=== PATIENT | male | born 1945 | race Caucasian/White ===

== ENCOUNTER 2020-03-06 14:16 | Emergency (ER) | payer MEDICARE, SELFPAY ==
[2020-03-06 14:18] VITALS: BP 125/77; PULSE 54; RESP 18; TEMP 36.5; O2SAT 95; BMI 32.6
[2020-03-06 14:25] VITALS: BP 126/73; PULSE 52; RESP 16; O2SAT 96
--- NOTE | 2020-03-06 14:27 | USCV_ITS ---
Moustapha Nunes Age: 74 Gender: M : 1945 Exam Date: 03/06/2020 14:37 Ordering Phys: July Kirkland Technologist: Ave Guerra Exam Location: [facility]_ Indication: CALF PAIN HISTORY: Lower extremity swelling. Lower extremity pain. PROCEDURES: Venous duplex imaging was performed in only the left lower extremity. The following venous structures were evaluated: common femoral vein, profunda vein, proximal portion of the greater saphenous vein, superficial femoral vein, and the popliteal vein. In addition, the posterior tibial veins were evaluated. In addition, the posterior tibial and peroneal trunk were evaluated. FINDINGS: DUP SYSTEM SEEN. + DVT SEEN FROM LEFT SFV 1 PROX TO SFV 1 DIST, POPV, PTV, AND PERN V. GAVE PRELIM TO JULY AUSTIN IN ER. CONCLUSIONS DVT in the LEFT femoral vein, popliteal, posterior tibial and peroneal veins. Duplicated femoral venous system. PRELIM TO JULY AUSTIN IN ER AT TIME OF EXAM Antwan Richardson MD (Electronically Signed) Final Date: 06 March 2020 17:05 S
--- NOTE | 2020-03-06 14:28 | W.ED.EXTPRO ---
HPI - Extremity Problem General: Chief complaint: Extremity Problem,Nontraumatic Stated complaint: SENT FROM FOR SCAN FOR POSS DVT Time Seen by Provider: 03/06/20 14:21 Source: patient Mode of arrival: ambulatory Limitations: no limitations History of Present Illness: HPI Narrative: Patient is a nice 74-year-old gentleman who presents to ED today after being evaluated at urgent care and sent here for further evaluation regarding his left lower extremity redness, swelling, and pain. Patient tells me approximately 4 to 5 days ago he began noticing pain in his left calf that felt like a pulled muscle. He states since then he has noticed extremity swelling and becoming warm to the touch. Patient has no previous history of DVT. He has no recent surgery or recent travel history. He admittedly is not very active. He denies chest pain or difficulty breathing. Patient is not on anticoagulation at this time. Radiation: none Exacerbating factors: weight bearing, walking and palpation Associated symptoms: Reports no associated symptoms; Deny chest pain or fever(s) Review of Systems Const: Denies: fever(s), chills, body aches, fatigue or malaise Card: Denies: chest pain, palpitations, irregular heart rhythm, edema, lightheadedness, syncope, pre-syncope, dyspnea on exertion or orthopnea Resp: Denies: dyspnea, productive cough, hemoptysis or chest congestion Musc: Reports: extremity pain and extremity swelling Neuro: Denies: numbness in extremities, weakness in extremities, sensory changes or difficulty walking [facility] ED PFSH: Social History (Updated 03/06/20 @ 13:42 by MARY Tabares) Smoking and tobacco status: never smoked Alcohol intake: current Physical Exam Const: COMMON NORMALS: no acute distress, patient oriented x3, no limitations and alert GENERAL APPEARANCE: cooperative Resp: COMMON NORMALS: normal respiratory effort and clear to auscultation bilaterally AUSCULTATION: clear to auscultation bilaterally Cardio: COMMON NORMALS: regular rate and regular rhythm RATE: regular rate RHYTHM: regular rhythm Extremity: OTHER: pt with swelling to L LE when compared to R; leg is slightly erythematous and warm to the touch; positive Brian's Neuro: COMMON NORMALS: patient oriented x3 SENSORIUM/ORIENTATION: Yes alert Course Vital Signs: Vital signs: Vital Signs Temperature 97.7 F 03/06/20 14:18 Pulse Rate 52 L 03/06/20 14:25 Respiratory Rate 16 03/06/20 14:25 Blood Pressure 126/73 03/06/20 14:25 Pulse Oximetry 96 03/06/20 14:25 MDM - Extremity (Nontraumatic) MDM Narrative: Medical decision making narrative: Patient vital signs are stable. He does not complain of chest pain or shortness of breath at this time. Ultrasound showing extensive left lower extremity DVT. He will be placed on Eliquis. He agrees to follow-up with PCP in 2 to 3 weeks for reevaluation. He was made aware of signs/symptoms that would warrant a return to ED evaluation. Imaging Data^: US venous L LE: My impression: per US tech-DVT present from femoral vein all the way down extremity; arterial flow normal Discharge Plan Discharge Patient Disposition: Home Clinical Impression: Acute deep vein thrombosis of left lower extremity Qualifiers: Affected thrombotic vein of extremity: unspecified vein of extremity Qualified Code(s): I82.402 - Acute embolism and thrombosis of unspecified deep veins of left lower extremity Condition: Stable Prescriptions: New Eliquis DVT-PE Treat 30D Start 5 mg (74 tabs) tablets,dose pack See Rx Instructions .ROUTE .COMPLEX Qty: 74 RF: 0 No Action atorvastatin [Lipitor] 10 mg tablet 10 mg PO DAILY RF: 0 clopidogrel 75 mg tablet 75 mg PO DAILY RF: 0 metoprolol succinate 25 mg tablet extended release 24 hr 12.5 mg PO DAILY RF: 0 enalapril maleate 2.5 mg tablet 2.5 mg PO DAILY RF: 0 aspirin 81 mg tablet,delayed release (DR/EC) 81 mg PO DAILY RF: 0 Discharge Orders: Discharge ED (Routine); Ordered 03/06/20 Ordered By: July Kirkland Patient Instructions: Deep Venous Thrombosis (ED) Activity Restrictions/Additional Instructions: As discussed please fill and start your medication immediately. You need to return to the emergency department immediately for chest pain, shortness of breath, difficulty breathing, passing out episodes, coughing up blood, worsening leg pain/swelling, or any other concerns you may have. Please follow-up with primary care in 2 to 3 weeks for reevaluation and repeat ultrasound imaging. Coding Level of Care Code ED Route Sales Driver for Chg Fwd Exam Expanded Problem Focused
--- NOTE | 2020-03-06 15:03 | PC.NURSE ---
Read and agree with assessment
--- NOTE | 2020-03-07 13:34 | DCPLANNER ---
cost accounting manager had message to speak with patient about getting established with a primary care physician. cost accounting manager spoke with patient and he stated that he was going to get established with a primary care at [facility].
== END 2020-03-06 15:23 | disposition home or self-care (01) ==
PROVIDERS: Emergency Provider Physician Assistant
DX: I82.402 Acute embolism and thrombosis of unspecified deep veins of left lower extremity (principal); Z79.02 Long term (current) use of antithrombotics/antiplatelets; Z79.82 Long term (current) use of aspirin
CPT/HCPCS: 12345; 93971; 99281; 99282

== ENCOUNTER → 2020-03-16 10:54 | Outpatient (BNVA) | payer MEDICARE, SELFPAY | PROVIDERS: Visit Provider Family Medicine | DX: I10 Essential (primary) hypertension (principal); Z13.6 Encounter for screening for cardiovascular disorders; K21.9 Gastro-esophageal reflux disease without esophagitis | CPT/HCPCS: 80053 ==

== ENCOUNTER 2020-06-12 11:14 | Outpatient (CLI) | payer MEDICARE, SELFPAY ==
--- NOTE | 2020-06-12 11:30 | FL_ITS ---
WS: [id number] MODIFIED BARIUM SWALLOW TECHNIQUE: Modified barium swallow with speech therapy using multiple consistencies. FLUOROSCOPY TIME: 3.2 minutes. CLINICAL INFORMATION: Dysphagia COMPARISON: None. FINDINGS: Multiple consistencies utilized. Penetration with thin liquids. Early spillage with pooling in the va llecula. No jony aspiration. Delayed transit of the barium tablet in the upper thoracic esophagus wi th esophageal spasm or stricture. Recommend further evaluation with esophagram and/or endoscopy. FL/FL barium swallow modifd 40752 IMPRESSION: 1. Delayed transit of the barium tablet in the upper thoracic esophagus with e sophageal spasm or stricture. Recommend further evaluation with esophagram and/ or endoscopy. 2. Penetration with thin liquids. 3. No jony aspiration. 4. Early spillage with pooling in the vallecula.
== END 2020-06-12 11:15 | disposition home or self-care (01) ==
LOC: RAD 11:20
PROVIDERS: PCP Family Medicine; Visit Provider Family Medicine
DX: R13.10 Dysphagia, unspecified (principal)
CPT/HCPCS: 74230; 92611

== ENCOUNTER → 2020-06-27 09:00 | Outpatient (BNVA) | payer MEDICARE, SELFPAY | PROVIDERS: PCP Family Medicine; Visit Provider Surgery | DX: R13.10 Dysphagia, unspecified (principal); Z20.822 Contact with and (suspected) exposure to COVID-19 | CPT/HCPCS: 87635 ==

== ENCOUNTER 2020-07-02 06:48 | Day surgery (SDC) | payer MEDICARE, SELFPAY ==
[2020-06-29 15:11] VITALS: BMI 30.4
--- NOTE | 2020-07-02 06:57 | ANES.PREANE2 ---
Pre-Anesthetic Assessment Pre-Anesthetic Assessment: Height/Weight: Height 1.73 m Weight 90.718 kg Preop Diagnosis: dysphagia Proposed Procedure: Operation Date: 07/02/20 08:00 Proposed Procedures p EGD 73308 r13.10(Not Applicable) - Dat Dennison MD Familial anesthetic complications: None Was Beta Oscar taken within 24 hours: Yes Was Clonidine taken within 24 hours: N/A Last intake: thursday last time of eliquis (DVT), aspirin, and plavix ([place] in 1993) NPO > 8 hrs Social: Social History: No alcohol and No tobacco Exam: Pre-Anes Outpt Exam: alert, oriented x 3, clear to auscultation bilaterally and regular rate & rhythm Airway: Cervical ROM: WNL MP: 2 Dentition: Partials CV/HEM: CV/HEM: HTN and UT Comments: METS > 4 GI: GI: GERD Metabolic: Metabolic: Thyroid Anesthetic Plan: Anesthesia: MAC Risk of > 500 ml blood loss (7ml/kg in children): No PFSH Anesthesia PFSH: Medical History CHF (congestive heart failure) Colon cancer DVT (deep venous thrombosis) Essential hypertension Hyperlipidemia Hypothyroid Old UT (myocardial infarction) Surgical History History of appendectomy History of colon resection 2014 History of colonoscopy 2019 Hx of CABG Family History Other CAD (coronary artery disease) Social History Smoking and tobacco status: never smoked Alcohol intake: current Alcohol intake frequency: few times a week Alcohol type: beer Data Anesthesia Cardiac Studies: No Data to Display
--- NOTE | 2020-07-02 07:12 | W.PM.OPSUD ---
Surgery/Procedure H&P Update DATE OF PROCEDURE: July 02, 2020 DATE H&P PERFORMED: 06/25/20 H&P UPDATE INFORMATION: I have reviewed H&P completed within last 30 days, I have examined patient prior to procedure and No changes to prior documentation PREOP DIAGNOSIS: upper gi symptoms PLANNED PROCEDURE: Operation Date: 07/02/20 08:00 Proposed Procedures p EGD 86452 r13.10(Not Applicable) - Dat Dennison MD
[2020-07-02 07:19] VITALS: BP 117/72; PULSE 57; RESP 18; TEMP 36.5; O2SAT 95
[2020-07-02] MEDS: sodium chloride 0.9% 1,000 ML 30 ML IV (07:29)
[2020-07-02 08:20] VITALS: BP 120/80; PULSE 56; RESP 16; TEMP 36.1; O2SAT 97
[2020-07-02 08:35] VITALS: BP 109/67; PULSE 60; RESP 16; TEMP 36.5; O2SAT 98
--- NOTE | 2020-07-02 15:41 | ANE.PACU2 ---
Inpatient post-anesthesia follow up: Airway intact: Yes Vital signs: Temperature 97.7 F Pulse Rate 60 Respiratory Rate 16 Blood Pressure 109/67 Pulse Oximetry 98 Oxygen Delivery Me thod Room Air Oxygen Flow Rate 3 Fraction of Inspir ed Oxygen Hydration adequate: Yes Nausea and vomiting: No Pain level: 1 Mental status: Baseline
[2020-07-09 07:17] LABS: Miscellaneous Test See Scanned Lab Rpt
== END 2020-07-02 09:10 | disposition home or self-care (01) ==
PROVIDERS: PCP Family Medicine; Visit Provider Surgery
PROC: 0DJ08ZZ Inspection of Upper Intestinal Tract, Via Natural or Artificial Opening Endoscopic (ICD-10-PCS; CPT 43235; principal; 2020-07-02 08:00)
DX: R13.10 Dysphagia, unspecified (principal); K44.9 Diaphragmatic hernia without obstruction or gangrene; K22.2 Esophageal obstruction; K21.9 Gastro-esophageal reflux disease without esophagitis; Z79.82 Long term (current) use of aspirin; I11.0 Hypertensive heart disease with heart failure; I50.9 Heart failure, unspecified; Z86.718 Personal history of other venous thrombosis and embolism; Z85.038 Personal history of other malignant neoplasm of large intestine; E78.5 Hyperlipidemia, unspecified; E03.9 Hypothyroidism, unspecified; I25.2 Old myocardial infarction; Z90.49 Acquired absence of other specified parts of digestive tract
CPT/HCPCS: 43239; 43249; 88305; 88361; 88374; 96360; J2704; J7030

== ENCOUNTER 2020-07-24 12:57 | Outpatient (CLI) | payer MEDICARE, SELFPAY ==
--- NOTE | 2020-07-24 16:33 | ONC FU_ITS ---
Dr. Sorto follow up note Patient: Moustapha Nunes Unit #: [id number]: 1945 Dicatated By: Serafin Sorto M.D.Date of Visit:Jul 24, 2020 Onc Med Follow-up/Prog Note History of Present Illness: Mr. Moustapha Nunes, is a 72-year-old gentleman with prolonged history of esophageal reflux disease, as per patient initially [id number] medication would help then patient started taking daily omeprazole which helped him significantly, for the last few months prior to diagnosis, patient started having progressive dysphagia and he has lost about 30 pounds over 6 months partly due to change in diet as his is on long-term TPN for enterocutaneous fistula and also due to progressive dysphagia. Patient denies any hematemesis or hemoptysis, denies any jaundice, denies any chest pain, denies any nausea or vomiting, denies any fever chills, patient was referred to GI for evaluation and on July 02, 2020 he underwent EGD which confirmed, at 20 cm there was a benign appearing esophageal stricture which was dilated with a balloon, from - 6 cm, there was mucosal abnormality and there was a concern regarding esophageal mass, biopsy was obtained which confirmed moderately differentiated invasive adenocarcinoma, HER-2/cortez negative. 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 Medications: Aspirin 81 1 Tablet (of 81 mg) Tablet, enteric coated Oral daily, Atorvastatin Calcium 2 Tablet (of 40 mg) Oral daily, Cholecalciferol 1 Tablet (of 1.25 mg ) Oral daily, Clopidogrel Bisulfate 1 Tablet (of 75 mg) Oral daily, Enalapril Maleate 2 Tablet (of 5 mg) Oral daily, Isosorbide Mononitrate ER 1 Tablet (of 60 mg) Tablet SR 24 HR Oral daily, Levothyroxine Sodium 1 Tablet (of 175 mcg) Oral daily, Metoprolol Succinate ER 1 Tablet (of 50 mg) Tablet SR 24 HR Oral daily, Omeprazole 1 Capsule (of 20 mg) Capsule Delayed Release Oral daily Allergies: No Known Allergies. Review of Systems: Review of Systems is not available for this patient. Vital Signs: Performed on Jul 24, 2020 14:04 Height - 68 in Weight - 202.6 lbs (HIGH) BSA - 2.06 sq.m BMI - 30.81 (HIGH) Temperature - 97.8 F (LOW) Pulse - 54 /min (LOW) Respiration - 18 /min BP - 119/68 mm(hg) O2 Sat - 97 % Pain - 4 Fatigue - 0 Performance Status: 0 - Fully active, able to carry on all predisease activities without restrictions. (ECOG) Physical Examination: ENMT - No mouth sores no thrush, no jaundice, Respiratory - Lungs are clear to auscultation, Cardiovascular - Regular rate and rhythm of heart, Abdomen - Soft, bowel sounds present, Extremities - No visible edema. Lab/Imaging: Most recent lab results are not available for this patient. 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 Dysphagia/weight loss due to above Coronary artery disease/congestive heart failure/status post triple bypass in 1993 History of left leg DVT treated with Eliquis until recently Hypertension, Hypothyroidism History of colon cancer status post colon resection in 2014 Plan: Discussed with patient regarding his esophageal biopsy report which confirmed moderately differentiated adenocarcinoma, patient had CT scan of chest done in [place], will obtain report and review As far as treatment is concerned, it is a multi modality approach unless early stage, in that case, surgical option may be sufficient but considering his weight loss and progressive dysphagia, patient may have T2 or T3 lesion plus minus lymph node involvement, so , we will proceed with staging work-up which include endoscopic esophageal ultrasound and CT PET scan And surgical evaluation for J-tube placement. Endoscopic esophageal ultrasound services not available locally so we will refer him to [place] or [place], patient prefer to go to [place] as his go there for her enterocutaneous fistula management So we will refer him to GI surgical oncology at [facility] in [place] for surgical evaluation and for endoscopic esophageal ultrasound and J-tube placement. If patient has locally advanced disease then he may need combined chemoradiation as neoadjuvant therapy, for patient's convenience that will be done here in [place]. Patient to return to clinic 1 week after his evaluation at [place] in [place] with CBC CMP. Signed By: Serafin Sorto M.D. <<Signature on File>>
== END 2020-07-24 12:58 | disposition home or self-care (01) ==
LOC: ONCMED 12:59
PROVIDERS: PCP Family Medicine; Visit Provider Internal Medicine Hematology & Oncology
DX: C15.5 Malignant neoplasm of lower third of esophagus (principal); R13.10 Dysphagia, unspecified; R63.4 Abnormal weight loss; I25.10 Atherosclerotic heart disease of native coronary artery without angina pectoris; I50.9 Heart failure, unspecified; I10 Essential (primary) hypertension; E03.9 Hypothyroidism, unspecified; Z79.01 Long term (current) use of anticoagulants; Z79.899 Other long term (current) drug therapy; Z85.038 Personal history of other malignant neoplasm of large intestine; Z86.718 Personal history of other venous thrombosis and embolism; Z90.49 Acquired absence of other specified parts of digestive tract; Z95.1 Presence of aortocoronary bypass graft
CPT/HCPCS: 99205

== ENCOUNTER 2020-08-07 13:03 | Outpatient (CLI) | payer MEDICARE, SELFPAY ==
[2020-08-07 13:48] LABS: Basophils % 0.6 %; Eosinophils # 0.2 10^3/uL (0.0-0.8); Eosinophils % 2.3 %; Hematocrit 46.8 % (42.0-52.0); Hemoglobin 15.9 g/dL (11.7-16.6); Lymphocytes # 1.1 10^3/uL (0.8-4.8); Lymphocytes % 15.5 %; Mean Corpuscular Hemoglobin 31.5 pg (28.0-34.0); Mean Corpuscular Volume 92.9 fL (80-94); Mean Platelet Volume 10.7 fL (7.4-10.4); Monocytes # 0.5 10^3/uL (0.2-0.9); Monocytes % 6.7 %; Neutrophils # 5.21 10^3/uL (1.8-7.7); Neutrophils % 74.6 %; Nucleated Red Blood Cells % 0 %; Platelet Count 209 10^3/cmm (130-400); Red Blood Count 5.04 10^6/uL (4.1-5.3); Red Cell Distribution Width 12.3 % (12.1-15.1)
[2020-08-07 14:41] LABS: Alanine Aminotransferase 18 U/L (0-41); Albumin Level 4.5 g/dL (3.5-5.2); Alkaline Phosphatase 86 IU/L (40-130); Anion Gap 17.2 (5-19); Aspartate Amino Transferase 16 U/L (0-40); Blood Urea Nitrogen 22 mg/dL (8-23); Calcium 9.9 mg/dL (8.5-10.5); Carbon Dioxide 22 mmol/L (22-29); Chloride 100 mmol/L (98-107); Glucose 117 mg/dL (65-115); Osmolality Calculated 284 mOsm/kg (285-295); Potassium 4.2 mmol/L (3.5-5.1); Sodium 135 mmol/L (136-145); Total Bilirubin 0.5 mg/dL (0.15-1.2); Total Protein 6.5 g/dL (6.6-8.7)
== END 2020-08-07 13:04 | disposition home or self-care (01) ==
PROVIDERS: PCP Family Medicine; Visit Provider Internal Medicine Hematology & Oncology
DX: C15.5 Malignant neoplasm of lower third of esophagus (principal)
CPT/HCPCS: 80053; 85025

== ENCOUNTER 2020-08-08 06:00 | Outpatient (CLI) | payer MEDICARE, SELFPAY ==
--- NOTE | 2020-08-08 11:34 | ONC FU_ITS ---
Dr. Sorto follow up note Patient: Moustapha Nunes Unit #: [id number]: 1945 Dicatated By: Serafin Sorto M.D.Date of Visit:Aug 08, 2020 Onc Med Follow-up/Prog Note History of Present Illness: Mr. Moustapha Nunes, is a 75-year-old gentleman with prolonged history of esophageal reflux disease, as per patient initially vguq-yso-qnrkcfu medication would help then patient started taking daily omeprazole which helped him significantly, for the last few months prior to diagnosis, patient started having progressive dysphagia and he has lost about 30 pounds over 6 months partly due to change in diet as his is on long-term TPN for enterocutaneous fistula and also due to progressive dysphagia. 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 Multiple pulmonary nodules, appears stable when compared with CT scan done in March 2015, subsequently patient underwent CT PET scan on August 06, 2020 which showed hypermetabolic long segment soft tissue thickening extending from proximal to the mid thoracic esophagus with a possible proximal extra esophageal extension/suspicious for adjacent lymphadenopathy. A separate focus of FDG activity in the distal esophagus is indeterminate. FDG avid right inguinal lymph node most likely reactive. No other abnormality seen. Patient was evaluated by Dr. Blanton, EUS and J-tube was not considered as patient has mild to moderate dysphagia, as per discussion with Ms. Langford, nursing practitioner with Dr. Blanton, combined chemoradiation therapy and neoadjuvant fashion was recommended followed by evaluation with CT PET scan at [facility] and for possible esophagectomy. Patient denies any smoking or alcohol use Patient has history of DVT left lower leg for which he was treated with Eliquis which he took for couple of months and quit recently Patient has history of triple bypass, was done in 1993. Came for follow-up, denies any specific complaint except off and on dysphagia, recently had a problem with potato, which took a long time to swallow. Otherwise no hemoptysis or hematemesis, no nausea or vomiting, no diarrhea or constipation, no new bony pains, no jaundice, patient is very pleased with evaluation at [facility] and now ready to proceed with neoadjuvant therapy with combined chemoradiation, Medications: Aspirin 81 1 Tablet (of 81 mg) Tablet, enteric coated Oral daily, Atorvastatin Calcium 2 Tablet (of 40 mg) Oral daily, Cholecalciferol 1 Tablet (of 1.25 mg ) Oral daily, Clopidogrel Bisulfate 1 Tablet (of 75 mg) Oral daily, Enalapril Maleate 2 Tablet (of 5 mg) Oral daily, Isosorbide Mononitrate ER 1 Tablet (of 60 mg) Tablet SR 24 HR Oral daily, Levothyroxine Sodium 1 Tablet (of 175 mcg) Oral daily, Metoprolol Succinate ER 1 Tablet (of 50 mg) Tablet SR 24 HR Oral daily, Omeprazole 1 Capsule (of 20 mg) Capsule Delayed Release Oral daily Allergies: No Known Allergies. Review of Systems: Review of Systems is not available for this patient. Vital Signs: Performed on Aug 08, 2020 09:52 Height - 68.00 in Weight - 194.2 lbs (LOW) BSA - 2.02 sq.m BMI - 29.53 Temperature - 97.7 F (LOW) Pulse - 56 /min (LOW) Respiration - 18 /min BP - 101/63 mm(hg) O2 Sat - 97 % Pain - 4 Fatigue - 4 Performance Status: 0 - Fully active, able to carry on all predisease activities without restrictions. (ECOG) Physical Examination: ENMT - No mouth sores, no thrush, no jaundice no cervical lymphadenopathy, Respiratory - Lungs are clear to auscultation, Cardiovascular - Regular rate and rhythm of heart, Abdomen - Soft, bowel sounds present, Extremities - No visible edema. Lab/Imaging: Most recent lab results are not available for this patient. 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 CT PET scan done on August 06, 2020 at [facility] showed hypermetabolic lung segment soft tissue thickening extending from proximal to the mid thoracic esophagus with possible proximal x-ray esophageal extension/suspicious for adjacent lymphadenopathy, consistent with patient's biopsy-proven esophageal adenocarcinoma. A separate focus of FDG activity in the distal esophagus is indeterminate. FDG avid right inguinal lymph nodes, probably reactive no FDG PET evidence of distant mets Dysphagia/weight loss due to above Coronary artery disease/congestive heart failure/status post triple bypass in 1993 History of left leg DVT treated with Eliquis until recently Hypertension, Hypothyroidism History of colon cancer status post colon resection in 2014 Plan: Discussed with patient regarding his labs white blood count 7 hemoglobin 15.9 hematocrit 46.8 platelets 209,000 CMP within normal limits Clinically, patient is doing reasonably well with mild to moderate dysphagia due to recently diagnosed adenocarcinoma of esophagus, CT PET scan showed no evidence of distant mets, patient was evaluated at [facility], EUS and J-tube was considered but as per cardiothoracic evaluation and patient's preference, EUS and J-tube was not considered as patient is tolerating orally reasonably well. At this point, neoadjuvant therapy with combined chemoradiation with weekly carboplatin/Taxol well recommended followed by CT PET scan and evaluation at [facility] for possible esophagectomy. All the side effect possible benefits associated with weekly carboplatin/Taxol including but not limited to, nausea vomiting, hair loss, peripheral numbness/neuropathy, allergic reaction especially with Taxol,, bone marrow suppression was discussed, further teaching will be done by chemotherapy nurse in the meantime we will obtain Port-A-Cath placement request Dr. Dennison and refer him to radiation oncology. Patient return to clinic 1 week after chemoradiation initiated with CBC CMP Signed By: Serafin Sorto M.D. <<Signature on File>>
== END 2020-08-08 06:01 | disposition home or self-care (01) ==
LOC: ONCMED 06:02
PROVIDERS: PCP Family Medicine; Visit Provider Internal Medicine Hematology & Oncology
DX: C15.5 Malignant neoplasm of lower third of esophagus (principal); C77.8 Secondary and unspecified malignant neoplasm of lymph nodes of multiple regions; R13.10 Dysphagia, unspecified; R63.4 Abnormal weight loss; I25.10 Atherosclerotic heart disease of native coronary artery without angina pectoris; I50.9 Heart failure, unspecified; I10 Essential (primary) hypertension; E03.9 Hypothyroidism, unspecified; Z79.01 Long term (current) use of anticoagulants; Z79.899 Other long term (current) drug therapy; Z85.038 Personal history of other malignant neoplasm of large intestine; Z86.718 Personal history of other venous thrombosis and embolism; Z92.21 Personal history of antineoplastic chemotherapy; Z95.5 Presence of coronary angioplasty implant and graft
CPT/HCPCS: 99214

== ENCOUNTER → 2020-08-10 13:41 | Outpatient (BNVA) | payer MEDICARE, SELFPAY | PROVIDERS: PCP Family Medicine; Visit Provider Surgery | DX: Z01.812 Encounter for preprocedural laboratory examination (principal); Z20.822 Contact with and (suspected) exposure to COVID-19 | CPT/HCPCS: 87635 ==

== ENCOUNTER 2020-08-15 05:43 | Day surgery (SDC) | payer MEDICARE, SELFPAY ==
[2020-08-14 15:52] VITALS: BMI 29.0
[2020-08-15] VITALS (8 sets, daily range): BP systolic 91–122; BP diastolic 59–73; PULSE 42–56; RESP 16–18; TEMP 36.1–36.6; O2SAT 92–96
--- NOTE | 2020-08-15 | SCC_ITS ---
Procedure Done: Placement of PowerPort in the right internal jugular vein Fluoroscopic guidance and interpretation for placement of catheter Ultrasound guidance to access the right internal jugular vein 50.0 seconds of fluoroscopic guidance, for a cumulative dose of 6.61 mGy, was provided to Dr. Dennison by the radiology department. C-arm images of the chest were saved for the patient's permanent record. [facility]
[2020-08-15] MEDS: sodium chloride 0.9% 1,000 ML 30 ML IV (06:30)
--- NOTE | 2020-08-15 06:31 | ANES.PREANE2 ---
Pre-Anesthetic Assessment Pre-Anesthetic Assessment: Height/Weight: Height 1.73 m Weight 86.636 kg Temp Pulse Resp BP Pulse Ox 97.1 F L 56 L 18 122/73 96 08/15/20 06:07 08/15/20 06:07 08/15/20 06:07 08/15/20 06:07 08/15/20 06:07 Preop Diagnosis: Esophageal cancer Proposed Procedure: Operation Date: 08/15/20 07:00 Proposed Procedures p Portacath Placement 26214 c15.9(Not Applicable) - Dat Dennison MD Familial anesthetic complications: none Was Beta Oscar taken within 24 hours: Yes Was Clonidine taken within 24 hours: N/A Last intake: Intake Last Liquid Date 08/14/20 Last Liquid Time 17:00 Last Solid Date 08/14/20 Last Solid Time 17:00 Social: Social History: No alcohol and No tobacco Exam: Pre-Anes Outpt Exam: alert, oriented x 3, clear to auscultation bilaterally and regular rate & rhythm Airway: Cervical ROM: WNL MP: 2 Dentition: False CV/HEM: CV/HEM: HTN and [place] (1993) Comments: able to achieve > 4 METS GI: GI: GERD Comments: esophageal cancer Metabolic: Metabolic: Thyroid Anesthetic Plan: ASA status: 4 Anesthesia: MAC Risk of > 500 ml blood loss (7ml/kg in children): No PFSH Anesthesia PFSH: Medical History CHF (congestive heart failure) Colon cancer DVT (deep venous thrombosis) Esophageal adenocarcinoma Essential hypertension Hyperlipidemia Hypothyroid Old AL (myocardial infarction) Surgical History H/O esophagogastroduodenoscopy (07/02/20) With dilation History of appendectomy History of colon resection 2014 History of colonoscopy 2019 Hx of CABG Family History Other CAD (coronary artery disease) Social History Smoking and tobacco status: never smoked Alcohol intake: current Alcohol intake frequency: few times a week Alcohol type: beer Data Anesthesia Cardiac Studies: No Data to Display
--- NOTE | 2020-08-15 06:50 | W.PM.OPSUD ---
Surgery/Procedure H&P Update DATE OF PROCEDURE: August 15, 2020 DATE H&P PERFORMED: 08/14/20 H&P UPDATE INFORMATION: I have reviewed H&P completed within last 30 days, I have examined patient prior to procedure and No changes to prior documentation PREOP DIAGNOSIS: Esophageal cancer PLANNED PROCEDURE: Operation Date: 08/15/20 07:00 Proposed Procedures p Portacath Placement 37800 c15.9(Not Applicable) - Dat Dennison MD
--- NOTE | 2020-08-15 07:04 | SC_ITS ---
WS: [id number] Right port insertion, C-arm fluoroscopy, 08/15/2020 Clinical Data: port Comparison: None. Findings: The right-sided port has been inserted into the superior vena cava via the right internal jugular jennifer boone. SC/C-arm FL for CVA 59011 Impression: Right port insertion.
[2020-08-15] MEDS: lidocaine 1% INJ 20 mL INJECTION (07:18)
[2020-08-15] MEDS: heparin, porcine 1,000 unit/mL INJ 10 mL 6000 UNIT INJECTION (07:18)
--- NOTE | 2020-08-15 07:43 | XR_ITS ---
WS: [id number] Portable AP upright chest, 08/15/2020 Clinical Data: post port placement Comparison: C-arm fluoroscopy, port placement, 08/15/2020 Findings: The right port enters the right internal jugular vein and ends in the superior vena cava. N o pneumothorax seen. XR/XR chest 1V portable [id number] Impression: Satisfactory placement of a right port.
--- NOTE | 2020-08-15 07:44 | SUR.PHASEI ---
PT AWAKE ALERT SITTING UPRIGHT , TALKATIVE XRAY HERE, VSS.
--- NOTE | 2020-08-15 15:46 | ANE.PACU2 ---
Inpatient post-anesthesia follow up: Airway intact: Yes Vital signs: Temperature 97 F Pulse Rate 47 Respiratory Rate 18 Blood Pressure 93/59 Pulse Oximetry 94 Oxygen Delivery Me thod Room Air Oxygen Flow Rate Fraction of Inspir ed Oxygen Hydration adequate: Yes Nausea and vomiting: No Pain level: 2 Mental status: Baseline
--- NOTE | 2020-08-15 16:30 | PM.OP ---
Operative Report Date of procedure: August 15, 2020 Pre-op Diagnosis: Esophageal cancer requiring central venous access for chemotherapy Post-op Diagnosis: 3 unsuccessful attempts at accessing the left subclavian vein Procedure Done: Placement of PowerPort in the right internal jugular vein Fluoroscopic guidance and interpretation for placement of catheter Ultrasound guidance to access the right internal jugular vein Pathology: none sent Surgeon: Dat Dennison Anesthesia: MAC Condition: stable Disposition: PACU Procedure: The patient was taken to the Operating Room and the chest and neck bilaterally were prepped and draped in a sterile manner after the antibiotic had been administered and shoulder rolls had been placed. 3 attempts were made to to access the left subclavian vein which were unsuccessful. A total of 10 mL of 1% lidocaine with 0.5% Marcaine was infiltrated at the side at the site of the planned entry into the right internal jugular vein. An ultrasound of the right internal jugular vein revealed patent flow, no thrombus. An introducer needle was then used to access the internal jugular vein under the clavicle and after withdrawing blood syringe was removed and a guidewire passed under fluoroscopy into the superior vena cava. The site of the planned port was then marked on the chest and a 15 blade was used to make a 3 cm skin incision this was extended into the subcutaneous tissue using electrocautery and a subcutaneous pocket over the pectoralis fascia was created 2-0 Vicryl suture was used to suture the port to the pectoral fascia in the pocket on 3 sides. The catheter, after having been flushed with hep saline, was attached to the tunneler and a tunnel created between the port site and the internal jugular vein entry site. Under fluoroscopy the dilator sheath was passed over the guidewire into the proximal superior vena cava. The inner dilator was removed and the sheath left behind and the catheter was introduced through the peel-away sheath with the tip in the superior vena cava. The peel-away sheath was removed. The proximal end of the catheter was cut to the right size and was attached to the port. Using a Merritt needle the port was accessed, it withdrew blood easily and flushed easily. A final 5cc of heparin was used to flush the PowerPort. The subcutaneous tissue was approximated using interrupted 3-0 Vicryl sutures and the skin at the introducer site and the port site was closed using subcuticular running 4-0 Monocryl sutures. Surgical glue was applied and the patient was stable throughout the procedure. Fluoroscopic guidance and interpretation was performed for introduction of the guidewire in the right internal jugular vein, passage of dilator and placement of catheter tip in the distal superior vena cava.
== END 2020-08-15 08:43 | disposition home or self-care (01) ==
PROVIDERS: PCP Family Medicine; Visit Provider Surgery
PROC: (CPT 36561; principal; 2020-08-15 07:00)
DX: C15.9 Malignant neoplasm of esophagus, unspecified (principal); I10 Essential (primary) hypertension; I25.2 Old myocardial infarction; K21.9 Gastro-esophageal reflux disease without esophagitis; I11.0 Hypertensive heart disease with heart failure; I50.9 Heart failure, unspecified; Z85.038 Personal history of other malignant neoplasm of large intestine; Z86.718 Personal history of other venous thrombosis and embolism; E78.5 Hyperlipidemia, unspecified; E03.9 Hypothyroidism, unspecified; Z79.82 Long term (current) use of aspirin; Z95.1 Presence of aortocoronary bypass graft
CPT/HCPCS: 36561; 71045; 76000; 77001; 96365; C1788; J0690; J1644; J2250; J2704; J3010; J3490; J7030

== ENCOUNTER 2020-08-16 07:29 | Outpatient (CLI) | payer MEDICARE, SELFPAY ==
--- NOTE | 2020-08-16 13:35 | N.ONRAD NP_ITS ---
Radiation Oncology Consultation Patient Name: Moustapha Nunes Date of : 1945 Date of Service: 08/16/2020 Attending Physician: Diaz Vegas M.D. Moustapha Nunes was seen in consultation this afternoon at the request of Ester Sorto M.D. for consideration of esophageal radiotherapy for the management of a recently diagnosed esophageal carcinoma. He initially presented for medical care to his primary care physician in June on account of progressive dysphagia to solid food. An upper endoscopy completed by Dat Dennison M.D. on July 02, 2020 revealed an esophageal stricture at 20 cm from the central incisors which was serially dilated. The mucosa appeared abnormal between 25 cm to 35 cm and biopsies were obtained. Pathology diagnosed a moderately differentiated invasive adenocarcinoma without HER???[address] of the chest ordered on July 10, 2020 identified a 2.9 cm esophageal mass with a hiatal hernia and adjacent mediastinal adenopathy. He was referred to [facility] cardiothoracic surgery in [place], [place]. A PET CT performed on August 06, 2020 confirmed hypermetabolic activity extending from the proximal thoracic esophagus to the mid esophagus measuring 11 cm with a maximum SUV of 14.2. Periesophageal extension was noted with only hypermetabolic adjacent lymph adenopathy. Within the distal esophagus, was a small focus of FDG avidity. An endoscopic ultrasonography for tumor staging was not recommended. The patient was evaluated concerning neoadjuvant radiotherapy. I discussed the patient's AJCC clinical stage III (T2N1 versus T3N1) esophageal cancer and the National Comprehensive Cancer Network Guidelines endorsing preoperative chemoradiation. Recommendations are based upon the CROSS study which compared surgery alone to preoperative chemoradiotherapy significantly improved overall survival (5-year 47% versus 34%) and disease-free survival compared to surgery alone in patients with resectable esophageal or esophago-gastric junction cancers. Long-term results of this trial confirmed significant improvement in median overall survival (43 months versus 27 months for patients with adenocarcinoma). I would recommend a 5-week course of radiotherapy. Prior to beginning treatment, a planning CT scan with contrast will be acquired and co-registered to the patient's staging PET CT scan to delineate the gross tumor volumes. Potential toxicities of radiation treatment have been reviewed. The patient has verbalized understanding would like to proceed as recommended. The patient's medical treatment was discussed with Ester Sorto M.D. Signed by: Dr. Diaz Vegas 08/16/2020 1:33:48 PM
== END 2020-08-16 07:30 | disposition home or self-care (01) ==
LOC: ONCMED 07:31
PROVIDERS: PCP Family Medicine; Visit Provider Radiology Radiation Oncology
DX: C15.5 Malignant neoplasm of lower third of esophagus (principal); R13.10 Dysphagia, unspecified; K44.9 Diaphragmatic hernia without obstruction or gangrene; Z79.899 Other long term (current) drug therapy
CPT/HCPCS: 99205

== ENCOUNTER 2020-08-21 06:49 | Outpatient (RCR) | payer MEDICARE, SELFPAY ==
--- NOTE | 2020-08-21 | CT_ITS ---
Radiation Therapy Planning CT images; total exam DLP: 1243.03 mGy-cm MTDD
[2020-08-21] MEDS: iodixanol 320 mg/mL 100mL Btl (RAD THERAPY ONLY) IV (08:34)
== END 2020-08-22 23:59 | disposition home or self-care (01) ==
LOC: ONCMED 06:49
PROVIDERS: PCP Family Medicine; Visit Provider Radiology Radiation Oncology
DX: Z51.0 Encounter for antineoplastic radiation therapy (principal); C15.5 Malignant neoplasm of lower third of esophagus; R13.10 Dysphagia, unspecified; Z79.899 Other long term (current) drug therapy
CPT/HCPCS: 77334; 77470; Q9967

== ENCOUNTER 2020-09-01 10:47 | Day surgery (SDC) | payer MEDICARE, SELFPAY ==
[2020-09-01 10:56] VITALS: BP 124/69; PULSE 51; RESP 18; TEMP 36.8; O2SAT 94; BMI 29.2
[2020-09-01 11:01] VITALS: BP 141/87; PULSE 69; RESP 15; O2SAT 97
--- NOTE | 2020-09-01 11:13 | W.ED.GENADLT ---
HPI - General Adult General: Chief complaint: Airway/Esophagus Foreign Body Stated complaint: FB IN THROAT Time Seen by Provider: 09/01/20 10:48 History of Present Illness: HPI narrative: 85-year-old male comes in complaining of left esophageal food bolus. Patient has esophageal stricture related to cancer that was recently diagnosed he is not yet started on chemo or radiation he is scheduled to coming week. He has been able to swallow any fluids or drink anything. Onset (ago): hour(s) Severity: moderate Quality: aching Pain Consistency: constant Relieving factors: none Exacerbating factors: eating Associated symptoms: Deny chest pain, confusion, cough, diaphoresis, decreased appetite, dyspnea, fevers/chills, headache(s), malaise, rash, palpitations, seizures, short of breath, syncope, vomiting or weakness Treatments prior to arrival: none Review of Systems Const: Denies: malaise or diaphoresis ENMT: Denies: throat pain, ear or mastoid pain, nasal discharge or nasal congestion Card: Denies: chest pain, palpitations or syncope Resp: Denies: dyspnea GI: Denies: vomiting : Denies: flank pain, dysuria, urinary frequency or urinary urgency Skin/Breast: Denies: rash Neuro: Denies: headache(s) or confusion PFSH ED PFSH: Medical History CHF (congestive heart failure) Colon cancer DVT (deep venous thrombosis) Esophageal adenocarcinoma Essential hypertension Hyperlipidemia Hypothyroid [place] (myocardial infarction) Surgical History H/O esophagogastroduodenoscopy (07/02/20) With dilation History of appendectomy History of colon resection 2014 History of colonoscopy 2019 Hx of CABG Port-A-Cath in place (08/15/20) Family History Other CAD (coronary artery disease) Social History Smoking and tobacco status: never smoked Alcohol intake: current Alcohol intake frequency: few times a week Alcohol type: beer Physical Exam Const: COMMON NORMALS: no acute distress GENERAL APPEARANCE: cooperative and comfortable ORIENTATION/CONSCIOUSNESS: Yes awake, Yes oriented to person, Yes oriented to place and Yes oriented to time HENMT: COMMON NORMALS: normocephalic, atraumatic, hearing grossly normal bilaterally and external ears normal HEAD & SCALP: normocephalic and atraumatic EXTERNAL EAR: Yes external ears normal Neck/C-Spine: COMMON NORMALS: no JVD Resp: COMMON NORMALS: normal respiratory effort, No retractions, No use of accessory muscles and clear to auscultation bilaterally AUSCULTATION: clear to auscultation bilaterally Cardio: COMMON NORMALS: no JVD, regular rate, regular rhythm and No murmurs present (Cardio) RATE: regular rate RHYTHM: regular rhythm GI: COMMON NORMALS: Soft to palpation and No hepatosplenomegaly present AUSCULTATION: Yes normoactive bowel sounds PALPATION: Yes Soft to palpation, No Tenderness to palpation present (GI), No Guarding due to palpation present (GI) and Yes No hepatosplenomegaly present Extremity: COMMON NORMALS: normal to inspection, capillary refill normal, no clubbing, cyanosis or edema, no calf tenderness and no pedal edema Neuro: SENSORIUM/ORIENTATION: Yes oriented to person, Yes oriented to place and Yes oriented to time Skin: COMMON NORMALS: no rashes or lesions noted GENERAL SKIN EXAM: no rashes or lesions noted Course Vital Signs: Vital signs: Vital Signs Temperature 98.2 F 09/01/20 10:56 Pulse Rate 69 09/01/20 11:01 Respiratory Rate 15 09/01/20 11:01 Blood Pressure 141/87 09/01/20 11:01 Pulse Oximetry 97 09/01/20 11:01 MDM - General Adult MDM Narrative: Medical decision making narrative: Esophageal foreign body with a food impaction. Discussed Dr. Dennison will take the patient to the OR to relieve. Lab Data: Labs: Lab Results 09/01/20 Range/Units 11:26 WBC 7.6 (4.0-10.0) 10^3/ uL RBC 5.44 H (4.1-5.3) 10^6/u L Hgb 17.1 H (11.7-16.6) g/dL Hct 50.9 (42.0-52.0) % MCV 93.6 (80-94) fL MCH 31.4 (28.0-34.0) pg MCHC 33.6 (30.0-36.0) g/dL RDW 12.4 (12.1-15.1) % Plt Count 191 (130-400) 10^3/c mm MPV 10.7 H (7.4-10.4) fL Neut % (Auto) 72.8 % Lymph % (Auto) 18.0 % [place] % (Auto) 6.1 % Eos % (Auto) 2.1 % Baso % (Auto) 0.7 % Neut # (Auto) 5.50 (1.8-7.7) 10^3/u L Lymph # (Auto) 1.4 (0.8-4.8) 10^3/u L [place] # (Auto) 0.5 (0.2-0.9) 10^3/u L Eos # (Auto) 0.2 (0.0-0.8) 10^3/u L Baso # (Auto) 0.1 (0.0-0.1) 10^3/u L Nucleated RBC % (a uto) 0 % Nucleated RBCs # 0.0 /100WBC Discharge Plan Discharge Patient Disposition: Admitted As Inpatient Clinical Impression: Esophageal obstruction due to food impaction, Esophageal adenocarcinoma Condition: Stable Coding Level of Care Code ED 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
--- NOTE | 2020-09-01 11:33 | PC.PHAR ---
pt states he takes care of his own medications-pt states he hasnt taken his lipitor for a month because he cant swallow it-pt states he has been off of eliquis for 3 weeks-pt states he hasnt started taking the dexamethasone, lorazepam or compazine yet states he is suppose to start on thursday- notes are made in the pharmacy comments
[2020-09-01 11:39] VITALS: BP 137/91; PULSE 47; RESP 18; TEMP 36.2; O2SAT 95
[2020-09-01] MEDS: sodium chloride 0.9% 1,000 ML 30 ML IV (11:40)
[2020-09-01 11:42] VITALS: BMI 29.2
[2020-09-01 11:53] LABS: Basophils # 0.1 10^3/uL (0.0-0.1); Basophils % 0.7 %; Eosinophils # 0.2 10^3/uL (0.0-0.8); Eosinophils % 2.1 %; Hematocrit 50.9 % (42.0-52.0); Hemoglobin 17.1 g/dL (11.7-16.6); Lymphocytes # 1.4 10^3/uL (0.8-4.8); Mean Corpuscular HGB Conc 33.6 g/dL (30.0-36.0); Mean Corpuscular Hemoglobin 31.4 pg (28.0-34.0); Mean Corpuscular Volume 93.6 fL (80-94); Mean Platelet Volume 10.7 fL (7.4-10.4); Monocytes # 0.5 10^3/uL (0.2-0.9); Monocytes % 6.1 %; Neutrophils % 72.8 %; Nucleated Red Blood Cells % 0 %; Platelet Count 191 10^3/cmm (130-400); Red Blood Count 5.44 10^6/uL (4.1-5.3); Red Cell Distribution Width 12.4 % (12.1-15.1); White Blood Count 7.6 10^3/uL (4.0-10.0)
--- NOTE | 2020-09-01 11:56 | ANES.PREANE2 ---
Pre-Anesthetic Assessment Pre-Anesthetic Assessment: Height/Weight: Height 1.7 m Weight 84.822 kg Temp Pulse Resp BP Pulse Ox 98.2 F 69 15 141/87 97 09/01/20 10:56 09/01/20 11:01 09/01/20 11:01 09/01/20 11:01 09/01/20 11:01 Preop Diagnosis: Esophageal cancer requiring central venous access for chemotherapy Proposed Procedure: Operation Date: 09/01/20 11:30 Proposed Procedures p EGD(Not Applicable) - Dat Dennison MD Familial anesthetic complications: None Was Beta Oscar taken within 24 hours: Yes Was Clonidine taken within 24 hours: N/A Last intake: Intake Last Liquid Date 08/31/20 Last Liquid Time 00:00 Last Solid Date 08/31/20 Last Solid Time 07:00 Social: Social History: No alcohol and No tobacco Exam: Pre-Anes Outpt Exam: alert, oriented x 3, clear to auscultation bilaterally and regular rate & rhythm Airway: Cervical ROM: WNL MP: 2 Dentition: Other (missing) CV/HEM: CV/HEM: CAD (cabg 1993), CHF, DVT and HTN Comments: Doing well from heart perspective per patient GI: GI: GERD Comments: esophageal cancer Metabolic: Metabolic: Hyperlipidemia Anesthetic Plan: ASA status: 3 Anesthesia: General Risk of > 500 ml blood loss (7ml/kg in children): No PFSH Anesthesia PFSH: Medical History (Updated 08/15/20 @ 07:44 by Dat Dennison MD) CHF (congestive heart failure) Colon cancer DVT (deep venous thrombosis) Esophageal adenocarcinoma Essential hypertension Hyperlipidemia Hypothyroid [place] (myocardial infarction) Surgical History (Updated 08/15/20 @ 07:44 by Dat Dennison MD) H/O esophagogastroduodenoscopy (07/02/20) With dilation History of appendectomy History of colon resection 2014 History of colonoscopy 2019 Hx of CABG Port-A-Cath in place (08/15/20) Family History Other CAD (coronary artery disease) Social History Smoking and tobacco status: never smoked Alcohol intake: current Alcohol intake frequency: few times a week Alcohol type: beer Data Anesthesia CBC & Chem 7: 09/01/20 11:26 09/01/20 11:26 Other Labs: Laboratory Results - last 48 hr 09/01/20 11:26 WBC 7.6 RBC 5.44 H Hgb 17.1 H Hct 50.9 MCV 93.6 MCH 31.4 MCHC 33.6 RDW 12.4 Plt Count 191 MPV 10.7 H Neut % (Auto) 72.8 Lymph % (Auto) 18.0 [place] % (Auto) 6.1 Eos % (Auto) 2.1 Baso % (Auto) 0.7 Neut # (Auto) 5.50 Lymph # (Auto) 1.4 [place] # (Auto) 0.5 Eos # (Auto) 0.2 Baso # (Auto) 0.1 Nucleated RBC % (auto) 0 Nucleated RBCs # 0.0 Cardiac Studies: No Data to Display
--- NOTE | 2020-09-01 12:03 | P.HP_ITS ---
Providers/Chief Complaint Primary Care Provider: Randi Buchanan DO Chief Complaint: FB IN THROAT History of Present Illness Moustapha Nunes is a 75 year old male on whom I had previously diagnosed essophageal cancer and is due to start chemoradiation in 3 days. Patient states that he ate shrimp last night and since then he has been unable to swallow salive. Denies any chest or abdominal pain Review of Systems General: Reports: 10 or more systems reviewed and unremarkable except in HPI and below Medications/Allergies Home Medications Medication Instructions Recorded Confirmed Last Taken Type aspirin 81 mg tablet,delayed 81 mg PO BEDTIME 03/06/20 09/01/20 08/30/20 History release clopidogrel 75 mg tablet 75 mg PO QAM 03/06/20 09/01/20 08/31/20 History isosorbide mononitrate 60 mg 60 mg PO QAM 03/16/20 09/01/20 08/31/20 History tablet,extended release 24 hr potassium gluconate 600 mg (99 mg) 99 mg PO DAILY 03/16/20 09/01/20 1 Day Ago Hi story tablet ~08/14/20 hydrocodone-acetaminophen 1 tab PO Q6H PRN #20 tab 08/15/20 09/01/20 Unknown Rx ondansetron HCl [Zofran] 4 mg PO Q6H PRN #20 tab 08/15/20 09/01/20 Unknown Rx Ca carb-Ca gluc-Mg ox-Mg gluco 1 tab PO DAILY 09/01/20 09/01/20 Unknown History [Calcium Magnesium] ascorbic acid (vitamin C) [Vitamin 1,000 mg PO QAM 09/01/20 09/01/20 Unknown History C] atorvastatin 80 mg PO BEDTIME 09/01/20 09/01/20 Unknown History cholecalciferol (vitamin D3) 125 mcg PO QAM 09/01/20 09/01/20 08/31/20 History [Vitamin D3] dexamethasone See Rx Instructions .ROUTE .COMPLEX 09/01/20 09/01/20 Unknown History docusate sodium [Colace] 100 mg PO BID PRN 09/01/20 09/01/20 Unknown History enalapril maleate 5 mg PO BID 09/01/20 09/01/20 08/31/20 08:00 History levothyroxine 175 mcg PO QAM 09/01/20 09/01/20 08/31/20 History lorazepam 1 mg PO TID PRN 09/01/20 09/01/20 Unknown History metoprolol succinate 50 mg PO QAM 09/01/20 09/01/20 08/31/20 History omeprazole 20 mg PO QAM 09/01/20 09/01/20 08/31/20 History prochlorperazine maleate 10 mg PO Q4H PRN 09/01/20 09/01/20 Unknown History Allergies Allergy/AdvReac Type Severity Reaction Status Date / Time No Known Allergies Allergy Verified 09/01/20 11:33 PFSH Acute PFSH: Medical History CHF (congestive heart failure) Colon cancer DVT (deep venous thrombosis) Esophageal adenocarcinoma Essential hypertension Hyperlipidemia Hypothyroid [place] (myocardial infarction) Surgical History H/O esophagogastroduodenoscopy (07/02/20) With dilation History of appendectomy History of colon resection 2014 History of colonoscopy 2019 Hx of CABG Port-A-Cath in place (08/15/20) Family History Other CAD (coronary artery disease) Social History Smoking and tobacco status: never smoked Alcohol intake: current Alcohol intake frequency: few times a week Alcohol type: beer Vitals/I&O/Wt Last Vital Signs Temp 98.2 F 09/01/20 10:56 Pulse 69 09/01/20 11:01 Resp 15 09/01/20 11:01 BP 141/87 09/01/20 11:01 Pulse Ox 97 09/01/20 11:01 Weight last 48 hrs Weight 187 lb Weight 187 lb Physical Exam Narrative: EXAM NARRATIVE: HEENT: Normocephalic Eye: Sclera /conjunctiva normal Abdomen: Soft to palpation Neurological: Oriented to place person and time Skin: Intact, no lesions appreciated on gross exam Data : 09/01/20 11:26 09/01/20 11:26 A&P Assessment and plan (1) Esophageal obstruction due to food impaction: 75 year old male with known history of esophageal ca who presents with esophageal obstruction due to food bolus Plan for EGD with disimpaction of food bolus Status: Acute Attestations Medical Necessity Statement*: esophageal obstruction Coding Level of Care Code Acute Privacy Director for Chg Fwd Diagnoses Esophageal obstruction due to food impaction K22.2; T18.128A
[2020-09-01 12:06] LABS: Anion Gap 17.1 (5-19); Blood Urea Nitrogen 16 mg/dL (8-23); Calcium 10.5 mg/dL (8.5-10.5); Carbon Dioxide 26 mmol/L (22-29); Chloride 101 mmol/L (98-107); Glucose 91 mg/dL (65-115); Osmolality Calculated 291 mOsm/kg (285-295); Potassium 4.1 mmol/L (3.5-5.1); Sodium 140 mmol/L (136-145)
[2020-09-01 13:00] VITALS: BP 171/101; PULSE 83; RESP 12; TEMP 36.3; O2SAT 97
[2020-09-01 13:10] VITALS: BP 148/89; PULSE 70; RESP 16; O2SAT 99
--- NOTE | 2020-09-01 14:00 | ANE.PACU2 ---
Inpatient post-anesthesia follow up: Airway intact: Yes Vital signs: Temperature 97.3 F Pulse Rate [Monito r] 51 Pulse Rate 70 Respiratory Rate 16 Blood Pressure [Le ft Arm] 124/69 Blood Pressure 148/89 Pulse Oximetry 99 Oxygen Delivery Me thod Nasal Cannula Oxygen Flow Rate 2 Fraction of Inspir ed Oxygen Hydration adequate: Yes Nausea and vomiting: No Pain level: 2 Mental status: Baseline
== END 2020-09-01 13:30 | disposition home or self-care (01) ==
LOC: ER 11:22 → GILAB 11:26
PROVIDERS: Emergency Provider Family Medicine; PCP Family Medicine; Visit Provider Surgery
PROC: 0DJ08ZZ Inspection of Upper Intestinal Tract, Via Natural or Artificial Opening Endoscopic (ICD-10-PCS; CPT 43235; principal; 2020-09-01 11:30)
DX: T18.128A Food in esophagus causing other injury, initial encounter (principal); Z85.01 Personal history of malignant neoplasm of esophagus; Z79.82 Long term (current) use of aspirin; I11.0 Hypertensive heart disease with heart failure; I50.9 Heart failure, unspecified; E78.5 Hyperlipidemia, unspecified; E03.9 Hypothyroidism, unspecified; I25.2 Old myocardial infarction; Z86.718 Personal history of other venous thrombosis and embolism; Z82.49 Family history of ischemic heart disease and other diseases of the circulatory system; Z95.1 Presence of aortocoronary bypass graft; I25.10 Atherosclerotic heart disease of native coronary artery without angina pectoris
CPT/HCPCS: 43247; 43249; 80048; 85025; 96360; 96361; J0330; J2704; J3010; J7030

== ENCOUNTER 2020-09-10 05:53 | Outpatient (RCR) | payer MEDICARE, SELFPAY ==
[2020-09-03] MEDS: alteplase 1 mg/mL SDV 2 mL 2 MG IV (15:25)
[2020-09-03 16:21] LABS: Basophils # 0.1 10^3/uL (0.0-0.1); Basophils % 0.7 %; Eosinophils # 0.3 10^3/uL (0.0-0.8); Eosinophils % 3.4 %; Hematocrit 43.1 % (42.0-52.0); Hemoglobin 14.4 g/dL (11.7-16.6); Lymphocytes # 1.3 10^3/uL (0.8-4.8); Lymphocytes % 17.7 %; Mean Corpuscular HGB Conc 33.4 g/dL (30.0-36.0); Mean Corpuscular Hemoglobin 31.7 pg (28.0-34.0); Mean Corpuscular Volume 94.9 fL (80-94); Mean Platelet Volume 10.4 fL (7.4-10.4); Monocytes # 0.5 10^3/uL (0.2-0.9); Monocytes % 6.6 %; Neutrophils # 5.18 10^3/uL (1.8-7.7); Neutrophils % 71.3 %; Nucleated Red Blood Cells % 0 %; Platelet Count 181 10^3/cmm (130-400); Red Blood Count 4.54 10^6/uL (4.1-5.3); Red Cell Distribution Width 12.3 % (12.1-15.1); White Blood Count 7.3 10^3/uL (4.0-10.0)
[2020-09-03 17:28] LABS: Alanine Aminotransferase 15 U/L (0-41); Albumin Level 4.2 g/dL (3.5-5.2); Alkaline Phosphatase 75 IU/L (40-130); Anion Gap 15.6 (5-19); Aspartate Amino Transferase 16 U/L (0-40); Blood Urea Nitrogen 15 mg/dL (8-23); Calcium 9.4 mg/dL (8.5-10.5); Carbon Dioxide 25 mmol/L (22-29); Chloride 100 mmol/L (98-107); Globulin 2.2 g/dL (1.3-4.6); Glucose 128 mg/dL (65-115); Osmolality Calculated 286 mOsm/kg (285-295); Potassium 3.6 mmol/L (3.5-5.1); Sodium 137 mmol/L (136-145); Total Bilirubin 0.5 mg/dL (0.15-1.2); Total Protein 6.4 g/dL (6.6-8.7)
[2020-09-04] MEDS: sodium chloride 0.9% 250 ML 75 ML IV (09:05)
[2020-09-04] MEDS: famotidine 20 mg/2 mL INJ IVP (09:05)
[2020-09-04] MEDS: palonosetron 0.25 mg/5 mL SDV IV (09:05)
[2020-09-04] MEDS: diphenhydrAMINE 50 mg/mL SDV 1mL 25 MG IV (09:08)
--- NOTE | 2020-09-04 13:21 | ONCRAD TMN_ITS ---
Radiation Oncology Treatment Management Note Patient Name: Moustapha Nunes Date of : 1945 Date of Service: 09/04/2020 Attending Physician: Diaz Vegas M.D. 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 The patient has received 2 Gy of a prescribed 50 Ramires with an intensity modulated radiotherapy plan utilizing a step and shoot treatment technique. He has been prescribed carboplatin (AUC 2) and paclitaxel (50 mg/m2) weekly during radiotherapy. Upon review of systems, he denied any complaints related to radiotherapy. On physical examination, the patient weighed 189 lbs. His temperature was 97.9 ???F with a blood pressure of 104/59 mmHg. His pulse was 73 bpm and the respiratory rate was 18. No erythema within the treatment moreno. Continue esophageal radiotherapy as prescribed. Signed by: Dr. Diaz Vegas 09/04/2020 1:19:49 PM
[2020-09-10 14:41] LABS: Basophils # 0.1 10^3/uL (0.0-0.1); Basophils % 1.3 %; Eosinophils # 0.2 10^3/uL (0.0-0.8); Eosinophils % 2.6 %; Hematocrit 46.4 % (42.0-52.0); Hemoglobin 15.5 g/dL (11.7-16.6); Lymphocytes # 0.7 10^3/uL (0.8-4.8); Mean Corpuscular HGB Conc 33.4 g/dL (30.0-36.0); Mean Corpuscular Hemoglobin 31.4 pg (28.0-34.0); Mean Corpuscular Volume 94.1 fL (80-94); Mean Platelet Volume 10.7 fL (7.4-10.4); Monocytes # 0.1 10^3/uL (0.2-0.9); Monocytes % 1.6 %; Neutrophils # 4.83 10^3/uL (1.8-7.7); Neutrophils % 79.4 %; Nucleated Red Blood Cells % 0 %; Platelet Count 155 10^3/cmm (130-400); Red Blood Count 4.93 10^6/uL (4.1-5.3); Red Cell Distribution Width 11.9 % (12.1-15.1); White Blood Count 6.1 10^3/uL (4.0-10.0)
--- NOTE | 2020-09-16 16:45 | ONC FU_ITS ---
Dr. Sorto follow up note Patient: Moustapha Nunes Unit #: [id number]: 1945 Dicatated By: Serafin Sorto M.D.Date of Visit:Sep 04, 2020 Onc Med Follow-up/Prog Note History of Present Illness: Mr. Moustapha Nunes, is a 75-year-old gentleman with prolonged history of esophageal reflux disease, as per patient initially [id number] medication would help then patient started taking daily omeprazole which helped him significantly, for the last few months prior to diagnosis, patient started having progressive dysphagia and he has lost about 30 pounds over 6 months partly due to change in diet as his is on long-term TPN for enterocutaneous fistula and also due to progressive dysphagia. 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 Multiple pulmonary nodules, appears stable when compared with CT scan done in March 2015, subsequently patient underwent CT PET scan on August 06, 2020 which showed hypermetabolic long segment soft tissue thickening extending from proximal to the mid thoracic esophagus with a possible proximal extra esophageal extension/suspicious for adjacent lymphadenopathy. A separate focus of FDG activity in the distal esophagus is indeterminate. FDG avid right inguinal lymph node most likely reactive. No other abnormality seen. Patient was evaluated by Dr. Blanton, EUS and J-tube was not considered as patient has mild to moderate dysphagia, as per discussion with Ms. Langford, nursing practitioner with Dr. Blanton, combined chemoradiation therapy and neoadjuvant fashion was recommended followed by evaluation with CT PET scan at [facility] and for possible esophagectomy. Patient denies any smoking or alcohol use Patient has history of DVT left lower leg for which he was treated with Eliquis which he took for couple of months and quit recently Patient has history of triple bypass, was done in 1993. Started on combined chemoradiation with weekly carboplatin/Taxol on September 04, 2020 Came for follow-up, denies any specific complaints except as per patient over the weekend he went to [facility] with fish stuck in his food pipe, which was taken out and esophageal dilation was done, since then feeling better. Denies any nausea or vomiting denies any diarrhea constipation denies any fever chills, denies any jaundice denies any hemoptysis or hematemesis, patient has already seen radiation oncology now combined chemoradiation with weekly carboplatin/Taxol is under consideration Medications: Aspirin 81 1 Tablet (of 81 mg) Tablet, enteric coated Oral daily, Atorvastatin Calcium 2 Tablet (of 40 mg) Oral daily, Cholecalciferol 1 Tablet (of 1.25 mg ) Oral daily, Clopidogrel Bisulfate 1 Tablet (of 75 mg) Oral daily, Enalapril Maleate 2 Tablet (of 5 mg) Oral daily, Isosorbide Mononitrate ER 1 Tablet (of 60 mg) Tablet SR 24 HR Oral daily, Levothyroxine Sodium 1 Tablet (of 175 mcg) Oral daily, Metoprolol Succinate ER 1 Tablet (of 50 mg) Tablet SR 24 HR Oral daily, Omeprazole 1 Capsule (of 20 mg) Capsule Delayed Release Oral daily Allergies: No Known Allergies. Review of Systems: Review of Systems is not available for this patient. Vital Signs: Performed on Sep 04, 2020 13:07 Height - 68.00 in Weight - 189.2 lbs Temperature - 97.9 F Pulse - 73 Respiration - 18 BP - 104/59 mm(hg) O2 Sat - 97 % Pain - 0 Performed on Sep 04, 2020 13:07 BMI - 28.768 kg/m2 (HIGH) Performed on Sep 04, 2020 08:51 Height - 68.00 in Weight - 189.2 lbs (LOW) BSA - 2.00 sq.m BMI - 28.77 Temperature - 97.9 F (LOW) Pulse - 73 /min Respiration - 18 /min BP - 104/59 mm(hg) O2 Sat - 97 % Pain - 0 Fatigue - 3 Performance Status: 0 - Fully active, able to carry on all predisease activities without restrictions. (ECOG) Physical Examination: ENMT - No mouth sores, no thrush, no jaundice, Respiratory - Lungs are clear to auscultation, Cardiovascular - Irregular rate and rhythm, Abdomen - Soft, bowel sounds present, Extremities - No visible edema. Lab/Imaging: Test performed on Sep 03, 2020 13:34 Creatinine 1.2 mg/dL Cr Clearance (Est) 69.15 mL/min Impression: Moderately differentiated invasive adenocarcinoma involving lower esophagus, per EGD done on July 02, 2020, specimen negative for HER-2 overexpression by IHC and over amplification by FISH. CT PET scan done on August 06, 2020 at [facility] showed hypermetabolic lung segment soft tissue thickening extending from proximal to the mid thoracic esophagus with possible proximal x-ray esophageal extension/suspicious for adjacent lymphadenopathy, consistent with patient's biopsy-proven esophageal adenocarcinoma. A separate focus of FDG activity in the distal esophagus is indeterminate. FDG avid right inguinal lymph nodes, probably reactive no FDG PET evidence of distant mets Dysphagia/weight loss due to above Coronary artery disease/congestive heart failure/status post triple bypass in 1993 History of left leg DVT treated with Eliquis until recently Hypertension, Hypothyroidism History of colon cancer status post colon resection in 2015 Started on combined chemoradiation with weekly carboplatin/Taxol on September 04, 2020 Plan: Discussed with patient regarding his labs from yesterday white blood count 7.3 hemoglobin 14.4 hematocrit 43.1 platelets 181,000 CMP within normal limit except creatinine 1.2 Clinically, patient doing well, now being started on combined chemoradiation with weekly carboplatin and Taxol, will proceed with first weekly dose of carboplatin/Taxol concurrent with radiation therapy today and then he will return to clinic in 1 week with CBC CMP and if reasonable for next weekly dose of carboplatin/Taxol Signed By: Serafin Sorto M.D. <<Signature on File>>
[2020-09-21 09:23] LABS: Basophils % 0.5 %; Hematocrit 43.3 % (42.0-52.0); Hemoglobin 14.6 g/dL (11.7-16.6); Lymphocytes # 0.3 10^3/uL (0.8-4.8); Lymphocytes % 7.2 %; Mean Corpuscular HGB Conc 33.7 g/dL (30.0-36.0); Mean Corpuscular Hemoglobin 32.2 pg (28.0-34.0); Mean Corpuscular Volume 95.4 fL (80-94); Mean Platelet Volume 9.9 fL (7.4-10.4); Monocytes # 0.5 10^3/uL (0.2-0.9); Monocytes % 12.2 %; Neutrophils # 3.13 10^3/uL (1.8-7.7); Neutrophils % 78.1 %; Nucleated Red Blood Cells % 0 %; Platelet Count 138 10^3/cmm (130-400); Red Blood Count 4.54 10^6/uL (4.1-5.3); Red Cell Distribution Width 12.4 % (12.1-15.1)
== END 2020-09-10 14:00 | disposition home or self-care (01) ==
LOC: ONCMED 05:53
PROVIDERS: Absent Provider Specialist; PCP Family Medicine; Visit Provider Internal Medicine Hematology & Oncology
DX: Z51.0 Encounter for antineoplastic radiation therapy (principal); Z51.11 Encounter for antineoplastic chemotherapy; C15.4 Malignant neoplasm of middle third of esophagus; R13.10 Dysphagia, unspecified; R63.4 Abnormal weight loss; I25.10 Atherosclerotic heart disease of native coronary artery without angina pectoris; I50.9 Heart failure, unspecified; I10 Essential (primary) hypertension; E03.9 Hypothyroidism, unspecified; Z86.718 Personal history of other venous thrombosis and embolism; Z79.01 Long term (current) use of anticoagulants; Z85.038 Personal history of other malignant neoplasm of large intestine; Z79.899 Other long term (current) drug therapy
CPT/HCPCS: 36591; 36593; 77300; 77301; 77338; 77386; 80053; 85025; 96367; 96374; 96375; 96413; 96417; 99215; J1100; J1200; J2469; J2997; J3490; J7030; J7040; J7050; J9045; J9267

== ENCOUNTER 2020-09-10 14:36 | Emergency (ER) | payer MEDICARE, SELFPAY ==
[2020-09-10 14:52] VITALS: BP 115/77; PULSE 53; RESP 18; TEMP 37.2; O2SAT 98; BMI 27.0
--- NOTE | 2020-09-10 15:43 | XRR_ITS ---
PROCEDURE INFORMATION: Exam: XR Soft Tissue Neck Exam date and time: 09/10/2020 3:43 PM Age: 75 years old Clinical indication: Other: Foriegn body sensation; Prior surgery; Surgery type: Port; Patient HX: PT states something stuck in throat, poss vegetable. Starting noon yesterday. Says he has a stricture from scar tissue from esophageal reflux, HX of esophagus cx TECHNIQUE: Imaging protocol: XR of the soft tissues of the neck. Total images: 2 COMPARISON: XA FL barium swallow modifd [id number] 06/12/2020 11:39 AM FINDINGS: Tubes, catheters and devices: Right Infusaport catheter. Airway: Unremarkable. No abnormal narrowing. Soft tissues: Unremarkable. No visible radiopaque foreign body. Normal epiglottis. Bones/joints: Degenerative disease and degenerative disc disease of the cervical spine most advanced C5/C6 with anterior claw syndesmophyte formation. Facet arthrosis. Other findings: Status post sternotomy chest. XR/XR soft tissue neck [id number] IMPRESSION: No radiographically visible foreign body.
--- NOTE | 2020-09-10 22:39 | CTR_ITS ---
PROCEDURE INFORMATION: Exam: CT Chest Without Contrast; Diagnostic Exam date and time: 09/10/2020 10:39 PM Age: 75 years old Clinical indication: Other: Food bolus stuck in throat; Prior surgery; Surgery type: Bypass, port; Patient HX: Esophageal cancer; Additional info: Esophageal obstruction/food bolus TECHNIQUE: Imaging protocol: Diagnostic computed tomography of the chest without contrast. Total images: 313 Radiation optimization: All CT scans at this facility use at least one of these dose optimization techniques: automated exposure control; mA and/or kV adjustment per patient size (includes targeted exams where dose is matched to clinical indication); or iterative reconstruction. COMPARISON: CT chest w con* [id number] 07/10/2020 10:37 AM RADIATION DOSE METRICS: Total DLP (mGy-cm): 878.07 FINDINGS: Tubes, catheters and devices: Right Infusaport catheter. Lungs: No visible active interstitial or alveolar airspace disease. Bilateral very small pulmonary nodules. Dominant lateral segment right middle lobe measures 4 mm (series 3, image 51). Second dominant nodule subpleural right upper lobe of semi solid/ground-glass mixed characteristics measuring 3.4 mm (series 3, image 39). Other substantially smaller nodules are marked. Pleural spaces: No pneumothorax. No pleural effusion. Heart: No cardiomegaly. No visible pericardial effusion. Advanced 3 vessel coronary artery disease. Status post sternotomy chest and CABG. Mediastinal space: There is diffuse irregular mucosal thickening of the esophagus similar in appearance to the last evaluation of 07/10/2020. Associated moderate size hiatal hernia. No definite foreign body identified. Unable to assess obstruction without oral contrast. Aorta: The thoracic aorta is nonaneurysmal. Mild arterial sclerotic disease. Lymph nodes: No visible active mediastinal or hilar lymphadenopathy. Bones/joints: No visible active or acute osseous pathology. Mild scoliotic curvature of the spine. Age-appropriate degenerative disease to include diffuse idiopathic skeletal hyperostosis. Soft tissues: Unremarkable. CT/CT chest wo con [id number] IMPRESSION: 1. There is diffuse irregular mucosal thickening of the esophagus similar in appearance to the last evaluation of 07/10/2020. Associated moderate size hiatal hernia. No definite foreign body identified. 2. Several small pulmonary nodules averaging 4 mm or smaller is detailed in text above. For patients at low risk (minimal or absent history of smoking and of other known risk factors), no routine follow-up is indicated. For patients at high risk (history of smoking or of other known risk factors), consider optional CT Chest at 12 months. (Reference: [place]). 3. Other nonurgent, nonemergent, chronic, and age related findings as detailed in text above. REFERENCES: [place] Espinosa, et al. Guidelines for Management of Incidental Pulmonary Nodules Detected on CT Images: From the Fleischner Society 2017. Radiology. 2017;284(1):228-243. Radiation Dose CTDIVOL = (mGy): DLP = 878.07 (mGy-cm)
--- NOTE | 2020-09-10 22:41 | ED_ITS ---
HPI - General Adult General: Chief complaint: Airway/Esophagus Foreign Body Stated complaint: pt states something stuck in throat,poss vegetable Time Seen by Provider: 09/10/20 22:37 History of Present Illness: HPI narrative: This patient is a 75-year-old male who presents to the emergency department with complaint of a food bolus stuck in his esophagus. Patient has had this numerous times has been diagnosed with esophageal cancer. Patient's last visit for a food bolus that was obstructing the esophagus was approximately 9 days ago. Patient had esophagus cleared and dilated by Dr. Dennison in the OR. Patient states his food bolus has been stuck since Thursday mid afternoon. Going on 2 days now. Will do medical evaluation treat as needed Onset (ago): day(s) Associated symptoms: Deny chest pain, dyspnea, headache(s), nausea, rash, palpitations or vomiting Review of Systems General: Reports: 10 or more systems reviewed and unremarkable except in HPI and below Const: Denies: fever(s), chills, body aches or fatigue Eyes: Denies: change in vision or blurry vision ENMT: Denies: throat pain, hoarseness or mouth pain Card: Denies: chest pain, palpitations, irregular heart rhythm, edema, swelling of feet/ankles or lightheadedness Resp: Denies: dyspnea, productive cough, non-productive cough, wheezing or pain on inspiration GI: Denies: abdominal pain, nausea or vomiting : Denies: flank pain, dysuria, urinary frequency, urinary urgency or urinary hesitancy Musc: Denies: neck pain, back pain, extremity pain, extremity swelling, joint pain, joint swelling, joint redness, joint warmth or limited range of motion Skin/Breast: Denies: rash, pruritus, erythema or skin tenderness Neuro: Denies: headache(s), numbness in extremities or weakness in extremities Psych: Denies: anxiety or depression PFSH ED PFSH: Medical History CHF (congestive heart failure) Colon cancer DVT (deep venous thrombosis) Esophageal adenocarcinoma Esophageal stricture Essential hypertension Hyperlipidemia Hypothyroid Old OR (myocardial infarction) Surgical History H/O esophagogastroduodenoscopy (09/01/20) With dilation 07/02/20; with dilation History of appendectomy History of colon resection 2014 History of colonoscopy 2018 Hx of CABG Port-A-Cath in place (08/15/20) Family History Other CAD (coronary artery disease) Social History Smoking and tobacco status: never smoked Alcohol intake: current Alcohol intake frequency: few times a week Alcohol type: beer Physical Exam Const: COMMON NORMALS: no acute distress, average body habitus, patient oriented x3, no limitations, healthy appearing, alert and well nourished HENMT: COMMON NORMALS: normocephalic, atraumatic, hearing grossly normal bilaterally, external ears normal, EAC's normal, TM's normal bilaterally, Normal external nose present, Normal nasal mucous membranes and turbinates present, moist oral mucous membranes, oropharynx normal, dentition normal and gingiva normal HEAD & SCALP: normocephalic and atraumatic NOSE: Normal external nose present and Normal nasal mucous membranes and turbinates present EX TERNAL EAR: Yes external ears normal EXTERNAL AUDITORY CANAL: EAC's normal TYMPANIC MEMBRANE: TM's normal bilaterally Neck/C-Spine: COMMON NORMALS: full ROM, no lymphadenopathy, supple, no meningeal signs, no JVD, Thyroid normal and No carotid bruits THYROID: Thyroid normal Chest: COMMONS NORMALS: normal inspection of the chest, normal palpation of entire chest wall, normal inspection of the breasts and normal palpation of the breasts Breast/axilla inspection: Yes normal inspection of the breasts BREAST/AXILLA PALPATION: Yes normal palpation of the breasts Resp: COMMON NORMALS: normal respiratory effort, No retractions, No use of accessory muscles, clear to auscultation bilaterally and percussion normal AUSCULTATION: clear to auscultation bilaterally PERCUSSION: percussion normal Cardio: COMMON NORMALS: no JVD, regular rate, regular rhythm, S1 normal heart sound present, S2 normal heart sound present, No gallops present (Cardio), No clicks present (Cardio), No murmurs present (Cardio), No rub (Cardio) and Peripheral pulses 2+ throughout RATE: regular rate RHYTHM: regular rhythm HEART SOUNDS: S1 normal heart sound present and S2 normal heart sound present PERIPHERAL PULSES: Peripheral pulses 2+ throughout GI: COMMON NORMALS: Normal to inspection, nondistended, normoactive bowel sounds present, Soft to palpation, non-tender, No hepatosplenomegaly present, no masses and no bruits PALPATION: Yes Soft to palpation and Yes No hepatosplenomegaly present : COMMON NORMALS: Yes no CVA tenderness BLADDER/KIDNEY EXAM: Yes no CVA tenderness Back/Pelvis: COMMON NORMALS: no CVA tenderness, thoracic and lumbar spine normal to inspection, no thoracic nor lumbar tenderness, thoraco-lumbar ROM normal and straight leg raise negative bilaterally Extremity: COMMON NORMALS: normal to inspection, full ROM, capillary refill normal, no joint enlargement, no clubbing, cyanosis or edema, no calf tenderness and no pedal edema Neuro: COMMON NORMALS: patient oriented x3 SENSORIUM/ORIENTATION: Yes alert MENINGEAL SIGNS: Yes no meningeal signs Course Reevaluation(s): Reevaluation #1: I did discuss at length with patient and family. They understand we have no coverage for esophageal evaluation and EGD. Patient is agreeable for transfer. Patient still intolerant of p.o. fluids. Consultations: Consultation #1: I did discuss at length with GI surgery at [facility]. I spoke with Dr. Baez who agrees to see the patient at their facility but request the hospitalist admit. He will do EGD on the patient in the morning. Dr. Garcia has agreed to admit in [facility] Time: 01:24 Vital Signs: Vital signs: Vital Signs Temperature 98.9 F 09/10/20 14:52 Pulse Rate 78 09/11/20 01:00 Respiratory Rate 16 09/11/20 01:00 Blood Pressure 141/78 09/11/20 01:00 Pulse Oximetry 97 09/11/20 01:00 MDM - General Adult MDM Narrative: Medical decision making narrative: I did discuss at length with patient and family. They understand we have no coverage for esophageal evaluation and EGD. Patient is agreeable for transfer. Patient still intolerant of p.o. fluids. I did discuss at length with GI surgery at [facility]. I spoke with Dr. Baez who agrees to see the patient at their facility but request the hospitalist admit. He will do EGD on the patient in the morning. Dr. Garcia has agreed to admit in [facility] Data: Labs: Lab Results 09/10/20 09/10/20 Range/Units 23:40 23:40 WBC 4.6 (4.0-10.0) 10^3/ uL RBC 5.02 (4.1-5.3) 10^6/u L Hgb 16.1 (11.7-16.6) g/dL Hct 47.0 (42.0-52.0) % MCV 93.6 (80-94) fL MCH 32.1 (28.0-34.0) pg MCHC 34.3 (30.0-36.0) g/dL RDW 11.9 L (12.1-15.1) % Plt Count 149 (130-400) 10^3/c mm MPV 10.2 (7.4-10.4) fL Neut % (Auto) 79.3 % Lymph % (Auto) 11.9 % [place] % (Auto) 1.9 % Eos % (Auto) 2.8 % Baso % (Auto) 1.1 % Neut # (Auto) 3.68 (1.8-7.7) 10^3/u L Lymph # (Auto) 0.6 L (0.8-4.8) 10^3/u L [place] # (Auto) 0.1 L (0.2-0.9) 10^3/u L Eos # (Auto) 0.1 (0.0-0.8) 10^3/u L Baso # (Auto) 0.1 (0.0-0.1) 10^3/u L Nucleated RBC % (a uto) 0 % Nucleated RBCs # 0.0 /100WBC Sodium 139 (136-145) mmol/L Potassium 4.2 (3.5-5.1) mmol/L Chloride 102 (98-107) mmol/L Carbon Dioxide 25 (22-29) mmol/L Anion Gap 16.2 (5-19) BUN 24 H (8-23) mg/dL Creatinine 0.9 (0.7-1.2) mg/dL GFR Calculation Not Reportable Glucose 93 (65-115) mg/dL Calculated Osmolal ity 292 (285-295) mOsm/k g Calcium 9.7 (8.5-10.5) mg/dL Total Bilirubin 1.0 (0.15-1.2) mg/dL AST 13 (0-40) U/L ALT 15 (0-41) U/L Alkaline Phosphata se 78 (40-130) IU/L Total Protein 7.0 (6.6-8.7) g/dL Albumin 4.4 (3.5-5.2) g/dL Globulin 2.6 (1.3-4.6) g/dL Discharge Plan Discharge Patient Disposition: Xfer Short-Term Hosp Clinical Impression: Dysphagia, Esophageal adenocarcinoma, Esophagus, foreign body Condition: Stable Referrals: Randi Buchanan DO [Primary Care Provider] - Coding Level of Care Code ED Lead Bi Developer for Chg Fwd Exam Comprehensive
--- NOTE | 2020-09-10 23:47 | PC.NURSE ---
Dr Campbell called and states that patient has his chemo treatments tomorrow and needs his Dexamethasone dose of 20mg IV tonight while in ER since he cannot take po at this time. I discussed with Dr Nick who verbally orders the medication at this time.
[2020-09-10 23:48] LABS: Basophils # 0.1 10^3/uL (0.0-0.1); Basophils % 1.1 %; Eosinophils # 0.1 10^3/uL (0.0-0.8); Eosinophils % 2.8 %; Hemoglobin 16.1 g/dL (11.7-16.6); Lymphocytes # 0.6 10^3/uL (0.8-4.8); Lymphocytes % 11.9 %; Mean Corpuscular HGB Conc 34.3 g/dL (30.0-36.0); Mean Corpuscular Hemoglobin 32.1 pg (28.0-34.0); Mean Corpuscular Volume 93.6 fL (80-94); Mean Platelet Volume 10.2 fL (7.4-10.4); Monocytes # 0.1 10^3/uL (0.2-0.9); Monocytes % 1.9 %; Neutrophils # 3.68 10^3/uL (1.8-7.7); Neutrophils % 79.3 %; Nucleated Red Blood Cells % 0 %; Platelet Count 149 10^3/cmm (130-400); Red Blood Count 5.02 10^6/uL (4.1-5.3); Red Cell Distribution Width 11.9 % (12.1-15.1); White Blood Count 4.6 10^3/uL (4.0-10.0)
[2020-09-10] MEDS: ondansetron 2 mg/ML SDV 2 mL 4 MG IVP (23:55)
[2020-09-10 23:56] VITALS: BP 134/74; PULSE 62; RESP 18; O2SAT 98
[2020-09-11] MEDS: dexamethasone 4 mg/mL INJ 20 MG IVP
[2020-09-11 00:05] LABS: Alanine Aminotransferase 15 U/L (0-41); Albumin Level 4.4 g/dL (3.5-5.2); Alkaline Phosphatase 78 IU/L (40-130); Anion Gap 16.2 (5-19); Aspartate Amino Transferase 13 U/L (0-40); Blood Urea Nitrogen 24 mg/dL (8-23); Calcium 9.7 mg/dL (8.5-10.5); Carbon Dioxide 25 mmol/L (22-29); Chloride 102 mmol/L (98-107); Globulin 2.6 g/dL (1.3-4.6); Glucose 93 mg/dL (65-115); Osmolality Calculated 292 mOsm/kg (285-295); Potassium 4.2 mmol/L (3.5-5.1); Sodium 139 mmol/L (136-145)
[2020-09-11] MEDS: sodium chloride 0.9% 500 ML IV (00:06)
[2020-09-11 01:00] VITALS: BP 141/78; PULSE 78; RESP 16; O2SAT 97
[2020-09-11 02:00] VITALS: BP 111/76; PULSE 56; RESP 15; O2SAT 97
[2020-09-11 02:05] LABS: SARS Covid-2 Antigen Negative (Negative)
[2020-09-11 03:34] VITALS: BP 111/62; PULSE 63; RESP 16; O2SAT 96
== END 2020-09-11 03:53 | disposition short-term general hospital (02) ==
PROVIDERS: Emergency Provider Emergency Medicine; PCP Family Medicine
DX: T18.128A Food in esophagus causing other injury, initial encounter (principal); R13.10 Dysphagia, unspecified; C15.9 Malignant neoplasm of esophagus, unspecified; I11.0 Hypertensive heart disease with heart failure; I50.9 Heart failure, unspecified; E78.5 Hyperlipidemia, unspecified; E03.9 Hypothyroidism, unspecified; I25.2 Old myocardial infarction; Z95.1 Presence of aortocoronary bypass graft
CPT/HCPCS: 70360; 71250; 80053; 85025; 87426; 96361; 96374; 96375; 99284; J1100; J2405; J7040

== ENCOUNTER 2020-09-21 05:47 | Outpatient (RCR) | payer MEDICARE, SELFPAY ==
--- NOTE | 2020-09-14 10:17 | ONCRAD TMN_ITS ---
Radiation Oncology Weekly Treatment Management Patient: Des Velazquez MR#: [id number] : 1945> Attending Physician: Dr. Will Wallace Date of Service: 09/14/2020 Referring Physician(s) : Serafin Sorto M.D. 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 ID: [id number], Energy: 6X, Dose/Fx (cGy): 200, #Fx: , Dose Correction (cGy): 0, Total Dose (cGy): 1,400, Start Date: 09/04/2020, End Date: 09/14/2020, Elapsed Days: 10 Reason for visit: The patient is being seen today as part of their regularly scheduled weekly on treatment visits to assess for acute toxicities from radiotherapy. Review of Systems: Mr. Mccallum developed an episode of lightheadedness after getting off the treatment table today. He has just resumed treatment after being hospitalized in [place] for esophageal obstruction requiring upper endoscopy. He states that while he was in the hospital he did not receive any of his medications and he just started them back yesterday. He is on metoprolol for both blood pressure and regulation of heart rate. He states that due to the esophageal obstruction he has been experiencing some problems with dehydration. He is able to take liquids at this time. At the time of his lightheadedness, he was noted to have an irregular pulse in the 40s. At this time he feels better and it is his opinion that he got off the treatment table too quickly. He has not had any fainting or near fainting episodes. No falls. Vital Signs: Performed on 09/14/2020 8:52 AM BMI - 28.038 kg/m2 (high), Height - 68.00 in, Weight - 184.4 lbs, Temperature - 97.1 f, Pulse - 53, Respiration - 20, O2 Sat - 98 %, Pain - 0 and BP - 146/ 84 mm(hg)(high/). Physical Exam: Alert oriented and in no distress. He got on the exam table without assistance and without difficulty. Exam reveals no carotid bruit on either side. His lungs are clear bilaterally without rales rhonchi or wheezes. Heart rhythm is regular and he has a rate of about 70. In listening for approximately 1 minute, no irregular beats were heard. He has a normal S1 and S2 without any murmur or gallop. Imaging: Radiation therapy imaging related to accurate target localization (i.e. KV, MV and CBCT) was reviewed. Appropriate changes, if any, were made to ensure treatment accuracy. Plan: I feel the patient is able to drive himself home. He lives about 10 minutes away. He agrees. 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 In the event he has further problems he will need to go to the emergency room. That was discussed. We discussed keeping his fluid intake up. I discussed how he could monitor the color of his urine and urinary frequency to determine if he is getting enough fluids. We will plan to keep on with treatment as planned. Signed by: Dr. Will Wallace 09/14/2020 10:15:50 AM
[2020-09-17 15:27] LABS: Basophils % 0.7 %; Eosinophils # 0.1 10^3/uL (0.0-0.8); Eosinophils % 3.5 %; Hematocrit 43.1 % (42.0-52.0); Hemoglobin 14.6 g/dL (11.7-16.6); Lymphocytes # 0.3 10^3/uL (0.8-4.8); Mean Corpuscular HGB Conc 33.9 g/dL (30.0-36.0); Mean Corpuscular Hemoglobin 32.2 pg (28.0-34.0); Mean Corpuscular Volume 94.9 fL (80-94); Mean Platelet Volume 9.9 fL (7.4-10.4); Monocytes # 0.4 10^3/uL (0.2-0.9); Neutrophils % 45.1 %; Nucleated Red Blood Cells % 0 %; Platelet Count 135 10^3/cmm (130-400); Red Blood Count 4.54 10^6/uL (4.1-5.3); Red Cell Distribution Width 12.3 % (12.1-15.1); White Blood Count 1.4 10^3/uL (4.0-10.0)
[2020-09-17 15:31] LABS: Neutrophils # 0.64 10^3/uL (1.8-7.7)
[2020-09-17 15:55] LABS: Alanine Aminotransferase 11 U/L (0-41); Albumin Level 4.1 g/dL (3.5-5.2); Alkaline Phosphatase 69 IU/L (40-130); Anion Gap 16.5 (5-19); Aspartate Amino Transferase 10 U/L (0-40); Blood Urea Nitrogen 16 mg/dL (8-23); Carbon Dioxide 23 mmol/L (22-29); Chloride 101 mmol/L (98-107); Glucose 111 mg/dL (65-115); Osmolality Calculated 284 mOsm/kg (285-295); Potassium 4.5 mmol/L (3.5-5.1); Sodium 136 mmol/L (136-145); Total Bilirubin 0.5 mg/dL (0.15-1.2); Total Protein 6.1 g/dL (6.6-8.7)
--- NOTE | 2020-09-17 16:36 | ONCRAD TMN_ITS ---
Radiation Oncology Weekly Treatment Management Patient: Des Velazquez MR#: [id number] : 1945> Attending Physician: Dr. 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 ID: [id number], Energy: 6X, Dose/Fx (cGy): 200, #Fx: , Dose Correction (cGy): 0, Total Dose (cGy): 1,600, Start Date: 09/04/2020, Elapsed Days: Reason for visit: The patient is being seen today as part of their regularly scheduled weekly on treatment visits to assess for acute toxicities from radiotherapy. Review of Systems: Mr. Nunes was seen Thursday after an episode of lightheadedness. He was probably dehydrated at the time. He has improved his hydration level and got back on his medications. He has had no difficulty with lightheadedness over the weekend. He is mainly taking full liquids and a few very smooth semisolid preparations because of the esophageal obstruction that he recently had. He does not have a feeding tube. He has no difficulty with taking in liquids at all. He has no pain with swallowing. He has had mild hiccups. Vital Signs: Performed on 09/17/2020 3:36 PM BMI - 27.399 kg/m2 (high), Height - 68.00 in, Weight - 180.2 lbs, Temperature - 98.2 f, Pulse - 57, Respiration - 20, O2 Sat - 97 %, Pain - 0, Fatigue - 0 and BP - 101/ 64 mm(hg)(/low). Physical Exam: Alert oriented no distress. No cervical or supraclavicular lymphadenopathy. Lungs are clear to auscultation with no rales rhonchi or wheezes. Imaging: Radiation therapy imaging related to accurate target localization (i.e. KV, MV and CBCT) was reviewed. Appropriate changes, if any, were made to ensure treatment accuracy. Plan: Continue treatment according to plan. He has no questions about the treatment process. We discussed getting adequate hydration and nutrition through a liquid and semisolid diet. He was told that he may begin to swallow better as he progresses through treatment, though that certainly cannot be guaranteed. He is aware that he will need a feeding tube if he cannot maintain his nutritional status orally. Signed by: Dr. Will Wallace 09/17/2020 4:34:36 PM
== END 2020-09-22 23:59 | disposition home or self-care (01) ==
LOC: ONCMED 05:47
PROVIDERS: Absent Provider Specialist; PCP Family Medicine; Visit Provider Internal Medicine Hematology & Oncology
DX: Z51.0 Encounter for antineoplastic radiation therapy (principal); C15.4 Malignant neoplasm of middle third of esophagus; Z79.899 Other long term (current) drug therapy
CPT/HCPCS: 36591; 77014; 77336; 77386; 77427; 80053; 85025

== ENCOUNTER 2020-10-05 05:42 | Outpatient (RCR) | payer MEDICARE, SELFPAY ==
[2020-09-24 09:48] LABS: Alanine Aminotransferase 11 U/L (0-41); Alkaline Phosphatase 80 IU/L (40-130); Aspartate Amino Transferase 12 U/L (0-40); Blood Urea Nitrogen 19 mg/dL (8-23); Calcium 9.8 mg/dL (8.5-10.5); Carbon Dioxide 24 mmol/L (22-29); Chloride 99 mmol/L (98-107); Globulin 2.4 g/dL (1.3-4.6); Glucose 195 mg/dL (65-115); Osmolality Calculated 284 mOsm/kg (285-295); Sodium 133 mmol/L (136-145); Total Bilirubin 0.5 mg/dL (0.15-1.2); Total Protein 6.4 g/dL (6.6-8.7)
[2020-09-24] MEDS: sodium chloride 0.9% 250 ML 75 ML IV (10:18)
[2020-09-24] MEDS: famotidine 20 mg/2 mL INJ IVP (10:18)
[2020-09-24] MEDS: diphenhydrAMINE 50 mg/mL SDV 1mL 25 MG IVP (10:20)
[2020-09-24] MEDS: palonosetron 0.25 mg/5 mL SDV IVP (10:24)
--- NOTE | 2020-09-25 15:56 | ONCRAD TMN_ITS ---
Radiation Oncology Treatment Management Note Patient Name: Moustapha Nunes Date of : 1945 Date of Service: 09/25/2020 Attending Physician: Diaz Vegas M.D. 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 The patient has received 26 Gy of a prescribed 50 Ramires with an intensity modulated radiotherapy plan utilizing a step and shoot treatment technique. He has been prescribed carboplatin (AUC 2) and paclitaxel (50 mg/m2) weekly during radiotherapy. Upon review of systems, he denied any complaints related to radiotherapy. His swallowing has improved. On physical examination, the patient weighed 179 lbs. His temperature was 98.2 ???F with a blood pressure of 111/67 mmHg. His pulse was 56 bpm and the respiratory rate was 18. No erythema within the treatment moreno. Continue esophageal radiotherapy as planned. Signed by: Dr. Diaz Vegas 09/25/2020 3:55:24 PM
[2020-10-01 08:50] LABS: Basophils % 0.4 %; Hematocrit 42.2 % (42.0-52.0); Hemoglobin 14.2 g/dL (11.7-16.6); Lymphocytes % 0.8 %; Mean Corpuscular HGB Conc 33.6 g/dL (30.0-36.0); Mean Platelet Volume 10.6 fL (7.4-10.4); Monocytes % 0.6 %; Neutrophils # 4.59 10^3/uL (1.8-7.7); Neutrophils % 96.7 %; Nucleated Red Blood Cells % 0 %; Platelet Count 93 10^3/cmm (130-400); Red Blood Count 4.44 10^6/uL (4.1-5.3); Red Cell Distribution Width 12.1 % (12.1-15.1); White Blood Count 4.8 10^3/uL (4.0-10.0)
[2020-10-01 09:10] LABS: Alanine Aminotransferase 13 U/L (0-41); Alkaline Phosphatase 67 IU/L (40-130); Anion Gap 15.5 (5-19); Aspartate Amino Transferase 13 U/L (0-40); Blood Urea Nitrogen 25 mg/dL (8-23); Calcium 8.8 mg/dL (8.5-10.5); Carbon Dioxide 22 mmol/L (22-29); Chloride 102 mmol/L (98-107); Globulin 1.9 g/dL (1.3-4.6); Glucose 194 mg/dL (65-115); Osmolality Calculated 290 mOsm/kg (285-295); Potassium 4.5 mmol/L (3.5-5.1); Sodium 135 mmol/L (136-145); Total Bilirubin 0.8 mg/dL (0.15-1.2); Total Protein 5.9 g/dL (6.6-8.7)
[2020-10-01] MEDS: sodium chloride 0.9% 250 ML 75 ML IV (11:00)
[2020-10-01] MEDS: palonosetron 0.25 mg/5 mL SDV IV (11:00)
[2020-10-01] MEDS: famotidine 20 mg/2 mL INJ IVP (11:01)
[2020-10-01] MEDS: diphenhydrAMINE 50 mg/mL SDV 1mL 25 MG IV (11:03)
--- NOTE | 2020-10-01 16:10 | ONC FU_ITS ---
Dr. Sorto follow up note Patient: Moustapha Nunes Unit #: [id number]: 1945 Dicatated By: Serafin Sorto M.D.Date of Visit:Oct 01, 2020 Onc Med Follow-up/Prog Note History of Present Illness: Mr. Moustapha Nunes, is a 75-year-old gentleman with prolonged history of esophageal reflux disease, as per patient initially [id number] medication would help then patient started taking daily omeprazole which helped him significantly, for the last few months prior to diagnosis, patient started having progressive dysphagia and he has lost about 30 pounds over 6 months partly due to change in diet as his is on long-term TPN for enterocutaneous fistula and also due to progressive dysphagia. 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 Multiple pulmonary nodules, appears stable when compared with CT scan done in March 2015, subsequently patient underwent CT PET scan on August 06, 2020 which showed hypermetabolic long segment soft tissue thickening extending from proximal to the mid thoracic esophagus with a possible proximal extra esophageal extension/suspicious for adjacent lymphadenopathy. A separate focus of FDG activity in the distal esophagus is indeterminate. FDG avid right inguinal lymph node most likely reactive. No other abnormality seen. Patient was evaluated by Dr. Blanton, EUS and J-tube was not considered as patient has mild to moderate dysphagia, as per discussion with Ms. Langford, nursing practitioner with Dr. Blanton, combined chemoradiation therapy and neoadjuvant fashion was recommended followed by evaluation with CT PET scan at [facility] and for possible esophagectomy. Patient denies any smoking or alcohol use Patient has history of DVT left lower leg for which he was treated with Eliquis which he took for couple of months and quit recently Patient has history of triple bypass, was done in 1993. Came for follow-up, denies any specific complaint except poor taste and early fullness occasionally made sternal discomfort/pain otherwise denies any mouth sores denies any jaundice denies any fever chills denies any nausea or vomiting, tolerating combined chemoradiation with weekly carboplatin plus Taxol well Medications: Aspirin 81 1 Tablet (of 81 mg) Tablet, enteric coated Oral daily, Atorvastatin Calcium 2 Tablet (of 40 mg) Oral daily, Cholecalciferol 1 Tablet (of 1.25 mg ) Oral daily, Clopidogrel Bisulfate 1 Tablet (of 75 mg) Oral daily, Enalapril Maleate 2 Tablet (of 5 mg) Oral daily, Isosorbide Mononitrate ER 1 Tablet (of 60 mg) Tablet SR 24 HR Oral daily, Levothyroxine Sodium 1 Tablet (of 175 mcg) Oral daily, Metoprolol Succinate ER 1 Tablet (of 50 mg) Tablet SR 24 HR Oral daily, Omeprazole 1 Capsule (of 20 mg) Capsule Delayed Release Oral daily Allergies: No Known Allergies. Review of Systems: Review of Systems is not available for this patient. Vital Signs: Performed on Oct 01, 2020 09:41 Height - 68.00 in Weight - 176.0 lbs (LOW) BSA - 1.94 sq.m BMI - 26.76 Temperature - 97.5 F (LOW) Pulse - 78 /min Respiration - 18 /min BP - 101/67 mm(hg) O2 Sat - 98 % Pain - 0 Performance Status: 0 - Fully active, able to carry on all predisease activities without restrictions. (ECOG) Physical Examination: ENMT - No mouth sores, no thrush, no jaundice, Thick coating on the tongue, Respiratory - Lungs are clear to auscultation, Cardiovascular - Regular rate and rhythm of heart, Abdomen - Soft, bowel sounds present, Extremities - No visible edema. Lab/Imaging: Test performed on Oct 01, 2020 10:30 Creatinine 0.9 mg/dL Cr Clearance (Est) 82.54 mL/min Test performed on Oct 01, 2020 08:10 Sodium 135 mmol/L Potassium 4.5 mmol/L Chloride 102 mmol/L CO2 22 mmol/L Anion Gap 15.5 BUN 25 mg/dL Glucose 194 mg/dL Osmolality - Calculated 290 mOsm/kg Calcium 8.8 mg/dL Protein, Total 5.9 g/dL Albumin 4.0 g/dL Globulin 1.9 g/dL Bilirubin, Total 0.8 mg/dL ALT (SGPT) 13 U/L AST (SGOT) 13 U/L Alkaline Phosphatase 67 IU/L WBC 4.8 10 3/uL RBC 4.44 10 6/uL HGB 14.2 g/dL HCT 42.2 % MCV 95.0 fL MCH 32.0 pg MCHC 33.6 g/dL RDW 12.1 % Platelet Count 93 10 3/cmm MPV 10.6 fL Neutrophils 4.59 10 3/uL Lymphocytes 0.0 10 3/uL Monocytes 0.0 10 3/uL Eosinophils 0.0 10 3/uL Basophils 0.0 10 3/uL Neutrophil % 96.7 % Lymphocyte % 0.8 % Monocyte % 0.6 % Eosinophil % 0.0 % Basophils % 0.4 % NRBC % 0 % Impression: Moderately differentiated invasive adenocarcinoma involving lower esophagus, per EGD done on July 02, 2020, specimen negative for HER-2 overexpression by IHC and over amplification by FISH. CT PET scan done on August 06, 2020 at [facility] showed hypermetabolic lung segment soft tissue thickening extending from proximal to the mid thoracic esophagus with possible proximal x-ray esophageal extension/suspicious for adjacent lymphadenopathy, consistent with patient's biopsy-proven esophageal adenocarcinoma. A separate focus of FDG activity in the distal esophagus is indeterminate. FDG avid right inguinal lymph nodes, probably reactive no FDG PET evidence of distant mets Dysphagia/weight loss due to above Coronary artery disease/congestive heart failure/status post triple bypass in 1993 History of left leg DVT treated with Eliquis until recently Hypertension, Hypothyroidism History of colon cancer status post colon resection in 2015 Started on combined chemoradiation with weekly carboplatin/Taxol on September 04, 2020 Plan: Discussed with patient regarding his labs white blood count 4.8 hemoglobin 14.2 hematocrit 42.2 platelets 93,000 CMP within normal limit except glucose 194 Clinically, patient doing reasonably well, tolerating combined chemoradiation with weekly carboplatin/Taxol well but with expected side effect e.g. progressive mild thrombocytopenia and will proceed with next weekly dose of carboplatin/Taxol today and then he will return to clinic in 1 week with CBC if his blood count looks reasonable then he will take his premedication on Thursday night for chemotherapy on Thursday morning along with radiation therapy. As for his poor taste is concerned, on exam patient has thick tongue coating, patient was advised to maintain good oral hygiene and keep his tongue clean for better testing and as far as midsternal discomfort is concerned probably due to chemoradiation induced esophagitis and he was advised to avoid spicy food and eats slow and discuss with radiation oncology regarding Magic mouthwash if needed. Patient will complete combined chemoradiation next week or early following week after that he will go back to [facility] to see Dr. Chadwick for evaluation regarding esophagectomy. Return to clinic in 1 week with CBC Signed By: Serafin Sorto M.D. <<Signature on File>>
--- NOTE | 2020-10-02 15:51 | ONCRAD TMN_ITS ---
Radiation Oncology Treatment Management Note Patient Name: Moustapha Nunes Date of : 1945 Date of Service: 10/02/2020 Attending Physician: Diaz Vegas M.D. 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 The patient has received 36 Gy of a prescribed 50 Ramires with an intensity modulated radiotherapy plan utilizing a step and shoot treatment technique. He has been prescribed carboplatin (AUC 2) and paclitaxel (50 mg/m2) weekly during radiotherapy. Upon review of systems, he denied any complaints related to radiotherapy. On physical examination, the patient weighed 177 lbs. His temperature was 98.6 ???F with a blood pressure of 104/59 mmHg. His pulse was 59 bpm and the respiratory rate was 18. No erythema within the treatment moreno. Continue esophageal radiotherapy as prescribed. Signed by: Dr. Diaz Vegas 10/02/2020 3:50:28 PM
== END 2020-10-06 12:30 | disposition home or self-care (01) ==
LOC: ONCMED 05:42
PROVIDERS: Internal Medicine Hematology & Oncology; Absent Provider Radiology Radiation Oncology; PCP Family Medicine; Visit Provider Radiology Radiation Oncology
DX: Z51.0 Encounter for antineoplastic radiation therapy (principal); Z51.11 Encounter for antineoplastic chemotherapy; C15.5 Malignant neoplasm of lower third of esophagus; C77.8 Secondary and unspecified malignant neoplasm of lymph nodes of multiple regions; R13.10 Dysphagia, unspecified; R63.4 Abnormal weight loss; I25.10 Atherosclerotic heart disease of native coronary artery without angina pectoris; I50.9 Heart failure, unspecified; Z95.5 Presence of coronary angioplasty implant and graft; Z86.718 Personal history of other venous thrombosis and embolism; Z79.01 Long term (current) use of anticoagulants; I10 Essential (primary) hypertension; E03.9 Hypothyroidism, unspecified; Z85.038 Personal history of other malignant neoplasm of large intestine; Z92.21 Personal history of antineoplastic chemotherapy; Z92.3 Personal history of irradiation; Z79.899 Other long term (current) drug therapy
CPT/HCPCS: 36415; 77336; 77386; 80053; 85025; 96367; 96375; 96413; 96417; 99215; J1100; J1200; J2469; J3490; J7030; J7040; J7050; J9045; J9267

== ENCOUNTER 2020-10-06 12:40 | Observation (INO) | payer MEDICARE, SELFPAY ==
[2020-10-06 12:53] VITALS: BP 124/86; PULSE 92; RESP 18; TEMP 36.8; O2SAT 97
--- NOTE | 2020-10-06 13:33 | ED_ITS ---
HPI - General Adult General: Chief complaint: General Medical Stated complaint: HAS A STRICTER NEEDS FLUIDS Time Seen by Provider: 10/06/20 13:05 Source: patient and family () Mode of arrival: ambulatory Limitations: no limitations History of Present Illness: HPI narrative: This is a 75-year-old male with esophageal cancer who receives both chemotherapy and radiation therapy. Last radiation therapy was yesterday. For the last 3 days he has had significant pain on swallowing. He does not think he has difficulty swallowing, just pain. Denies any nausea or vomiting. Denies any difficulty breathing. Denies any fever. He thinks he may be dehydrated as he is not swallowing much and would like some IV fluids. Onset (ago): day(s) (3) Associated symptoms: Deny chest pain, confusion, cough, diaphoresis, decreased appetite, dyspnea, fevers/chills, headache(s), malaise, nausea, rash, palpitations, seizures, short of breath, syncope, vomiting or weakness Treatments prior to arrival: none Review of Systems General: Reports: 10 or more systems reviewed and unremarkable except in HPI and below Const: Denies: malaise or diaphoresis Card: Denies: chest pain, palpitations or syncope Resp: Denies: dyspnea GI: Denies: nausea or vomiting Skin/Breast: Denies: rash Neuro: Denies: headache(s) or confusion PFS ED PFSH: Medical History CHF (congestive heart failure) Colon cancer DVT (deep venous thrombosis) Esophageal adenocarcinoma Esophageal stricture Essential hypertension Hyperlipidemia Hypothyroid Old IN (myocardial infarction) Surgical History H/O esophagogastroduodenoscopy (09/01/20) With dilation 07/02/20; with dilation History of appendectomy History of colon resection 2014 History of colonoscopy 2019 Hx of CABG Port-A-Cath in place (08/15/20) Family History Other CAD (coronary artery disease) Social History Smoking and tobacco status: never smoked Alcohol intake: current Alcohol intake frequency: few times a week Alcohol type: beer Physical Exam Const: COMMON NORMALS: no acute distress, average body habitus, patient oriented x3, no limitations, healthy appearing, alert and well nourished HENMT: COMMON NORMALS: normocephalic, atraumatic and moist oral mucous membranes HEAD & SCALP: normocephalic and atraumatic Neck/C-Spine: COMMON NORMALS: no meningeal signs and no JVD Resp: COMMON NORMALS: normal respiratory effort, No retractions, No use of accessory muscles, clear to auscultation bilaterally and percussion normal AUSCULTATION: clear to auscultation bilaterally PERCUSSION: percussion normal Cardio: COMMON NORMALS: no JVD, regular rate, regular rhythm, S1 normal heart sound present, S2 normal heart sound present, No gallops present (Cardio), No clicks present (Cardio), No murmurs present (Cardio), No rub (Cardio) and Peripheral pulses 2+ throughout RATE: regular rate RHYTHM: regular rhythm HEART SOUNDS: S1 normal heart sound present and S2 normal heart sound present PERIPHERAL PULSES: Peripheral pulses 2+ throughout GI: COMMON NORMALS: Normal to inspection, nondistended, normoactive bowel sounds present, Soft to palpation, non-tender, No hepatosplenomegaly present, no masses and no bruits PALPATION: Yes Soft to palpation and Yes No hepatospl enomegaly present Extremity: COMMON NORMALS: normal to inspection, full ROM, capillary refill normal, no calf tenderness and no pedal edema Neuro: COMMON NORMALS: patient oriented x3 SENSORIUM/ORIENTATION: Yes alert MENINGEAL SIGNS: Yes no meningeal signs Skin: COMMON NORMALS: no rashes or lesions noted, no wounds, turgor normal, no jaundice, no petechiae and no mottling GENERAL SKIN EXAM: no rashes or lesions noted and turgor normal Course Reevaluation(s): Reevaluation #1: Discussed lab and imaging findings with the patient and his , also discussed my conversation with Dr. Sorto. Advised that Dr. Sorto would like him to be admitted since he is high risk for infection. We will start him on broad-spectrum antibiotics which covers Pseudomonas. They voiced understanding and they are in agreement with the plan. Time: 16:50 Consultations: Consultation #1: Discussed the patient with Dr. Sorto, oncologist. He advised that we repeat the CBC and if he is truly neutropenic then he needs to be admitted, started on antibiotics and started on Neupogen. Time: 16:00 Consultation #2: Discussed the patient with Dr. Watts, hospitalist and he kindly accepted the patient to his service. Time: 16:45 Vital Signs: Vital signs: Vital Signs Temperature 100.7 F H 10/06/20 19:59 Pulse Rate 79 10/06/20 19:59 Respiratory Rate 17 10/06/20 19:59 Blood Pressure 112/71 10/06/20 19:59 Pulse Oximetry 95 10/06/20 19:59 MDM - General Adult MDM Narrative: Medical decision making narrative: Pleasant 75-year-old male with esophageal cancer who presents to the emergency department with odynophagia. In the emergency department he was noted to be severely neutropenic and is admitted to the hospital for IV antibiotics and Neupogen and monitoring. Lab Data: Labs: Lab Results 10/06/20 10/06/20 10/06/20 Range/Units 13:40 13:45 13:45 WBC 0.7 L* (4.0-10.0) 10^3/ uL RBC 4.21 (4.1-5.3) 10^6/u L Hgb 13.5 (11.7-16.6) g/dL Hct 38.7 L (42.0-52.0) % MCV 91.9 (80-94) fl MCH 32.1 (28.0-34.0) pg MCHC 34.9 (30.0-36.0) g/dL RDW 12.2 (12.1-15.1) % Plt Count 90 L (130-400) 10^3/c mm MPV 10.6 H (7.4-10.4) fL Neut % (Auto) 79.0 % Lymph % (Auto) 6.0 % [place] % (Auto) 9.0 % Eos % (Auto) 3.0 % Baso % (Auto) 1.5 % Neut # (Auto) 0.53 L* (1.8-7.7) 10^3/u L Lymph # (Auto) 0.0 L (0.8-4.8) 10^3/u L [place] # (Auto) 0.1 L (0.2-0.9) 10^3/u L Eos # (Auto) 0.0 (0.0-0.8) 10^3/u L Baso # (Auto) 0.0 (0.0-0.1) 10^3/u L Nucleated RBC % (a uto) 0 % Nucleated RBCs # 0.0 /100WBC D-Dimer 16.82 H (0-0.59) ug/mIFE U Sodium 134 L (136-145) mmol/L Potassium 4.2 (3.5-5.1) mmol/L Chloride 100 (98-107) mmol/L Carbon Dioxide 23 (22-29) mmol/L Anion Gap 15.2 (5-19) BUN 19 (8-23) mg/dL Creatinine 0.8 (0.7-1.2) mg/dL GFR Calculation Not Reportable Glucose 97 (65-115) mg/dL Calculated Osmolal ity 280 L (285-295) mOsm/k g Calcium 8.7 (8.5-10.5) mg/dL Iron (59-158) ug/dL TIBC mcg/dl % Saturation (20-50) % Unsat Iron Binding (112-347) ug/dL Total Bilirubin 0.9 (0.15-1.2) mg/dL AST 10 (0-40) U/L ALT 11 (0-41) U/L Alkaline Phosphata se 68 (40-130) IU/L C-Reactive Protein 45.3 H (0.0-4.9) mg/L Total Protein 6.0 L (6.6-8.7) g/dL Albumin 3.9 (3.5-5.2) g/dL Globulin 2.1 (1.3-4.6) g/dL Lipase 10 L (13-60) U/L Procalcitonin (0-0.5) ng/mL TSH (0.27-4.20) uIU/ mL 10/06/20 10/06/20 Range/Units 13:45 16:25 WBC 0.6 L* (4.0-10.0) 10^3/ uL RBC 3.99 L (4.1-5.3) 10^6/u L Hgb 12.7 (11.7-16.6) g/dL Hct 37.2 L (42.0-52.0) % MCV 93.2 (80-94) fl MCH 31.8 (28.0-34.0) pg MCHC 34.1 (30.0-36.0) g/dL RDW 12.2 (12.1-15.1) % Plt Count 86 L (130-400) 10^3/c mm MPV 10.2 (7.4-10.4) fL Neut % (Auto) 79.4 % Lymph % (Auto) 3.4 % Mariposa % (Auto) 8.6 % Eos % (Auto) 1.7 % Baso % (Auto) 1.7 % Neut # (Auto) 0.46 L* (1.8-7.7) 10^3/u L Lymph # (Auto) 0.0 L (0.8-4.8) 10^3/u L Mar[place]osa # (Auto) 0.1 L (0.2-0.9) 10^3/u L Eos # (Auto) 0.0 (0.0-0.8) 10^3/u L Baso # (Auto) 0.0 (0.0-0.1) 10^3/u L Nucleated RBC % (a uto) 0 % Nucleated RBCs # 0.0 /100WBC D-Dimer (0-0.59) ug/mIFE U Sodium (136-145) mmol/L Potassium (3.5-5.1) mmol/L Chloride (98-107) mmol/L Carbon Dioxide (22-29) mmol/L Anion Gap (5-19) BUN (8-23) mg/dL Creatinine (0.7-1.2) mg/dL GFR Calculation Glucose (65-115) mg/dL Calculated Osmolal ity (285-295) mOsm/k g Calcium (8.5-10.5) mg/dL Iron 37 L (59-158) ug/dL TIBC 188 mcg/dl % Saturation 19.6 L (20-50) % Unsat Iron Binding 151 (112-347) ug/dL Total Bilirubin (0.15-1.2) mg/dL AST (0-40) U/L ALT (0-41) U/L Alkaline Phosphata se (40-130) IU/L C-Reactive Protein (0.0-4.9) mg/L Total Protein (6.6-8.7) g/dL Albumin (3.5-5.2) g/dL Globulin (1.3-4.6) g/dL Lipase (13-60) U/L Procalcitonin 0.10 (0-0.5) ng/mL TSH 1.60 (0.27-4.20) uIU/ mL Imaging Data^: CXR: Attestation: I personally reviewed and interpreted this imaging study as follows: Radiologist's impression: [employer] [id number] ReportSigned Patient: Moustapha Nunes #: [id number]: [id number]#:[id number]/Sex: 75 / MADM Date: 10/06/20Loc: [facility]/Bed:Attending Dr: Ordering Provider/Ordering MD: Verna Roman MD, [facility] [place] Date of Service: 10/06/20 Procedure(s): XR chest 1V portable [id number] Accession Number(s): [id number] Report Number: [id number] PROCEDURE INFORMATION: Exam: XR Chest Exam date and time: 10/06/2020 4:08 PM Age: 75 years old Clinical indication: Dyspnea; Additional info: Neutropenia TECHNIQUE: Imaging protocol: XR of the chest. Views: 1 view. COMPARISON: CT chest [facility] [id number] 09/10/2020 10:51 PM FINDINGS: Tubes, catheters and devices: Right IJ Port-A-Cath is stable in position with the tip in the SVC. Lungs: Lungs are clear bilaterally. Pleural spaces: No pleural effusion. No pneumothorax. Heart/Mediastinum: Stable mild enlargement of the cardiac silhouette. Mediastinal contours are unremarkable. Vasculature: Stable vascular calcifications in the aorta. Bones/joints: Stable poststernotomy changes in the chest. Stable degenerative changes in the spine and shoulders. XR/XR chest 1V portable [id number] IMPRESSION: 1. No acute cardiopulmonary process. 2. Incidental/nonacute findings are listed in the report. Dictated By:Gogo Mcclain MDSigned By:Gogo Mcclain MDSigned Date/Time:10/06/20 1725DD/ 22 Discharge Plan Discharge Patient Disposition: Admitted As Inpatient Admit Provider: Daniel Watts Clinical Impression: Neutropenia, Esophageal adenocarcinoma, Thrombocytopenia Condition: Stable Coding Level of Care Code ED Ion Exchange Operator for Chg Dallin
[2020-10-06] MEDS: ondansetron 2 mg/ML SDV 2 mL 4 MG IVP (13:54)
[2020-10-06] MEDS: sodium chloride 0.9% 1,000 ML 999 ML IV (13:54)
[2020-10-06 14:27] LABS: Basophils % 1.5 %; Hematocrit 38.7 % (42.0-52.0); Hemoglobin 13.5 g/dL (11.7-16.6); Mean Corpuscular HGB Conc 34.9 g/dL (30.0-36.0); Mean Corpuscular Hemoglobin 32.1 pg (28.0-34.0); Mean Corpuscular Volume 91.9 fl (80-94); Mean Platelet Volume 10.6 fL (7.4-10.4); Monocytes # 0.1 10^3/uL (0.2-0.9); Nucleated Red Blood Cells % 0 %; Platelet Count 90 10^3/cmm (130-400); Red Blood Count 4.21 10^6/uL (4.1-5.3); Red Cell Distribution Width 12.2 % (12.1-15.1)
[2020-10-06 14:42] LABS: White Blood Count 0.7 10^3/uL (4.0-10.0)
[2020-10-06 14:43] LABS: Neutrophils # 0.53 10^3/uL (1.8-7.7)
[2020-10-06 14:54] LABS: Alanine Aminotransferase 11 U/L (0-41); Albumin Level 3.9 g/dL (3.5-5.2); Alkaline Phosphatase 68 IU/L (40-130); Anion Gap 15.2 (5-19); Aspartate Amino Transferase 10 U/L (0-40); Blood Urea Nitrogen 19 mg/dL (8-23); C Reactive Protein 45.3 mg/L (0.0-4.9); Calcium 8.7 mg/dL (8.5-10.5); Carbon Dioxide 23 mmol/L (22-29); Chloride 100 mmol/L (98-107); Globulin 2.1 g/dL (1.3-4.6); Glucose 97 mg/dL (65-115); Lipase 10 U/L (13-60); Osmolality Calculated 280 mOsm/kg (285-295); Potassium 4.2 mmol/L (3.5-5.1); Sodium 134 mmol/L (136-145); Total Bilirubin 0.9 mg/dL (0.15-1.2)
[2020-10-06 15:00] VITALS: BP 122/87; PULSE 75; RESP 18; O2SAT 97
[2020-10-06] MEDS: lidocaine 2% viscous 15 mL UDC 10 ML MUCOUS MEM (15:08)
--- NOTE | 2020-10-06 16:08 | XRR_ITS ---
PROCEDURE INFORMATION: Exam: XR Chest Exam date and time: 10/06/2020 4:08 PM Age: 75 years old Clinical indication: Dyspnea; Additional info: Neutropenia TECHNIQUE: Imaging protocol: XR of the chest. Views: 1 view. COMPARISON: CT chest con [id number] 09/10/2020 10:51 PM FINDINGS: Tubes, catheters and devices: Right IJ Port-A-Cath is stable in position with the tip in the SVC. Lungs: Lungs are clear bilaterally. Pleural spaces: No pleural effusion. No pneumothorax. Heart/Mediastinum: Stable mild enlargement of the cardiac silhouette. Mediastinal contours are unremarkable. Vasculature: Stable vascular calcifications in the aorta. Bones/joints: Stable poststernotomy changes in the chest. Stable degenerative changes in the spine and shoulders. XR/XR chest 1V portable [id number] IMPRESSION: 1. No acute cardiopulmonary process. 2. Incidental/nonacute findings are listed in the report.
[2020-10-06 16:32] LABS: Basophils % 1.7 %; Eosinophils % 1.7 %; Hematocrit 37.2 % (42.0-52.0); Hemoglobin 12.7 g/dL (11.7-16.6); Lymphocytes % 3.4 %; Mean Corpuscular HGB Conc 34.1 g/dL (30.0-36.0); Mean Corpuscular Hemoglobin 31.8 pg (28.0-34.0); Mean Corpuscular Volume 93.2 fl (80-94); Mean Platelet Volume 10.2 fL (7.4-10.4); Monocytes # 0.1 10^3/uL (0.2-0.9); Monocytes % 8.6 %; Neutrophils % 79.4 %; Nucleated Red Blood Cells % 0 %; Platelet Count 86 10^3/cmm (130-400); Red Blood Count 3.99 10^6/uL (4.1-5.3); Red Cell Distribution Width 12.2 % (12.1-15.1)
[2020-10-06 16:36] LABS: Neutrophils # 0.46 10^3/uL (1.8-7.7); White Blood Count 0.6 10^3/uL (4.0-10.0)
--- NOTE | 2020-10-06 17:09 | PM.HP ---
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 Patient's last chemotherapy was on October 01 and radiation therapy was on October 05. He presented to the ER today because of dysphagia. He states dysphagia has been ongoing for last 1 week but was not able to swallow anything for last 2 days so felt dehydrated and presented to the ER. In the ER he was found to be neutropenic. As per ER physician conversation with Dr. Sorto from oncology patient received 1 dose of Neulasta. Review of Systems General: Reports: 10 or more systems reviewed and unremarkable except in HPI and below Const: Denies: fever(s), chills, body aches, change in appetite, change in weight, malaise, night sweats, diaphoresis, change in sleep pattern, daytime sleepiness or snoring Eyes: Denies: change in vision, blurry vision, photophobia, eye discomfort or eye discharge ENMT: Denies: throat pain, enlarged tonsils, hoarseness, mouth pain, oral sores, dry mouth, tinnitus, nasal congestion or post nasal drip Card: Denies: chest pain, palpitations, irregular heart rhythm, edema, swelling of feet/ankles, lightheadedness, syncope, pre-syncope, dyspnea on exertion, orthopnea, leg pain with exertion or acrocyanosis Resp: Denies: dyspnea, productive cough, non-productive cough, wheezing, stridor, pain on inspiration, change in phlegm color, hemoptysis or chest congestion GI: Denies: abdominal pain, nausea, vomiting, hematemesis, coffee ground emesis, dysphagia, heartburn, diarrhea, constipation, bloating, GI cramping, change in bowel habits, pain on defecation, hematochezia or melena : Denies: flank pain, difficulty urinating, dysuria, urinary frequency, urinary urgency, urinary hesitancy, urinary dribbling, difficulty starting urination, change in urine stream, nocturia or hematuria Musc: Denies: neck pain, back pain, extremity pain, joint pain, joint swelling, joint redness, joint stiffness or limited range of motion Neuro: Denies: headache(s), numbness in extremities, weakness in extremities, sensory changes, lack of coordination, difficulty walking, frequent falls, dizziness, vertigo, confusion, Slurred speech present, difficulty communicating thoughts or seizure-like activity Psych: Denies: anxiety, depression, mood swings, panic attacks, hopelessness or irritability Endo: Denies: polyuria, polydipsia, tired all the time, cold intolerance, excessive sweating, flushing or heat intolerance Marcus/Lymph: Denies: easy bruising or easy bleeding All/Imm: Denies: tongue swelling, facial swelling or acute wheezing Medications/Allergies Home Medications Medication Instructions Recorded Confirmed Last Taken Type aspirin 81 mg tablet,delayed 81 mg PO BEDTIME 03/06/20 10/06/20 10/05/20 History release clopidogrel 75 mg tablet 75 mg PO QA 03/06/20 10/06/20 10/05/20 History isosorbide mononitrate 60 mg 60 mg PO QAM 03/16/20 10/06/20 10/06/20 History tablet,extended release 24 hr hydrocodone-acetaminophen 1 tab PO Q6H PRN #20 tab 08/15/20 10/06/20 Unknown Rx ondansetron HCl [Zofran] 4 mg PO Q6H PRN #20 tab 08/15/20 10/06/20 Unknown Rx cholecalciferol (vitamin D3) 125 mcg PO QAM 09/01/20 10/06/20 10/05/20 History [Vitamin D3] dexamethasone See Rx Instructions .ROUTE .COMPLEX 09/01/20 10/06/20 Unknown History docusate sodium [Colace] 100 mg PO BID PRN 09/01/20 10/06/20 Unknown History enalapril maleate 5 mg PO BID 09/01/20 10/06/20 10/05/20 History levothyroxine 175 mcg PO QAM 09/01/20 10/06/20 10/06/20 History lorazepam 1 mg PO TID PRN 09/01/20 10/06/20 Unknown History metoprolol succinate 50 mg PO QAM 09/01/20 10/06/20 10/06/20 History omeprazole 20 mg PO DAILY 09/01/20 10/06/20 10/06/20 History prochlorperazine maleate 10 mg PO Q4H PRN 09/01/20 10/06/20 Unknown History atorvastatin 80 mg PO BEDTIME 10/06/20 10/06/20 10/05/20 History Allergies Allergy/AdvReac Type Severity Reaction Status Date / Time No Known Allergies Allergy Verified 09/01/20 11:33 PFSH Acute PFSH: Medical History CHF (congestive heart failure) Colon cancer DVT (deep venous thrombosis) Esophageal adenocarcinoma Esophageal stricture Essential hypertension Hyperlipidemia Hypothyroid Old AR (myocardial infarction) Surgical History H/O esophagogastroduodenoscopy (09/01/20) With dilation 07/02/20; with dilation History of appendectomy History of colon resection 2014 History of colonoscopy 2019 Hx of CABG Port-A-Cath in place (08/15/20) Family History Other CAD (coronary artery disease) Social History Smoking and tobacco status: never smoked Alcohol intake: current Alcohol intake frequency: few times a week Alcohol type: beer Vitals/I&O/Wt Last Vital Signs Temp 98.3 F 10/06/20 12:53 Pulse 75 10/06/20 15:00 Resp 18 10/06/20 15:00 BP 122/87 10/06/20 15:00 Pulse Ox 97 10/06/20 15:00 10/06/20 10/06/20 10/06/20 06:59 14:59 22:59 Intake Total 1000 / 1000 Balance 1000 / 1000 Weight last 48 hrs Weight 77.111 kg Physical Exam Narrative: EXAM NARRATIVE: General: No acute distress, AO x3, thin, dehydrated HEENT: PERRLA, pupils bilaterally equal and reactive Chest: Normal vesicular breath sounds, no added sounds, equal good air entry bilaterally CVS: S1-S2 regular, no murmurs, no tachycardia, no gallops, no rubs Abdomen: Soft, nontender, no organomegaly, bowel sounds present Neuro: No focal deficits, no facial deformity, AO x3, power 5/5 in all limbs Data : 10/07/20 07:24 10/07/20 07:24 A&P Assessment and plan (1) Dysphagia: Status: Acute (2) Neutropenia: Status: Acute (3) Esophageal adenocarcinoma: Status: Acute (4) Thrombocytopenia: Status: Acute (5) Essential hypertension: Status: Chronic (6) GERD (gastroesophageal reflux disease): Status: Acute Additional A&P Information 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 Hold off on Magic mouthwash as per recommendations from radiation oncologist. Start patient on Protonix 40 mg IV twice daily, Carafate with each meal. GI soft diet for now. We will continue to monitor. Start on D5 NS at 50 cc/h. Zofran as needed. Neutropenia: No fevers presently. We will continue to monitor. Reverse isolation precautions. Blood culture, urinalysis, MRSA swab, urine culture. For now start patient on vancomycin and Zosyn. Thrombocytopenia: Seems to be ongoing since October 01. Most likely secondary to chemoradiation therapy. We will continue to monitor. No signs of bleeding for now. Essential hypertension: Goal of pressure less than 140/90 mmHg. For now continue with home dose of isosorbide, metoprolol. Hold off on enalapril for now. History of DVT: Not on anticoagulation at present as apparently has finished treatment. Check D-dimer. If elevated will do lower limb Dopplers. History of CABG: No chest pain. Continue with oral dose of statin, aspirin Full code. GI soft diet. Heparin 5000 every 12 hourly for DVT prophylaxis. Attestations Medical Necessity Statement*: Admission for more than 2 midnights for management of neutropenia, dysphagia in setting of esophageal cancer. Time Spent in Patient Care: Greater than 35 minutes (>than 50% of time spent in counselling and/or direct pt care on unit). 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
[2020-10-06] MEDS: vancomycin 1,000 MG in sodium chloride 0.9% 250 ML 250 MG IV (17:17)
[2020-10-06] MEDS: piperacillin-tazobactam 3.375 GM in sodium chloride 0.9% (plus) 50 ML IV ×2 (17:31→23:48)
[2020-10-06 17:49] LABS: D Dimer 16.82 ug/mIFEU (0-0.59)
[2020-10-06 18:22] LABS: Iron 37 ug/dL (59-158); Percent Saturation 19.6 % (20-50); Total Iron Binding Capacity 188 mcg/dl; Unsaturated Iron Binding 151 ug/dL (112-347)
[2020-10-06 18:23] VITALS: BP 112/70; PULSE 84; RESP 16; O2SAT 95
[2020-10-06 18:30] VITALS: BP 124/75; PULSE 83; RESP 19; TEMP 36.7; O2SAT 97
[2020-10-06 18:55] VITALS: BMI 26.1
[2020-10-06 19:59] VITALS: BP 112/71; PULSE 79; RESP 17; TEMP 38.2; O2SAT 95
[2020-10-06] MEDS: pantoprazole 40 mg SDV IVP (20:24)
[2020-10-06] MEDS: sucralfate 1 gm/10 mL Oral Liq UDC PO (20:25)
[2020-10-06] MEDS: dextrose 5%-sod chloride 0.9% 1,000 ML 50 ML IV (20:25)
[2020-10-07] VITALS (7 sets, daily range): BP systolic 105–122; BP diastolic 66–77; PULSE 67–81; RESP 16–18; TEMP 36.9–38.2; O2SAT 96–98
[2020-10-07] MEDS: isosorbide mononitrate ER 60 mg Tablet PO (05:17)
[2020-10-07] MEDS: metoprolol succinate ER (24 HR) 50 mg Tablet PO (05:17)
[2020-10-07] MEDS: levothyroxine 175 mcg Tablet PO (05:17)
[2020-10-07] MEDS: vancomycin 1,000 MG in sodium chloride 0.9% 250 ML 250 MG IV ×2 (05:17→18:06)
[2020-10-07] MEDS: clopidogrel 75 mg Tablet PO (05:17)
[2020-10-07] MEDS: sucralfate 1 gm/10 mL Oral Liq UDC PO ×2 (05:17→20:26)
[2020-10-07 07:45] LABS: Basophils % 1.8 %; Hematocrit 33.8 % (42.0-52.0); Hemoglobin 11.6 g/dL (11.7-16.6); Lymphocytes % 2.6 %; Mean Corpuscular HGB Conc 34.3 g/dL (30.0-36.0); Mean Corpuscular Hemoglobin 32.2 pg (28.0-34.0); Mean Corpuscular Volume 93.9 fl (80-94); Monocytes # 0.1 10^3/uL (0.2-0.9); Monocytes % 7.9 %; Nucleated Red Blood Cells % 0 %; Platelet Count 81 10^3/cmm (130-400); White Blood Count 1.1 10^3/uL (4.0-10.0)
[2020-10-07 08:16] LABS: Alanine Aminotransferase 8 U/L (0-41); Albumin Level 3.1 g/dL (3.5-5.2); Alkaline Phosphatase 52 IU/L (40-130); Anion Gap 10.8 (5-19); Aspartate Amino Transferase 8 U/L (0-40); Blood Urea Nitrogen 16 mg/dL (8-23); Calcium 8.4 mg/dL (8.5-10.5); Carbon Dioxide 23 mmol/L (22-29); Chloride 104 mmol/L (98-107); Glucose 106 mg/dL (65-115); Magnesium 1.7 mg/dL (1.7-2.3); Osmolality Calculated 280 mOsm/kg (285-295); Phosphorus 2.1 mg/dL (2.5-4.5); Potassium 3.8 mmol/L (3.5-5.1); Sodium 134 mmol/L (136-145); Total Bilirubin 0.8 mg/dL (0.15-1.2); Total Protein 5.1 g/dL (6.6-8.7)
[2020-10-07 08:17] LABS: Chol HDL Ratio 3.72 mg/dL (1.0-5.00); Cholesterol 108 mg/dL (0-200); HDL Cholesterol 29 mg/dL (60-100); LDL Cholesterol Calculated 63 mg/dL (50-129); Triglycerides 80 mg/dL (0-150); VLDL Cholestrol Calculation 16 mg/dL (0-30)
[2020-10-07] MEDS: pantoprazole 40 mg SDV IVP ×2 (08:44→20:26)
[2020-10-07] MEDS: piperacillin-tazobactam 3.375 GM in sodium chloride 0.9% (plus) 50 ML IV ×3 (08:44→22:38)
[2020-10-07 09:26] LABS: Slide Review Slide Review Perform
[2020-10-07 09:27] LABS: Neutrophils % 87.7 %
[2020-10-07 09:28] LABS: Neutrophils # 0.86 10^3/uL (1.8-7.7)
--- NOTE | 2020-10-07 09:50 | P.PN_ITS ---
Subjective Subjective: Interval history: No acute event overnight. Patient has remained hemodynamically stable. Did have a fever going up to 100.7 last night. Currently on room air saturating 96%. States he is feeling better when he is eating. Denies any nausea vomiting, headache. Concerned that he has radiation therapy scheduled for tomorrow and chemotherapy scheduled for Thursday. Concerned if he will be able to keep this appointment or not. Vitals/I&O/Wt Last Vital Signs Temp 98.5 F 10/07/20 07:35 Pulse 77 10/07/20 07:35 Resp 17 10/07/20 07:35 BP 105/66 10/07/20 07:35 Pulse Ox 96 10/07/20 07:35 10/06/20 10/07/20 10/07/20 22:59 06:59 14:59 Intake Total 1300 / 1300 50 / 1350 Balance 1300 / 1300 50 / 1350 Weight last 48 hrs Weight 77.882 kg Weight 77.111 kg Physical Exam Narrative: EXAM NARRATIVE: General: No acute distress, AO x3, thin, dehydrated HEENT: PERRLA, pupils bilaterally equal and reactive Chest: Normal vesicular breath sounds, no added sounds, equal good air entry bilaterally CVS: S1-S2 regular, no murmurs, no tachycardia, no gallops, no rubs Abdomen: Soft, nontender, no organomegaly, bowel sounds present Neuro: No focal deficits, no facial deformity, AO x3, power 5/5 in all limbs Data : 10/07/20 07:24 10/07/20 07:24 Micro: Microbiology 10/06/20 17:15 Blood Culture - Preliminary Blood SPECIMEN COLLECTED 10/06/20 17:00 Blood Culture - Preliminary Blood SPECIMEN COLLECTED A&P Assessment and plan (1) Dysphagia: Status: Acute (2) Neutropenia: Status: Acute Qualifiers: Neutropenia type: secondary to cancer chemotherapy Qualified Code(s): D70.1 - Agranulocytosis secondary to cancer chemotherapy; T45.1X5A - Adverse effect of antineoplastic and immunosuppressive drugs, initial encounter (3) Esophageal adenocarcinoma: Status: Acute (4) Thrombocytopenia: Status: Acute (5) Essential hypertension: Status: Chronic (6) GERD (gastroesophageal reflux disease): Status: Acute Additional A&P Information 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 Hold off on Magic mouthwash as per recommendations from radiation oncologist. Continue with Protonix 40 mg IV twice daily, Carafate with each meal. GI soft diet for now. We will continue to monitor. Start on D5 NS at 50 cc/h. Zofran as needed. Neutropenia: Leukopenia/neutropenia mildly improving. Post Neulasta yesterday. Continue with reverse isolation precautions. Blood cultures so far negative, urinalysis elevated. Will follow up with MRSA swab results. Thrombocytopenia: Stable. Seems to be ongoing since October 01. Most likely secondary to chemoradiation therapy. We will continue to monitor. No signs of bleeding for now. Essential hypertension: Goal of pressure less than 140/90 mmHg. For now continue with home dose of isosorbide, metoprolol. Hold off on enalapril for now. History of DVT: Not on anticoagulation at present as apparently has finished tr eatment. Check D-dimer. If elevated will do lower limb Dopplers. History of CABG: No chest pain. Continue with oral dose of statin, aspirin Full code. GI soft diet. Heparin 5000 every 12 hourly for DVT prophylaxis. Discharge planning: Continue to monitor for any fevers. Follow blood cultures. If blood cultures remain negative by tomorrow can discharge on oral Levaquin. Patient does have appointment with radiation oncologist tomorrow. Will confirm if patient can go to radiation therapy directly from the hospital. Attestations Medical Necessity Statement*: Requires further hospitalization for management of neutropenic fever, dysphagia in setting of esophageal cancer. Time Spent in Patient Care: Greater than 35 minutes (>than 50% of time spent in counselling and/or direct pt care on unit) . Coding Level of Care Code Acute Mapping Technician for Silvia Zamarripa Diagnoses Dysphagia R13.10 Neutropenia D70.1; T45.1X5A Neutropenia type: secondary to cancer chemotherapy Esophageal adenocarcinoma C15.9 Thrombocytopenia D69.6 Essential hypertension I10 GERD (gastroesophageal reflux disease) K21.9
[2020-10-07 10:04] LABS: Procalcitonin 0.14 ng/mL (0-0.5)
[2020-10-07] MEDS: heparin 5,000 unit/mL INJ 1 mL 5000 UNIT SUBCUT ×2 (11:07→22:38)
--- NOTE | 2020-10-07 12:48 | USR_ITS ---
PROCEDURE INFORMATION: Exam: US Duplex Lower Extremity Veins, Bilateral Exam date and time: 10/07/2020 12:48 PM Age: 75 years old Clinical indication: Abnormal findings; Abnormal lab test; Elevated d-dimer; Additional info: History of dvt, elevated d-dimer, history of esophageal canc TECHNIQUE: Imaging protocol: Real-time duplex ultrasound of the extremities with 2-D sen scale, color Doppler flow and spectral waveform analysis with image documentation. Complete exam focused on the bilateral lower extremity veins. COMPARISON: CT abdomen pelvis w con* [id number] 07/10/2020 10:37 AM FINDINGS: Right deep veins: Unremarkable. The common femoral, femoral, proximal profunda femoral, popliteal, posterior tibial and peroneal veins are patent without thrombus. Normal Doppler waveforms. Normal compressibility and/or augmentation response. Right superficial veins: Saphenofemoral junction is patent without thrombus. Left deep veins: Hypoechoic, nonocclusive thrombus in the distal femoral vein, becoming nearly occlusive to occlusive in the popliteal vein and tibioperoneal trunk. The common femoral, proximal to mid femoral, proximal profunda femoral, popliteal, posterior tibial and peroneal veins are patent without thrombus. Left superficial veins: Saphenofemoral junction is patent without thrombus. Soft tissues: Unremarkable. US/CV venous duplex [facility] [id number] IMPRESSION: Hypoechoic, nonocclusive thrombus in the distal left femoral vein, becoming nearly occlusive to occlusive in the left popliteal vein and left tibioperoneal trunk.
[2020-10-07] MEDS: dextrose 5%-sod chloride 0.9% 1,000 ML 50 ML IV (14:31)
[2020-10-07 17:24] LABS: Vancomycin Trough 9.6 ug/mL (10-15)
[2020-10-08] VITALS (8 sets, daily range): BP systolic 108–122; BP diastolic 56–75; PULSE 61–71; RESP 16–17; TEMP 36.9–37.5; O2SAT 96–97
[2020-10-08] MEDS: enoxaparin 100 mg/mL Syringe 70 MG SUBCUT ×2 (01:38→13:20)
[2020-10-08 03:25] LABS: Basophils % 1.3 %; Eosinophils % 0.6 %; Hematocrit 31.9 % (42.0-52.0); Hemoglobin 10.9 g/dL (11.7-16.6); Lymphocytes # 0.1 10^3/uL (0.8-4.8); Lymphocytes % 3.8 %; Mean Corpuscular HGB Conc 34.2 g/dL (30.0-36.0); Mean Corpuscular Hemoglobin 31.7 pg (28.0-34.0); Mean Corpuscular Volume 92.7 fl (80-94); Mean Platelet Volume 10.7 fL (7.4-10.4); Monocytes # 0.2 10^3/uL (0.2-0.9); Monocytes % 13.4 %; Neutrophils # 1.01 10^3/uL (1.8-7.7); Neutrophils % 64.3 %; Nucleated Red Blood Cells % 0 %; Platelet Count 83 10^3/cmm (130-400); Red Blood Count 3.44 10^6/uL (4.1-5.3); White Blood Count 1.6 10^3/uL (4.0-10.0)
[2020-10-08 03:51] LABS: Alanine Aminotransferase 11 U/L (0-41); Alkaline Phosphatase 53 IU/L (40-130); Anion Gap 12.4 (5-19); Aspartate Amino Transferase 11 U/L (0-40); Blood Urea Nitrogen 13 mg/dL (8-23); Calcium 8.1 mg/dL (8.5-10.5); Carbon Dioxide 22 mmol/L (22-29); Chloride 107 mmol/L (98-107); Globulin 2.1 g/dL (1.3-4.6); Glucose 113 mg/dL (65-115); Osmolality Calculated 287 mOsm/kg (285-295); Potassium 3.4 mmol/L (3.5-5.1); Sodium 138 mmol/L (136-145); Total Bilirubin 0.7 mg/dL (0.15-1.2); Total Protein 5.1 g/dL (6.6-8.7)
[2020-10-08 04:00] LABS: Slide Review Slide Review Perform
[2020-10-08] MEDS: vancomycin 1,000 MG in sodium chloride 0.9% 250 ML 250 MG IV (04:29)
[2020-10-08] MEDS: piperacillin-tazobactam 3.375 GM in sodium chloride 0.9% (plus) 50 ML IV ×3 (06:30→22:49)
[2020-10-08] MEDS: pantoprazole 40 mg SDV IVP ×2 (09:08→21:13)
[2020-10-08] MEDS: dextrose 5%-sod chloride 0.9% 1,000 ML 50 ML IV (10:42)
[2020-10-08] MEDS: sucralfate 1 gm/10 mL Oral Liq UDC PO ×3 (10:43→20:33)
--- NOTE | 2020-10-08 12:38 | P.PN_ITS ---
Subjective Subjective: Interval history: He denies any new symptoms, apart from having persistent hiccups since being in the hospital, as well as mild discomfort in the abdominal/chest wall in the right side lower chest, possibly exacerbated by the hiccups. He reports that he had a loose stool, not having persistent watery diarrhea, but will let us know if so. He is aware about having DVT, and started on blood thinners last night. He denies cough, shortness of breath. No nausea or vomiting. No dysuria. No other symptoms. Does get some discomfort with swallowing. Discussed with him regarding some white plaques on his tongue, will start nystatin swish and swallow. He would like to receive his radiation today. He is also planned for chemotherapy tomorrow. Discussed with him will discuss with Dr. Sorto with regards to plan for this given his neutropenia, although currently improving, as well as low-grade temps. Last fever 100.7 yesterday at 8 PM. Discussed with him regarding mild decrease in hemoglobin down to 10.9 with initiation of blood thinner in the setting of thrombocytopenia, platelets 83,000. He understands that he is at high risk of bleeding, but wants to cont inue to coagulation given active DVT. He is agreeable for additional monitoring in the hospital due to these developments. Vitals/I&O/Wt Last Vital Signs Temp 98.8 F 10/08/20 08:00 Pulse 61 10/08/20 08:00 Resp 17 10/08/20 08:00 BP 108/69 10/08/20 08:00 Pulse Ox 96 10/08/20 08:00 10/07/20 10/08/20 10/08/20 22:59 06:59 14:59 Intake Total 300 / 1505 300 / 1805 1050 / 1050 Output Total 200 / 200 Balance 100 / 1305 300 / 1605 1050 / 1050 Weight last 48 hrs Weight 77.882 kg Weight 77.111 kg Physical Exam Const: COMMON NORMALS: no acute distress and patient oriented x3 HENMT: COMMON NORMALS: oropharynx normal MOUTH: tongue abnormal white, coated Neck/C-Spine: COMMON NORMALS: no JVD Chest: OTHER: Unremarkable appearing port right chest. No erythema, swelling, tenderness. Resp: COMMON NORMALS: normal respiratory effort and clear to auscultation bilaterally AUSCULTATION: clear to auscultation bilaterally Cardio: COMMON NORMALS: no JVD, regular rhythm, S1 normal heart sound present, S2 normal heart sound present and No murmurs present (Cardio) RHYTHM: regular rhythm HEART SOUNDS: S1 normal heart sound present and S2 normal heart sound present GI: COMMON NORMALS: Normal to inspection, nondistended, normoactive bowel sounds present, Soft to palpation and non-tender PALPATION: Yes Soft to palpation Extremity: COMMON NORMALS: no joint enlargement and no pedal edema Neuro: COMMON NORMALS: patient oriented x3 and moves all extremities Skin: COMMON NORMALS: no rashes or lesions noted GENERAL SKIN EXAM: no rashes or lesions noted Data : 10/08/20 03:00 10/08/20 03:00 Micro: Microbiology 10/07/20 13:15 Enteric Pathogens (PCR) - Final Stool 10/06/20 17:15 Blood Culture - Preliminary Blood NEGATIVE TO DATE 10/06/20 17:00 Blood Culture - Preliminary Blood NEGATIVE TO DATE 10/06/20 Unknown MRSA Culture - Final Nose 10/06/20 21:23 Bacterial Antigens - Final Urine Kidney A&P Assessment and plan (1) Fever: Again 100.7 low-grade fever at 8 PM on 10/07. So far afebrile today. Overall is feeling better. Denies cough, shortness of breath. Chest x-ray was unremarkable. Urine sample ordered but is not collected. Stool loose. Bacterial panel unremarkable. Discussed with him in case again loose/watery, will collect for C. difficile. Does have some thrush. Started on nystatin swish and swallow. Discussed with him fever could be secondary to occult infection we are not yet catching, although blood cultures otherwise have been negative. Port appears unremarkable. Discussed with him fever could be secondary to the finding of DVT in left lower extremity. Started on anticoagulation last night. Status: Acute (2) DVT (deep venous thrombosis): Left lower extremity, partially occlusive in the femoral, appears to be occlusive in the popliteal and more distal veins. Started on therapeutic Lovenox. So far appears to be tolerating, although discussed with him hemoglobin did come down to 10.9. In the setting of thrombocytopenia: Platelets 83,000. No outward bleeding at this time. Monitor for now, reassess hemoglobin in the morning. Status: Chronic (3) Dysphagia: Discussed with him, he states he is tolerating liquid diet. Discussed that this may be the optimal route for now as long as he is able to maintain nutrition. Given neutropenia, low-grade temps, as well as active DVT, restarting anticoagulation in the setting of thrombocytopenia, risk of feeding tube at the current time would probably outweigh the benefit, although this may be revisited if necessary. He verbalized agreement. Continue p.o. liquid diet as tolerating. Protein supplements. Received IV hydration. Hold further IVF for now. Status: Acute (4) Neutropenia: Improving, ANC appears to be increasing, up to 1000 today. Status: Acute Qualifiers: Neutropenia type: secondary to cancer chemotherapy Qualified Code(s): D70.1 - Agranulocytosis secondary to cancer chemotherapy; T45.1X5A - Adverse effect of antineoplastic and immunosuppressive drugs, initial encounter (5) Esophageal adenocarcinoma: He once radiation therapy is scheduled today. He is asking regarding chemotherapy scheduled tomorrow. Reaching out to his oncologist. Status: Acute (6) Thrombocytopenia: Steadied at 80,000 for now. Status: Acute (7) Essential hypertension: On Imdur, metoprolol. Blood pressure soft. Enalapril on hold. Decrease metoprolol to 25 mg. 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 He has noted thrush on exam. Added nystatin swish and swallow. Hold off on Magic mouthwash as per recommendations from radiation oncologist. History of CABG: No chest pain. Continue with oral dose of statin, aspirin Attestations Medical Necessity Statement*: Continue admission for assessment management of fever in the setting of neutropenia, need for initiation of anticoagulation in the setting of thrombocytopenia, decrease in hemoglobin. 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
[2020-10-08] MEDS: nystatin 100,000 unit/mL UDC 5 mL 400000 UNIT PO ×3 (13:21→20:33)
--- NOTE | 2020-10-08 14:01 | P.CONIM_ITS ---
Providers/Reason For Consult Consulting Physician/Specialty*: General Surgery Dr. Dennison Reason for Consult*: Feeding tube Attending Physician: Abner Nettles Primary Care Provider: Randi Buchanan DO History of Present Illness History of Present Illness Moustapha Nunes is a 75 year old male who was recently diagnosed with esophageal cancer on 07/02/2020 and is currently undergoing chemotherapy and radiation. After his last treatment 3 days ago patient was unable to take anything by mouth and therefore had to be admitted to the hospital. He is generally on a liquid diet. He is currently neutropenic and is not on anticoagulation Review of Systems General: Reports: 10 or more systems reviewed and unremarkable except in HPI and below Meds/Allergies Home Medications and Allergies Home Medications Medication Instructions Recorded Confirmed Last Taken Type aspirin 81 mg tablet,delayed 81 mg PO BEDTIME 03/06/20 10/06/20 10/05/20 History release clopidogrel 75 mg tablet 75 mg PO QAM 03/06/20 10/06/20 10/05/20 History isosorbide mononitrate 60 mg 60 mg PO QAM 03/16/20 10/06/20 10/06/20 History tablet,extended release 24 hr hydrocodone-acetaminophen 1 tab PO Q6H PRN #20 tab 08/15/20 10/06/20 Unknown Rx ondansetron HCl [Zofran] 4 mg PO Q6H PRN #20 tab 08/15/20 10/06/20 Unknown Rx cholecalciferol (vitamin D3) 125 mcg PO QAM 09/01/20 10/06/20 10/05/20 History [Vitamin D3] dexamethasone See Rx Instructions .ROUTE .COMPLEX 09/01/20 10/06/20 Unknown History docusate sodium [Colace] 100 mg PO BID PRN 09/01/20 10/06/20 Unknown History enalapril maleate 5 mg PO BID 09/01/20 10/06/20 10/05/20 History levothyroxine 175 mcg PO QAM 09/01/20 10/06/20 10/06/20 History lorazepam 1 mg PO TID PRN 09/01/20 10/06/20 Unknown History metoprolol succinate 50 mg PO QAM 09/01/20 10/06/20 10/06/20 History omeprazole 20 mg PO DAILY 09/01/20 10/06/2021 History prochlorperazine maleate 10 mg PO Q4H PRN 09/01/20 10/06/20 Unknown History atorvastatin 80 mg PO BEDTIME 10/06/20 10/06/20 10/05/20 History Allergies Allergy/AdvReac Type Severity Reaction Status Date / Time No Known Allergies Allergy Verified 09/01/20 11:33 Current Medications Current Medications Generic Name Dose Route Start Last Admin Trade Name Freq PRN Reason Stop Dose Admin Aspirin 81 mg 10/06/20 21:00 10/07/20 21:04 Aspirin 81 Mg Ec Tablet PO Not Given BEDTIME [facility] Atorvastatin Calcium 80 mg 10/06/20 21:00 10/07/20 21:04 Atorvastatin 40 Mg Tablet PO Not Given BEDTIME [facility] Clopidogrel Bisulfate 75 mg 10/07/20 06:00 10/08/20 05:27 Clopidogrel 75 Mg Tablet PO Not Given QAM [facility] Enoxaparin Sodium 70 mg 10/08/20 01:15 10/08/20 13:20 Enoxaparin 100 Mg/Ml Syringe SUBCUT 70 mg Q12H ANDREA Administration Ferrous Gluconate 324 mg 10/07/20 18:00 10/08/20 09:02 Ferrous Gluconate 324 Mg Tablet PO Not Given BIDWM [facility] Piperacillin Sod/Tazobactam 50 mls @ 12.5 mls/hr 10/06/20 23:30 10/08/20 11:28 Sod 3.375 gm/ Sodium Chloride IV Infused Q8H [facility] Infusion Protocol As Directed Dextrose/Sodium Chloride 1,000 mls @ 50 mls/hr 10/06/20 18:51 10/08/20 10:42 Dextrose 5%-Sod Chloride 0.9% IV 50 mls/hr .Q20H ANDREA Administration Isosorbide Mononitrate 60 mg 10/07/20 06:00 10/08/20 05:27 Isosorbide Mononitrate Er 60 Mg Tablet PO Not Given QAM [facility] Levothyroxine Sodium 175 mcg 10/07/20 06:00 10/08/20 05:28 Levothyroxine 175 Mcg Tablet PO Not Given QAM [facility] Nystatin 400,000 unit 10/08/20 13:00 10/08/20 13:21 Nystatin 100,000 Unit/Ml Udc 5 Ml PO 400,000 unit QID ANDREA Administration Pantoprazole Sodium 40 mg 10/06/20 20:00 10/08/20 09:08 Pantoprazole 40 Mg Sdv IVP 40 mg Q12H ANDREA Administration Sucralfate 1 gm 10/06/20 21:00 10/08/20 10:43 Sucralfate 1 Gm/10 Ml Oral Liq Udc PO 1 gm AC&BEDTIME ANDREA Administration PFSH Acute PFSH: Medical History CHF (congestive heart failure) Colon cancer DVT (deep venous thrombosis) Esophageal adenocarcinoma Esophageal stricture Essential hypertension Hyperlipidemia Hypothyroid Old OR (myocardial infarction) Surgical History H/O esophagogastroduodenoscopy (09/01/20) With dilation 07/02/20; with dilation History of appendectomy History of colon resection 2014 History of colonoscopy 2019 Hx of CABG Port-A-Cath in place (08/15/20) Family History Other CAD (coronary artery disease) Social History Smoking and tobacco status: never smoked Alcohol intake: current Alcohol intake frequency: few times a week Alcohol type: beer Vitals/I&O/Wt Last Vital Signs Temp 98.8 F 10/08/20 08:00 Pulse 61 10/08/20 08:00 Resp 17 10/08/20 08:00 BP 108/69 10/08/20 08:00 Pulse Ox 96 10/08/20 08:00 10/07/20 10/08/20 10/08/20 22:59 06:59 14:59 Intake Total 300 / 1805 300 / 1805 1050 / 1050 Output Total 200 / 200 Balance 100 / 1605 300 / 1605 1050 / 1050 Weight last 48 hrs Weight 171 lb 11.2 oz Physical Exam Narrative: EXAM NARRATIVE: HEENT: Normocephalic Eye: Sclera /conjunctiva normal Abdomen: Soft to palpation Neurological: Oriented to place person and time Skin: Intact, no lesions appreciated on gross exam Data Micro: Micro: Microbiology 10/07/20 13:15 Enteric Pathogens (PCR) - Final Stool 10/06/20 17:15 Blood Culture - Pr eliminary Blood NEGATIVE TO CASIE E 10/06/20 17:00 Blood Culture - Pr eliminary Blood NEGATIVE TO CASIE E 10/06/20 Unknown MRSA Culture - Fin al Nose 10/06/20 21:23 Bacterial Antigens - Final Urine Kidney A&P Assessment and plan (1) Esophageal adenocarcinoma: 75-year-old male with history of chemo radiation for esophageal cancer who is a candidate for surgery after neoadjuvant therapy. Patient is currently tolerating liquid diet and protein supplements by mouth. Discussed with the patient that since he is a surgical candidate he will need laparoscopic possible open jejunostomy if he were to go down that route. Even then he would only be getting liquid supplements which he is taking by mouth anyway except for a few days when he had difficulty after getting radiation therapy last week. He is at increased risk for complications given his neutropenia which could further delay his chemotherapy etc. At this point I have therefore encouraged him to increase his oral liquid intake as much as possible including protein supplements and continue with the neoadjuvant therapy Status: Acute Consult Attestations Medical Necessity Statement: As per attending physician Coding Level of Care Code Acute Health Economist for Silvia Zamarripa Diagnoses Esophageal adenocarcinoma C15.9
[2020-10-08 18:03] LABS: SARS Covid-2 Antigen Negative (Negative)
[2020-10-08] MEDS: ondansetron 2 mg/ML SDV 2 mL 4 MG IVP (19:43)
[2020-10-09] VITALS: BP 132/69; PULSE 60; RESP 18; TEMP 36.5; O2SAT 95
[2020-10-09] MEDS: enoxaparin 100 mg/mL Syringe 70 MG SUBCUT ×2 (00:34→12:15)
[2020-10-09 03:07] LABS: Hematocrit 30.9 % (42.0-52.0); Hemoglobin 10.8 g/dL (11.7-16.6); Lymphocytes # 0.1 10^3/uL (0.8-4.8); Lymphocytes % 4.6 %; Mean Corpuscular Hemoglobin 32.2 pg (28.0-34.0); Mean Corpuscular Volume 92.2 fl (80-94); Mean Platelet Volume 10.5 fL (7.4-10.4); Monocytes # 0.4 10^3/uL (0.2-0.9); Monocytes % 18.9 %; Neutrophils % 71.4 %; Nucleated Red Blood Cells % 0 %; Platelet Count 87 10^3/cmm (130-400); Red Blood Count 3.35 10^6/uL (4.1-5.3); Red Cell Distribution Width 12.2 % (12.1-15.1)
[2020-10-09 03:25] LABS: Alanine Aminotransferase 15 U/L (0-41); Albumin Level 2.9 g/dL (3.5-5.2); Alkaline Phosphatase 57 IU/L (40-130); Anion Gap 13.1 (5-19); Aspartate Amino Transferase 15 U/L (0-40); Blood Urea Nitrogen 12 mg/dL (8-23); Calcium 8.2 mg/dL (8.5-10.5); Carbon Dioxide 22 mmol/L (22-29); Chloride 107 mmol/L (98-107); Globulin 2.2 g/dL (1.3-4.6); Glucose 97 mg/dL (65-115); Osmolality Calculated 288 mOsm/kg (285-295); Potassium 3.1 mmol/L (3.5-5.1); Sodium 139 mmol/L (136-145); Total Bilirubin 0.5 mg/dL (0.15-1.2); Total Protein 5.1 g/dL (6.6-8.7)
[2020-10-09 03:42] LABS: Slide Review Slide Review Perform
[2020-10-09 04:00] VITALS: BP 117/66; PULSE 64; RESP 18; TEMP 36.6; O2SAT 93
[2020-10-09 05:37] VITALS: PULSE 53
[2020-10-09 07:05] LABS: Add Urine Microscopic? NO; Charge for UA Resulting for Rev
[2020-10-09 07:20] VITALS: BP 124/67; PULSE 55; RESP 17; TEMP 36.7; O2SAT 96
[2020-10-09] MEDS: piperacillin-tazobactam 3.375 GM in sodium chloride 0.9% (plus) 50 ML IV (07:27)
[2020-10-09] MEDS: sucralfate 1 gm/10 mL Oral Liq UDC PO (07:27)
[2020-10-09 08:08] LABS: Bilirubin Urine Neg (Negative); Blood Urine Neg (Negative); Glucose Urine UA Norm (Normal); Ketones Urine Negative (Negative); Leukocyte Esterase Urine Negative (Negative); Nitrate Urine Negative (Negative); Protein Urine Neg (Negative); Specific Gravity, Urine 1.015 (1.005-1.030); Urine Appearance Clear (CLEAR); Urine Color Yellow (Yellow); Urobilinogen Urine Norm (Negative); pH Urine 5 (5-7)
[2020-10-09] MEDS: pantoprazole 40 mg SDV IVP (09:59)
--- NOTE | 2020-10-09 10:01 | PC.NURSE ---
patient refused iron and nystatin. Dr Nettles notified
--- NOTE | 2020-10-09 11:28 | PM.DCS ---
Discharge Providers Date of Admission: 10/06/20 16:52 Date of Discharge: October 09, 2020 Attending Provider at Admission: Daniel Watts MD Attending Provider at Discharge: Abner Nettles Primary Care Provider: Randi Buchanan DO Diagnoses at Discharge Discharge Diagnosis (1) Esophageal adenocarcinoma: Status: Acute (2) Fever: Status: Acute (3) Thrombocytopenia: Status: Acute (4) Neutropenia: Status: Acute Qualifiers: Neutropenia type: secondary to cancer chemotherapy Qualified Code(s): D70.1 - Agranulocytosis secondary to cancer chemotherapy; T45.1X5A - Adverse effect of antineoplastic and immunosuppressive drugs, initial encounter (5) Dysphagia: Status: Acute (6) Essential hypertension: Status: Chronic (7) DVT (deep venous thrombosis): Status: Chronic Reason for Visit Reason for Visit: HAS A STRICTER NEEDS FLUIDS Hospital Course Hospital Course Pleasant 75-year-old gentleman with esophageal cancer undergoing chemoradiotherapy, history of GERD, CAD, CABG, remote history of VTE, not on anticoagulation preadmission, HTN, HLD, presented for assessment to ER due to dysphagia, with noted neutropenia. Received a dose of Neulasta. While in hospital with noted low-grade fever 100.7 on 10/07 evening, subsequently again 10/08. Simvastatin remained afebrile. Was treated empirically in the hospital with Zosyn, initially vancomycin as well. MRSA PCR from negative. Blood cultures negative so far. Soft stool investigated by enteric pathogen panel was negative. Urine bacterial antigens negative. Otherwise without symptoms of pneumonia. No other gastrointestinal complaints apart from noted thrush for which was started on nystatin swish and swallow. Neutropenia gradually improved. Noted persistent thrombocytopenia with platelets leveled off around 80,000. Additionally assessed with lower extremity venous duplex ultrasound with finding of left lower extremity DVT, nonocclusive and distal left femoral vein, becoming nearly occlusive to occlusive and popliteal vein, left tibioperoneal trunk. Was started on Lovenox anticoagulation in the hospital which he tolerated well. Mild decrease in hemoglobin, but remaining steady at 10.8. Was assessed by surgery for consideration of feeding tube, however, a number of factors at this time make this a more risky rather than beneficial undertaking, including the fact that he can tolerate currently liquid oral intake. We will continue on liquid diet, with Ensure supplements. Medications as tolerating either as usual or crushed. He states at home mostly takes them with some Ensure, but other times will crush them or throw them. Due to this Imdur changed to immediate release form. As he is otherwise doing well, tolerating oral intake, without subsequent fevers, no other active complaints at this time he feels safe about cautiously returning home. As per discussion with his oncologist he is asked to return on Thursday for reevaluation with regards to delay of chemotherapy given pancytopenia. He is ANC count is up to 1400 today. As per request he is also additionally assessed by COVID-19 PCR. Rapid antigen was negative. Tick panel is sent out as well. As discussed with him the studies are pending. Physical Exam Const: COMMON NORMALS: no acute distress and patient oriented x3 HENMT: COMMON NORMALS: oropharynx normal MOUTH: tongue abnormal white, coated Neck/C-Spine: COMMON NORMALS: no JVD Chest: OTHER: Unremarkable appearing port right chest. No erythema, swelling, tenderness. Resp: COMMON NORMALS: normal respiratory effort and clear to auscultation bilaterally AUSCULTATION: clear to auscultation bilaterally Cardio: COMMON NORMALS: no JVD, regular rhythm, S1 normal heart sound present, S2 normal heart sound present and No murmurs present (Cardio) RHYTHM: regular rhythm HEART SOUNDS: S1 normal heart sound present and S2 normal heart sound present GI: COMMON NORMALS: Normal to inspection, nondistended, normoactive bowel sounds present, Soft to palpation and non-tender PALPATION: Yes Soft to palpation Extremity: COMMON NORMALS: no joint enlargement and no pedal edema Neuro: COMMON NORMALS: patient oriented x3 and moves all extremities Skin: COMMON NORMALS: no rashes or lesions noted GENERAL SKIN EXAM: no rashes or lesions noted Discharge Data Data Completed and Pending: Completed Studies During Hospitalization Category Date Time Status XR chest 1V jf ble [id number] Stat Exams 10/06/20 16:08 [place] [id number] Urgent Ultrasound 10/07/20 12:48 Completed Pending at discharge Category Date Time Status Blood Culture Sta t Lab 10/06/20 17:15 Results Complete Blood Co unt w/Auto AM LABS Lab 10/10/20 04:00 Ordered Complete Blood Co unt w/Auto AM LABS Lab 10/11/20 04:00 Ordered Comprehensive Met abolic Panel AM LA BS Lab 10/10/20 04:00 Ordered Comprehensive Met abolic Panel AM LA BS Lab 10/11/20 04:00 Ordered Coronavirus Test [facility] ne Lab 10/08/20 15:52 Received Immunochemical Fe brock OCB Routine Lab 10/09/20 06:30 Received Legionella Antige n STAT Routine Lab 10/06/20 19:08 Ordered Tick Panel Routin e Lab 10/08/20 03:00 Received Labs from last 24 hours 10/09/20 10/09/20 10/08/20 02:06 02:06 15:52 WBC 2.0 L RBC 3.35 L Hgb 10.8 L Hct 30.9 L MCV 92.2 MCH 32.2 MCHC 35.0 RDW 12.2 Plt Count 87 L MPV 10.5 H Neut % (Auto) 71.4 Lymph % (Auto) 4.6 [place] % (Auto) 18.9 Eos % (Auto) 1.0 Baso % (Auto) 1.0 Neut # (Auto) 1.40 L Lymph # (Auto) 0.1 L [place] # (Auto) 0.4 Eos # (Auto) 0.0 Baso # (Auto) 0.0 Nucleated RBC % (a uto) 0 Nucleated RBCs # 0.0 Sodium 139 Potassium 3.1 L Chloride 107 Carbon Dioxide 22 Anion Gap 13.1 BUN 12 Creatinine 1.1 GFR Calculation Not Reportable Glucose 97 Calculated Osmolal ity 288 Calcium 8.2 L Total Bilirubin 0.5 AST 15 ALT 15 Alkaline Phosphata se 57 Total Protein 5.1 L Albumin 2.9 L Globulin 2.2 Urine Color Urine Appearance Urine pH Ur Specific Gravit y Urine Protein Urine Glucose (UA) Urine Ketones Urine Blood Urine Nitrate Urine Bilirubin Urine Urobilinogen Ur Leukocyte Alejandrina ase Lyme Ab (Western B lot) Nasal/Oral COVID-1 9 PCR E. chaffeensis IgG Ab E. chaffeensis IgM Ab E. chaffeensis Int erp E. chaffeensis Com ment Rickettsia IgG Ab Rickettsia IgM Ab SARS-CoV-2 Ag (Rap id) Negative 10/08/20 10/08/20 10/06/20 15:52 03:00 06:30 WBC RBC Hgb Hct MCV MCH MCHC RDW Plt Count MPV Neut % (Auto) Lymph % (Auto) [place] % (Auto) Eos % (Auto) Baso % (Auto) Neut # (Auto) Lymph # (Auto) [place] # (Auto) Eos # (Auto) Baso # (Auto) Nucleated RBC % (a uto) Nucleated RBCs # Sodium Potassium Chloride Carbon Dioxide Anion Gap BUN Creatinine GFR Calculation Glucose Calculated Osmolal ity Calcium Total Bilirubin AST ALT Alkaline Phosphata se Total Protein Albumin Globulin Urine Color Yellow Urine Appearance Clear Urine pH 5 Ur Specific Gravit y 1.015 Urine Protein Neg Urine Glucose (UA) Norm Urine Ketones Negative Urine Blood Neg Urine Nitrate Negative Urine Bilirubin Neg Urine Urobilinogen Norm Ur Leukocyte Alejandrina ase Negative Lyme Ab (Western B lot) Pending Nasal/Oral COVID-1 9 PCR Pending E. chaffeensis IgG Ab Pending E. chaffeensis IgM Ab Pending E. chaffeensis Int erp Pending E. chaffeensis Com ment Pending Rickettsia IgG Ab Pending [place]etts[place] IgM Ab Pending SARS-CoV-2 Ag (Rap id) Vitals: Last Vital Signs Temp 98.1 F 10/09/20 07:20 Pulse 55 L 10/09/20 07:20 Resp 17 10/09/20 07:20 BP 124/67 10/09/20 07:20 Pulse Ox 96 10/09/20 07:20 Discharge Plan Discharge Patient Disposition: Home Condition: Stable Prescriptions: New isosorbide mononitrate 20 mg tablet 20 mg PO BID Qty: 180 RF: 0 levofloxacin 750 mg tablet 750 mg PO DAILY 7 Days Qty: 7 RF: 0 metoprolol succinate 25 mg capsule,sprinkle,ER 24hr 25 mg PO DAILY Qty: 30 RF: 0 nystatin 100,000 unit/mL Suspension 400,000 unit PO QID 7 Days Qty: 112 RF: 0 Eliquis DVT-PE Treat 30D Start 5 mg (74 tabs) tablets,dose pack See Rx Instructions .ROUTE .COMPLEX Qty: 74 RF: 0 Continued clopidogrel 75 mg tablet 75 mg PO QAM RF: 0 Hold Instructions: Resume on 09/06/20. aspirin 81 mg tablet,delayed release (DR/EC) 81 mg PO BEDTIME RF: 0 ondansetron HCl [Zofran] 4 mg tablet 4 mg PO Q6H PRN (Reason: nausea and vomiting) Qty: 20 RF: 0 hydrocodone-acetaminophen 5-325 mg tablet 1 tab PO Q6H PRN (Reason: pain) Qty: 20 RF: 0 prochlorperazine maleate 10 mg tablet 10 mg PO Q4H PRN (Reason: Nausea) RF: 0 omeprazole 20 mg capsule,delayed release(DR/EC) 20 mg PO DAILY RF: 0 lorazepam 1 mg tablet 1 mg PO TID PRN (Reason: Nausea) RF: 0 cholecalciferol (vitamin D3) [Vitamin D3] 125 mcg (5,000 unit) Tablet 125 mcg PO QAM RF: 0 levothyroxine 175 mcg tablet 175 mcg PO QAM RF: 0 docusate sodium [Colace] 100 mg capsule 100 mg PO BID PRN (Reason: Constipation) RF: 0 atorvastatin 40 mg tablet 80 mg PO BEDTIME RF: 0 Held enalapril maleate 5 mg tablet 5 mg PO BID RF: 0 Hold Instructions: Resume on 10/15/20. dexamethasone 4 mg tablet See Rx Instructions .ROUTE .COMPLEX RF: 0 Hold Instructions: Resume on 10/15/20. Discontinued isosorbide mononitrate 60 mg tablet extended release 24 hr 60 mg PO QAM RF: 0 metoprolol succinate 50 mg tablet extended release 24 hr 50 mg PO QAM RF: 0 Discharge Orders: Discharge Order (Routine); Ordered 10/09/20 Ordered By: Abner Nettles Referrals: Diaz Vegas MD [Physician] - 1 week Randi Buchanan DO [Primary Care Provider] - 4-7 days Serafin Sorto MD [Staff Physician] - 10/15/20 Discharge Diet: Full LIquid Discharge Activity: Increase activity as tolerated Patient Instructions: Nystatin (By mouth), Levofloxacin (By mouth), Apixaban (By mouth), Dysphagia - Oncology, Potassium Content of Foods List (GEN), Oral Candidiasis (GEN), Deep Venous Thrombosis (GEN), Neutropenia (GEN), Thrombocytopenia (GEN), Opioid Safety Activity Restrictions/Additional Instructions: Please follow-up with your primary doctor, as well as oncologist. In case of recurrence of fever, or any other concerning symptoms please seek medical attention. Please have your primary doctor and oncologist follow-up your blood counts to reassess neutrophil count, as well as low platelet level. Please discuss blood clot in your left leg with your primary doctor and oncologist. Please note with low platelet levels there is additional elevation of risk of bleeding with blood thinner medication used for treatment of the blood clot. Please avoid any injury. In case of bleeding seek medical attention. For now you are asked to continue Levaquin as per discussion with your oncologist, please discuss in office whether this treatment needs to be extended. Please discuss also regarding duration of delay of chemotherapy. For now please hold dexamethasone until instructed to take it by your oncologist. You may crush her medications to help you take them. Due to this your isosorbide formulation has been changed to immediate release. Please note at discharge there are still pending studies did will need to be followed up for final result including COVID-19 PCR test (rapid antigen test was negative) and tick panel. Until COVID-19 PCR can be confirmed negative, please maintain isolation from any persons that may be at risk of jaki COVID-19. Due to mildly low potassium level, please include foods rich in potassium. Have your primary doctor recheck your potassium level. In case of progressive symptoms of dysphagia, difficulties with even liquids, revisit consideration of feeding tube when not in episode of acute illness. Discharge Attestations Time Spent in Discharge Care*: greater than 30 min Quality Metrics Clinical Quality Measures During this hospital stay, did patient experience: None Coding Level of Care Code Acute Chg FW DC note Diagnoses Esophageal adenocarcinoma C15.9 Fever R50.9 Thrombocytopenia D69.6 Neutropenia D70.1; T45.1X5A Neutropenia type: secondary to cancer chemotherapy Dysphagia R13.10 Essential hypertension I10 DVT (deep venous thrombosis) I82.409
--- NOTE | 2020-10-09 11:32 | PC.SOCIAL ---
IM follow up discussed with since patient is on isolation and unable to reach by phone. She took down number and verbalized understanding.
[2020-10-09 12:00] VITALS: BP 114/71; PULSE 60; RESP 17; TEMP 36.9; O2SAT 98
[2020-10-09 13:08] VITALS: BP 114/71; PULSE 60; RESP 17; TEMP 36.9; O2SAT 98
--- NOTE | 2020-10-09 14:01 | PC.NURSE ---
1308 patient given discharge instructions and verbalized understanding of instructions. patient taken to private vehicle via wheelchair and assisted into private vehicle.
[2020-10-09 14:33] LABS: Lyme AB Screen <0.90 index
[2020-10-11 16:40] LABS: Coronavirus Test Green County Not Detected
[2020-10-11 21:09] LABS: E. Chaffeensis AB IGG <1:64; E. Chaffeensis AB IGM <1:20
[2020-10-12 17:33] LABS: RMSF IGG DETECTED; RMSF IGM NOT DETECTED
== END 2020-10-09 14:04 | disposition home or self-care (01) ==
LOC: ER 13:48 → MEDSURG 18:26
PROVIDERS: Admitting Provider Student in an Organized Health Care Education/Training Program; Emergency Provider Family Medicine; PCP Family Medicine; Visit Provider Internal Medicine
DX: C15.9 Malignant neoplasm of esophagus, unspecified (principal); R50.9 Fever, unspecified; D69.6 Thrombocytopenia, unspecified; D70.1 Agranulocytosis secondary to cancer chemotherapy; T45.1X5A Adverse effect of antineoplastic and immunosuppressive drugs, initial encounter; R13.10 Dysphagia, unspecified; I11.0 Hypertensive heart disease with heart failure; I50.9 Heart failure, unspecified; I82.409 Acute embolism and thrombosis of unspecified deep veins of unspecified lower extremity; I25.10 Atherosclerotic heart disease of native coronary artery without angina pectoris; K21.9 Gastro-esophageal reflux disease without esophagitis; Z95.1 Presence of aortocoronary bypass graft; Z79.82 Long term (current) use of aspirin; Z86.718 Personal history of other venous thrombosis and embolism; E03.9 Hypothyroidism, unspecified; I25.2 Old myocardial infarction; Z82.49 Family history of ischemic heart disease and other diseases of the circulatory system; Z51.0 Encounter for antineoplastic radiation therapy; Z51.11 Encounter for antineoplastic chemotherapy; C15.5 Malignant neoplasm of lower third of esophagus; C77.8 Secondary and unspecified malignant neoplasm of lymph nodes of multiple regions; R63.4 Abnormal weight loss; Z95.5 Presence of coronary angioplasty implant and graft; Z79.01 Long term (current) use of anticoagulants; I10 Essential (primary) hypertension; Z85.038 Personal history of other malignant neoplasm of large intestine; Z92.21 Personal history of antineoplastic chemotherapy; Z92.3 Personal history of irradiation; Z79.899 Other long term (current) drug therapy
CPT/HCPCS: 36415; 71045; 77336; 77386; 80053; 80061; 80202; 81003; 82274; 83540; 83550; 83690; 83735; 84100; 84145; 84443; 85025; 85378; 86140; 86403; 86618; 86666; 86757; 87040; 87426; 87449; 87506; 87635; 87641; 93970; 96365; 96367; 96372; 96375; 99285; C9113; G0378; J1442; J1644; J1650; J2405; J2543; J3370; J7030; J7050

== ENCOUNTER 2020-10-16 05:36 | Outpatient (RCR) | payer MEDICARE, SELFPAY ==
--- NOTE | 2020-10-10 15:45 | ONCRAD TMN_ITS ---
Radiation Oncology Treatment Management Note Patient Name: Moustapha Nunes Date of : 1945 Date of Service: 10/10/2020 Attending Physician: Diaz Vegas M.D. 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 The patient has received 44 Gy of a prescribed 50 Ramires with an intensity modulated radiotherapy plan utilizing a step and shoot treatment technique. He has been prescribed carboplatin (AUC 2) and paclitaxel (50 mg/m2) weekly during radiotherapy. Upon review of systems, he denied any complaints related to radiotherapy. He was admitted for neutropenia. A DVT was diagnosed in the hospital. On physical examination, the patient weighed 174 lbs. His temperature was 97.7 ???F with a blood pressure of 99/57 mmHg. His pulse was 78 bpm and the respiratory rate was 18. No erythema within the treatment moreno. Continue esophageal radiotherapy as planned. Signed by: Dr. Diaz Vegas 10/10/2020 3:43:56 PM
[2020-10-16 11:15] LABS: Basophils % 0.4 %; Eosinophils % 0.4 %; Hematocrit 31.8 % (42.0-52.0); Hemoglobin 10.8 g/dL (11.7-16.6); Lymphocytes # 0.1 10^3/uL (0.8-4.8); Lymphocytes % 2.7 %; Mean Corpuscular Hemoglobin 31.7 pg (28.0-34.0); Mean Corpuscular Volume 93.3 fl (80-94); Mean Platelet Volume 9.7 fL (7.4-10.4); Monocytes # 0.3 10^3/uL (0.2-0.9); Monocytes % 5.5 %; Neutrophils % 90.2 %; Nucleated Red Blood Cells % 0 %; Platelet Count 133 10^3/cmm (130-400); Red Blood Count 3.41 10^6/uL (4.1-5.3); Red Cell Distribution Width 13.2 % (12.1-15.1); White Blood Count 4.8 10^3/uL (4.0-10.0)
[2020-10-16 11:38] LABS: Alanine Aminotransferase 13 U/L (0-41); Albumin Level 3.1 g/dL (3.5-5.2); Alkaline Phosphatase 61 IU/L (40-130); Anion Gap 12.3 (5-19); Aspartate Amino Transferase 13 U/L (0-40); Blood Urea Nitrogen 18 mg/dL (8-23); Calcium 8.9 mg/dL (8.5-10.5); Carbon Dioxide 26 mmol/L (22-29); Chloride 102 mmol/L (98-107); Globulin 2.3 g/dL (1.3-4.6); Glucose 119 mg/dL (65-115); Osmolality Calculated 287 mOsm/kg (285-295); Potassium 3.3 mmol/L (3.5-5.1); Sodium 137 mmol/L (136-145); Total Bilirubin 0.4 mg/dL (0.15-1.2); Total Protein 5.4 g/dL (6.6-8.7)
[2020-10-16] MEDS: potassium chloride 20 MEQ in sodium chloride 0.9% 500 ML 250 MEQ IV (15:15)
--- NOTE | 2020-10-16 15:50 | ONC FU_ITS ---
Dr. Sorto follow up note Patient: Moustapha Nunes Unit #: [id number]: 1945 Dicatated By: Serafin Sorto M.D.Date of Visit:Oct 16, 2020 Onc Med Follow-up/Prog Note History of Present Illness: Mr. Moustapha Nunes, is a 75-year-old gentleman with prolonged history of esophageal reflux disease, as per patient initially [id number] medication would help then patient started taking daily omeprazole which helped him significantly, for the last few months prior to diagnosis, patient started having progressive dysphagia and he has lost about 30 pounds over 6 months partly due to change in diet as his is on long-term TPN for enterocutaneous fistula and also due to progressive dysphagia. 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 Multiple pulmonary nodules, appears stable when compared with CT scan done in March 2015, subsequently patient underwent CT PET scan on August 06, 2020 which showed hypermetabolic long segment soft tissue thickening extending from proximal to the mid thoracic esophagus with a possible proximal extra esophageal extension/suspicious for adjacent lymphadenopathy. A separate focus of FDG activity in the distal esophagus is indeterminate. FDG avid right inguinal lymph node most likely reactive. No other abnormality seen. Patient was evaluated by Dr. Blanton, EUS and J-tube was not considered as patient has mild to moderate dysphagia, as per discussion with Ms. Langford, nursing practitioner with Dr. Blanton, combined chemoradiation therapy and neoadjuvant fashion was recommended followed by evaluation with CT PET scan at [place] and for possible esophagectomy. Patient denies any smoking or alcohol use Patient has history of DVT left lower leg for which he was treated with Eliquis which he took for couple of months and quit recently Patient has history of triple bypass, was done in 1993. Came for follow-up, complaining of generalized weakness and fatigue and somewhat lightheaded, patient completed combined chemoradiation therapy yesterday on October 15, 2020, patient missed his weekly chemotherapy with carboplatin/Taxol concurrent with radiation therapy since October 01, 2020, as patient was admitted to hospital on October 06, 2020 with neutropenic fever/sepsis, was treated with broad-spectrum antibiotics and Neupogen., Denies any fever chills denies any nausea or vomiting, still with dysphagia and painful swallowing but not taking enough pain medication, may have high tolerance for pain. Not taking enough orally Medications: Aspirin 81 1 Tablet (of 81 mg) Tablet, enteric coated Oral daily, Atorvastatin Calcium 2 Tablet (of 40 mg) Oral daily, Cholecalciferol 1 Tablet (of 1.25 mg ) Oral daily, Clopidogrel Bisulfate 1 Tablet (of 75 mg) Oral daily, Eliquis 1 (5 mg) Tablet Oral b.i.d., Enalapril Maleate 2 Tablet (of 5 mg) Oral daily, Isosorbide Mononitrate ER 1 Tablet (of 60 mg) Tablet SR 24 HR Oral daily, Levothyroxine Sodium 1 Tablet (of 175 mcg) Oral daily, Metoprolol Succinate ER 1 Tablet (of 50 mg) Tablet SR 24 HR Oral daily, Omeprazole 1 Capsule (of 20 mg) Capsule Delayed Release Oral daily Allergies: No Known Allergies. Review of Systems: Review of Systems is not available for this patient. Vital Signs: Performed on Oct 16, 2020 12:52 Height - 68.00 in Weight - 171.6 lbs (LOW) BSA - 1.92 sq.m BMI - 26.09 Temperature - 97.9 F (LOW) Pulse - 80 /min Respiration - 18 /min BP - 114/73 mm(hg) O2 Sat - 97 % Pain - 0 Fatigue - 4 Performance Status: 1 - No physically strenuous activity, but ambulatory and able to carry out light or sedentary work (e.g. office work, light house work). (ECOG) Physical Examination: ENMT - Dry oral mucosa but no thrush or mouth sores, Respiratory - Lungs are clear to auscultation, Cardiovascular - Regular rate and rhythm of heart, Abdomen - Soft, bowel sounds present, Extremities - No visible edema. Lab/Imaging: Test performed on Oct 01, 2020 10:30 Creatinine 0.9 mg/dL Cr Clearance (Est) 82.54 mL/min Test performed on Oct 01, 2020 08:10 Sodium 135 mmol/L Potassium 4.5 mmol/L Chloride 102 mmol/L CO2 22 mmol/L Anion Gap 15.5 BUN 25 mg/dL Glucose 194 mg/dL Osmolality - Calculated 290 mOsm/kg Calcium 8.8 mg/dL Protein, Total 5.9 g/dL Albumin 4.0 g/dL Globulin 1.9 g/dL Bilirubin, Total 0.8 mg/dL ALT (SGPT) 13 U/L AST (SGOT) 13 U/L Alkaline Phosphatase 67 IU/L WBC 4.8 10 3/uL RBC 4.44 10 6/uL HGB 14.2 g/dL HCT 42.2 % MCV 95.0 fL MCH 32.0 pg MCHC 33.6 g/dL RDW 12.1 % Platelet Count 93 10 3/cmm MPV 10.6 fL Neutrophils 4.59 10 3/uL Lymphocytes 0.0 10 3/uL Monocytes 0.0 10 3/uL Eosinophils 0.0 10 3/uL Basophils 0.0 10 3/uL Neutrophil % 96.7 % Lymphocyte % 0.8 % Monocyte % 0.6 % Eosinophil % 0.0 % Basophils % 0.4 % NRBC % 0 % Impression: Moderately differentiated invasive adenocarcinoma involving lower esophagus, per EGD done on July 02, 2020, specimen negative for HER-2 overexpression by IHC and over amplification by FISH. CT PET scan done on August 06, 2020 at [facility] showed hypermetabolic lung segment soft tissue thickening extending from proximal to the mid thoracic esophagus with possible proximal x-ray esophageal extension/suspicious for adjacent lymphadenopathy, consistent with patient's biopsy-proven esophageal adenocarcinoma. A separate focus of FDG activity in the distal esophagus is indeterminate. FDG avid right inguinal lymph nodes, probably reactive no FDG PET evidence of distant mets Dysphagia/weight loss due to above Coronary artery disease/congestive heart failure/status post triple bypass in 1993 History of left leg DVT treated with Eliquis until recently Hypertension, Hypothyroidism History of colon cancer status post colon resection in 2015 Started on combined chemoradiation with weekly carboplatin/Taxol on September 04, 2020, Completed on October 15, 2020 Plan: . Discussed with patient regarding his labs white blood count 4.8 hemoglobin 10.8 compared to 14.2 g on October 01, 2020 hematocrit 31.8 platelets 133,000 compared to 93,000 previously CMP within normal limit except potassium 3.3 Clinically, patient doing reasonably well but and mild to moderate distress due to dehydration due to odynophagia due to combined chemoradiation with weekly carboplatin/Taxol which he completed yesterday, patient could not get his scheduled weekly carboplatin Taxol due to one or another reason, as mentioned earlier patient was admitted to hospital with severe neutropenic/pancytopenic fever and required broad-spectrum antibiotics and inpatient care due to that he could not continue with his weekly carboplatin/Taxol concurrent with radiation therapy and last dose was given on October 01, 2020 and patient completed his combined therapy on October 15, 2020. As far as anemia is concerned, most likely, multifactorial including diagnostic phlebotomy done recently while he was in the hospital or nutritional or combined chemoradiation therapy, we will check his iron studies B12 folic acid and supplement if needed At this point, will consider supportive care and hydrate him with normal saline and potassium supplement, will check his magnesium level and supplement if needed. , Will also give him oral potassium chloride 20 mEq, in liquid form, daily for 3 days then as needed basis Patient was advised to maintain hydration and nutrition and to return to clinic in 1 week with CBC CMP, will also refer him to Dr. Chadwick GI surgical oncologist at [facility] for evaluation for esophagectomy. Signed By: Serafin Sorto M.D. <<Signature on File>>
[2020-10-17 10:59] LABS: Ferritin 606 ng/mL (30-400); Iron 57 ug/dL (59-158); Magnesium 1.6 mg/dL (1.7-2.3); Percent Saturation 40.1 % (20-50); Total Iron Binding Capacity 142 mcg/dl; Unsaturated Iron Binding 85 ug/dL (112-347)
--- NOTE | 2020-10-19 07:56 | N.ONRD TS_ITS ---
Radiation OncologyTreatment Summary Patient Name: Moustapha Nunes Date of : 1945 Date of Service: 10/15/2020 Attending Physician: Diaz Vegas M.D. 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 Daily radiotherapy was administered between the dates of September 04, 2020 through October 15, 2020. A prescribed dose of 50 Gy was delivered in 25 fractions encompassing 42 elapsed days. The esophageal tumor was treated utilizing an intensity modulated radiotherapy plan with a step and shoot treatment technique. A total of eight portal moreno were designed with gantry angles of 41???. 82???, 123???, 164???, 196???, 237???, 278???, and 319???, respectively. The collimator was 0???. The maximum field size measured 14.3 cm x 23.8 cm and the minimum port size measured was 10.1 cm x 23 cm. The greatest measured SSD was 88.6 cm and the least SSD measured 80.9 cm. The ports delivered 182 MU, 166 MU, 150 MU, 146 MU, 147 MU, 120 MU, 185 MU, and 187 MU corresponding to the gantry angles described. Low energy photons were prescribed. All treatments were performed using the [employer] linear accelerator and an isocentric technique. The dose was calculated by Anisotropic Analytic Algorithm with the plan normalized to deliver 100% of the prescription dose to 95% of the planning target volume. The patient received weekly carboplatin (AUC 2) and paclitaxel (50 mg/m2) concurrent with radiotherapy under the supervision of Serafin Sorto M.D. Signed by: Dr. Diaz Vegas 10/19/2020 7:54:59 AM
== END 2020-10-23 23:59 | disposition home or self-care (01) ==
LOC: ONCMED 05:36
PROVIDERS: Absent Provider Radiology Radiation Oncology; PCP Family Medicine; Visit Provider Internal Medicine Hematology & Oncology
DX: Z51.0 Encounter for antineoplastic radiation therapy (principal); C15.4 Malignant neoplasm of middle third of esophagus; R13.10 Dysphagia, unspecified; R63.4 Abnormal weight loss; I25.10 Atherosclerotic heart disease of native coronary artery without angina pectoris; I50.9 Heart failure, unspecified; Z95.5 Presence of coronary angioplasty implant and graft; I10 Essential (primary) hypertension; E03.9 Hypothyroidism, unspecified; Z86.718 Personal history of other venous thrombosis and embolism; Z79.01 Long term (current) use of anticoagulants; Z79.899 Other long term (current) drug therapy; Z85.038 Personal history of other malignant neoplasm of large intestine
CPT/HCPCS: 77014; 77336; 77386; 80053; 82728; 83540; 83550; 83735; 85025; 96365; 96366; 99215; J3480; J7040

== ENCOUNTER 2020-11-02 05:56 | Outpatient (RCR) | payer MEDICARE, SELFPAY ==
[2020-10-25 12:15] LABS: Basophils % 0.9 %; Eosinophils % 0.6 %; Hematocrit 32.8 % (42.0-52.0); Lymphocytes # 0.2 10^3/uL (0.8-4.8); Lymphocytes % 7.3 %; Mean Corpuscular HGB Conc 33.5 g/dL (30.0-36.0); Mean Corpuscular Hemoglobin 32.2 pg (28.0-34.0); Mean Corpuscular Volume 95.9 fl (80-94); Mean Platelet Volume 9.6 fL (7.4-10.4); Monocytes # 0.5 10^3/uL (0.2-0.9); Monocytes % 15.5 %; Neutrophils # 2.38 10^3/uL (1.8-7.7); Neutrophils % 75.1 %; Nucleated Red Blood Cells % 0 %; Platelet Count 195 10^3/cmm (130-400); Red Blood Count 3.42 10^6/uL (4.1-5.3); Red Cell Distribution Width 14.6 % (12.1-15.1); White Blood Count 3.2 10^3/uL (4.0-10.0)
[2020-10-25 12:50] LABS: Alanine Aminotransferase 12 U/L (0-41); Albumin Level 3.6 g/dL (3.5-5.2); Alkaline Phosphatase 68 IU/L (40-130); Anion Gap 14.2 (5-19); Aspartate Amino Transferase 18 U/L (0-40); Blood Urea Nitrogen 17 mg/dL (8-23); Carbon Dioxide 24 mmol/L (22-29); Chloride 100 mmol/L (98-107); Globulin 2.4 g/dL (1.3-4.6); Glucose 79 mg/dL (65-115); Osmolality Calculated 278 mOsm/kg (285-295); Potassium 4.2 mmol/L (3.5-5.1); Sodium 134 mmol/L (136-145); Total Bilirubin 0.4 mg/dL (0.15-1.2)
--- NOTE | 2020-10-25 13:20 | ONC FU_ITS ---
Dr. Sorto follow up note Patient: Moustapha Nunes Unit #: [id number]: 1945 Dicatated By: Serafin Sorto M.D.Date of Visit:Oct 25, 2020 Onc Med Follow-up/Prog Note History of Present Illness: Mr. Moustapha Nunes, is a 75-year-old gentleman with prolonged history of esophageal reflux disease, as per patient initially [id number] medication would help then patient started taking daily omeprazole which helped him significantly, for the last few months prior to diagnosis, patient started having progressive dysphagia and he has lost about 30 pounds over 6 months partly due to change in diet as his is on long-term TPN for enterocutaneous fistula and also due to progressive dysphagia. 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 Multiple pulmonary nodules, appears stable when compared with CT scan done in March 2015, subsequently patient underwent CT PET scan on August 06, 2020 which showed hypermetabolic long segment soft tissue thickening extending from proximal to the mid thoracic esophagus with a possible proximal extra esophageal extension/suspicious for adjacent lymphadenopathy. A separate focus of FDG activity in the distal esophagus is indeterminate. FDG avid right inguinal lymph node most likely reactive. No other abnormality seen. Patient was evaluated by Dr. Blanton, EUS and J-tube was not considered as patient has mild to moderate dysphagia, as per discussion with Ms. Langford, nursing practitioner with Dr. Blanton, combined chemoradiation therapy and neoadjuvant fashion was recommended followed by evaluation with CT PET scan at [facility] and for possible esophagectomy. Patient denies any smoking or alcohol use Patient has history of DVT left lower leg for which he was treated with Eliquis which he took for couple of months and quit recently Patient has history of triple bypass, was done in 1993. , patient completed combined chemoradiation therapy yesterday on October 15, 2020, patient missed his weekly chemotherapy with carboplatin/Taxol concurrent with radiation therapy since October 01, 2020, as patient was admitted to hospital on October 06, 2020 with neutropenic fever/sepsis, was treated with broad-spectrum antibiotics and Neupogen., Came for follow-up, denies any specific complaints, no fever chills, no nausea or vomiting, no diarrhea constipation no mouth sores, tolerating orally well, no hematemesis, no hemoptysis, no jaundice, no new bony pains, no diarrhea or constipation, no recovering from combined chemoradiation and awaiting evaluation for possible esophagectomy at [facility] Medications: Aspirin 81 1 Tablet (of 81 mg) Tablet, enteric coated Oral daily, Atorvastatin Calcium 2 Tablet (of 40 mg) Oral daily, Cholecalciferol 1 Tablet (of 1.25 mg ) Oral daily, Clopidogrel Bisulfate 1 Tablet (of 75 mg) Oral daily, Eliquis 1 (5 mg) Tablet Oral b.i.d., Enalapril Maleate 2 Tablet (of 5 mg) Oral daily, Isosorbide Mononitrate ER 1 Tablet (of 60 mg) Tablet SR 24 HR Oral daily, Levothyroxine Sodium 1 Tablet (of 175 mcg) Oral daily, Metoprolol Succinate ER 1 Tablet (of 50 mg) Tablet SR 24 HR Oral daily, Omeprazole 1 Capsule (of 20 mg) Capsule Delayed Release Oral daily Allergies: No Known Allergies. Review of Systems: Review of Systems is not available for this patient. Vital Signs: Vitals are not available for this patient. Performance Status: 0 - Fully active, able to carry on all predisease activities without restrictions. (ECOG) Physical Examination: ENMT - No mouth sores, no thrush, no jaundice, Respiratory - Lungs are clear to auscultation, Cardiovascular - Regular rate and rhythm of heart, Abdomen - Soft, bowel sounds present, Extremities - No visible edema. Lab/Imaging: Test performed on Oct 01, 2020 10:30 Creatinine 0.9 mg/dL Cr Clearance (Est) 82.54 mL/min Test performed on Oct 01, 2020 08:10 Sodium 135 mmol/L Potassium 4.5 mmol/L Chloride 102 mmol/L CO2 22 mmol/L Anion Gap 15.5 BUN 25 mg/dL Glucose 194 mg/dL Osmolality - Calculated 290 mOsm/kg Calcium 8.8 mg/dL Protein, Total 5.9 g/dL Albumin 4.0 g/dL Globulin 1.9 g/dL Bilirubin, Total 0.8 mg/dL ALT (SGPT) 13 U/L AST (SGOT) 13 U/L Alkaline Phosphatase 67 IU/L WBC 4.8 10 3/uL RBC 4.44 10 6/uL HGB 14.2 g/dL HCT 42.2 % MCV 95.0 fL MCH 32.0 pg MCHC 33.6 g/dL RDW 12.1 % Platelet Count 93 10 3/cmm MPV 10.6 fL Neutrophils 4.59 10 3/uL Lymphocytes 0.0 10 3/uL Monocytes 0.0 10 3/uL Eosinophils 0.0 10 3/uL Basophils 0.0 10 3/uL Neutrophil % 96.7 % Lymphocyte % 0.8 % Monocyte % 0.6 % Eosinophil % 0.0 % Basophils % 0.4 % NRBC % 0 % Impression: Moderately differentiated invasive adenocarcinoma involving lower esophagus, per EGD done on July 02, 2020, specimen negative for HER-2 overexpression by IHC and over amplification by FISH. CT PET scan done on August 06, 2020 at [facility] showed hypermetabolic lung segment soft tissue thickening extending from proximal to the mid thoracic esophagus with possible proximal x-ray esophageal extension/suspicious for adjacent lymphadenopathy, consistent with patient's biopsy-proven esophageal adenocarcinoma. A separate focus of FDG activity in the distal esophagus is indeterminate. FDG avid right inguinal lymph nodes, probably reactive no FDG PET evidence of distant mets Dysphagia/weight loss due to above Coronary artery disease/congestive heart failure/status post triple bypass in 1993 History of left leg DVT treated with Eliquis until recently Hypertension, Hypothyroidism History of colon cancer status post colon resection in 2015 Started on combined chemoradiation with weekly carboplatin/Taxol on September 04, 2020, Completed on October 15, 2020 Plan: Discussed with patient regarding his labs white blood count 3.2 hemoglobin 11 hematocrit 32.8 platelets 195,000 ANC 2380 CMP within normal limits, sodium level is pending Clinically, patient is doing well with no new signs symptom suggestive of disease progression, his dysphagia has almost resolved and tolerating orally well, has completed combined chemoradiation on October 15, 2020 but patient missed few weekly carboplatin Taxol dose because of related side effect and admission to hospital with neutropenic fever and other complications , We will call GI surgical oncologist at [facility] for an appointment regarding posttreatment evaluation and possible esophagectomy Mild leukopenia with adequate neutrophils, will monitor, mild anemia, now improving Hypokalemia resolved with supplement Return to clinic in 1 month with CBC CMP and for port maintenance Signed By: Serafin Sorto M.D. <<Signature on File>>
--- NOTE | 2020-11-02 09:00 | ONCRAD EPV_ITS ---
Radiation Oncology Follow-Up Note Patient Name: Moustapha Nunes Date of : 1945 Date of Service: 11/02/2020 Attending Physician: Diaz Vegas M.D. Moustapha Nunes returned to my office this morning for a scheduled follow-up appointment. 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 Daily radiotherapy was administered between the dates of September 04, 2020 through October 15, 2020. A prescribed dose of 50 Gy was delivered in 25 fractions encompassing 42 elapsed days. ???On review of systems, he denied any residual adverse effects from treatment. On physical examination, the patient weighed 164 pounds. His temperature was 98.1 ???F with a blood pressure of 121/85 mmHg. The pulse was 75 bpm and his respiratory rate was 18 breaths per minute. There was no erythema of the skin within the treatment moreno. In summary, Mr. Nunes returned for a routine post radiotherapy follow-up. He has a surgical re-evaluation at [facility] in 2 weeks. Signed by: Dr. Diaz Vegas 11/02/2020 8:59:10 AM
== END 2020-11-22 23:59 | disposition home or self-care (01) ==
LOC: ONCMED 05:56
PROVIDERS: Internal Medicine Hematology & Oncology; PCP Family Medicine; Visit Provider Radiology Radiation Oncology
DX: C15.5 Malignant neoplasm of lower third of esophagus (principal); R13.10 Dysphagia, unspecified; R63.4 Abnormal weight loss; I25.10 Atherosclerotic heart disease of native coronary artery without angina pectoris; Z95.5 Presence of coronary angioplasty implant and graft; Z86.718 Personal history of other venous thrombosis and embolism; Z79.01 Long term (current) use of anticoagulants; I10 Essential (primary) hypertension; E03.9 Hypothyroidism, unspecified; Z85.038 Personal history of other malignant neoplasm of large intestine; Z92.21 Personal history of antineoplastic chemotherapy; Z92.3 Personal history of irradiation; Z79.899 Other long term (current) drug therapy
CPT/HCPCS: 36591; 80053; 85025; 99024; 99214

== ENCOUNTER 2020-11-29 07:44 | Outpatient (CLI) | payer MEDICARE, SELFPAY ==
--- NOTE | 2020-11-29 07:50 | NMCV_ITS ---
NM huma perf SPECT r/s* [id number] Moustapha Nunes Age: 75 Gender: M : 1945 Exam Date: 11/29/2020 08:36 Ordering Phys: Brittnee Boswell MD ([email or web address]) Technologist: ULISES Landry Exam Location: [facility] Indications: SHORTNESS OF BREATH STRESS TEST Please see separate stress test report [facility] for full findings IMAGE PROTOCOL Rest/Stress 1 Lexiscan Day Radiopharmaceutical Dose (mCi) Administration Site Administered by Rest: Tc-99m 10.9 IV ULISES Smith Sestamibi Stress:Tc-99m 33.0 IV ULISES Landry Sestamimack Rest: 29-Nov-2020 60 [facility] 630 Stress: 29-Nov-2020 30 [facility] 630 0.4mg Lexiscan. Images obtained in supine and prone position. SPECT RESULTS Technical Quality: Excellent Raw Data Analysis: Normal Image Corrections: No attenuation or motion correction applied Summed Stress Score: 0 Summed Rest Score: 16 Summed Difference Score: 0 PERFUSION FINDINGS Large area of fixed perfusion defect noted in basal to distal inferior and inferolateral wall suggestive of old myocardial infarction versus scarring. FUNCTIONAL RESULTS (calculated via Gated SPECT) Stress Image LV EF (%): 51 Stress EDV (mL):127 TID: 1.03 Stress ESV (mL):62 Rest Image LV EF (%): 51 FUNCTIONAL FINDINGS: Basal distal inferior and inferolateral wall akinesis IMPRESSIONS Large area of old myocardial infarction versus scarring noted in basal to distal inferior and basal to mid inferolateral wall without mario-infarct ischemia. EKG segment will be documented separately. Brittnee Boswell MD (Electronically Signed) Final Date: 29 November 2020 14:29 S
--- NOTE | 2020-11-29 07:50 | ECG_ITS ---
[facility] Test Date: 2020-11-29 Pat Name: Moustapha Nunes Department: Room: Gender: Male [employer]: : 1945 Requested By: Brittnee Boswell Order Number: [id number] Fina MD: Sheeba Lebron M.D. Interpretive Statements NAME OF STUDY: LEXISCAN SESTAMIBI STRESS TEST INDICATION: Chest Pain PROCEDURE: At the baseline, the blood pressure was 124/98 mmHg with a heart rate of 60 bpm. The electrocardiogram showed sinus bradycardia, normal axis. No significant ST-T wave changes. The Lexiscan was infused over a period of 20 seconds. A total of 0.4 milligrams of Lexiscan was infused. The stress phase was continued for a total of 5 minutes. Heart rate at the end of the stress phase was 82 bpm with a blood pressure 117/68 mmHg. The EKG at the peak infusion revealed no significant ST-T wave changes. The study was terminated due to protocol completion. Sestamibi was injected 20 seconds after the Lexiscan infusion. Blood pressure at the end of the recovery phase was 117/68 mmHg with a heart rate of 79 bpm per minute. CONCLUSION: 1. No significant EKG changes with the LexiScan infusion. 2. No LexiScan induced chest pain or cardiac arrhythmia. 3. Normal blood pressure and heart rate response. 4. Sestamibi/sestamibi perfusion scan pending; see separate report. Electronically Signed On 12-03-2020 12:26:01 CDT by Sheeba Lebron M.D. [id number]
[2020-11-29 07:58] VITALS: BMI 24.9
[2020-11-29] MEDS: regadenoson 0.4 Mg/5 ml Syringe IVP (09:20)
[2020-11-29 09:37] VITALS: BP 117/67; PULSE 79
== END 2020-11-29 07:45 | disposition home or self-care (01) ==
LOC: CDL 07:46
PROVIDERS: PCP Family Medicine; Visit Provider Internal Medicine Cardiovascular Disease
DX: R07.9 Chest pain, unspecified (principal); R06.02 Shortness of breath; I25.2 Old myocardial infarction
CPT/HCPCS: 78452; 93017; A9500; J2785

== ENCOUNTER → 2020-11-30 13:23 | Outpatient (BNVA) | payer MEDICARE, SELFPAY | PROVIDERS: PCP Family Medicine; Visit Provider Family Medicine | DX: Z01.812 Encounter for preprocedural laboratory examination (principal); Z20.822 Contact with and (suspected) exposure to COVID-19 | CPT/HCPCS: 87635 ==

== ENCOUNTER 2021-01-05 06:16 | Inpatient (IN) | payer MEDICARE, SELFPAY ==
[2021-01-05] VITALS (17 sets, daily range): BP systolic 108–157; BP diastolic 70–100; PULSE 70–127; RESP 11–22; TEMP 36.6–36.8; O2SAT 94–100; BMI 22.8; BMI 23.0
--- NOTE | 2021-01-05 06:24 | CTR_ITS ---
PROCEDURE INFORMATION: Exam: CTA Chest With Contrast Exam date and time: 01/05/2021 6:24 AM Age: 75 years old Clinical indication: Shortness of breath; Prior surgery; Surgery type: Heart; Additional info: Pe TECHNIQUE: Imaging protocol: Computed tomographic angiography of the chest with contrast. 3D rendering (Not supervised by radiologist): MIP and/or 3D reconstructed images were created by the technologist. Total images: 826 Radiation optimization: All CT scans at this facility use at least one of these dose optimization techniques: automated exposure control; mA and/or kV adjustment per patient size (includes targeted exams where dose is matched to clinical indication); or iterative reconstruction. Contrast material: OMNI 350; Contrast volume: 71 ml; Contrast route: INTRAVENOUS (IV); COMPARISON: CT chest wo con [id number] 09/10/2020 10:51 PM RADIATION DOSE METRICS: Total DLP (mGy-cm): 556.51 FINDINGS: Tubes, catheters and devices: A right infusion port is present. Tracheostomy tube in satisfactory location. Irregular material within the upper trachea just below tracheostomy tube felt to represent mucous. Pulmonary arteries: Pulmonary artery evaluation of good technical quality with no pulmonary artery embolism identified. Aorta: Unremarkable. No aortic aneurysm. No aortic dissection. Lungs: Compressive atelectasis of the right lung base. Right upper lobe atelectasis and or scarring. Pleural spaces: Small right pleural effusion. Heart: Prior coronary artery bypass grafting. Lymph nodes: Unremarkable. No enlarged lymph nodes. Spleen: 3 cm low-density lesion medially within the spleen with minimal adjacent fatty stranding may represent a small splenic infarct or postsurgical change. This was not present on the prior exam. Stomach and bowel: Status post gastric pull-through with suture material noted. Bones/joints: Moderate degenerative changes of the right shoulder are noted. Mild AC joint space narrowing and minimal osteophyte formation. Spinal degenerative changes are evident. Soft tissues: Unremarkable. CT/CT angio chest PE protcl [id number] IMPRESSION: 1. Tracheostomy tube in satisfactory location. Irregular material within the upper trachea just below tracheostomy tube felt to represent mucous. 2. Status post gastric pull-through with suture material noted. 3. No pulmonary artery embolism identified. 4. Small right pleural effusion with compressive atelectasis. 5. Right upper lobe atelectasis and or scarring. 6. 3 cm low-density lesion medially within the spleen with minimal adjacent fatty stranding may represent a small splenic infarct or postsurgical change. This was not present on the prior exam. Radiation Dose CTDIVOL = (mGy): DLP = 556.51 (mGy-cm)
--- NOTE | 2021-01-05 06:24 | XRR_ITS ---
PROCEDURE INFORMATION: Exam: XR Chest Exam date and time: 01/05/2021 6:24 AM Age: 75 years old Clinical indication: Shortness of breath; Prior surgery; Additional info: SOB TECHNIQUE: Imaging protocol: XR of the chest. Views: 1 view. Total images: 1 COMPARISON: CR XR chest 1V portable [id number] 10/06/2020 4:38 PM FINDINGS: Tubes, catheters and devices: A right infusion port is present. Tracheostomy tube in satisfactory location. Lungs: Nonspecific mild opacity in the right mid base, favoring atelectasis or pneumonia. Pleural spaces: There is blunting of the right costophrenic angle, likely indicating a small pleural effusion. Heart/Mediastinum: Unremarkable. No cardiomegaly. Bones/joints: Changes of sternotomy are noted. Osseous structures are unchanged from the prior exam. XR/XR chest 1V portable [id number] IMPRESSION: 1. Nonspecific mild opacity in the right mid base, favoring atelectasis or pneumonia. 2. There is blunting of the right costophrenic angle, likely indicating a small pleural effusion. Radiation Dose CTDIVOL = (mGy): DLP = (mGy-cm)
--- NOTE | 2021-01-05 06:25 | ECG_ITS ---
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 Measurements Intervals [place] Rate: 103 P: 39 NE: 145 QRS: 62 QRSD: 101 T: 20 QT: 333 QTc: 436 Interpretive Statements SINUS TACHYCARDIA ANTERIOR MYOCARDIAL INFARCTION , PROBABLY OLD [40+ ms Q WAVE AND/OR ST/T ABNORMALITY IN V3/V4] PROBABLE INFERIOR MYOCARDIAL INFARCTION , PROBABLY OLD [35 ms Q WAVE IN II/aVF] No previous ECG available for comparison Electronically Signed On 01-06-2021 13:19:46 CONTINUOUS MINER OPERATOR HELPER by Sheeba Lebron M.D. [id number] f
--- NOTE | 2021-01-05 06:25 | W.ED.SOB ---
HPI - SOB/Dyspnea General: Chief Complaint: Shortness of Breath/Dyspnea Stated Complaint: RESPIRATORY DISTRESS Time Seen by Provider: 01/05/21 06:17 History of Present Illness: HPI Narrative: 75-year-old male with complicated medical history including DVT on aspirin, CHF, recent tracheostomy placement 3 weeks ago presents due to shortness of breath and right-sided chest pain. Pain does not radiate. States it started right before arrival. Upon EMS arrival he was saturating well but appeared to be in distress and had cyanotic discoloration to his lips. He was placed on blow-by oxygen into his trach site with significant improvement. He states that he has had very minor redness around the trach site that has been overall improving since the surgery and no discharge or purulence. Denies any other focal pain. Does report shortness of breath and desire to cough. Denies any fevers or chills. Review of Systems Narrative: - CONSTITUTIONAL: Denies weight loss, fever and chills. - HEENT: Denies changes in vision and hearing. - RESPIRATORY: As above - CV: As above - GI: Denies abdominal pain, nausea, vomiting and diarrhea. - : Denies dysuria and urinary frequency. - MSK: Denies myalgia and joint pain. - SKIN: Denies rash and pruritus. - NEUROLOGICAL: Denies headache, weakness, numbness and syncope. - PSYCHIATRIC: Denies suicidal ideation PFS ED PFSH: Medical History CHF (congestive heart failure) Colon cancer DVT (deep venous thrombosis) Esophageal adenocarcinoma Esophageal stricture Essential hypertension Essential hypertension GERD (gastroesophageal reflux disease) Hyperlipidemia Hypothyroid [place] (myocardial infarction) Surgical History H/O esophagogastroduodenoscopy (09/01/20) With dilation 07/02/20; with dilation History of appendectomy History of colon resection 2014 History of colonoscopy 2019 Hx of CABG Port-A-Cath in place (08/15/20) Family History Father Aortic stenosis Other CAD (coronary artery disease) Social History Smoking and tobacco status: former smoker Alcohol intake: current Alcohol intake frequency: few times a week Alcohol type: beer Physical Exam Narrative: EXAM NARRATIVE: - GENERAL: Alert and oriented x 3. No acute distress. Well-nourished. - EYES: EOMI. Anicteric. - HENT: Atraumatic, no C-spine tenderness. Moist mucous membranes. No scleral icterus. No cervical lymphadenopathy. - LUNGS: Trach site in place. Bilateral wheezing is present. Minor erythema around trach insertion site well-healing granulation tissue. No purulent discharge. No crepitus. - CARDIOVASCULAR: Regular rate and rhythm. No murmur. No JVD. - ABDOMEN: Soft, non-tender and non-distended. Negative CVA tenderness bilaterally, no rebound or guarding, negative Arzate sign. No palpable masses. - EXTREMITIES: No edema. Non-tender. - SKIN: No rashes or lesions. Warm. - NEUROLOGIC: No meningismus or focal neurological deficits. CN II-XII grossly intact. - PSYCHIATRIC: Cooperative. Appropriate mood and affect. Course Vital Signs: Vital signs: Vital Signs Temperature 97.9 F 01/05/21 06:21 Pulse Rate 106 H 01/05/21 08:00 Respiratory Rate 11 L 01/05/21 08:00 Blood Pressure 116/73 01/05/21 08:00 Pulse Oximetry 94 01/05/21 08:00 MDM - SOB/Dyspnea MDM Narrative: Medical decision making narrative: 75-year-old male with history of previous trach placement presents with shortness of breath. Does have coughing and wheezing. Concern for bronchitis. Steroids and albuterol ordered. Covid swab is negative. Does have a lot of secretions from trach site which were suctioned. No sign of trach malpositioning and no desaturation. Otherwise BNP is mildly elevated 400s and high-sensitivity troponins initially elevated at 28. EKG does not reveal any acute ischemic change. Will trend troponins. However he denies any chest pain and states symptoms are related to secretions and cough. We will hold off on anticoagulation at this time. Trach wound site appears to be healing appropriately. CT scan negative for PE. X-ray concerning for possible pneumonia. Antibiotics started. However will hold off on aggressive fluid therapy as he has an elevated BNP. Remainder of lab work and imaging reviewed. Discussed with hospitalist and they agreed patient would benefit from admission. Patient admitted in stable condition. Further evaluation management per hospitalist team. Lab Data: Labs: Lab Results 01/05/21 01/05/21 01/05/21 06:00 06:36 06:36 WBC 7.5 10^3/uL 10^3/ uL (4.0-10.0) RBC 2.98 10^6/uL L 10 ^6/uL (4.1-5.3) Hgb 9.7 g/dL L g/dL (11.7-16.6) Hct 29.9 % L % (42.0-52.0) MCV 100.3 fl H fl (80-94) MCH 32.6 pg pg (28.0-34.0) MCHC 32.4 g/dL g/dL (30.0-36.0) RDW 15.6 % H % (12.1-15.1) Plt Count 261 10^3/cmm 10^3 /cmm (130-400) MPV 9.8 fL fL (7.4-10.4) Neut % (Auto) 81.2 % % Lymph % (Auto) 3.6 % % [place] % (Auto) 12.7 % % Eos % (Auto) 1.3 % % Baso % (Auto) 0.5 % % Neut # (Auto) 6.12 10^3/uL 10^3 /uL (1.8-7.7) Lymph # (Auto) 0.3 10^3/uL L 10^ 3/uL (0.8-4.8) [place] # (Auto) 1.0 10^3/uL H 10^ 3/uL (0.2-0.9) Eos # (Auto) 0.1 10^3/uL 10^3/ uL (0.0-0.8) Baso # (Auto) 0.0 10^3/uL 10^3/ uL (0.0-0.1) Nucleated RBC % (a uto) 0 % % Nucleated RBCs # 0.0 /100WBC /100W BC PT 13.40 SECONDS SEC ONDS (12.1-14.9) INR 0.99 (0.8-1.2) APTT 32.2 SECONDS SECO NDS (23.9-36.7) Sodium Potassium Chloride Carbon Dioxide Anion Gap BUN Creatinine GFR Calculation Glucose Calculated Osmolal ity Lactate Calcium Total Bilirubin AST ALT Alkaline Phosphata se Troponin T Baselin e NT-Pro-B Natriuret Pep Total Protein Albumin Globulin Lipase SARS-CoV-2 Ag (Rap id) Negative (Negative) 01/05/21 01/05/21 01/05/21 06:36 06:36 06:36 WBC RBC Hgb Hct MCV MCH MCHC RDW Plt Count MPV Neut % (Auto) Lymph % (Auto) [place] % (Auto) Eos % (Auto) Baso % (Auto) Neut # (Auto) Lymph # (Auto) [place] # (Auto) Eos # (Auto) Baso # (Auto) Nucleated RBC % (a uto) Nucleated RBCs # PT INR APTT Sodium 132 mmol/L L mmol /L (136-145) Potassium 4.9 mmol/L mmol/L (3.5-5.1) Chloride 93 mmol/L L mmol/ L (98-107) Carbon Dioxide 27 mmol/L mmol/L (22-29) Anion Gap 16.9 (5-19) BUN 24 mg/dL H mg/dL (8-23) Creatinine 0.5 mg/dL L mg/dL (0.7-1.2) GFR Calculation Not Reportable Glucose 104 mg/dL mg/dL (65-115) Calculated Osmolal ity 278 mOsm/kg L mOs m/kg (285-295) Lactate 1.2 mmol/L mmol/L (0.5-2.2) Calcium 8.8 mg/dL mg/dL (8.5-10.5) Total Bilirubin 0.2 mg/dL mg/dL (0.15-1.2) AST 29 U/L U/L (0-40) ALT 35 U/L U/L (0-41) Alkaline Phosphata se 143 IU/L H IU/L (40-130) Troponin T Baselin e 28 ng/L H ng/L (0-15) NT-Pro-B Natriuret Pep 420 pg/mL H pg/mL (0-125) Total Protein 6.5 g/dL L g/dL (6.6-8.7) Albumin 3.6 g/dL g/dL (3.5-5.2) Globulin 2.9 g/dL g/dL (1.3-4.6) Lipase 16 U/L U/L (13-60) SARS-CoV-2 Ag (Rap id) EKG Data^: EKG 1: Other EKG Comments: Sinus tachycardia, rate of 103, no sign of acute ischemia or other acute abnormality. Discharge Plan Discharge Prescriptions: No Action aspirin 81 mg tablet,delayed release (DR/EC) 81 mg PO BEDTIME RF: 0 ondansetron HCl [Zofran] 4 mg tablet 4 mg PO Q6H PRN (Reason: nausea and vomiting) Qty: 20 RF: 0 lorazepam 1 mg tablet 1 mg PO TID PRN (Reason: Nausea) RF: 0 cholecalciferol (vitamin D3) [Vitamin D3] 125 mcg (5,000 unit) Tablet 125 mcg PO QAM RF: 0 levothyroxine 175 mcg tablet 175 mcg PO QAM RF: 0 Coding Level of Care Code ED Sustainability Analyst for Silvia Zamarripa
[2021-01-05 06:51] LABS: Basophils % 0.5 %; Eosinophils # 0.1 10^3/uL (0.0-0.8); Eosinophils % 1.3 %; Hematocrit 29.9 % (42.0-52.0); Hemoglobin 9.7 g/dL (11.7-16.6); Lymphocytes # 0.3 10^3/uL (0.8-4.8); Lymphocytes % 3.6 %; Mean Corpuscular HGB Conc 32.4 g/dL (30.0-36.0); Mean Corpuscular Hemoglobin 32.6 pg (28.0-34.0); Mean Corpuscular Volume 100.3 fl (80-94); Mean Platelet Volume 9.8 fL (7.4-10.4); Monocytes % 12.7 %; Neutrophils # 6.12 10^3/uL (1.8-7.7); Neutrophils % 81.2 %; Nucleated Red Blood Cells % 0 %; Platelet Count 261 10^3/cmm (130-400); Red Blood Count 2.98 10^6/uL (4.1-5.3); Red Cell Distribution Width 15.6 % (12.1-15.1); White Blood Count 7.5 10^3/uL (4.0-10.0)
[2021-01-05 07:05] LABS: INR 0.99 (0.8-1.2)
[2021-01-05 07:06] LABS: Partial Thromboplastin Time 32.2 SECONDS (23.9-36.7)
[2021-01-05 07:10] LABS: Lactate (Lactic Acid level) 1.2 mmol/L (0.5-2.2)
[2021-01-05 07:11] LABS: Troponin(5th) Baseline 28 ng/L (0-15)
[2021-01-05 07:16] LABS: Alanine Aminotransferase 35 U/L (0-41); Albumin Level 3.6 g/dL (3.5-5.2); Alkaline Phosphatase 143 IU/L (40-130); Anion Gap 16.9 (5-19); Aspartate Amino Transferase 29 U/L (0-40); Blood Urea Nitrogen 24 mg/dL (8-23); Calcium 8.8 mg/dL (8.5-10.5); Carbon Dioxide 27 mmol/L (22-29); Chloride 93 mmol/L (98-107); Globulin 2.9 g/dL (1.3-4.6); Glucose 104 mg/dL (65-115); Lipase 16 U/L (13-60); NT Pro B Type Natriuretic Pept 420 pg/mL (0-125); Osmolality Calculated 278 mOsm/kg (285-295); Potassium 4.9 mmol/L (3.5-5.1); Sodium 132 mmol/L (136-145); Total Bilirubin 0.2 mg/dL (0.15-1.2); Total Protein 6.5 g/dL (6.6-8.7)
[2021-01-05 07:45] LABS: SARS Covid-2 Antigen Negative (Negative)
[2021-01-05] MEDS: iohexol 350 mg/mL 100 mL Btl IV (07:51)
[2021-01-05] MEDS: cefTRIAXone 2,000 MG in sodium chloride 0.9% (plus) 50 ML 100 MG IV (08:15)
--- NOTE | 2021-01-05 08:25 | ECG_ITS ---
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 Measurements Intervals [place] Rate: 107 P: 48 CO: 165 QRS: 66 QRSD: 97 T: 55 QT: 336 QTc: 449 Interpretive Statements SINUS TACHYCARDIA ANTERIOR MYOCARDIAL INFARCTION , PROBABLY RECENT [40+ ms Q WAVE AND/OR ST/T ABNORMALITY IN V3/V4] PROBABLE INFERIOR MYOCARDIAL INFARCTION , PROBABLY OLD [35 ms Q WAVE IN II/aVF] Compared to ECG 01/05/2021 06:24:59 No significant changes Electronically Signed On 01-08-2021 13:14:14 TRAVELING ELECTRICIAN by Sheeba Lebron M.D. [id number]
[2021-01-05] MEDS: azithromycin 500 MG in sodium chloride 0.9% 250 ML 250 MG IV (09:10)
--- NOTE | 2021-01-05 10:04 | PC.NURSE ---
Admitting provider at bedside.
--- NOTE | 2021-01-05 10:34 | P.HP_ITS ---
Providers/Chief Complaint Primary Care Provider: Randi Buchanan DO Chief Complaint: RESPIRATORY DISTRESS History of Present Illness Pleasant 75-year-old gentleman with history of esophageal adenocarcinoma, status post chemo and radiation, then esophagectomy and laryngectomy 3 weeks ago at [facility] where he follows with Dr. Blanton and Dr. Hayes, using a minified air at home, currently also on tube feeding, no crushed medications, only liquids through the feeding tube, presented to ER due to progressive dyspnea, thick difficult to clear secretions. In ER requiring initially up to 8 L of oxygen by HAG. Chest CTA with 1. Tracheostomy tube in satisfactory location. Irregular material within the upper trachea just below tracheostomy tube felt to represent mucous. 2. Status post gastric pull-through with suture material noted. 3. No pulmonary artery embolism identified. 4. Small right pleural effusion with compressive atelectasis. 5. Right upper lobe atelectasis and or scarring. 6. 3 cm low-density lesion medially within the spleen with minimal adjacent fatty stranding may represent a small splenic infarct or postsurgical change. This was not present on the prior exam. He received ceftriaxone, azithromycin, Solu-Medrol, DuoNeb. Rapid COVID-19 antigen is negative. Review of Systems Const: Denies: fever(s), chills, body aches or malaise Eyes: Denies: change in vision or eye redness ENMT: Denies: throat pain, oral sores or ear or mastoid pain Card: Denies: chest pain, edema, pre-syncope or dyspnea on exertion Resp: Denies: dyspnea, productive cough, change in phlegm color or hemoptysis GI: Reports: diarrhea (Chronic with tube feeds); Denies: abdominal pain, nausea, vomiting, constipation, hematochezia or melena : Denies: flank pain, difficulty urinating, urinary frequency or hematuria Musc: Denies: back pain, joint swelling or joint redness Skin/Breast: Denies: rash, sores or new lesions Neuro: Denies: headache(s), numbness in extremities, weakness in extremities, dizziness, confusion or seizure-like activity Endo: Denies: polyuria or polydipsia [place]/Lymph: Denies: easy bleeding or purpura All/Imm: Denies: urticaria, throat swelling or tongue swelling Medications/Allergies Home Medications Medication Instructions Recorded Confirmed Last Taken Type levothyroxine 175 mcg PO QAM 09/01/20 01/05/21 01/04/21 History acetaminophen 1,000 mg PO Q6H 01/05/21 01/05/21 01/04/21 History amoxicillin-pot clavulanate 10.9 ml PO BID 01/05/21 01/05/21 01/04/21 History enoxaparin 80 mg SUBCUT Q12H 01/05/21 01/05/21 01/04/21 History oxycodone 5 mg FEEDING TUBE Q3H PRN 01/05/21 01/05/21 Unknown History Allergies Allergy/AdvReac Type Severity Reaction Status Date / Time No Known Allergies Allergy Verified 11/30/20 12:47 PFSH Acute PFSH: Medical History CHF (congestive heart failure) Colon cancer DVT (deep venous thrombosis) Esophageal adenocarcinoma Esophageal stricture Essential hypertension Essential hypertension GERD (gastroesophageal reflux disease) Hyperlipidemia Hypothyroid [place] (myocardial infarction) Surgical History H/O esophagogastroduodenoscopy (09/01/20) With dilation 07/02/20; with dilation History of appendectomy History of colon resection 2014 History of colonoscopy 2018 Hx of CABG Port-A-Cath in place (08/15/20) Family History Father Aortic stenosis Other CAD (coronary artery disease) Social History (Updated 01/05/21 @ 11:03 by Abner Nettles MD) Smoking and tobacco status: former smoker Alcohol intake: current Alcohol intake frequency: few times a week Alcohol type: beer Substance/Drug Use: never Lives independently: No Household members: spouse and children Marital status: Vitals/I&O/Wt Last Vital Signs Temp 97.9 F 01/05/21 06:21 Pulse 93 01/05/21 10:18 Resp 18 01/05/21 10:18 BP 130/81 01/05/21 10:18 Pulse Ox 96 01/05/21 10:18 01/04/21 01/05/21 01/05/21 22:59 06:59 14:59 Intake Total 50 / 50 Balance 50 / 50 Weight last 48 hrs Weight 68.039 kg Physical Exam Narrative: EXAM NARRATIVE: Accompanied by his son Const: COMMON NORMALS: no acute distress, patient oriented x3 and alert GENERAL APPEARANCE: cooperative and frail appearing NUTRITIONAL APPEARANCE: thin ORIENTATION/CONSCIOUSNESS: Yes awake HENMT: COMMON NORMALS: oropharynx normal Neck/C-Spine: COMMON NORMALS: no JVD OTHER: trach in place, minimal surrounding erythema, no bleeding Chest: OTHER: Posterior right chest wound healing well. No surrounding erythema, no drainage. Resp: COMMON NORMALS: normal respiratory effort AUSCULTATION: rhonchi Cardio: COMMON NORMALS: no JVD, regular rhythm, S1 normal heart sound present, S2 normal heart sound present and No murmurs present (Cardio) RHYTHM: regular rhythm HEART SOUNDS: S1 normal heart sound present and S2 normal heart sound present GI: COMMON NORMALS: Normal to inspection, nondistended, normoactive bowel sounds present, Soft to palpation and non-tender PALPATION: Yes Soft to palpation OTHER: Midline abdominal incision healing well, rachel in place. Enteric tube in place. Extremity: COMMON NORMALS: no joint enlargement and no pedal edema Neuro: COMMON NORMALS: patient oriented x3 and moves all extremities Skin: COMMON NORMALS: no rashes or lesions noted GENERAL SKIN EXAM: no rashes or lesions noted Data : 01/05/21 06:36 01/05/21 06:36 Micro: Microbiology 01/05/21 08:19 Blood Culture - Preliminary Blood SPECIMEN COLLECTED 01/05/21 07:53 Blood Culture - Preliminary Blood SPECIMEN COLLECTED A&P Assessment and plan (1) Hypoxia: Presented with difficulty getting up secretions, family reports that his humidification system at home may have malfunction, and he thought maybe the secretions were drying up as he cannot bring any. Requiring up to 8 L of oxygen on presentation. Oxygen requirement appears to be decreasing in ER. Has been suctioned in ER, with noted bloody secretions being suctioned. Unclear whether family try to suction more aggressively at home preceding this. No external bleeding noted. Improving tracheostomy wound infection. He is afebrile. Question of atelectasis versus possible pneumonia right lower lobe. He is started empirically on ceftriaxone and azithromycin, will continue ceftriaxone, doxycycline. Received a dose of steroid in ER, will hold off on additional steroid for now. Monitor condition. Mucomyst. Gentle chest PT. Discussed with RT. Peter. Sputum cultures, urine bacterial antigens. MRSA PCR. Rapid COVID-19 negative, collect PCR. He is on anticoagulation, and with noted blood on suctioning, question is whether he may have some slow bleeding as well, possibly either related to in fection, or recent wound infection, or manipulation of the trach/aggressive suctioning recently. Discussed with ER physician, overall condition appears to be improving, serosanguineous secretion noted in suction cup. He is feeling better. Discussed with ENT, at this time not much can be done, unless bleeding becomes more severe, requiring local compression. Consideration given to withholding anticoagulation. I do see that he is on 80 mg Lovenox, but weighs only 68 kg. So definitely is anticoagulation will need to be adjusted. We will monitor his condition, resume lower dose appropriate per weight anticoagulation, or possibly resume with heparin drip. Consideration may again need to be given to transfer to [facility] in case of persistent ooze. Call ENT in case of profuse bleeding. Treat bronchitis/possible pneumonia as above. Status: Acute Additional A&P Information Recent tracheostomy site infection: Almost done with Augmentin. Currently on antibiotics as above. Esophagectomy, laryngectomy, tracheostomy 3 weeks ago: At [facility]. At home uses humidified air, has not required oxygen so far. Request medical records. Enteric tube in place: Is n.p.o., nothing crushed by enteric tube as well - only liquid medications. Receives tube feedings with Jevity 1.5 for 14 hours a day continuous infusion, with 125 mL water flush before and after feeding. Feedings start at night before sleep. On chronic anticoagulation due to history of DVT with Lovenox History of esophageal adenocarcinoma HTN Attestations Medical Necessity Statement*: Admission of over 2 midnights is going to be needed for assessment management of new hypoxia, bronchitis, possible pneumonia, bloody secretions suctioned from tracheostomy, and a gentleman who has been on anticoagulation due to recent DVT. Coding Level of Care Code Acute Child Psychometrist for [facility] Fwd Exam Comprehensive Diagnoses Hypoxia R09.02
--- NOTE | 2021-01-05 11:17 | PC.NURSE ---
Son stated he changes pt's packing in his throat. Requested supplies to change. Provided sterile scissors, plain packing, tape.
[2021-01-05 12:47] LABS: D Dimer 2.49 ug/mIFEU (0-0.59)
[2021-01-05] MEDS: acetaminophen 650 mg/20.3 mL UDC 1000 MG PO (13:39)
[2021-01-05] MEDS: guaiFENesin 100 mg/5 mL UDC 10 mL 600 MG PO ×3 (13:39→23:50)
[2021-01-05] MEDS: doxycycline 100 MG in sodium chloride 0.9% (plus) 100 ML IV (13:41)
[2021-01-05 15:19] LABS: Troponin 5 6HR 35.69 ng/L (0-15)
[2021-01-05 15:24] LABS: Troponin 5 6HR Delta 7.69 ng/L (0-12)
[2021-01-05] MEDS: acetylcysteine 200 mg/mL SDV 4 mL INHALATION ×3 (16:26→19:49)
[2021-01-05] MEDS: ipratropium-albuterol 3 mL Neb INHALATION ×3 (16:26→19:51)
[2021-01-05] MEDS: heparin drip 25,000 UNIT/500 ML PREMIX 20 UNIT IV (23:38)
[2021-01-05] MEDS: heparin 5,000 unit/mL INJ 1 mL IV (23:39)
[2021-01-06] VITALS (14 sets, daily range): BP systolic 104–135; BP diastolic 63–86; PULSE 61–89; RESP 16–20; TEMP 36.4–36.8; O2SAT 96–100
[2021-01-06] MEDS: doxycycline 100 MG in sodium chloride 0.9% (plus) 100 ML IV ×2 (01:59→14:39)
--- NOTE | 2021-01-06 05:18 | PC.NURSE ---
spilled some of his urinal while trying to use it
--- NOTE | 2021-01-06 06:00 | XRR_ITS ---
PROCEDURE INFORMATION: Exam: XR Chest Exam date and time: 01/06/2021 6:00 AM Age: 75 years old Clinical indication: Shortness of breath; Additional info: Hypoxia TECHNIQUE: Imaging protocol: XR of the chest. Views: 1 view. Total images: 1 COMPARISON: CR (CHEST, ) 01/05/2021 6:53 AM FINDINGS: Tubes, catheters and devices: Tubes and catheters are unchanged from the prior exam. Lungs: Trace scar noted in the left lung base. Pleural spaces: Unremarkable. No pleural effusion. No pneumothorax. Heart/Mediastinum: Prior coronary artery bypass grafting. Bones/joints: Osseous structures are unchanged from the prior exam. Soft tissues: Skin rachel are present. XR/XR chest 1V portable [id number] IMPRESSION: 1. Tubes and catheters are unchanged from the prior exam. 2. No acute cardiopulmonary process. 3. Trace scar noted in the left lung base. Radiation Dose CTDIVOL = (mGy): DLP = (mGy-cm)
[2021-01-06] MEDS: guaiFENesin 100 mg/5 mL UDC 10 mL 600 MG PO ×3 (06:12→17:36)
[2021-01-06 07:03] LABS: Basophils % 0.1 %; Hematocrit 27.1 % (42.0-52.0); Hemoglobin 8.9 g/dL (11.7-16.6); Lymphocytes # 0.2 10^3/uL (0.8-4.8); Lymphocytes % 1.4 %; Mean Corpuscular HGB Conc 32.8 g/dL (30.0-36.0); Mean Corpuscular Hemoglobin 32.6 pg (28.0-34.0); Mean Corpuscular Volume 99.3 fl (80-94); Mean Platelet Volume 10.1 fL (7.4-10.4); Monocytes # 0.9 10^3/uL (0.2-0.9); Monocytes % 6.1 %; Neutrophils # 13.82 10^3/uL (1.8-7.7); Neutrophils % 92.1 %; Nucleated Red Blood Cells % 0 %; Platelet Count 259 10^3/cmm (130-400); Red Blood Count 2.73 10^6/uL (4.1-5.3); Red Cell Distribution Width 15.3 % (12.1-15.1)
[2021-01-06 07:08] LABS: Partial Thromboplastin Time 52.7 SECONDS (23.9-36.7)
[2021-01-06 07:21] LABS: Alanine Aminotransferase 40 U/L (0-41); Albumin Level 3.3 g/dL (3.5-5.2); Alkaline Phosphatase 136 IU/L (40-130); Anion Gap 17.2 (5-19); Aspartate Amino Transferase 36 U/L (0-40); Blood Urea Nitrogen 28 mg/dL (8-23); Calcium 8.6 mg/dL (8.5-10.5); Carbon Dioxide 26 mmol/L (22-29); Chloride 95 mmol/L (98-107); Globulin 3.3 g/dL (1.3-4.6); Glucose 135 mg/dL (65-115); Osmolality Calculated 286 mOsm/kg (285-295); Potassium 4.2 mmol/L (3.5-5.1); Sodium 134 mmol/L (136-145); Total Bilirubin 0.2 mg/dL (0.15-1.2); Total Protein 6.6 g/dL (6.6-8.7)
[2021-01-06] MEDS: acetylcysteine 200 mg/mL SDV 4 mL INHALATION ×4 (07:50→23:39)
[2021-01-06] MEDS: ipratropium-albuterol 3 mL Neb INHALATION ×5 (07:50→23:40)
[2021-01-06] MEDS: heparin 5,000 unit/mL INJ 1 mL IV ×2 (07:55→20:06)
[2021-01-06] MEDS: cefTRIAXone 1,000 MG in sodium chloride 0.9% (plus) 50 ML 100 MG IV (07:55)
[2021-01-06] MEDS: piperacillin-tazobactam 3.375 GM in sodium chloride 0.9% (plus) 50 ML IV ×2 (09:46→17:36)
--- NOTE | 2021-01-06 11:21 | PC.NURSE ---
Wound care completed by this nurse and charge nurse SHIMA Campos. packed per doctors orders, tolerated well.
[2021-01-06 13:38] LABS: Partial Thromboplastin Time 56.7 SECONDS (23.9-36.7)
--- NOTE | 2021-01-06 18:05 | PC.NURSE ---
packing dressing changed per doctors orders to patients neck wound, patient requested deep suction, notified RT.
--- NOTE | 2021-01-06 18:31 | PC.NURSE ---
Started tube feeding per doctors orders at 105mL/hr. patient tolerated well.
[2021-01-06 19:28] LABS: Partial Thromboplastin Time 34.6 SECONDS (23.9-36.7)
--- NOTE | 2021-01-06 20:06 | P.PN_ITS ---
Subjective Subjective: Interval history: He is doing all right. Reports overall he is feeling better, although noted to be getting anxious. No additional blood coming from tracheostomy. Weaned off on oxygen. Vitals/I&O/Wt Last Vital Signs Temp 98.1 F 01/06/21 16:00 Pulse 73 01/06/21 16:22 Resp 18 01/06/21 16:22 BP 128/77 01/06/21 16:00 Pulse Ox 97 01/06/21 16:22 01/06/21 01/06/21 01/06/21 06:59 14:59 22:59 Intake Total 100 / 500 254.333 / 254.333 100 / 354.333 Output Total 650 / 1550 275 / 275 275 / 550 Balance -550 / -1050 -20.667 / -20.667 -175 / -195.667 Weight last 48 hrs Weight 70.125 kg Weight 68.765 kg Weight 68.039 kg Physical Exam Narrative: EXAM NARRATIVE: Accompanied by his Const: COMMON NORMALS: no acute distress, patient oriented x3 and alert GENERAL APPEARANCE: cooperative and frail appearing NUTRITIONAL APPEARANCE: thin ORIENTATION/CONSCIOUSNESS: Yes awake HENMT: COMMON NORMALS: oropharynx normal Neck/C-Spine: COMMON NORMALS: no JVD OTHER: trach in place, some surrounding erythema inferiorly, small amount of slough at wound, no bleeding Chest: OTHER: Posterior right chest wound healing well. No surrounding erythema, no drainage. Resp: COMMON NORMALS: normal respiratory effort AUSCULTATION: rhonchi Cardio: COMMON NORMALS: no JVD, regular rhythm, S1 normal heart sound present, S2 normal heart sound present and No murmurs present (Cardio) RHYTHM: regular rhythm HEART SOUNDS: S1 normal heart sound present and S2 normal heart sound present GI: COMMON NORMALS: Normal to inspection, nondistended, normoactive bowel sounds present, Soft to palpation and non-tender PALPATION: Yes Soft to palpation OTHER: Midline abdominal incision healing well, rachel in place. Enteric tube in place. Extremity: COMMON NORMALS: no joint enlargement and no pedal edema Neuro: COMMON NORMALS: patient oriented x3 and moves all extremities SENSORIUM/ORIENTATION: Yes alert Skin: COMMON NORMALS: no rashes or lesions noted GENERAL SKIN EXAM: no rashes or lesions noted Data : 01/06/21 06:44 01/06/21 06:44 Micro: Microbiology 01/06/21 08:30 Gram Stain - Final Sputum - Endotracheal Tube Aspirate 01/05/21 08:19 Blood Culture - Preliminary Blood NEGATIVE TO DATE 01/05/21 07:53 Blood Culture - Preliminary Blood NEGATIVE TO DATE 01/05/21 19:30 Bacterial Antigens - Final Urine,Clean Catch 01/05/21 19:30 Legionella Urinary Antigen - Final Urine,Clean Catch A&P Assessment and plan (1) Hypoxia: Overall he is improving. Has weaned off oxygen. Humidified air via HAG. Noted worsening leukocytosis today up to 15,000. Respiratory rate improved. Tachycardia improved. No additional bleeding noted from tracheostomy. Discussed with him we are holding for now his Lovenox (which will need to be resumed once he is ready at lower dose proportional to his weight), currently with heparin drip. Monitor for any further bleeding. Continue tracheostomy care. Continue empiric antibiotic coverage for bronchitis, possible pneumonia with Zosyn, doxycycline. Bacterial antigens negative. Sputum culture obtained, pending. Mixed organisms on Gram stain. Blood cultures so far negative. COVID-19 PCR pending. Has follow-up appointment for reassessment of tracheostomy with Dr. Hayes at [facility] on Thursday. Status: Acute Additional A&P Information Recent tracheostomy site infection: Almost done with Augmentin. Currently on antibiotics as above. Esophagectomy, laryngectomy, tracheostomy 3 weeks ago: At [facility]. At home uses humidified air, has not required oxygen so far. Request medical records. Enteric tube in place: Is n.p.o., nothing crushed by enteric tube as well - only liquid medications. Receives tube feedings with Jevity 1.5 for 14 hours a day continuous infusion, with 125 mL water flush before and after feeding. Feedings start at night before sleep. 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 Blanton and Dr. Hayes at [facility]. HTN Attestations Medical Necessity Statement*: Continue admission for assessment of management of bronchitis, possible pneumonia, possible hemorrhage into the lung from around tracheostomy site, in a gentleman status post laryngectomy, esophagectomy due to esophageal cancer. Coding Level of Care Code Acute Clothing Consultant for [facility] Fwd Diagnoses Hypoxia R09.02
[2021-01-06] MEDS: heparin drip 25,000 UNIT/500 ML PREMIX 25 UNIT IV (23:24)
[2021-01-07] VITALS (8 sets, daily range): BP systolic 119–129; BP diastolic 74–82; PULSE 64–73; RESP 16–18; TEMP 36.4–36.6; O2SAT 97–100
[2021-01-07] MEDS: guaiFENesin 100 mg/5 mL UDC 10 mL 600 MG PO ×3 (00:56→13:35)
[2021-01-07] MEDS: doxycycline 100 MG in sodium chloride 0.9% (plus) 100 ML IV ×2 (01:07→13:43)
[2021-01-07] MEDS: piperacillin-tazobactam 3.375 GM in sodium chloride 0.9% (plus) 50 ML IV ×2 (02:14→09:11)
[2021-01-07] MEDS: ipratropium-albuterol 3 mL Neb INHALATION ×3 (03:16→11:33)
[2021-01-07] MEDS: acetylcysteine 200 mg/mL SDV 4 mL INHALATION ×3 (03:21→11:33)
[2021-01-07 07:00] LABS: Basophils % 0.2 %; Eosinophils % 0.3 %; Hematocrit 30.5 % (42.0-52.0); Hemoglobin 9.9 g/dL (11.7-16.6); Lymphocytes # 0.4 10^3/uL (0.8-4.8); Lymphocytes % 3.1 %; Mean Corpuscular HGB Conc 32.5 g/dL (30.0-36.0); Mean Corpuscular Hemoglobin 32.8 pg (28.0-34.0); Monocytes # 0.7 10^3/uL (0.2-0.9); Monocytes % 6.3 %; Neutrophils % 89.4 %; Nucleated Red Blood Cells % 0 %; Platelet Count 219 10^3/cmm (130-400); Red Blood Count 3.02 10^6/uL (4.1-5.3); Red Cell Distribution Width 15.7 % (12.1-15.1); White Blood Count 11.7 10^3/uL (4.0-10.0)
[2021-01-07 07:05] LABS: Alanine Aminotransferase 58 U/L (0-41); Albumin Level 3.3 g/dL (3.5-5.2); Alkaline Phosphatase 133 IU/L (40-130); Anion Gap 17.3 (5-19); Aspartate Amino Transferase 43 U/L (0-40); Blood Urea Nitrogen 29 mg/dL (8-23); Calcium 8.7 mg/dL (8.5-10.5); Carbon Dioxide 25 mmol/L (22-29); Chloride 94 mmol/L (98-107); Globulin 3.4 g/dL (1.3-4.6); Glucose 138 mg/dL (65-115); Osmolality Calculated 282 mOsm/kg (285-295); Potassium 4.3 mmol/L (3.5-5.1); Sodium 132 mmol/L (136-145); Total Bilirubin 0.2 mg/dL (0.15-1.2); Total Protein 6.7 g/dL (6.6-8.7)
[2021-01-07 07:25] LABS: Slide Review Slide Review Perform
[2021-01-07 08:26] LABS: Quest SARS-CoV-2 RNA NOT DETECTED (NOT DETECTED)
--- NOTE | 2021-01-07 11:25 | PC.NURSE ---
Patient has 18 rachel midline abdomen. Stitches on track incision are dissolvable. Unable to count d/t scabs.
--- NOTE | 2021-01-07 13:14 | P.DS_ITS ---
Discharge Providers Date of Admission: 01/05/21 08:41 Date of Discharge: January 07, 2021 Attending Provider at Admission: Abner Nettles Attending Provider at Discharge: Daniel Watts MD Primary Care Provider: Randi Buchanan DO Diagnoses at Discharge Discharge Diagnosis (1) Hypoxia: Status: Acute Reason for Visit Reason for Visit: RESPIRATORY DISTRESS Hospital Course Hospital Course Pleasant 75-year-old gentleman with history of esophageal adenocarcinoma, status post chemo and radiation, then esophagectomy and laryngectomy 3 weeks ago at [facility] where he follows with Dr. Blanton and Dr. Hayes, using a minified air at home, currently also on tube feeding, no crushed medications, only liquids through the feeding tube, presented to ER due to progressive dyspnea, thick difficult to clear secretions. In ER requiring initially up to 8 L of oxygen by HAG. Patient was roomed to the hospital for further evaluation of dyspnea. Pulmonary embolism/pneumonia was ruled out with a negative CTA. There was a concern for possible bronchitis causing him to have the above symptoms. On further evaluation it was noted that patient's home humidifier was dysfunctional. Patient was transitioned over to humidified air and he did well and has been saturating more than 95% on humidified room air. Blood cultures, Gram stain was unremarkable. Patient has a follow-up appointment for reassessment of tracheostomy with his primary surgeon Dr. Hayes at [facility] on coming Thursday(today is Thursday). His oral medications were transitioned over to liquid. They were called into pharmacy. Patient has been complaining of recurrent hiccups since procedure done at [facility] 3 weeks ago. For now he is been started on oral Zofran liquid. Patient still has in situ rachel from his procedure 3 weeks ago. Need for rachel to be removed were discussed in detail with patient and patient's son at bedside. Patient has a follow-up appointment with his primary surgeon on Thursday and will discuss further with them regarding staple removal. He has been discharged in hemodynamically stable condition with advised to follow-up with his primary surgeon on coming appointment. Physical Exam Const: COMMON NORMALS: no acute distress, patient oriented x3 and alert GENERAL APPEARANCE: cooperative and frail appearing NUTRITIONAL APPEARANCE: thin ORIENTATION/CONSCIOUSNESS: Yes awake HENMT: COMMON NORMALS: oropharynx normal Neck/C-Spine: COMMON NORMALS: no JVD OTHER: trach in place, some surrounding erythema inferiorly, small amount of slough at wound, no bleeding Chest: OTHER: Posterior right chest wound healing well. No surrounding erythema, no drainage. Resp: COMMON NORMALS: normal respiratory effort AUSCULTATION: rhonchi Cardio: COMMON NORMALS: no JVD, regular rhythm, S1 normal heart sound present, S2 normal heart sound present and No murmurs present (Cardio) RHYTHM: regular rhythm HEART SOUNDS: S1 normal heart sound present and S2 normal heart sound present GI: COMMON NORMALS: Normal to inspection, nondistended, normoactive bowel sounds present, Soft to palpation and non-tender PALPATION: Yes Soft to palpation OTHER: Midline abdominal incision healing well, rachel in place. Enteric tube in place. Extremity: COMMON NORMALS: no joint enlargement and no pedal edema Neuro: COMMON NORMALS: patient oriented x3 and moves all extremities SENSORIUM/ORIENTATION: Yes alert Skin: COMMON NORMALS: no rashes or lesions noted GENERAL SKIN EXAM: no rashes or lesions noted Discharge Data Data Completed and Pending: Completed Studies During Hospitalization Category Date Time Status CT angio chest PE protcl [id number] Stat Cat Scan 01/05/21 06:24 Completed XR chest 1V jf ble [id number] Routine Exams 01/06/21 06:00 Completed XR chest 1V jf ble [id number] Stat Exams 01/05/21 06:24 Completed Pending at discharge Category Date Time Status Blood Culture Sta t Lab 01/05/21 08:19 Results Complete Blood Co unt w/Auto AM LABS Lab 01/08/21 04:00 Ordered Comprehensive Met abolic Panel AM LA BS Lab 01/08/21 04:00 Ordered PTT [Partial Thro mboplastin Time] R outine Lab 01/07/21 14:00 Ordered Platelet Count Q2 D Lab 01/09/21 04:00 Ordered Sputum Culture an d Gram Stain Routi ne Lab 01/05/21 12:34 Results Labs from last 24 hours 01/07/21 01/07/21 01/07/21 08:14 06:30 06:30 WBC 11.7 H RBC 3.02 L Hgb 9.9 L Hct 30.5 L MCV 101.0 H MCH 32.8 MCHC 32.5 RDW 15.7 H Plt Count 219 MPV 11.0 H Neut % (Auto) 89.4 Lymph % (Auto) 3.1 [place] % (Auto) 6.3 Eos % (Auto) 0.3 Baso % (Auto) 0.2 Neut # (Auto) 10.50 H Lymph # (Auto) 0.4 L [place] # (Auto) 0.7 Eos # (Auto) 0.0 Baso # (Auto) 0.0 Nucleated RBC % (a uto) 0 Nucleated RBCs # 0.0 APTT 64.0 H Sodium 132 L Potassium 4.3 Chloride 94 L Carbon Dioxide 25 Anion Gap 17.3 BUN 29 H Creatinine 0.8 GFR Calculation Not Reportable Glucose 138 H Calculated Osmolal ity 282 L Calcium 8.7 Total Bilirubin 0.2 AST 43 H ALT 58 H Alkaline Phosphata se 133 H Total Protein 6.7 Albumin 3.3 L Globulin 3.4 SARS-CoV-2 RNA (RT -PCR) 01/07/21 01/06/21 01/06/21 01:15 19:02 13:16 WBC RBC Hgb Hct MCV MCH MCHC RDW Plt Count MPV Neut % (Auto) Lymph % (Auto) [place] % (Auto) Eos % (Auto) Baso % (Auto) Neut # (Auto) Lymph # (Auto) [place] # (Auto) Eos # (Auto) Baso # (Auto) Nucleated RBC % (a uto) Nucleated RBCs # APTT 83.0 H D 34.6 56.7 H Sodium Potassium Chloride Carbon Dioxide Anion Gap BUN Creatinine GFR Calculation Glucose Calculated Osmolal ity Calcium Total Bilirubin AST ALT Alkaline Phosphata se Total Protein Albumin Globulin SARS-CoV-2 RNA (RT -PCR) 01/05/21 08:55 WBC RBC Hgb Hct MCV MCH MCHC RDW Plt Count MPV Neut % (Auto) Lymph % (Auto) [place] % (Auto) Eos % (Auto) Baso % (Auto) Neut # (Auto) Lymph # (Auto) [place] # (Auto) Eos # (Auto) Baso # (Auto) Nucleated RBC % (a uto) Nucleated RBCs # APTT Sodium Potassium Chloride Carbon Dioxide Anion Gap BUN Creatinine GFR Calculation Glucose Calculated Osmolal ity Calcium Total Bilirubin AST ALT Alkaline Phosphata se Total Protein Albumin Globulin SARS-CoV-2 RNA (RT -PCR) Not detected Addt'l Data from Hospital Stay: Laboratory Results WBC 11.7 10^3/uL (4.0 -10.0) H 01/07/21 06:30 RBC 3.02 10^6/uL (4.1 -5.3) L 01/07/21 06:30 Hgb 9.9 g/dL (11.7-16 .6) L 01/07/21 06:30 Hct 30.5 % (42.0-52.0 ) L 01/07/21 06:30 MCV 101.0 fl (80-94) H 01/07/21 06:30 MCH 32.8 pg (28.0-34. 0) 01/07/21 06:30 MCHC 32.5 g/dL (30.0-3 6.0) 01/07/21 06:30 RDW 15.7 % (12.1-15.1 ) H 01/07/21 06:30 Plt Count 219 10^3/cmm (130 -400) 01/07/21 06:30 MPV 11.0 fL (7.4-10.4 ) H 01/07/21 06:30 Neut % (Auto) 89.4 % 01/07/21 06:30 Lymph % (Auto) 3.1 % 01/07/21 06:30 [place] % (Auto) 6.3 % 01/07/21 06:30 Eos % (Auto) 0.3 % 01/07/21 06:30 Baso % (Auto) 0.2 % 01/07/21 06:30 Neut # (Auto) 10.50 10^3/uL (1. 8-7.7) H 01/07/21 06:30 Lymph # (Auto) 0.4 10^3/uL (0.8- 4.8) L 01/07/21 06:30 [place] # (Auto) 0.7 10^3/uL (0.2- 0.9) 01/07/21 06:30 Eos # (Auto) 0.0 10^3/uL (0.0- 0.8) 01/07/21 06:30 Baso # (Auto) 0.0 10^3/uL (0.0- 0.1) 01/07/21 06:30 Nucleated RBC % (a uto) 0 % 01/07/21 06:30 Nucleated RBCs # 0.0 /100WBC 01/07/21 06:30 PT 13.40 SECONDS (12 .1-14.9) 01/05/21 06:36 INR 0.99 (0.8-1.2) 01/05/21 06:36 APTT 64.0 SECONDS (23. 9-36.7) H 01/07/21 08:14 D-Dimer 2.49 ug/mIFEU (0- 0.59) H 01/05/21 06:36 Sodium 132 mmol/L (136-1 45) L 01/07/21 06:30 Potassium 4.3 mmol/L (3.5-5 .1) 01/07/21 06:30 Chloride 94 mmol/L (98-107 ) L 01/07/21 06:30 Carbon Dioxide 25 mmol/L (22-29) 01/07/21 06:30 Anion Gap 17.3 (5-19) 01/07/21 06:30 BUN 29 mg/dL (8-23) H 01/07/21 06:30 Creatinine 0.8 mg/dL (0.7-1. 2) 01/07/21 06:30 GFR Calculation Not Reportable 01/07/21 06:30 Glucose 138 mg/dL (65-115 ) H 01/07/21 06:30 Calculated Osmolal ity 282 mOsm/kg (285- 295) L 01/07/21 06:30 Lactate 1.2 mmol/L (0.5-2 .2) 01/05/21 06:36 Calcium 8.7 mg/dL (8.5-10 .5) 01/07/21 06:30 Total Bilirubin 0.2 mg/dL (0.15-1 .2) 01/07/21 06:30 AST 43 U/L (0-40) H 01/07/21 06:30 ALT 58 U/L (0-41) H 01/07/21 06:30 Alkaline Phosphata se 133 IU/L (40-130) H 01/07/21 06:30 Troponin T Baselin e 28 ng/L (0-15) H 01/05/21 06:36 Troponin T 120 Min [place] 34.10 ng/L (0-15) H 01/05/21 08:19 Delta Troponin T 6.10 ABS# (0-10) 01/05/21 08:19 Troponin T Hi Sens 6Hr 35.69 ng/L (0-15) H 01/05/21 14:45 Troponin T Hi Sens 6Hr Delta 7.69 ng/L (0-12) 01/05/21 14:45 NT-Pro-B Natriuret Pep 420 pg/mL (0-125) H 01/05/21 06:36 Total Protein 6.7 g/dL (6.6-8.7 ) 01/07/21 06:30 Albumin 3.3 g/dL (3.5-5.2 ) L 01/07/21 06:30 Globulin 3.4 g/dL (1.3-4.6 ) 01/07/21 06:30 Lipase 16 U/L (13-60) 01/05/21 06:36 SARS-CoV-2 RNA (RT -PCR) Not detected (NO T DETECTED) 01/05/21 08:55 SARS-CoV-2 Ag (Rap id) Negative (Negati ve) 01/05/21 06:00 Impressions Chest CTA 01/05/21 06:24 IMPRESSION: 1. Tracheostomy tube in satisfactory location. Irregular material within the upper trachea just below tracheostomy tube felt to represent mucous. 2. Status post gastric pull-through with suture material noted. 3. No pulmonary artery embolism identified. 4. Small right pleural effusion with compressive atelectasis. 5. Right upper lobe atelectasis and or scarring. 6. 3 cm low-density lesion medially within the spleen with minimal adjacent fatty stranding may represent a small splenic infarct or postsurgical change. This was not present on the prior exam. Radiation Dose CTDIVOL = (mGy): DLP = 556.51 (mGy-cm) Chest X-Ray 01/06/21 06:00 IMPRESSION: 1. Tubes and catheters are unchanged from the prior exam. 2. No acute cardiopulmonary process. 3. Trace scar noted in the left lung base. Radiation Dose CTDIVOL = (mGy): DLP = (mGy-cm) Microbiology 01/06/21 08:30 Sputum - Endotracheal Tube Aspirate Gram Stain - Final 01/05/21 08:19 Blood Blood Culture - Preliminary NEGATIVE TO DATE 01/05/21 07:53 Blood Blood Culture - Preliminary NEGATIVE TO DATE 01/05/21 19:30 Urine,Clean Catch Bacterial Antigens - Final 01/05/21 19:30 Urine,Clean Catch Legionella Urinary Antigen - Final Vitals: Last Vital Signs Temp 97.8 F 01/07/21 11:59 Pulse 68 01/07/21 11:59 Resp 17 01/07/21 11:59 BP 122/74 01/07/21 11:59 Pulse Ox 100 01/07/21 11:59 Discharge Plan Discharge Patient Disposition: Home Condition: Stable Prescriptions: New ondansetron HCl 4 mg/5 mL solution 4 mg PO Q8H PRN (Reason: nausea and vomiting) 5 Days Qty: 75 RF: 0 Child Mucus Relief Expectorant 100 mg/5 mL liquid 200 mg PO Q6H PRN (Reason: cough) Qty: 1500 RF: 0 levofloxacin 250 mg/10 mL solution 500 mg PO Q24H 3 Days Qty: 60 RF: 0 Continued oxycodone 5 mg/5 mL solution 5 mg feeding tube Q3H PRN (Reason: Pain) RF: 0 amoxicillin-pot clavulanate 400-57 mg/5 mL suspension for reconstitution 10.9 ml PO BID RF: 0 enoxaparin 80 mg/0.8 mL syringe 80 mg SUBCUT Q12H RF: 0 acetaminophen 500 mg/15 mL Liquid 1,000 mg PO Q6H RF: 0 levothyroxine 175 mcg tablet 175 mcg PO QAM RF: 0 Discharge Orders: Discharge Order (Routine); Ordered 01/07/21 Ordered By: Daniel Watts Referrals: Randi Buchanan DO [Primary Care Provider] - Discharge Diet: Cardiac and Full LIquid Discharge Activity: Resume usual activity Patient Instructions: Opioid Safety Discharge Attestations Time Spent in Discharge Care*: greater than 30 min Specific Discharge Activities: educating patient, educating and/or supporting family/caregiver, discussing with spring encaser/social workers/dc planners, documenting/other paperwork and evaluating patient/reviewing data Status at Discharge: Cognitive status at discharge: cognitively intact , Behavioral status at discharge: cooperative , Functional status at discharge: independent ambulation Overall status at discharge: patient has a new baseline Quality Metrics Clinical Quality Measures During this hospital stay, did patient experience: None Coding Level of Care Code Acute Chg FW DC note Diagnoses Hypoxia R09.02
--- NOTE | 2021-01-07 15:26 | PC.NURSE ---
Patient A&O x3, respirations non-labored on room air. IV removed from right wrist and de-accessed port. Patient tolerated well. Discharge information reviewed with patient and acknowledged understanding. Patient wheeled down with son to private vehicle.
== END 2021-01-07 15:30 | disposition home or self-care (01) | DRG 202 ==
LOC: ER 10:19 → MEDSURG 11:41
PROVIDERS: Admitting Provider Internal Medicine; Emergency Provider Emergency Medicine; PCP Family Medicine; Visit Provider Student in an Organized Health Care Education/Training Program
DX: J40 Bronchitis, not specified as acute or chronic (principal); C15.9 Malignant neoplasm of esophagus, unspecified; Z86.718 Personal history of other venous thrombosis and embolism; I11.0 Hypertensive heart disease with heart failure; I50.9 Heart failure, unspecified; Z93.0 Tracheostomy status; Z85.038 Personal history of other malignant neoplasm of large intestine; K21.9 Gastro-esophageal reflux disease without esophagitis; E78.5 Hyperlipidemia, unspecified; E03.9 Hypothyroidism, unspecified; I25.2 Old myocardial infarction; Z90.49 Acquired absence of other specified parts of digestive tract; I25.10 Atherosclerotic heart disease of native coronary artery without angina pectoris; Z95.1 Presence of aortocoronary bypass graft; Z87.891 Personal history of nicotine dependence; Z92.21 Personal history of antineoplastic chemotherapy; Z92.3 Personal history of irradiation; Z90.02 Acquired absence of larynx; Z79.891 Long term (current) use of opiate analgesic; Z93.1 Gastrostomy status
CPT/HCPCS: 36415; 71045; 71275; 80053; 83605; 83690; 83880; 84484; 85025; 85378; 85610; 85730; 86403; 87040; 87070; 87077; 87186; 87205; 87426; 87449; 87635; 93005; 94640; 94664; 94799; 96365; 96367; 96375; 99285; J0456; J0696; J1644; J2543; J2930; J3490; J7050; J7608; Q9967

== ENCOUNTER 2021-01-13 19:15 | Emergency (ER) | payer MEDICARE, SELFPAY ==
[2021-01-13 19:29] VITALS: BP 137/86; PULSE 69; RESP 30; TEMP 36.6; O2SAT 97
--- NOTE | 2021-01-13 19:32 | XRR_ITS ---
PROCEDURE INFORMATION: Exam: XR Chest Exam date and time: 01/13/2021 7:32 PM Age: 75 years old Clinical indication: Dyspnea; Prior surgery; Surgery date: 6+ months; Additional info: SOB TECHNIQUE: Imaging protocol: XR of the chest. Views: 1 view. COMPARISON: 1. CR (CHEST, ) 01/06/2021 8:[address] angio chest PE protcl [id number] 01/05/2021 7:42:19 AM FINDINGS: Tubes, catheters and devices: There is a right chest port with the line tip appropriately positioned in the lower SVC near the cavoatrial junction. Lungs: There is focal subpleural opacity in the lateral right mid lung which is stable compared to chest CT 01/05/2021. The left lung is clear. Pleural spaces: There is no pleural effusion or pneumothorax. Heart/Mediastinum: There is mild enlargement of the cardiac silhouette. Bones/joints: Sternal wires are present. There is no displacement to suggest sternal dehiscence. XR/XR chest 1V portable [id number] IMPRESSION: 1. No acute findings. 2. Persistent nonspecific focal opacity in the lateral right mid lung. Radiation Dose CTDIVOL = (mGy): DLP = (mGy-cm)
--- NOTE | 2021-01-13 19:35 | ED_ITS ---
HPI - SOB/Dyspnea General: Chief Complaint: Shortness of Breath/Dyspnea Stated Complaint: sob Time Seen by Provider: 01/13/21 19:23 Source: patient and family Mode of arrival: ambulatory Limitations: no limitations History of Present Illness: HPI Narrative: 75-year-old male history of throat cancer and recently little over a month ago had a laryngectomy and esophagectomy. He states that he is having episodes where he felt like he just could not breathe he appears very anxious here. RT is at bedside and suctioning is very little secretions at this time he said no cough or fever at home oxygen here is 100% on room air. Denies any pain. Associated symptoms: Deny abdominal pain, chest pain, fever(s), nausea or vomiting Review of Systems Const: Denies: fever(s), chills, body aches or change in appetite Eyes: Denies: blurry vision or eye discomfort ENMT: Denies: throat pain or dental pain Card: Denies: chest pain Resp: Reports: dyspnea GI: Denies: abdominal pain, nausea, vomiting or diarrhea : Denies: dysuria Musc: Denies: neck pain or back pain Skin/Breast: Denies: rash Neuro: Denies: headache(s) Psych: Denies: depression Marcus/Lymph: Denies: easy bruising All/Imm: Denies: urticaria PFSH ED PFSH: Medical History CHF (congestive heart failure) Colon cancer DVT (deep venous thrombosis) Esophageal adenocarcinoma Esophageal stricture Essential hypertension Essential hypertension GERD (gastroesophageal reflux disease) Hyperlipidemia Hypothyroid [place] (myocardial infarction) Surgical History H/O esophagogastroduodenoscopy (09/01/20) With dilation 07/02/20; with dilation History of appendectomy History of colon resection 2014 History of colonoscopy 2019 Hx of CABG Port-A-Cath in place (08/15/20) Family History Father Aortic stenosis Other CAD (coronary artery disease) Social History (Updated 01/05/21 @ 11:03 by Abner Nettles MD) Smoking and tobacco status: former smoker Alcohol intake: current Alcohol intake frequency: few times a week Alcohol type: beer Lives independently: No Household members: spouse and children Marital status: Physical Exam Const: COMMON NORMALS: no acute distress, patient oriented x3 and healthy appearing HENMT: COMMON NORMALS: normocephalic and atraumatic HEAD & SCALP: normocephalic and atraumatic Eye: COMMON NORMALS: Equal, round and reactive pupils present and EOMs intact bilaterally PUPIL: Yes Equal, round and reactive pupils present Neck/C-Spine: COMMON NORMALS: full ROM and supple Chest: COMMONS NORMALS: normal inspection of the chest and normal palpation of entire chest wall Resp: COMMON NORMALS: normal respiratory effort, No retractions, No use of accessory muscles and clear to auscultation bilaterally AUSCULTATION: clear to auscultation bilaterally Cardio: COMMON NORMALS: regular rate, regular rhythm and No murmurs present (Cardio) RATE: regular rate RHYTHM: regular rhythm GI: COMMON NORMALS: Normal to inspection, nondistended, normoactive bowel sounds present, Soft to palpation, non-tender and no masses PALPATION: Yes Soft to palpation Extremity: COMMON NORMALS: normal to inspection and full ROM Neuro: COMMON NORMALS: patient oriented x3, moves all extremities and no focal motor deficits Psych: COMMON NORMALS: mental status grossly normal, Normal thought process present and cooperative THOUGHT PROCESS: Normal thought process present Skin: COMMON NORMALS: no rashes or lesions noted and no wounds GENERAL SKIN EXAM: no rashes or lesions noted Course Vital Signs: Vital signs: Vital Signs Temperature 97.8 F 01/13/21 19:29 Pulse Rate 69 01/13/21 19:29 Respiratory Rate 30 H 01/13/21 19:29 Blood Pressure 137/86 01/13/21 19:29 Pulse Oximetry 97 01/13/21 19:29 MDM - SOB/Dyspnea MDM Narrative: Medical decision making narrative: Patient presents here with dyspnea believe a lot is due to anxiety did have some slight secretions out of his trach we suctioned here patient's been 100% on room air here the whole time x-ray shows no pneumonia blood work is normal he stable for discharge she is to follow-up with PCP and return if worsening. Lab Data: Labs: Lab Results 01/13/21 01/13/21 19:25 19:25 WBC 6.7 10^3/uL 10^3/ uL (4.0-10.0) RBC 3.11 10^6/uL L 10 ^6/uL (4.1-5.3) Hgb 10.1 g/dL L g/dL (11.7-16.6) Hct 31.1 % L % (42.0-52.0) MCV 100.0 fl H fl (80-94) MCH 32.5 pg pg (28.0-34.0) MCHC 32.5 g/dL g/dL (30.0-36.0) RDW 15.4 % H % (12.1-15.1) Plt Count 280 10^3/cmm 10^3 /cmm (130-400) MPV 10.2 fL fL (7.4-10.4) Neut % (Auto) 76.2 % % Lymph % (Auto) 7.5 % % [place] % (Auto) 11.9 % % Eos % (Auto) 1.8 % % Baso % (Auto) 0.5 % % Neut # (Auto) 5.07 10^3/uL 10^3 /uL (1.8-7.7) Lymph # (Auto) 0.5 10^3/uL L 10^ 3/uL (0.8-4.8) [place] # (Auto) 0.8 10^3/uL 10^3/ uL (0.2-0.9) Eos # (Auto) 0.1 10^3/uL 10^3/ uL (0.0-0.8) Baso # (Auto) 0.0 10^3/uL 10^3/ uL (0.0-0.1) Nucleated RBC % (a uto) 0 % % Nucleated RBCs # 0.0 /100WBC /100W BC Sodium 134 mmol/L L mmol /L (136-145) Potassium 4.5 mmol/L mmol/L (3.5-5.1) Chloride 98 mmol/L mmol/L (98-107) Carbon Dioxide 21 mmol/L L mmol/ L (22-29) Anion Gap 19.5 H (5-19) BUN 32 mg/dL H mg/dL (8-23) Creatinine 0.8 mg/dL mg/dL (0.7-1.2) GFR Calculation Not Reportable Glucose 82 mg/dL mg/dL (65-115) Calculated Osmolal ity 284 mOsm/kg L mOs m/kg (285-295) Calcium 9.6 mg/dL mg/dL (8.5-10.5) Total Bilirubin 0.2 mg/dL mg/dL (0.15-1.2) AST 19 U/L U/L (0-40) ALT 25 U/L U/L (0-41) Alkaline Phosphata se 115 IU/L IU/L (40-130) NT-Pro-B Natriuret Pep 869 pg/mL H pg/mL (0-125) Total Protein 7.2 g/dL g/dL (6.6-8.7) Albumin 3.9 g/dL g/dL (3.5-5.2) Globulin 3.3 g/dL g/dL (1.3-4.6) Imaging Data^: CXR: Attestation: I personally reviewed and interpreted this imaging study as follows: My impression: No acute abnormality Discharge Plan Discharge Patient Disposition: Home Clinical Impression: Dyspnea Qualifiers: Dyspnea type: unspecified Qualified Code(s): R06.00 - Dyspnea, unspecified Condition: Stable Prescriptions: No Action oxycodone 5 mg/5 mL solution 5 mg feeding tube Q3H PRN (Reason: Pain) RF: 0 amoxicillin-pot clavulanate 400-57 mg/5 mL suspension for reconstitution 10.9 ml PO BID RF: 0 enoxaparin 80 mg/0.8 mL syringe 80 mg SUBCUT Q12H RF: 0 acetaminophen 500 mg/15 mL Liquid 1,000 mg PO Q6H RF: 0 Child Mucus Relief Expectorant 100 mg/5 mL liquid 200 mg PO Q6H PRN (Reason: cough) Qty: 1500 RF: 0 levothyroxine 175 mcg tablet 175 mcg PO QAM RF: 0 Discharge Orders: Discharge ED (Routine); Ordered 01/13/21 Ordered By: Aaron Rosario Referrals: Randi Buchanan DO [Primary Care Provider] - 1-3 days Discharge Diet: Advance as tolerated Discharge Activity: Resume usual activity Patient Instructions: Dyspnea (ED) Coding Level of Care Code ED Carpenter Helper Maintenance for Chg Fwd Exam Comprehensive
[2021-01-13] MEDS: LORazepam 2 mg/mL INJ 1 mL 0.5 MG IVP (19:42)
[2021-01-13 20:02] LABS: Alanine Aminotransferase 25 U/L (0-41); Albumin Level 3.9 g/dL (3.5-5.2); Alkaline Phosphatase 115 IU/L (40-130); Aspartate Amino Transferase 19 U/L (0-40); Blood Urea Nitrogen 32 mg/dL (8-23); Calcium 9.6 mg/dL (8.5-10.5); Carbon Dioxide 21 mmol/L (22-29); Chloride 98 mmol/L (98-107); Globulin 3.3 g/dL (1.3-4.6); Glucose 82 mg/dL (65-115); NT Pro B Type Natriuretic Pept 869 pg/mL (0-125); Osmolality Calculated 284 mOsm/kg (285-295); Sodium 134 mmol/L (136-145); Total Bilirubin 0.2 mg/dL (0.15-1.2); Total Protein 7.2 g/dL (6.6-8.7)
[2021-01-13 20:05] LABS: Anion Gap 19.5 (5-19); Potassium 4.5 mmol/L (3.5-5.1)
[2021-01-13 20:24] VITALS: BP 123/76; RESP 21; O2SAT 100
[2021-01-13 21:00] LABS: Basophils % 0.5 %; Eosinophils # 0.1 10^3/uL (0.0-0.8); Eosinophils % 1.8 %; Hematocrit 31.1 % (42.0-52.0); Hemoglobin 10.1 g/dL (11.7-16.6); Lymphocytes # 0.5 10^3/uL (0.8-4.8); Lymphocytes % 7.5 %; Mean Corpuscular HGB Conc 32.5 g/dL (30.0-36.0); Mean Corpuscular Hemoglobin 32.5 pg (28.0-34.0); Mean Platelet Volume 10.2 fL (7.4-10.4); Monocytes # 0.8 10^3/uL (0.2-0.9); Monocytes % 11.9 %; Neutrophils # 5.07 10^3/uL (1.8-7.7); Neutrophils % 76.2 %; Nucleated Red Blood Cells % 0 %; Platelet Count 280 10^3/cmm (130-400); Red Blood Count 3.11 10^6/uL (4.1-5.3); Red Cell Distribution Width 15.4 % (12.1-15.1); White Blood Count 6.7 10^3/uL (4.0-10.0)
[2021-01-13 21:09] VITALS: PULSE 79; RESP 27; O2SAT 100
[2021-01-13 21:30] VITALS: PULSE 79; O2SAT 100
[2021-01-13 22:05] VITALS: BP 132/72; PULSE 77; RESP 21; O2SAT 100
== END 2021-01-13 22:07 | disposition home or self-care (01) ==
PROVIDERS: Emergency Provider Emergency Medicine; PCP Family Medicine
DX: R06.00 Dyspnea, unspecified (principal); I11.0 Hypertensive heart disease with heart failure; I50.9 Heart failure, unspecified; Z85.038 Personal history of other malignant neoplasm of large intestine; E78.5 Hyperlipidemia, unspecified; I25.2 Old myocardial infarction; Z95.1 Presence of aortocoronary bypass graft; Z87.891 Personal history of nicotine dependence
CPT/HCPCS: 71045; 80053; 83880; 85025; 94799; 96374; 99284; J2060

== ENCOUNTER 2021-01-15 09:31 | Emergency (ER) | payer MEDICARE, SELFPAY ==
[2021-01-15 09:42] VITALS: BP 148/97; PULSE 98; RESP 24; TEMP 37.1; O2SAT 98; BMI 22.5
--- NOTE | 2021-01-15 09:52 | CT_ITS ---
WS: [id number] CT NECK WITH CONTRAST HISTORY: recent laryngectomy - tracheostomy complication TECHNIQUE: Contiguous 5 mm axial images are performed through the neck with intravenous contrast. Sag ittal and coronal reformats are also submitted. All CT scans at [facility] use at least one o f these dose optimization techniques: automated exposure control; mA and/or kV adjustment per patient size (includes targeted exams where dose is matched to clinical indication); or iterative reconstruc tion. CONTRAST: CONTRAST: Omnipaque 300; 95 mL IV. DLP: 505.26 mGy.cm COMPARISON: No similar studies for comparison. Prior chest CT 01/05/2021. Patient is status post gastric pull-through for esophageal cancer. Also status post tracheostomy. Tra cheostomy defect is noted in the anterior upper thorax. The tracheostomy tube is not present at this time. The tracheostomy tract is patent. Mixed density material in the distal trachea. Focal 13 mm are a of increased density but there are few at additional areas of fibrin like stranding extending infer iorly. Greater than 50% obscuration of the trachea. This material was also present on the prior exami nation but becoming more solid in appearance. There is air around this focal area of debris which may be inspissated mucus. The kristopher is intact. Both proximal bronchi are normal. Again noted is extensive esophageal wall thickening with fluid in the esophagus from the recent surge ry gastric pull-through. There is a linear high density wire catheter along the RIGHT larynx and exte nding inferiorly towards the anterior esophagus. This is probably a postoperative catheter. This was also present and unchanged on 01/05/2021. No definite lymph nodes along the cervical chains. There is a right-sided Mediport entering the jugular vein. Visualized lung apices are clear. Visualized paranasal sinuses and mastoid air cells are normal. Lung apices are clear. CT/CT neck w con* [id number] IMPRESSION: 1. There is inspissated debris within the distal trachea which may be causing partial obstruction of the airway, especially when the tracheostomy tube is pre sent. Suspect this mucous is becoming more solid with concretions as its losing its fluid. There is no complete obstruction of the trachea. 2. Postsurgical changes of gastric pull-through. 3. No adenopathy.
--- NOTE | 2021-01-15 09:52 | XRR_ITS ---
PROCEDURE INFORMATION: Exam: XR Chest Exam date and time: 01/15/2021 9:52 AM Age: 75 years old Clinical indication: Cough and dyspnea; Additional info: Dyspnea/cough TECHNIQUE: Imaging protocol: XR of the chest. Views: 1 view. COMPARISON: CR (CHEST, ) 01/13/2021 7:41 PM FINDINGS: Tubes, catheters and devices: Right IJ infusion port with catheter tip near the cavoatrial junction. Airway: Gas at the thoracic inlet at midline presumably related to tracheostomy. No cannula present currently. Lungs: The lungs are symmetrically expanded. Interval improved aeration of the right lateral mid lung with minimal residual linear atelectasis/scarring. No focal consolidation. Pleural spaces: Unremarkable. No pleural effusion. No pneumothorax. Heart/Mediastinum: Unremarkable. No cardiomegaly. Bones/joints: Median sternotomy wires. XR/XR chest 1V portable [id number] IMPRESSION: No acute findings. Right lateral mid lung opacity noted previously has resolved. Radiation Dose CTDIVOL = (mGy): DLP = (mGy-cm)
--- NOTE | 2021-01-15 10:05 | ED_ITS ---
HPI - SOB/Dyspnea General: Chief Complaint: Shortness of Breath/Dyspnea Stated Complaint: AIRWAY TROUBLES Time Seen by Provider: 01/15/21 09:32 History of Present Illness: HPI Narrative: 75-year-old male with a history of esophageal cancer. On 12/12/2019 when he had a laryngectomy and esophagectomy with a gastric pull-through in the same setting. He does have a PEG tube in place now as well. He has an appliance in his tracheostomy. However when he leaves it in place he feels like it is obstructing the cannot breathe well so he is taken it out. There is a lot of crusting around there. He has not had any increased increase sputum from the tracheostomy. He denies any fever sweats or chills does not have any difficulty breathing when he removes the appliance. Procedure was done in [place] he sees oncology locally. MD elicited complaint: shortness of breath Pertinent past history: tracheostomy Onset (ago): hour(s) Timing: constant Severity: mild Exacerbating factors: exertion, coughing and other (Appliance in the tracheostomy) Relieving factors: nothing Known history of: other (Esophageal cancer with spread to the larynx status post esophagectomy laryngectomy) Associated symptoms: Deny abdominal pain, chest congestion, chest pain, cough, diaphoresis, dizziness, extremity pain, fever(s), hemoptysis, lightheadedness, myalgias, nausea, orthopnea, palpitations, paresthesias, polydipsia, polyuria, rash, sense of impending doom, syncope or vomiting Treatment prior to arrival: none Review of Systems Const: Denies: fever(s) or diaphoresis Card: Denies: chest pain, palpitations, lightheadedness, syncope or orthopnea Resp: Denies: hemoptysis or chest congestion GI: Denies: abdominal pain, nausea or vomiting : Denies: flank pain, dysuria, urinary frequency or urinary urgency Musc: Denies: extremity pain Neuro: Denies: dizziness Endo: Denies: polyuria or polydipsia PFSH ED PFSH: Medical History CHF (congestive heart failure) Chronic anticoagulation Colon cancer DVT (deep venous thrombosis) Dysphagia Esophageal adenocarcinoma Esophageal mass Esophageal stricture Essential hypertension Essential hypertension Foot drop, left GERD (gastroesophageal reflux disease) Hyperlipidemia Hypothyroid Neutropenia [place] (myocardial infarction) Preoperative clearance Thrombocytopenia Surgical History H/O esophagogastroduodenoscopy (09/01/20) With dilation 07/02/20; with dilation History of appendectomy History of colon resection 2014 History of colonoscopy 2019 Hx of CABG Port-A-Cath in place (08/15/20) Family History Father Aortic stenosis Other CAD (coronary artery disease) Social History Smoking and tobacco status: never smoked Alcohol intake: current Alcohol intake frequency: few times a week Alcohol type: beer Lives independently: No Household members: spouse and children Marital status: Physical Exam Const: COMMON NORMALS: no acute distress GENERAL APPEARANCE: cooperative and comfortable ORIENTATION/CONSCIOUSNESS: Yes awake, Yes oriented to person, Yes oriented to place and Yes oriented to time HENMT: COMMON NORMALS: normocephalic and hearing grossly normal bilaterally HEAD & SCALP: normocephalic Eye: COMMON NORMALS: Equal, round and reactive pupils present, EOMs intact bilaterally, conjunctivae normal and no scleral icterus CONJUNCTIVA: Yes conjunctivae normal PUPIL: Yes Equal, round and reactive pupils present Neck/C-Spine: COMMON NORMALS: no JVD OTHER: Tracheostomy present. Seems deviated just to the left of the midline. There is some eschar in place with a scar extending to the manubrium. There is no purulent drainage coarse breath sounds emanating from the tracheostomy he does not have the appliance in place as it seems to get the sensation of obstruction. Lymph: LYMPHATIC: no lymphadenopathy noted and no lymphedema noted Resp: COMMON NORMALS: normal respiratory effort, No retractions, No use of accessory muscles and clear to auscultation bilaterally AUSCULTATION: clear to auscultation bilaterally Cardio: COMMON NORMALS: no JVD, regular rate, regular rhythm and No murmurs present (Cardio) RATE: regular rate RHYTHM: regular rhythm GI: COMMON NORMALS: Soft to palpation and No hepatosplenomegaly present AUSCULTATION: Yes normoactive bowel sounds PALPATION: Yes Soft to palpation, No Tenderness to palpation present (GI), No Guarding due to palpation present (GI) and Yes No hepatosplenomegaly present Extremity: COMMON NORMALS: normal to inspection, capillary refill normal, no clubbing, cyanosis or edema, no calf tenderness and no pedal edema Neuro: SENSORIUM/ORIENTATION: Yes oriented to person, Yes oriented to place and Yes oriented to time Skin: COMMON NORMALS: no rashes or lesions noted GENERAL SKIN EXAM: no rashes or lesions noted Course Vital Signs: Vital signs: Vital Signs Temperature 98.7 F 01/15/21 09:42 Pulse Rate 82 01/15/21 12:18 Respiratory Rate 18 01/15/21 10:09 Blood Pressure 113/76 01/15/21 12:18 Pulse Oximetry 96 01/15/21 12:18 MDM - SOB/Dyspnea MDM Narrative: Medical decision making narrative: Discussed with Dr. Lang is on-call. We will set him up for outpatient follow-up with him. He recommends [id number] alcohol to be sprayed in the tracheostomy 2-3 times per day. He also recommends humidifying use of the tracheal cuff for using humidifier at night as well as using the inner cannula to prevent secretion buildup in the future. Return if has problems. Lab Data: Labs: Lab Results 01/15/21 01/15/21 10:07 10:07 WBC 9.4 10^3/uL 10^3/ uL (4.0-10.0) RBC 3.46 10^6/uL L 10 ^6/uL (4.1-5.3) Hgb 11.5 g/dL L g/dL (11.7-16.6) Hct 33.2 % L % (42.0-52.0) MCV 96.0 fl H fl (80-94) MCH 33.2 pg pg (28.0-34.0) MCHC 34.6 g/dL g/dL (30.0-36.0) RDW 15.1 % % (12.1-15.1) Plt Count 234 10^3/cmm 10^3 /cmm (130-400) MPV 10.6 fL H fL (7.4-10.4) Neut % (Auto) 84.2 % % Lymph % (Auto) 3.8 % % [place] % (Auto) 9.4 % % Eos % (Auto) 0.9 % % Baso % (Auto) 0.4 % % Neut # (Auto) 7.92 10^3/uL H 10 ^3/uL (1.8-7.7) Lymph # (Auto) 0.4 10^3/uL L 10^ 3/uL (0.8-4.8) [place] # (Auto) 0.9 10^3/uL 10^3/ uL (0.2-0.9) Eos # (Auto) 0.1 10^3/uL 10^3/ uL (0.0-0.8) Baso # (Auto) 0.0 10^3/uL 10^3/ uL (0.0-0.1) Nucleated RBC % (a uto) 0 % % Nucleated RBCs # 0.0 /100WBC /100W BC Sodium 135 mmol/L L mmol /L (136-145) Potassium 4.7 mmol/L mmol/L (3.5-5.1) Chloride 98 mmol/L mmol/L (98-107) Carbon Dioxide 25 mmol/L mmol/L (22-29) Anion Gap 16.7 (5-19) BUN 32 mg/dL H mg/dL (8-23) Creatinine 0.8 mg/dL mg/dL (0.7-1.2) GFR Calculation Not Reportable Glucose 101 mg/dL mg/dL (65-115) Calculated Osmolal ity 287 mOsm/kg mOsm/ kg (285-295) Calcium 8.9 mg/dL mg/dL (8.5-10.5) Discharge Plan Discharge Patient Disposition: Home Clinical Impression: Increased tracheal secretions Condition: Stable Prescriptions: New Alkalol Nasal Wash Solution 2 ml intranasal TID Qty: 473 RF: 0 No Action amoxicillin-pot clavulanate 400-57 mg/5 mL suspension for reconstitution 10 ml PO BID Qty: 100 RF: 0 lorazepam 2 mg/mL concentrate 1 mg PO BID PRN (Reason: anxiety) Qty: 15 RF: 0 oxycodone 5 mg/5 mL solution 5 mg feeding tube Q3H PRN (Reason: Pain) RF: 0 enoxaparin 80 mg/0.8 mL syringe 80 mg SUBCUT Q12H RF: 0 acetaminophen 500 mg/15 mL Liquid 1,000 mg PO Q6H RF: 0 Child Mucus Relief Expectorant 100 mg/5 mL liquid 200 mg PO Q6H PRN (Reason: cough) Qty: 1500 RF: 0 levothyroxine 175 mcg tablet 175 mcg PO QAM RF: 0 Discharge Orders: Discharge ED (Routine); Ordered 01/15/21 Ordered By: John Hernandez Referrals: Randi Buchanan DO [Primary Care Provider] - Discharge Diet: Usual diet Discharge Activity: Resume usual activity Patient Instructions: Opioid Safety Activity Restrictions/Additional Instructions: Case management will make arrangments for follow up with ENT later this week. Coding Level of Care Code ED Conductor Yard for Chg Fwd Exam Comprehensive
[2021-01-15 10:09] VITALS: BP 131/81; PULSE 78; RESP 18; O2SAT 98
[2021-01-15 10:10] LABS: Basophils % 0.4 %; Eosinophils # 0.1 10^3/uL (0.0-0.8); Eosinophils % 0.9 %; Hematocrit 33.2 % (42.0-52.0); Hemoglobin 11.5 g/dL (11.7-16.6); Lymphocytes # 0.4 10^3/uL (0.8-4.8); Lymphocytes % 3.8 %; Mean Corpuscular HGB Conc 34.6 g/dL (30.0-36.0); Mean Corpuscular Hemoglobin 33.2 pg (28.0-34.0); Mean Platelet Volume 10.6 fL (7.4-10.4); Monocytes # 0.9 10^3/uL (0.2-0.9); Monocytes % 9.4 %; Neutrophils # 7.92 10^3/uL (1.8-7.7); Neutrophils % 84.2 %; Nucleated Red Blood Cells % 0 %; Platelet Count 234 10^3/cmm (130-400); Red Blood Count 3.46 10^6/uL (4.1-5.3); Red Cell Distribution Width 15.1 % (12.1-15.1); White Blood Count 9.4 10^3/uL (4.0-10.0)
[2021-01-15] MEDS: iohexol 350 mg/mL 100 mL Btl IV (10:27)
[2021-01-15 10:39] LABS: Blood Urea Nitrogen 32 mg/dL (8-23); Calcium 8.9 mg/dL (8.5-10.5); Carbon Dioxide 25 mmol/L (22-29); Chloride 98 mmol/L (98-107); Glucose 101 mg/dL (65-115); Osmolality Calculated 287 mOsm/kg (285-295); Sodium 135 mmol/L (136-145)
[2021-01-15 10:41] LABS: Anion Gap 16.7 (5-19); Potassium 4.7 mmol/L (3.5-5.1)
[2021-01-15 12:18] VITALS: BP 113/76; PULSE 82; O2SAT 96
== END 2021-01-15 12:16 | disposition home or self-care (01) ==
PROVIDERS: Emergency Provider Family Medicine; PCP Family Medicine
DX: K11.7 Disturbances of salivary secretion (principal); I10 Essential (primary) hypertension; E78.5 Hyperlipidemia, unspecified; I25.2 Old myocardial infarction; I50.9 Heart failure, unspecified
CPT/HCPCS: 70491; 71045; 80048; 85025; 99283; Q9967

== ENCOUNTER 2021-01-15 15:46 | Emergency (ER) | payer MEDICARE, SELFPAY ==
[2021-01-15 15:54] VITALS: BP 179/111; PULSE 106; RESP 26; TEMP 36.6; O2SAT 97; BMI 22.5
--- NOTE | 2021-01-15 15:56 | ED_ITS ---
HPI - SOB/Dyspnea General: Chief Complaint: Shortness of Breath/Dyspnea Stated Complaint: SOB/HERE THIS MORNING Time Seen by Provider: 01/15/21 15:53 History of Present Illness: HPI Narrative: 75-year-old male returns emergency room he was seen earlier he had some mucus collection and what looks like concretions building up below his trip tracheostomy at the end of his appliance has not been using a cannula on it. I had called and talked to Dr. Lang see advised as to use alkalol spray [id number]. We instructed you to 3 spray sprays 3 times per day. Been trying to do it he feels like he is having more difficulty with that now. He is moving it more he is able to cough out a and get it to move some but is not able to completely expectorate it. MD elicited complaint: cough Pertinent past history: other (Tracheostomy with increased mucus production) Onset (ago): day(s) Timing: constant Severity: mild Exacerbating factors: nothing Relieving factors: nothing Associated symptoms: Deny abdominal pain, chest congestion, chest pain, cough, diaphoresis, dizziness, extremity pain, fever(s), hemoptysis, lightheadedness, myalgias, nausea, orthopnea, palpitations, paresthesias, polydipsia, polyuria, rash, sense of impending doom, syncope or vomiting Treatment prior to arrival: none Review of Systems Const: Denies: fever(s) or diaphoresis Card: Denies: chest pain, palpitations, lightheadedness, syncope or orthopnea Resp: Denies: hemoptysis or chest congestion GI: Denies: abdominal pain, nausea or vomiting Musc: Denies: extremity pain Neuro: Denies: dizziness Endo: Denies: polyuria or polydipsia [facility] ED PFSH: Medical History CHF (congestive heart failure) Chronic anticoagulation Colon cancer DVT (deep venous thrombosis) Dysphagia Esophageal adenocarcinoma Esophageal mass Esophageal stricture Essential hypertension Essential hypertension Foot drop, left GERD (gastroesophageal reflux disease) Hyperlipidemia Hypothyroid Neutropenia [place] (myocardial infarction) Preoperative clearance Thrombocytopenia Surgical History H/O esophagogastroduodenoscopy (09/01/20) With dilation 07/02/20; with dilation History of appendectomy History of colon resection 2014 History of colonoscopy 2019 Hx of CABG Port-A-Cath in place (08/15/20) Family History Father Aortic stenosis Other CAD (coronary artery disease) Social History Smoking and tobacco status: never smoked Alcohol intake: current Alcohol intake frequency: few times a week Alcohol type: beer Lives independently: No Household members: spouse and children Marital status: Physical Exam Const: COMMON NORMALS: no acute distress GENERAL APPEARANCE: cooperative and comfortable ORIENTATION/CONSCIOUSNESS: Yes awake, Yes oriented to person, Yes oriented to place and Yes oriented to time HENMT: COMMON NORMALS: normocephalic, atraumatic and hearing grossly normal bilaterally HEAD & SCALP: normocephalic and atraumatic Neck/C-Spine: COMMON NORMALS: no JVD Resp: OTHER: Coarse breath sounds with some stridor. Cardio: COMMON NORMALS: no JVD, regular rate, regular rhythm and No murmurs present (Cardio) RATE: regular rate RHYTHM: regular rhythm GI: COMMON NORMALS: Soft to palpation and No hepatosplenomegaly present AUSCULTATION: Yes normoactive bowel sounds PALPATION: Yes Soft to palpation, No Tenderness to palpation present (GI), No Guarding due to palpation present (GI) and Yes No hepatosplenomegaly present Extremity: COMMON NORMALS: normal to inspection, capillary refill normal, no clubbing, cyanosis or edema, no calf tenderness and no pedal edema Neuro: SENSORIUM/ORIENTATION: Yes oriented to person, Yes oriented to place and Yes oriented to time Skin: COMMON NORMALS: no rashes or lesions noted GENERAL SKIN EXAM: no rashes or lesions noted Course Vital Signs: Vital signs: Vital Signs Temperature 97.8 F 01/15/21 15:54 Pulse Rate 83 01/15/21 17:21 Respiratory Rate 24 H 01/15/21 17:21 Blood Pressure 118/75 01/15/21 17:21 Pulse Oximetry 96 01/15/21 17:21 MDM - SOB/Dyspnea MDM Narrative: Medical decision making narrative: Essentially alcohol had started working on loosening this up however notes become more mobile but he cannot quite get it coughed up he is having difficulty breathing but his sats are normal. He contacted Dr. Lang he came down to the emergency room and seen the patient debrided of the eschar on tracheostomy and removed the mucus secretions. Patient is feeling much better is no longer having any stridor he will follow up with Dr. Lang per Dr. Lang's orders. Discharge Plan Discharge Patient Disposition: Home Clinical Impression: Increased tracheal secretions, Dyspnea Condition: Stable Prescriptions: No Action amoxicillin-pot clavulanate 400-57 mg/5 mL suspension for reconstitution 10 ml PO BID Qty: 100 RF: 0 lorazepam 2 mg/mL concentrate 1 mg PO BID PRN (Reason: anxiety) Qty: 15 RF: 0 oxycodone 5 mg/5 mL solution 5 mg feeding tube Q3H PRN (Reason: Pain) RF: 0 enoxaparin 80 mg/0.8 mL syringe 80 mg SUBCUT Q12H RF: 0 acetaminophen 500 mg/15 mL Liquid 1,000 mg PO Q6H RF: 0 Child Mucus Relief Expectorant 100 mg/5 mL liquid 200 mg PO Q6H PRN (Reason: cough) Qty: 1500 RF: 0 levothyroxine 175 mcg tablet 175 mcg PO QAM RF: 0 Alkalol Nasal Wash Solution 2 ml intranasal TID Qty: 473 RF: 0 Discharge Orders: Discharge ED (Routine); Ordered 01/15/21 Ordered By: John Hernandez Referrals: Randi Buchanan DO [Primary Care Provider] - Patient Instructions: Opioid Safety Coding Level of Care Code ED Stock Repairer for Chg Fwd Exam Detailed
[2021-01-15 16:25] VITALS: BP 126/93; PULSE 112; RESP 23; O2SAT 96
[2021-01-15 17:21] VITALS: BP 118/75; PULSE 83; RESP 24; O2SAT 96
--- NOTE | 2021-01-16 10:24 | DCPLANNER ---
finance business manager had message to schedule a follow up appointment for patient with ENT. finance business manager emailed patients information to both Yolanda and Rosy at [facility] General Surgery / ENT clinic. Patients information will be printed and reviewed. Clinic will call patient with appointment information.
--- NOTE | 2021-01-23 07:43 | DCPLANNER ---
Patient had an appointment scheduled for 01.22.21 with ENT - patient did attend appointment.
== END 2021-01-15 17:23 | disposition home or self-care (01) ==
PROVIDERS: Emergency Provider Family Medicine; PCP Family Medicine
DX: R06.00 Dyspnea, unspecified (principal); K11.7 Disturbances of salivary secretion; I50.9 Heart failure, unspecified; I10 Essential (primary) hypertension; E78.5 Hyperlipidemia, unspecified; I25.2 Old myocardial infarction
CPT/HCPCS: 70491; 71045; 80048; 85025; 99282; 99283; Q9967

== ENCOUNTER 2021-01-24 09:07 | Outpatient (CLI) | payer MEDICARE, SELFPAY ==
[2021-01-24 10:15] LABS: Basophils % 0.2 %; Eosinophils # 0.1 10^3/uL (0.0-0.8); Eosinophils % 0.9 %; Hematocrit 31.7 % (42.0-52.0); Hemoglobin 10.3 g/dL (11.7-16.6); Lymphocytes # 0.3 10^3/uL (0.8-4.8); Lymphocytes % 3.4 %; Mean Corpuscular HGB Conc 32.5 g/dL (30.0-36.0); Mean Corpuscular Volume 98.4 fl (80-94); Mean Platelet Volume 9.6 fL (7.4-10.4); Monocytes # 0.8 10^3/uL (0.2-0.9); Monocytes % 9.6 %; Neutrophils # 6.98 10^3/uL (1.8-7.7); Neutrophils % 85.5 %; Nucleated Red Blood Cells % 0 %; Platelet Count 220 10^3/cmm (130-400); Red Blood Count 3.22 10^6/uL (4.1-5.3); Red Cell Distribution Width 14.6 % (12.1-15.1); White Blood Count 8.2 10^3/uL (4.0-10.0)
[2021-01-24 10:34] LABS: Alanine Aminotransferase 26 U/L (0-41); Albumin Level 3.7 g/dL (3.5-5.2); Alkaline Phosphatase 125 IU/L (40-130); Anion Gap 14.7 (5-19); Aspartate Amino Transferase 21 U/L (0-40); Blood Urea Nitrogen 29 mg/dL (8-23); Calcium 8.9 mg/dL (8.5-10.5); Carbon Dioxide 27 mmol/L (22-29); Chloride 98 mmol/L (98-107); Globulin 3.3 g/dL (1.3-4.6); Glucose 107 mg/dL (65-115); Osmolality Calculated 286 mOsm/kg (285-295); Potassium 4.7 mmol/L (3.5-5.1); Sodium 135 mmol/L (136-145); Total Bilirubin 0.2 mg/dL (0.15-1.2)
--- NOTE | 2021-01-24 17:57 | ONC FU_ITS ---
Dr. Sorto follow up note Patient: Moustapha Nunes Unit #: [id number]: [id number] Dicatated By: Serafin Sorto M.D.Date of Visit:Jan 24, 2021 Onc Med Follow-up/Prog Note History of Present Illness: Mr. Moustapha Nunes, is a 75-year-old gentleman with prolonged history of esophageal reflux disease, as per patient initially [id number] medication would help then patient started taking daily omeprazole which helped him significantly, for the last few months prior to diagnosis, patient started having progressive dysphagia and he has lost about 30 pounds over 6 months partly due to change in diet as his is on long-term TPN for enterocutaneous fistula and also due to progressive dysphagia. 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 Multiple pulmonary nodules, appears stable when compared with CT scan done in March 2015, subsequently patient underwent CT PET scan on August 06, 2020 which showed hypermetabolic long segment soft tissue thickening extending from proximal to the mid thoracic esophagus with a possible proximal extra esophageal extension/suspicious for adjacent lymphadenopathy. A separate focus of FDG activity in the distal esophagus is indeterminate. FDG avid right inguinal lymph node most likely reactive. No other abnormality seen. Patient was evaluated by Dr. Blanton, EUS and J-tube was not considered as patient has mild to moderate dysphagia, as per discussion with Ms. Langford, nursing practitioner with Dr. Blanton, combined chemoradiation therapy and neoadjuvant fashion was recommended followed by evaluation with CT PET scan at [facility] and for possible esophagectomy. Patient denies any smoking or alcohol use Patient has history of DVT left lower leg for which he was treated with Eliquis which he took for couple of months and quit recently Patient has history of triple bypass, was done in 1993. , patient completed combined chemoradiation therapy on October 15, 2020, patient missed his weekly chemotherapy with carboplatin/Taxol concurrent with radiation therapy since October 01, 2020, as patient was admitted to hospital on October 06, 2020 with neutropenic fever/sepsis, was treated with broad-spectrum antibiotics and Neupogen., After completion of combined chemoradiation therapy, patient was referred to GI surgical oncology at [facility] and on December 04, 2020, patient was admitted to [facility] for surgical evaluation and on December 11, 2020, patient underwent esophagectomy for long segment esophageal cancer, originating high up requiring total laryngectomy with gastric conduit reconstruction patient tolerated procedure well, final pathology report showed residual, invasive poorly differentiated adenocarcinoma in distal esophagus and invading into adventitia. Status post presurgical treatment with partial response. Negative for angiolymphatic and perineural invasion. Adenocarcinoma involving proximal esophageal margin, however status of final esophageal margin cannot be determined with certainty as several proximal esophageal specimen was submitted and they were not oriented. Adenocarcinoma involving circumferential margin. Distal gastric margin, negative for carcinoma. Metastatic adenocarcinoma involving 4 of 8 lymph nodes. Pathological stage yT3, N2, HER-2/cortez negative, MMR, equivocal expression, molecular testing for MSI is in progress. Came for follow-up, denies any specific complaints, no fever chills, no nausea or vomiting, no diarrhea constipation, now recovering from surgery which include partial pharyngectomy/total laryngectomy esophagectomy, final pathology report showed residual disease, now recovering from surgery Medications: Aspirin 81 1 Tablet (of 81 mg) Tablet, enteric coated Oral daily, Atorvastatin Calcium 2 Tablet (of 40 mg) Oral daily, Cholecalciferol 1 Tablet (of 1.25 mg ) Oral daily, Clopidogrel Bisulfate 1 Tablet (of 75 mg) Oral daily, Eliquis 1 (5 mg) Tablet Oral b.i.d., Enalapril Maleate 2 Tablet (of 5 mg) Oral daily, Isosorbide Mononitrate ER 1 Tablet (of 60 mg) Tablet SR 24 HR Oral daily, Levothyroxine Sodium 1 Tablet (of 175 mcg) Oral daily, Metoprolol Succinate ER 1 Tablet (of 50 mg) Tablet SR 24 HR Oral daily, Omeprazole 1 Capsule (of 20 mg) Capsule Delayed Release Oral daily Allergies: No Known Allergies. Review of Systems: Review of Systems is not available for this patient. Vital Signs: Performed on Jan 24, 2021 11:34 Height - 68.00 in Weight - 154.8 lbs (LOW) BSA - 1.83 sq.m BMI - 23.54 Temperature - 98.3 F (LOW) Pulse - 94 /min Respiration - 20 /min BP - 127/84 mm(hg) O2 Sat - 98 % Pain - 6 Fatigue - 4 Performance Status: 1 - No physically strenuous activity, but ambulatory and able to carry out light or sedentary work (e.g. office work, light house work). (ECOG) Physical Examination: ENMT - No mouth sores, no thrush, postsurgical changes status post total laryngectomy/partial pharyngectomy/esophagectomy, no discharge, Respiratory - Lungs are clear to auscultation, Cardiovascular - Regular rate and rhythm of heart, Abdomen - Soft, bowel sounds present, Extremities - No visible edema. Lab/Imaging: Test performed on Oct 01, 2020 10:30 Creatinine 0.9 mg/dL Cr Clearance (Est) 82.54 mL/min Test performed on Oct 01, 2020 08:10 Sodium 135 mmol/L Potassium 4.5 mmol/L Chloride 102 mmol/L CO2 22 mmol/L Anion Gap 15.5 BUN 25 mg/dL Glucose 194 mg/dL Osmolality - Calculated 290 mOsm/kg Calcium 8.8 mg/dL Protein, Total 5.9 g/dL Albumin 4.0 g/dL Globulin 1.9 g/dL Bilirubin, Total 0.8 mg/dL ALT (SGPT) 13 U/L AST (SGOT) 13 U/L Alkaline Phosphatase 67 IU/L WBC 4.8 10 3/uL RBC 4.44 10 6/uL HGB 14.2 g/dL HCT 42.2 % MCV 95.0 fL MCH 32.0 pg MCHC 33.6 g/dL RDW 12.1 % Platelet Count 93 10 3/cmm MPV 10.6 fL Neutrophils 4.59 10 3/uL Lymphocytes 0.0 10 3/uL Monocytes 0.0 10 3/uL Eosinophils 0.0 10 3/uL Basophils 0.0 10 3/uL Neutrophil % 96.7 % Lymphocyte % 0.8 % Monocyte % 0.6 % Eosinophil % 0.0 % Basophils % 0.4 % NRBC % 0 % Impression: y T3, N2 adenocarcinoma of esophagus status post pharyngolaryngectomy, esophagectomy and gastric conduit reconstruction plus modifier 22 done on December 11, 2020 at [facility]. HER-2/cortez negative, MMR equivocal expression molecular testing for MSI pending Moderately differentiated invasive adenocarcinoma involving lower esophagus, per EGD done on July 02, 2020, specimen negative for HER-2 overexpression by IHC and over amplification by FISH. CT PET scan done on August 06, 2020 at [facility] showed hypermetabolic lung segment soft tissue thickening extending from proximal to the mid thoracic esophagus with possible proximal x-ray esophageal extension/suspicious for adjacent lymphadenopathy, consistent with patient's biopsy-proven esophageal adenocarcinoma. A separate focus of FDG activity in the distal esophagus is indeterminate. FDG avid right inguinal lymph nodes, probably reactive no FDG PET evidence of distant mets Dysphagia/weight loss due to above Coronary artery disease/congestive heart failure/status post triple bypass in 1993 History of left leg DVT treated with Eliquis until recently Hypertension, Hypothyroidism History of colon cancer status post colon resection in 2015 Started on combined chemoradiation with weekly carboplatin/Taxol on September 04, 2020, Completed on October 15, 2020 Plan: Discussed with patient regarding his lab work-up white blood count 8.2 hemoglobin 10.3 hematocrit 31.7 platelets 220,000 CMP within normal limits Clinically, patient is doing reasonably well now recovering from major surgery which include partial pharyngectomy/laryngectomy/esophagectomy with gastric conduit. His final pathology report showed residual disease with a partial response to neoadjuvant chemoradiation,, based on recent clinical trial Checkmate 577 which showed with adjuvant nivolumab there is a significant improvement in disease free survival (22.4 months versus 11-month in observation group) Discussed with patient regarding immunotherapy with nivolumab which is given as 240 mg every 2 weeks for 16 weeks followed by nivolumab 480 mg every 4 weeks for total 1 year Side effect related to immunotherapy including but not limited to pneumonitis, colitis, hepatic toxicity, endocrinopathy were mentioned. Patient to think about and then he will return to clinic in 1 week for further discussion and planning.And if patient agrees, will obtain approval from his insurance prior to the treatment and also proceed with further teaching by chemotherapy nurse. Signed By: Serafin Sorto M.D. <<Signature on File>>
== END 2021-01-24 09:08 | disposition home or self-care (01) ==
LOC: ONCMED 09:12
PROVIDERS: PCP Family Medicine; Visit Provider Internal Medicine Hematology & Oncology
DX: C15.5 Malignant neoplasm of lower third of esophagus (principal); C77.8 Secondary and unspecified malignant neoplasm of lymph nodes of multiple regions; R13.10 Dysphagia, unspecified; R63.4 Abnormal weight loss; I25.10 Atherosclerotic heart disease of native coronary artery without angina pectoris; I50.9 Heart failure, unspecified; Z95.5 Presence of coronary angioplasty implant and graft; I10 Essential (primary) hypertension; E03.9 Hypothyroidism, unspecified; Z86.718 Personal history of other venous thrombosis and embolism; Z85.038 Personal history of other malignant neoplasm of large intestine; Z79.899 Other long term (current) drug therapy; Z92.21 Personal history of antineoplastic chemotherapy; Z92.3 Personal history of irradiation; Z90.02 Acquired absence of larynx; Z90.49 Acquired absence of other specified parts of digestive tract
CPT/HCPCS: 36591; 80053; 85025; 99214

== ENCOUNTER 2021-01-31 06:23 | Outpatient (CLI) | payer MEDICARE, SELFPAY ==
[2021-01-31 08:52] LABS: Ferritin 548 ng/mL (30-400); Iron 41 ug/dL (59-158); Percent Saturation 19.5 % (20-50); Total Iron Binding Capacity 210 mcg/dl; Unsaturated Iron Binding 169 ug/dL (112-347)
[2021-01-31 09:07] LABS: Vitamin B12 377 pg/mL (232-1245)
[2021-01-31 09:10] LABS: Folate Level 6.1 ng/mL (4.5-32.2)
--- NOTE | 2021-02-01 10:21 | ONC FU_ITS ---
Dr. Sorto follow up note Patient: Moustapha Nunes Unit #: [id number]: [id number] Dicatated By: Serafin Sorto M.D.Date of Visit:Jan 31, 2021 Onc Med Follow-up/Prog Note History of Present Illness: Mr. Moustapha Nunes, is a 75-year-old gentleman with prolonged history of esophageal reflux disease, as per patient initially [id number] medication would help then patient started taking daily omeprazole which helped him significantly, for the last few months prior to diagnosis, patient started having progressive dysphagia and he has lost about 30 pounds over 6 months partly due to change in diet as his is on long-term TPN for enterocutaneous fistula and also due to progressive dysphagia. 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 for surgical evaluation, patient underwent CT scan of chest on July 10, 2020 which showed 2.9 cm distal esophageal mass with a hiatal hernia with enlarging mediastinal lymphadenopathy. Multiple pulmonary nodules, appears stable when compared with CT scan done in March 2015, subsequently patient underwent CT PET scan on August 06, 2020 which showed hypermetabolic long segment soft tissue thickening extending from proximal to the mid thoracic esophagus with a possible proximal extra esophageal extension/suspicious for adjacent lymphadenopathy. A separate focus of FDG activity in the distal esophagus is indeterminate. FDG avid right inguinal lymph node most likely reactive. No other abnormality seen. Patient was evaluated by Dr. Blanton, EUS and J-tube was not considered as patient has mild to moderate dysphagia, as per discussion with Ms. Langford, nursing practitioner with Dr. Blanton, combined chemoradiation therapy and neoadjuvant fashion was recommended followed by evaluation with CT PET scan at [facility] and for possible esophagectomy. Patient denies any smoking or alcohol use Patient has history of DVT left lower leg for which he was treated with Eliquis which he took for couple of months and quit recently Patient has history of triple bypass, was done in 1993. , patient completed combined chemoradiation therapy on October 15, 2020, patient missed his weekly chemotherapy with carboplatin/Taxol concurrent with radiation therapy since October 01, 2020, as patient was admitted to hospital on October 06, 2020 with neutropenic fever/sepsis, was treated with broad-spectrum antibiotics and Neupogen., After completion of combined chemoradiation therapy, patient was referred to GI surgical oncology at [facility] and on December 04, 2020, patient was admitted to [facility] for surgical evaluation and on December 11, 2020, patient underwent esophagectomy for long segment esophageal cancer, originating high up requiring total laryngectomy with gastric conduit reconstruction patient tolerated procedure well, final pathology report showed residual, invasive poorly differentiated adenocarcinoma in distal esophagus and invading into adventitia. Status post presurgical treatment with partial response. Negative for angiolymphatic and perineural invasion. Adenocarcinoma involving proximal esophageal margin, however status of final esophageal margin cannot be determined with certainty as several proximal esophageal specimen was submitted and they were not oriented. Adenocarcinoma involving circumferential margin. Distal gastric margin, negative for carcinoma. Metastatic adenocarcinoma involving 4 of 8 lymph nodes. Pathological stage yT3, N2, HER-2/cortez negative, MMR, equivocal expression, molecular testing for MSI show intact Came for follow-up, denies any specific complaints, no fever chills, no nausea or vomiting, no diarrhea or constipation. Patient has decided to proceed with adjuvant immunotherapy with nivolumab, Medications: Aspirin 81 1 Tablet (of 81 mg) Tablet, enteric coated Oral daily, Atorvastatin Calcium 2 Tablet (of 40 mg) Oral daily, Cholecalciferol 1 Tablet (of 1.25 mg ) Oral daily, Clopidogrel Bisulfate 1 Tablet (of 75 mg) Oral daily, Eliquis 1 (5 mg) Tablet Oral b.i.d., Enalapril Maleate 2 Tablet (of 5 mg) Oral daily, Isosorbide Mononitrate ER 1 Tablet (of 60 mg) Tablet SR 24 HR Oral daily, Levothyroxine Sodium 1 Tablet (of 175 mcg) Oral daily, Metoprolol Succinate ER 1 Tablet (of 50 mg) Tablet SR 24 HR Oral daily, Omeprazole 1 Capsule (of 20 mg) Capsule Delayed Release Oral daily Allergies: No Known Allergies. Review of Systems: Review of Systems is not available for this patient. Vital Signs: Performed on Jan 31, 2021 09:32 Height - 68.00 in Weight - 158.6 lbs (HIGH) BSA - 1.85 sq.m BMI - 24.12 Temperature - 98.9 F (HIGH) Pulse - 98 /min Respiration - 18 /min BP - 123/81 mm(hg) O2 Sat - 98 % Pain - 0 Fatigue - 3 Performance Status: 0 - Fully active, able to carry on all predisease activities without restrictions. (ECOG) Physical Examination: ENMT - No mouth sores, no thrush, no jaundice, postsurgical changes in the neck, Respiratory - Lungs are clear to auscultation, Cardiovascular - Regular rate and rhythm of heart, Abdomen - Soft, bowel sounds present, Extremities - No visible edema. Lab/Imaging: Test performed on Oct 01, 2020 10:30 Creatinine 0.9 mg/dL Cr Clearance (Est) 82.54 mL/min Test performed on Oct 01, 2020 08:10 Sodium 135 mmol/L Potassium 4.5 mmol/L Chloride 102 mmol/L CO2 22 mmol/L Anion Gap 15.5 BUN 25 mg/dL Glucose 194 mg/dL Osmolality - Calculated 290 mOsm/kg Calcium 8.8 mg/dL Protein, Total 5.9 g/dL Albumin 4.0 g/dL Globulin 1.9 g/dL Bilirubin, Total 0.8 mg/dL ALT (SGPT) 13 U/L AST (SGOT) 13 U/L Alkaline Phosphatase 67 IU/L WBC 4.8 10 3/uL RBC 4.44 10 6/uL HGB 14.2 g/dL HCT 42.2 % MCV 95.0 fL MCH 32.0 pg MCHC 33.6 g/dL RDW 12.1 % Platelet Count 93 10 3/cmm MPV 10.6 fL Neutrophils 4.59 10 3/uL Lymphocytes 0.0 10 3/uL Monocytes 0.0 10 3/uL Eosinophils 0.0 10 3/uL Basophils 0.0 10 3/uL Neutrophil % 96.7 % Lymphocyte % 0.8 % Monocyte % 0.6 % Eosinophil % 0.0 % Basophils % 0.4 % NRBC % 0 % Impression: y T3, N2 adenocarcinoma of esophagus status post pharyngolaryngectomy, esophagectomy and gastric conduit reconstruction plus modifier 22 done on December 11, 2020 at [facility]. HER-2/cortez negative, MMR equivocal expression molecular testing for MSI pending Moderately differentiated invasive adenocarcinoma involving lower esophagus, per EGD done on July 02, 2020, specimen negative for HER-2 overexpression by IHC and over amplification by FISH. CT PET scan done on August 06, 2020 at [facility] showed hypermetabolic lung segment soft tissue thickening extending from proximal to the mid thoracic esophagus with possible proximal x-ray esophageal extension/suspicious for adjacent lymphadenopathy, consistent with patient's biopsy-proven esophageal adenocarcinoma. A separate focus of FDG activity in the distal esophagus is indeterminate. FDG avid right inguinal lymph nodes, probably reactive no FDG PET evidence of distant mets Dysphagia/weight loss due to above Coronary artery disease/congestive heart failure/status post triple bypass in 1993 History of left leg DVT treated with Eliquis until recently Hypertension, Hypothyroidism History of colon cancer status post colon resection in 2014 Started on combined chemoradiation with weekly carboplatin/Taxol on September 04, 2020, Completed on October 15, 2020 Plan: Discussed with patient again regarding role of adjuvant immunotherapy and esophageal cancer treated with combined chemoradiation as neoadjuvant., Patient and his has decided to proceed with treatment all the side effect possible benefits were discussed earlier and repeated again today, further teaching will be done by chemotherapy nurse in the meantime we will obtain approval from his insurance prior to the treatment and plan to give him nivolumab 240 mg every 2 weeks x 16 weeks followed by 480 mg every 4 weeks for total 1 year duration. Patient will return to clinic 1 week after immunotherapy is initiated with CBC CMP and TSH Signed By: Serafin Sorto M.D. <<Signature on File>>
== END 2021-01-31 06:24 | disposition home or self-care (01) ==
LOC: ONCMED 06:24
PROVIDERS: PCP Family Medicine; Visit Provider Internal Medicine Hematology & Oncology
DX: C15.5 Malignant neoplasm of lower third of esophagus (principal); R59.0 Localized enlarged lymph nodes; R13.10 Dysphagia, unspecified; R63.4 Abnormal weight loss; I25.10 Atherosclerotic heart disease of native coronary artery without angina pectoris; Z95.5 Presence of coronary angioplasty implant and graft; I50.9 Heart failure, unspecified; Z86.718 Personal history of other venous thrombosis and embolism; I10 Essential (primary) hypertension; E03.9 Hypothyroidism, unspecified; Z85.038 Personal history of other malignant neoplasm of large intestine; Z79.899 Other long term (current) drug therapy; Z92.21 Personal history of antineoplastic chemotherapy; Z92.3 Personal history of irradiation
CPT/HCPCS: 36591; 82607; 82728; 82746; 83540; 83550; 99214

== ENCOUNTER 2021-02-08 11:25 | Emergency (ER) | payer MEDICARE, SELFPAY ==
[2021-02-08 11:40] VITALS: BP 106/71; PULSE 93; RESP 20; TEMP 36.4; O2SAT 99
--- NOTE | 2021-02-08 13:28 | W.ED.GENADLT ---
Documented by User: GEOVANNA Ramires 02/09/21 11:35 HPI - General Adult General: Chief complaint: General Medical Stated complaint: FEEDING TUBE PROBLEMS Time Seen by Provider: 02/08/21 13:18 History of Present Illness: HPI narrative: Patient is a 75-year-old male comes to the ED with feeding tube blockage. Past medical history of esophageal cancer and he currently has a trach and G-tube that was placed approximately 2 months ago. Over the last 24 hours and has been blocked and they have not been able to give any meds food or fluids through feeding tube. Home health tried flushing out G-tube but was unsuccessful. Patient denies any other complaints. Associated symptoms: Deny chest pain, dyspnea, headache(s), nausea, rash, palpitations or vomiting Review of Systems Const: Denies: fever(s), chills or fatigue Eyes: Denies: change in vision or eye discomfort ENMT: Denies: throat pain, odynophagia, nasal discharge or nasal congestion Card: Denies: chest pain, palpitations, edema, swelling of feet/ankles, dyspnea on exertion or orthopnea Resp: Denies: dyspnea, productive cough or non-productive cough GI: Denies: abdominal pain, nausea, vomiting, diarrhea, constipation or hematochezia : Denies: flank pain, difficulty urinating, dysuria or hematuria Musc: Denies: neck pain, back pain or extremity swelling Skin/Breast: Denies: rash or new lesions Neuro: Denies: headache(s), numbness in extremities or weakness in extremities PFSH ED PFSH: Medical History CHF (congestive heart failure) Chronic anticoagulation Colon cancer DVT (deep venous thrombosis) Dysphagia Esophageal adenocarcinoma Esophageal mass Esophageal stricture Essential hypertension Foot drop, left GERD (gastroesophageal reflux disease) Hyperlipidemia Hypothyroid Neutropenia Nodule of spleen Old DC (myocardial infarction) Preoperative clearance Thrombocytopenia Weight loss, non-intentional Surgical History H/O esophagogastroduodenoscopy (09/01/20) With dilation 07/02/20; with dilation History of appendectomy History of colon resection 2014 History of colonoscopy 2018 Hx of CABG Port-A-Cath in place (08/15/20) Family History Father Aortic stenosis Other CAD (coronary artery disease) Social History Alcohol intake: current Alcohol intake frequency: few times a week Alcohol type: beer Lives independently: No Household members: spouse and children Marital status: Physical Exam Const: COMMON NORMALS: no acute distress, patient oriented x3 and alert GENERAL APPEARANCE: cooperative and comfortable HENMT: COMMON NORMALS: normocephalic HEAD & SCALP: normocephalic MOUTH: Normal oral and palatal mucosa present THROAT: posterior oropharynx normal and uvula midline OTHER: Tracheotomy present Neck/C-Spine: COMMON NORMALS: supple GENERAL: Yes normal visual inspection Resp: COMMON NORMALS: normal respiratory effort, No retractions, No use of accessory muscles and clear to auscultation bilaterally AUSCULTATION: clear to auscultation bilaterally Cardio: COMMON NORMALS: regular rate, regular rhythm, S1 normal heart sound present, S2 normal heart sound present, No gallops present (Cardio), No clicks present (Cardio), No murmurs present (Cardio) and Peripheral pulses 2+ throughout RATE: regular rate RHYTHM: regular rhythm HEART SOUNDS: S1 normal heart sound present and S2 normal heart sound present PERIPHERAL PULSES: Peripheral pulses 2+ throughout GI: COMMON NORMALS: Normal to inspection, nondistended, normoactive bowel sounds present, Soft to palpation, non-tender and no masses INSPECTION: Yes GI tube present (Weber tube in place and secured by suture. mild erythema of skin ) PALPATION: Yes Soft to palpation : COMMON NORMALS: Yes no CVA tenderness BLADDER/KIDNEY EXAM: Yes no CVA tenderness Back/Pelvis: COMMON NORMALS: no CVA tenderness Extremity: COMMON NORMALS: normal to inspection Neuro: COMMON NORMALS: patient oriented x3 SENSORIUM/ORIENTATION: Yes alert Skin: GENERAL SKIN EXAM: dry skin Course ED course: After nurse used some RSV suction tubing and feeding tube to help clear out blockage along with putting some Coca-Cola and a feeding tube as well. The feeding tube blockage resolved and nurse was able to push fluids through G-tube. Vital Signs: Vital signs: Vital Signs Temperature 97.6 F 02/08/21 11:40 Pulse Rate 93 02/08/21 11:40 Respiratory Rate 20 H 02/08/21 11:40 Blood Pressure 106/71 02/08/21 11:40 Pulse Oximetry 99 02/08/21 11:40 MDM - General Adult MDM Narrative: Medical decision making narrative: Patient is a 75-year-old male comes to the ED with feeding tube blockage. Past medical history of esophageal cancer and he currently has a trach and G-tube that was placed approximately 2 months ago. Over the last 24 hours and has been blocked and they have not been able to give any meds food or fluids through feeding tube. After nurse used some RSV suction tubing and feeding tube to help clear out blockage along with putting some Coca-Cola and a feeding tube as well. The feeding tube blockage resolved and nurse was able to push fluids through G-tube. Patient was discharged home and sent with some supplies to help keep feeding tube clear and open. They were instructed on things they can do at home to try to help such as putting a little bit of Coca-Cola and tubing to help clear out blockage. They were told to contact the surgeon from [facility] who placed the tube to set up an appointment for reevaluation of tubing and management. Patient understood and agreed with plan. Discharge Plan Discharge Patient Disposition: Home Clinical Impression: Blockage of feeding tube Condition: Stable Prescriptions: No Action lorazepam 2 mg/mL concentrate 1 mg PO BID PRN (Reason: anxiety) Qty: 15 RF: 0 oxycodone 5 mg/5 mL solution 5 mg feeding tube Q3H PRN (Reason: Pain) 7 Days Qty: 250 RF: 0 acetaminophen 160 mg/5 mL liquid See Rx Instructions PO QID Qty: 473 RF: 0 enoxaparin 80 mg/0.8 mL syringe 80 mg SUBCUT Q12H RF: 0 acetaminophen 500 mg/15 mL Liquid 1,000 mg PO Q6H RF: 0 Child Mucus Relief Expectorant 100 mg/5 mL liquid 200 mg PO Q6H PRN (Reason: cough) Qty: 1500 RF: 0 levothyroxine 175 mcg tablet 175 mcg PO QAM RF: 0 Alkalol Nasal Wash Solution 2 ml intranasal TID Qty: 473 RF: 0 Discharge Orders: Discharge ED (Routine); Ordered 02/08/21 Ordered By: Javad Rosenthal Referrals: Randi Buchanan DO [Primary Care Provider] - Discharge Diet: Regular Discharge Activity: Resume usual activity Patient Instructions: How to Use and Care for Your PEG Tube (ED), Tube Feeding (DC) Activity Restrictions/Additional Instructions: Follow-up with medical provider as directed. Contact the surgeon today to let them know about feeding tube concerns. Use the supplies the correction with you to help keep feeding tube clear. Over the next 24 hours for some Coca-Cola into tubing and let it sit in the air for about 4 hours do this multiple times to help keep tubing patent. Continue doing all your feeding, meds and fluids through feeding tube as prescribed. Return to the ER or your medical provider if condition worsens. Please read and understand discharge instructions. Thank you for choosing [facility] for your healthcare needs today. Please realize this is an emergency room and that we are providing you with a medical screening exam and this may not be complete and all inclusive of all the testing and or work up that you may need to determine your ailment or severity of your illness. It is very important that you follow up as instructed or that you return to the Emergency Department should you have concerns or if your condition changes or worsens in any way. Coding Level of Care Code ED College Associate for Chg Fwd Exam Comprehensive Documented by User: John Hernandez DO 02/11/21 06:42 HPI - General Adult General: Chief complaint: General Medical Stated complaint: FEEDING TUBE PROBLEMS Time Seen by Provider: 02/08/21 13:18 [facility] ED PFSH: Medical History CHF (congestive heart failure) Chronic anticoagulation Colon cancer DVT (deep venous thrombosis) Dysphagia Esophageal adenocarcinoma Esophageal mass Esophageal stricture Essential hypertension Foot drop, left GERD (gastroesophageal reflux disease) Hyperlipidemia Hypothyroid Neutropenia Nodule of spleen Old DC (myocardial infarction) Preoperative clearance Thrombocytopenia Weight loss, non-intentional Surgical History H/O esophagogastroduodenoscopy (09/01/20) With dilation 07/02/20; with dilation History of appendectomy History of colon resection 2014 History of colonoscopy 2019 Hx of CABG Port-A-Cath in place (08/15/20) Family History Father Aortic stenosis Other CAD (coronary artery disease) Social History Alcohol intake: current Alcohol intake frequency: few times a week Alcohol type: beer Lives independently: No Household members: spouse and children Marital status: Course Vital Signs: Vital signs: Vital Signs Temperature 97.6 F 02/08/21 11:40 Pulse Rate 93 02/08/21 11:40 Respiratory Rate 20 H 02/08/21 11:40 Blood Pressure 106/71 02/08/21 11:40 Pulse Oximetry 99 02/08/21 11:40 MDM - General Adult MDM Narrative: Medical decision making narrative: Chart reviewed and patient discussed with midlevel. Agree with assessment and plan. Discharge Plan Discharge Patient Disposition: Home Clinical Impression: Blockage of feeding tube Condition: Stable Prescriptions: No Action lorazepam 2 mg/mL concentrate 1 mg PO BID PRN (Reason: anxiety) Qty: 15 RF: 0 oxycodone 5 mg/5 mL solution 5 mg feeding tube Q3H PRN (Reason: Pain) 7 Days Qty: 250 RF: 0 acetaminophen 160 mg/5 mL liquid See Rx Instructions PO QID Qty: 473 RF: 0 enoxaparin 80 mg/0.8 mL syringe 80 mg SUBCUT Q12H RF: 0 acetaminophen 500 mg/15 mL Liquid 1,000 mg PO Q6H RF: 0 Child Mucus Relief Expectorant 100 mg/5 mL liquid 200 mg PO Q6H PRN (Reason: cough) Qty: 1500 RF: 0 levothyroxine 175 mcg tablet 175 mcg PO QAM RF: 0 Alkalol Nasal Wash Solution 2 ml intranasal TID Qty: 473 RF: 0 Discharge Orders: Discharge ED (Routine); Ordered 02/08/21 Ordered By: Javad Rosetnhal Referrals: Randi Buchanan DO [Primary Care Provider] - Discharge Diet: Regular Discharge Activity: Resume usual activity Patient Instructions: How to Use and Care for Your PEG Tube (ED), Tube Feeding (DC) Activity Restrictions/Additional Instructions: Follow-up with medical provider as directed. Contact the surgeon today to let them know about feeding tube concerns. Use the supplies the correction with you to help keep feeding tube clear. Over the next 24 hours for some Coca-Cola into tubing and let it sit in the air for about 4 hours do this multiple times to help keep tubing patent. Continue doing all your feeding, meds and fluids through feeding tube as prescribed. Return to the ER or your medical provider if condition worsens. Please read and understand discharge instructions. Thank you for choosing [facility] for your healthcare needs today. Please realize this is an emergency room and that we are providing you with a medical screening exam and this may not be complete and all inclusive of all the testing and or work up that you may need to determine your ailment or severity of your illness. It is very important that you follow up as instructed or that you return to the Emergency Department should you have concerns or if your condition changes or worsens in any way. Coding Level of Care Code ED College Associate for Silvia Zamarripa Exam Comprehensive
--- NOTE | 2021-02-08 13:44 | XR_ITS ---
WS: [id number] XR KUB portable [id number] REASON FOR EXAM: G tube check w/ gastrogafin FINDINGS: Large bore catheter overlies the left upper abdomen and then courses inferiorly parallel to the left lateral peritoneum margin with the tip overlying the iliac crest. Contrast presumably injected throug h the tube fills the tubing and there is opacified gauze. No contrast is seen within any portion of t he gastrointestinal tract or within the peritoneal cavity. It appears that there may be sideholes in this catheter that are outside the abdominal cavity and the refore the extravasation into the gauze. XR/XR KUB portable [id number] IMPRESSION: Catheter of unknown location and purpose.
--- NOTE | 2021-02-08 13:59 | PC.NURSE ---
attempted to flush g tube. unable to aspirate or flush tube
[2021-02-08] MEDS: diatrizoate meglumine 30 mL Sol PR (14:07)
--- NOTE | 2021-02-08 16:15 | PC.NURSE ---
g tube able to be flushed with coke unable to aspirate
== END 2021-02-08 16:17 | disposition home or self-care (01) ==
PROVIDERS: Emergency Provider Physician Assistant; PCP Family Medicine
DX: K94.23 Gastrostomy malfunction (principal); Z79.891 Long term (current) use of opiate analgesic; Z85.01 Personal history of malignant neoplasm of esophagus
CPT/HCPCS: 74018; 99283; Q9963

== ENCOUNTER 2021-02-21 09:31 | Outpatient (CLI) | payer MEDICARE, SELFPAY ==
[2021-02-21 10:04] LABS: Basophils % 0.4 %; Eosinophils # 0.1 10^3/uL (0.0-0.8); Eosinophils % 0.6 %; Hematocrit 30.4 % (42.0-52.0); Lymphocytes # 0.3 10^3/uL (0.8-4.8); Lymphocytes % 3.1 %; Mean Corpuscular HGB Conc 32.9 g/dL (30.0-36.0); Mean Corpuscular Hemoglobin 31.3 pg (28.0-34.0); Mean Corpuscular Volume 95.3 fl (80-94); Mean Platelet Volume 9.3 fL (7.4-10.4); Monocytes # 0.9 10^3/uL (0.2-0.9); Neutrophils # 8.64 10^3/uL (1.8-7.7); Neutrophils % 86.4 %; Nucleated Red Blood Cells % 0 %; Platelet Count 331 10^3/cmm (130-400); Red Blood Count 3.19 10^6/uL (4.1-5.3); Red Cell Distribution Width 14.5 % (12.1-15.1)
[2021-02-21 10:27] LABS: Alanine Aminotransferase 52 U/L (0-41); Albumin Level 3.5 g/dL (3.5-5.2); Alkaline Phosphatase 147 IU/L (40-130); Anion Gap 17.9 (5-19); Aspartate Amino Transferase 32 U/L (0-40); Blood Urea Nitrogen 30 mg/dL (8-23); Calcium 8.7 mg/dL (8.5-10.5); Carbon Dioxide 23 mmol/L (22-29); Chloride 97 mmol/L (98-107); Globulin 3.6 g/dL (1.3-4.6); Glucose 97 mg/dL (65-115); Osmolality Calculated 282 mOsm/kg (285-295); Potassium 4.9 mmol/L (3.5-5.1); Sodium 133 mmol/L (136-145); Total Bilirubin 0.2 mg/dL (0.15-1.2); Total Protein 7.1 g/dL (6.6-8.7)
[2021-02-21] MEDS: sodium chloride 0.9% 250 ML 75 ML IV (11:40)
== END 2021-02-21 09:32 | disposition home or self-care (01) ==
PROVIDERS: Internal Medicine Hematology & Oncology; PCP Family Medicine; Visit Provider Nurse Practitioner Family
DX: Z51.12 Encounter for antineoplastic immunotherapy (principal); C15.5 Malignant neoplasm of lower third of esophagus; R13.13 Dysphagia, pharyngeal phase; R63.4 Abnormal weight loss; I25.10 Atherosclerotic heart disease of native coronary artery without angina pectoris; I50.9 Heart failure, unspecified; Z95.5 Presence of coronary angioplasty implant and graft; I11.0 Hypertensive heart disease with heart failure; E03.9 Hypothyroidism, unspecified; Z86.718 Personal history of other venous thrombosis and embolism; Z85.038 Personal history of other malignant neoplasm of large intestine; Z92.21 Personal history of antineoplastic chemotherapy; Z92.3 Personal history of irradiation; Z79.899 Other long term (current) drug therapy
CPT/HCPCS: 80053; 85025; 96413; 99215; J7050; J9299

== ENCOUNTER 2021-03-05 08:02 | Outpatient (CLI) | payer MEDICARE, SELFPAY ==
--- NOTE | 2021-03-05 09:19 | ONC FU_ITS ---
Dr. Sorto follow up note Patient: Moustapha Nunes Unit #: [id number]: [id number] Dicatated By: Serafin Sorto M.D.Date of Visit:Mar 05, 2021 Onc Med Follow-up/Prog Note History of Present Illness: Mr. Moustapha Nunes, is a 75-year-old gentleman with prolonged history of esophageal reflux disease, as per patient initially [id number] medication would help then patient started taking daily omeprazole which helped him significantly, for the last few months prior to diagnosis, patient started having progressive dysphagia and he has lost about 30 pounds over 6 months partly due to change in diet as his is on long-term TPN for enterocutaneous fistula and also due to progressive dysphagia. 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 Multiple pulmonary nodules, appears stable when compared with CT scan done in March 2015, subsequently patient underwent CT PET scan on August 06, 2020 which showed hypermetabolic long segment soft tissue thickening extending from proximal to the mid thoracic esophagus with a possible proximal extra esophageal extension/suspicious for adjacent lymphadenopathy. A separate focus of FDG activity in the distal esophagus is indeterminate. FDG avid right inguinal lymph node most likely reactive. No other abnormality seen. Patient was evaluated by Dr. Blanton, EUS and J-tube was not considered as patient has mild to moderate dysphagia, as per discussion with Ms. Langford, nursing practitioner with Dr. Blanton, combined chemoradiation therapy and neoadjuvant fashion was recommended followed by evaluation with CT PET scan at [place] and for possible esophagectomy. Patient denies any smoking or alcohol use Patient has history of DVT left lower leg for which he was treated with Eliquis which he took for couple of months and quit recently Patient has history of triple bypass, was done in 1993. , patient completed combined chemoradiation therapy on October 15, 2020, patient missed his weekly chemotherapy with carboplatin/Taxol concurrent with radiation therapy since October 01, 2020, as patient was admitted to hospital on October 06, 2020 with neutropenic fever/sepsis, was treated with broad-spectrum antibiotics and Neupogen., After completion of combined chemoradiation therapy, patient was referred to GI surgical oncology at [facility] and on December 04, 2020, patient was admitted to [facility] for surgical evaluation and on December 11, 2020, patient underwent esophagectomy for long segment esophageal cancer, originating high up requiring total laryngectomy with gastric conduit reconstruction patient tolerated procedure well, final pathology report showed residual, invasive poorly differentiated adenocarcinoma in distal esophagus and invading into adventitia. Status post presurgical treatment with partial response. Negative for angiolymphatic and perineural invasion. Adenocarcinoma involving proximal esophageal margin, however status of final esophageal margin cannot be determined with certainty as several proximal esophageal specimen was submitted and they were not oriented. Adenocarcinoma involving circumferential margin. Distal gastric margin, negative for carcinoma. Metastatic adenocarcinoma involving 4 of 8 lymph nodes. Pathological stage yT3, N2, HER-2/cortez negative, MMR, equivocal expression, molecular testing for MSI show intact Came for follow-up, complaining of pain/fullness in the left submandibular area since last weekend, patient denies any trauma, denies any earache, denies any discharge from ear, denies any mouth sores, denies any sore throat, denies any insect bite, denies any neck pain, denies any headaches, denies any discharge from trach site. Denies any fever or chills, denies any nausea or vomiting denies any sinus problem denies any skin rash, denies any shortness of breath, denies any diarrhea or constipation Medications: Aspirin 81 1 Tablet (of 81 mg) Tablet, enteric coated Oral daily, Atorvastatin Calcium 2 Tablet (of 40 mg) Oral daily, Cholecalciferol 1 Tablet (of 1.25 mg ) Oral daily, Clopidogrel Bisulfate 1 Tablet (of 75 mg) Oral daily, Eliquis 1 (5 mg) Tablet Oral b.i.d., Enalapril Maleate 2 Tablet (of 5 mg) Oral daily, Isosorbide Mononitrate ER 1 Tablet (of 60 mg) Tablet SR 24 HR Oral daily, Levothyroxine Sodium 1 Tablet (of 175 mcg) Oral daily, Metoprolol Succinate ER 1 Tablet (of 50 mg) Tablet SR 24 HR Oral daily, Omeprazole 1 Capsule (of 20 mg) Capsule Delayed Release Oral daily Allergies: No Known Allergies. Review of Systems: Review of Systems is not available for this patient. Vital Signs: Performed on Mar 05, 2021 08:37 Height - 68.00 in Weight - 158.8 lbs (HIGH) BSA - 1.85 sq.m BMI - 24.15 Temperature - 98.3 F (LOW) Pulse - 98 /min Respiration - 18 /min BP - 117/73 mm(hg) O2 Sat - 98 % Pain - 4 Fatigue - 4 Performance Status: 0 - Fully active, able to carry on all predisease activities without restrictions. (ECOG) Physical Examination: ENMT - , There is inflammation/sloughing involving left mandible/molar area no mouth sores otherwise or thrush, left submandibular lymphadenopathy, tender, no overlying skin changes, no discharge from trach site, Respiratory - Lungs are clear to auscultation, Cardiovascular - Regular rate and rhythm of heart, Abdomen - Soft, bowel sounds present, Extremities - No visible edema. Lab/Imaging: Test performed on Feb 21, 2021 09:48 Sodium 133 mmol/L Potassium 4.9 mmol/L Chloride 97 mmol/L CO2 23 mmol/L Anion Gap 17.9 BUN 30 mg/dL Creatinine 0.7 mg/dL Cr Clearance (Est) 92.74 mL/min Glucose 97 mg/dL Osmolality - Calculated 282 mOsm/kg Calcium 8.7 mg/dL Protein, Total 7.1 g/dL Albumin 3.5 g/dL Globulin 3.6 g/dL Bilirubin, Total 0.2 mg/dL ALT (SGPT) 52 U/L AST (SGOT) 32 U/L Alkaline Phosphatase 147 IU/L WBC 10.0 10 3/uL RBC 3.19 10 6/uL HGB 10.0 g/dL HCT 30.4 % MCV 95.3 fl MCH 31.3 pg MCHC 32.9 g/dL RDW 14.5 % Platelet Count 331 10 3/cmm MPV 9.3 fL Neutrophils 8.64 10 3/uL Lymphocytes 0.3 10 3/uL Monocytes 0.9 10 3/uL Eosinophils 0.1 10 3/uL Basophils 0.0 10 3/uL Neutrophil % 86.4 % Lymphocyte % 3.1 % Monocyte % 9.0 % Eosinophil % 0.6 % Basophils % 0.4 % NRBC % 0 % Impression: y T3, N2 adenocarcinoma of esophagus status post pharyngolaryngectomy, esophagectomy and gastric conduit reconstruction plus modifier 22 done on December 11, 2020 at [place]. HER-2/cortez negative, MMR equivocal expression molecular testing for MSI pending Moderately differentiated invasive adenocarcinoma involving lower esophagus, per EGD done on July 02, 2020, specimen negative for HER-2 overexpression by IHC and over amplification by FISH. CT PET scan done on August 06, 2020 at [facility] showed hypermetabolic lung segment soft tissue thickening extending from proximal to the mid thoracic esophagus with possible proximal x-ray esophageal extension/suspicious for adjacent lymphadenopathy, consistent with patient's biopsy-proven esophageal adenocarcinoma. A separate focus of FDG activity in the distal esophagus is indeterminate. FDG avid right inguinal lymph nodes, probably reactive no FDG PET evidence of distant mets Dysphagia/weight loss due to above Coronary artery disease/congestive heart failure/status post triple bypass in 1993 History of left leg DVT treated with Eliquis until recently Hypertension, Hypothyroidism History of colon cancer status post colon resection in 2015 Started on combined chemoradiation with weekly carboplatin/Taxol on September 04, 2020, Completed on October 15, 2020 Plan: Discussed with patient regarding his new symptoms e.g. left submandibular fullness and discomfort, on exam patient has evidence of gingivitis involving left mandible, patient was advised to use Listerine mouthwash and maintain oral hygiene, will also give him prescription for oral antibiotic Augmentin for 1 week., If there is no improvement in his symptoms, we will consider CT scan of neck. Patient was advised in case there is a worsening of symptoms, he need to call us or go to hospital, Patient return to clinic in 1 week with CBC CMP and TSH, and if resolution of left lower gingivitis and left submandibular lymphadenopathy/fullness, will consider next dose of immunotherapy with nivolumab. Signed By: Serafin Sorto M.D. <<Signature on File>>
== END 2021-03-05 08:03 | disposition home or self-care (01) ==
PROVIDERS: PCP Family Medicine; Visit Provider Internal Medicine Hematology & Oncology
DX: C15.5 Malignant neoplasm of lower third of esophagus (principal); R13.10 Dysphagia, unspecified; I25.10 Atherosclerotic heart disease of native coronary artery without angina pectoris; I50.9 Heart failure, unspecified; I10 Essential (primary) hypertension; E03.9 Hypothyroidism, unspecified; K05.10 Chronic gingivitis, plaque induced; Z95.1 Presence of aortocoronary bypass graft; Z86.718 Personal history of other venous thrombosis and embolism; Z79.82 Long term (current) use of aspirin
CPT/HCPCS: 99215

== ENCOUNTER → 2021-03-08 13:29 | Outpatient (BNVA) | payer MEDICARE, SELFPAY | PROVIDERS: PCP Family Medicine; Visit Provider Thoracic Surgery (Cardiothoracic Vascular Surgery) | DX: Z20.822 Contact with and (suspected) exposure to COVID-19 (principal) | CPT/HCPCS: 87635 ==

== ENCOUNTER 2021-03-14 06:30 | Outpatient (CLI) | payer MEDICARE, SELFPAY ==
[2021-03-14 12:03] LABS: Basophils % 0.4 %; Eosinophils # 0.1 10^3/uL (0.0-0.8); Hematocrit 30.7 % (42.0-52.0); Hemoglobin 9.6 g/dL (11.7-16.6); Lymphocytes # 0.4 10^3/uL (0.8-4.8); Lymphocytes % 4.3 %; Mean Corpuscular HGB Conc 31.3 g/dL (30.0-36.0); Mean Corpuscular Hemoglobin 30.1 pg (28.0-34.0); Mean Corpuscular Volume 96.2 fl (80-94); Mean Platelet Volume 9.8 fL (7.4-10.4); Monocytes # 0.7 10^3/uL (0.2-0.9); Monocytes % 7.6 %; Neutrophils # 7.77 10^3/uL (1.8-7.7); Neutrophils % 86.3 %; Nucleated Red Blood Cells % 0 %; Platelet Count 261 10^3/cmm (130-400); Red Blood Count 3.19 10^6/uL (4.1-5.3); Red Cell Distribution Width 14.8 % (12.1-15.1)
[2021-03-14 12:58] LABS: Alanine Aminotransferase 42 U/L (0-41); Albumin Level 3.4 g/dL (3.5-5.2); Alkaline Phosphatase 127 IU/L (40-130); Anion Gap 18.6 (5-19); Aspartate Amino Transferase 28 U/L (0-40); Blood Urea Nitrogen 24 mg/dL (8-23); Calcium 8.9 mg/dL (8.5-10.5); Carbon Dioxide 24 mmol/L (22-29); Chloride 97 mmol/L (98-107); Globulin 3.4 g/dL (1.3-4.6); Glucose 88 mg/dL (65-115); Osmolality Calculated 283 mOsm/kg (285-295); Potassium 4.6 mmol/L (3.5-5.1); Sodium 135 mmol/L (136-145); Thyroid Stimulating Hormone 1.24 uIU/mL (0.27-4.20); Total Bilirubin 0.2 mg/dL (0.15-1.2); Total Protein 6.8 g/dL (6.6-8.7)
[2021-03-14] MEDS: cyanocobalamin 1,000 mcg/mL SDV 1000 MCG SUBCUT (14:21)
== END 2021-03-14 06:31 | disposition home or self-care (01) ==
LOC: ONCMED 06:30
PROVIDERS: PCP Family Medicine; Visit Provider Nurse Practitioner Family
DX: Z51.12 Encounter for antineoplastic immunotherapy (principal); C15.5 Malignant neoplasm of lower third of esophagus; I25.10 Atherosclerotic heart disease of native coronary artery without angina pectoris; I50.9 Heart failure, unspecified; Z86.718 Personal history of other venous thrombosis and embolism; Z79.899 Other long term (current) drug therapy
CPT/HCPCS: 80053; 84443; 85025; 96372; 96413; 99215; J3420; J7050; J9299

== ENCOUNTER 2021-03-25 08:26 | Outpatient (CLI) | payer MEDICARE, SELFPAY ==
[2021-03-25] MEDS: sodium chloride 0.9% 250 ML IV (09:20)
[2021-03-25] MEDS: acetaminophen 325 mg Tablet 650 MG PO (09:51)
[2021-03-25] MEDS: iron dextran 25 MG in SYRINGE 1 EACH 30 MG IVP (09:51)
[2021-03-25] MEDS: diphenhydrAMINE 50 mg/mL SDV 1mL 25 MG IVP (09:53)
[2021-03-25] MEDS: sodium chloride 0.9% 500 ML IV (11:50)
[2021-03-25] MEDS: iron dextran 1,500 MG in sodium chloride 0.9% 1,000 ML 250 MG IV (11:50)
== END 2021-03-25 08:27 | disposition home or self-care (01) ==
LOC: ONCMED 08:28
PROVIDERS: PCP Family Medicine; Visit Provider Internal Medicine Hematology & Oncology
DX: C15.5 Malignant neoplasm of lower third of esophagus (principal); D50.9 Iron deficiency anemia, unspecified; D51.9 Vitamin B12 deficiency anemia, unspecified; Z79.899 Other long term (current) drug therapy
CPT/HCPCS: 96365; 96366; 96375; J1100; J1200; J1750; J7030; J7040; J7050

== ENCOUNTER 2021-04-01 08:08 | Outpatient (CLI) | payer MEDICARE, SELFPAY ==
[2021-04-01 08:58] LABS: Basophils % 0.2 %; Eosinophils # 0.4 10^3/uL (0.0-0.8); Hematocrit 34.9 % (42.0-52.0); Hemoglobin 11.1 g/dL (11.7-16.6); Lymphocytes # 0.3 10^3/uL (0.8-4.8); Lymphocytes % 2.7 %; Mean Corpuscular HGB Conc 31.8 g/dL (30.0-36.0); Mean Corpuscular Hemoglobin 30.8 pg (28.0-34.0); Mean Corpuscular Volume 96.9 fl (80-94); Mean Platelet Volume 9.6 fL (7.4-10.4); Monocytes % 8.2 %; Neutrophils # 10.26 10^3/uL (1.8-7.7); Neutrophils % 84.9 %; Nucleated Red Blood Cells % 0 %; Platelet Count 239 10^3/cmm (130-400); Red Cell Distribution Width 15.4 % (12.1-15.1); White Blood Count 12.1 10^3/uL (4.0-10.0)
[2021-04-01 09:31] LABS: Alanine Aminotransferase 27 U/L (0-41); Alkaline Phosphatase 140 IU/L (40-130); Anion Gap 14.5 (5-19); Aspartate Amino Transferase 23 U/L (0-40); Blood Urea Nitrogen 29 mg/dL (8-23); Carbon Dioxide 27 mmol/L (22-29); Chloride 100 mmol/L (98-107); Globulin 2.7 g/dL (1.3-4.6); Glucose 103 mg/dL (65-115); Osmolality Calculated 290 mOsm/kg (285-295); Potassium 4.5 mmol/L (3.5-5.1); Sodium 137 mmol/L (136-145); Total Bilirubin 0.2 mg/dL (0.15-1.2); Total Protein 6.7 g/dL (6.6-8.7)
== END 2021-04-01 08:09 | disposition home or self-care (01) ==
LOC: ONCMED 08:10
PROVIDERS: PCP Family Medicine; Visit Provider Nurse Practitioner Family
DX: Z51.12 Encounter for antineoplastic immunotherapy (principal); C15.5 Malignant neoplasm of lower third of esophagus; R13.10 Dysphagia, unspecified; R63.4 Abnormal weight loss; I25.10 Atherosclerotic heart disease of native coronary artery without angina pectoris; Z95.5 Presence of coronary angioplasty implant and graft; I10 Essential (primary) hypertension; E03.9 Hypothyroidism, unspecified; Z86.718 Personal history of other venous thrombosis and embolism; Z85.038 Personal history of other malignant neoplasm of large intestine; Z79.899 Other long term (current) drug therapy
CPT/HCPCS: 80053; 85025; 96413; 99215; J7050; J9299

== ENCOUNTER 2021-04-16 07:59 | Outpatient (CLI) | payer MEDICARE, SELFPAY ==
[2021-04-16 08:35] LABS: Basophils % 0.2 %; Eosinophils # 0.1 10^3/uL (0.0-0.8); Eosinophils % 1.5 %; Hematocrit 33.5 % (42.0-52.0); Hemoglobin 10.8 g/dL (11.7-16.6); Lymphocytes # 0.3 10^3/uL (0.8-4.8); Lymphocytes % 4.6 %; Mean Corpuscular HGB Conc 32.2 g/dL (30.0-36.0); Mean Corpuscular Hemoglobin 30.9 pg (28.0-34.0); Mean Corpuscular Volume 95.7 fl (80-94); Mean Platelet Volume 9.6 fL (7.4-10.4); Monocytes # 0.4 10^3/uL (0.2-0.9); Neutrophils # 4.68 10^3/uL (1.8-7.7); Neutrophils % 85.3 %; Nucleated Red Blood Cells % 0 %; Platelet Count 166 10^3/cmm (130-400); Red Cell Distribution Width 14.8 % (12.1-15.1); White Blood Count 5.5 10^3/uL (4.0-10.0)
[2021-04-16 08:57] LABS: Alanine Aminotransferase 45 U/L (0-41); Albumin Level 3.8 g/dL (3.5-5.2); Alkaline Phosphatase 132 IU/L (40-130); Anion Gap 15.5 (5-19); Aspartate Amino Transferase 39 U/L (0-40); Blood Urea Nitrogen 33 mg/dL (8-23); Calcium 9.3 mg/dL (8.5-10.5); Carbon Dioxide 27 mmol/L (22-29); Chloride 95 mmol/L (98-107); Globulin 3.2 g/dL (1.3-4.6); Glucose 111 mg/dL (65-115); Iron 24 ug/dL (59-158); Osmolality Calculated 284 mOsm/kg (285-295); Potassium 4.5 mmol/L (3.5-5.1); Sodium 133 mmol/L (136-145); Total Bilirubin 0.2 mg/dL (0.15-1.2); Total Iron Binding Capacity 160 mcg/dl; Unsaturated Iron Binding 136 ug/dL (112-347)
[2021-04-16 09:08] LABS: Ferritin 2838 ng/mL (30-400)
[2021-04-16] MEDS: cyanocobalamin 1,000 mcg/mL SDV 1000 MCG SUBCUT (10:00)
--- NOTE | 2021-04-17 11:23 | ONC FU_ITS ---
Dr. Sorto follow up note Patient: Moustapha Nunes Unit #: [id number]: 1945 Dicatated By: Serafin Sorto M.D.Date of Visit:Apr 16, 2021 Onc Med Follow-up/Prog Note History of Present Illness: Mr. Moustapha Nunes, is a 75-year-old gentleman with prolonged history of esophageal reflux disease, as per patient initially [id number] medication would help then patient started taking daily omeprazole which helped him significantly, for the last few months prior to diagnosis, patient started having progressive dysphagia and he has lost about 30 pounds over 6 months partly due to change in diet as his is on long-term TPN for enterocutaneous fistula and also due to progressive dysphagia. 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 Patient was moving from [place] to [place], after EGD he went back to [place] to seed [employer] his stuff where he had his CT scan of chest done, Patient was referred to cardiothoracic surgery at [facility] for surgical evaluation, patient underwent CT scan of chest on July 10, 2020 which showed 2.9 cm distal esophageal mass with a hiatal hernia with enlarging mediastinal lymphadenopathy. Multiple pulmonary nodules, appears stable when compared with CT scan done in March 2015, subsequently patient underwent CT PET scan on August 06, 2020 which showed hypermetabolic long segment soft tissue thickening extending from proximal to the mid thoracic esophagus with a possible proximal extra esophageal extension/suspicious for adjacent lymphadenopathy. A separate focus of FDG activity in the distal esophagus is indeterminate. FDG avid right inguinal lymph node most likely reactive. No other abnormality seen. Patient was evaluated by Dr. Blanton, EUS and J-tube was not considered as patient has mild to moderate dysphagia, as per discussion with Ms. Langford, nursing practitioner with Dr. Blanton, combined chemoradiation therapy and neoadjuvant fashion was recommended followed by evaluation with CT PET scan at [facility] and for possible esophagectomy. Patient denies any smoking or alcohol use Patient has history of DVT left lower leg for which he was treated with Eliquis which he took for couple of months and quit recently Patient has history of triple bypass, was done in 1993. Patient completed combined chemoradiation therapy on October 15, 2020, patient missed his weekly chemotherapy with carboplatin/Taxol concurrent with radiation therapy since October 01, 2020, as patient was admitted to hospital on October 06, 2020 with neutropenic fever/sepsis, was treated with broad-spectrum antibiotics and Neupogen., After completion of combined chemoradiation therapy, patient was referred to GI surgical oncology at [facility] and on December 04, 2020, patient was admitted to [facility] for surgical evaluation and on December 11, 2020, patient underwent esophagectomy for long segment esophageal cancer, originating high up requiring total laryngectomy with gastric conduit reconstruction patient tolerated procedure well, final pathology report showed residual, invasive poorly differentiated adenocarcinoma in distal esophagus and invading into adventitia. Status post presurgical treatment with partial response. Negative for angiolymphatic and perineural invasion. Adenocarcinoma involving proximal esophageal margin, however status of final esophageal margin cannot be determined with certainty as several proximal esophageal specimen was submitted and they were not oriented. Adenocarcinoma involving circumferential margin. Distal gastric margin, negative for carcinoma. Metastatic adenocarcinoma involving 4 of 8 lymph nodes. Pathological stage yT3, N2, HER-2/cortez negative, MMR, equivocal expression, molecular testing for MSI show intact . Case was discussed in tumor board at [facility], adjuvant therapy with nivolumab was recommended. Patient was started on biweekly nivolumab on February 21, 2021 Came for follow-up, denies any specific complaint except skin rash involving right posterior upper back near thoracotomy scar, patient denies any pain denies any insect bite denies any bleeding or oozing fluid. Patient said he noted this rash about a week ago. Denies any fever chills denies any nausea or vomiting denies any diarrhea or constipation, denies any melena or hematochezia denies any hemoptysis or hematemesis denies any jaundice, denies any dysuria or hematuria, tolerating biweekly nivolumab well otherwise Medications: Aspirin 81 1 Tablet (of 81 mg) Tablet, enteric coated Oral daily, Atorvastatin Calcium 2 Tablet (of 40 mg) Oral daily, Cholecalciferol 1 Tablet (of 1.25 mg ) Oral daily, Clopidogrel Bisulfate 1 Tablet (of 75 mg) Oral daily, Eliquis 1 (5 mg) Tablet Oral b.i.d., Enalapril Maleate 2 Tablet (of 5 mg) Oral daily, Isosorbide Mononitrate ER 1 Tablet (of 60 mg) Tablet SR 24 HR Oral daily, Levothyroxine Sodium 1 Tablet (of 175 mcg) Oral daily, Metoprolol Succinate ER 1 Tablet (of 50 mg) Tablet SR 24 HR Oral daily, Omeprazole 1 Capsule (of 20 mg) Capsule Delayed Release Oral daily Allergies: No Known Allergies. Review of Systems: Review of Systems is not available for this patient. Vital Signs: Performed on Apr 16, 2021 11:41 Height - 68.00 in Weight - 154.6 lbs (LOW) BSA - 1.83 sq.m BMI - 23.51 Temperature - 97.5 F (LOW) Pulse - 46 /min (LOW) Respiration - 18 /min BP - 97/62 mm(hg) O2 Sat - 99 % Pain - 0 Fatigue - 4 Performance Status: 1 - No physically strenuous activity, but ambulatory and able to carry out light or sedentary work (e.g. office work, light house work). (ECOG) Physical Examination: Respiratory - Lungs are clear to auscultation, Cardiovascular - Regular rate and rhythm of heart, Abdomen - Soft, bowel sounds present, Extremities - No visible edema. Lab/Imaging: Test performed on Apr 01, 2021 08:25 Sodium 137 mmol/L Potassium 4.5 mmol/L Chloride 100 mmol/L CO2 27 mmol/L Anion Gap 14.5 BUN 29 mg/dL Creatinine 0.7 mg/dL Cr Clearance (Est) 93.4700 mL/min Glucose 103 mg/dL Osmolality - Calculated 290 mOsm/kg Calcium 9.0 mg/dL Protein, Total 6.7 g/dL Albumin 4.0 g/dL Globulin 2.7 g/dL Bilirubin, Total 0.2 mg/dL ALT (SGPT) 27 U/L AST (SGOT) 23 U/L Alkaline Phosphatase 140 IU/L WBC 12.1 10 3/uL RBC 3.60 10 6/uL HGB 11.1 g/dL HCT 34.9 % MCV 96.9 fl MCH 30.8 pg MCHC 31.8 g/dL RDW 15.4 % Platelet Count 239 10 3/cmm MPV 9.6 fL Neutrophils 10.26 10 3/uL Lymphocytes 0.3 10 3/uL Monocytes 1.0 10 3/uL Eosinophils 0.4 10 3/uL Basophils 0.0 10 3/uL Neutrophil % 84.9 % Lymphocyte % 2.7 % Monocyte % 8.2 % Eosinophil % 3.0 % Basophils % 0.2 % NRBC % 0 % Test performed on Mar 14, 2021 13:33 TSH 1.24 uIU/mL Impression: y T3, N2 adenocarcinoma of esophagus status post pharyngolaryngectomy, esophagectomy and gastric conduit reconstruction plus modifier 22 done on December 11, 2020 at [facility]. HER-2/cortez negative, MMR equivocal expression molecular testing for MSI pending Moderately differentiated invasive adenocarcinoma involving lower esophagus, per EGD done on July 02, 2020, specimen negative for HER-2 overexpression by IHC and over amplification by FISH. CT PET scan done on August 06, 2020 at [facility] showed hypermetabolic lung segment soft tissue thickening extending from proximal to the mid thoracic esophagus with possible proximal x-ray esophageal extension/suspicious for adjacent lymphadenopathy, consistent with patient's biopsy-proven esophageal adenocarcinoma. A separate focus of FDG activity in the distal esophagus is indeterminate. FDG avid right inguinal lymph nodes, probably reactive no FDG PET evidence of distant mets Dysphagia/weight loss due to above Coronary artery disease/congestive heart failure/status post triple bypass in 1993 History of left leg DVT treated with Eliquis until recently Hypertension, Hypothyroidism History of colon cancer status post colon resection in 2015 Started on combined chemoradiation with weekly carboplatin/Taxol on September 04, 2020, Completed on October 15, 2020 Plan: Discussed with patient regarding his labs white blood count 5.5 hemoglobin 10.8 hematocrit 33.5 platelets 166,000 CMP within normal limit except ALT 45 compared to 27 previously and 52 prior to that alk phos 132 Clinically, patient is doing well with no new signs symptoms history of disease progression, tolerating biweekly nivolumab well, will proceed with next dose today and then return to clinic in 2 weeks with CBC CMP and TSH As far as right posterior upper back skin rash is concerned probably due to shingles, patient has history of shingles in distant past but as per patient he has no pain or discomfort, which could be due to skin nerve damage due to thoracotomy, but now rash is improving, will continue to monitor, if patient becomes symptomatic, may consider antiviral therapy. As far as mild anemia is concerned, will continue with B12 supplements parenterally. Return to clinic in 2 weeks with CBC CMP and TSH if reasonable for next dose of nivolumab Signed By: Serafin Sorto M.D. <<Signature on File>>
== END 2021-04-16 08:00 | disposition home or self-care (01) ==
PROVIDERS: PCP Family Medicine; Visit Provider Internal Medicine Hematology & Oncology
DX: Z51.12 Encounter for antineoplastic immunotherapy (principal); C61 Malignant neoplasm of prostate; E11.9 Type 2 diabetes mellitus without complications; I10 Essential (primary) hypertension; M16.11 Unilateral primary osteoarthritis, right hip; J43.9 Emphysema, unspecified; Z79.899 Other long term (current) drug therapy
CPT/HCPCS: 80053; 82728; 83540; 83550; 85025; 96372; 96413; 99215; J3420; J7050; J9299

== ENCOUNTER 2021-04-22 10:15 | Inpatient (IN) | payer MEDICARE, SELFPAY ==
[2021-04-22] VITALS (61 sets, daily range): BP systolic 87–137; BP diastolic 57–84; PULSE 79–120; RESP 18–43; TEMP 36.7–37.1; O2SAT 71–98; BMI 23.1
--- NOTE | 2021-04-22 | USCV_ITS ---
Transthoracic Echo Limited Moustapha Nunes Age: 75 Gender: M : 1945 Exam Date: 04/22/2021 20:49 Ordering Phys: Carol Wilhelm MD Technologist: YENNI Exam Location: [facility] [place] Indication: Covid, CAD, CHF, Unknown EF, RT Pleural Effusion BP: / HR: 91 Rhythm: Sinus Technical Quality: Adequate MEASUREMENTS (Male / Female) Normal Values 2D ECHO LV Diastolic Diameter PLAX 5.2 cm 4.2 - 5.9 / 3.9 - 5.3 cm LV Systolic Diameter PLAX 3.9 cm IVS Diastolic Thickness 1.1 cm 0.6 - 1.0 / 0.6 - 0.9 cm IVS Systolic Thickness 1.5 cm LVPW Diastolic Thickness 1.1 cm 0.6 - 1.0 / 0.6 - 0.9 cm LVPW Systolic Thickness 0.9 cm LVOT Diameter 2.1 cm LV Ejection Fraction 2D Teich 47.4 % LV Ejection Fraction MOD 2C 45.1 % LV Ejection Fraction 2C AL 49.6 % LA Diameter 3.5 cm LA Width 3.8 cm LA Height 4.9 cm RA Width 4.0 cm RA Height 3.4 cm Aorta at Sinotubular Diameter 2.3 cm M-MODE Aortic Annulus Diameter 2.9 cm LA Ao Ratio MM 1.2 MV E Point Septal Separation 1.4 cm DOPPLER TR Peak Velocity 266.0 cm/s TR Peak Gradient 28.3 mmHg PV Peak Velocity 89.0 cm/s RV Acceleration Time 0.1 s RV Ejection Time 0.3 s RV AcT/ET 0.4 FINDINGS Left Ventricle Normal left ventricular cavity size. Mildly decreased left ventricular systolic function. Left ventricular ejection fraction is estimated at 45-50 %. There is septal hypokinesis. This study is inadequate for complete estimation of regional wall motion abnormality. Right Ventricle Normal right ventricular size and systolic function. Right Atrium Normal right atrial size. Right atrial pressure estimated at 3 mmHg. Left Atrium Left atrium not well visualized. Possibly normal left atrial size. Mitral Valve Mildly thickened mitral valve. Aortic Valve Aortic valve not well visualized. Tricuspid Valve Structurally normal tricuspid valve. Pulmonic Valve Pulmonic valve not well visualized. Pericardium No pericardial effusion. Aorta Normal-sized aortic root. Normal-sized inferior vena cava with normal respiratory variation. CONCLUSIONS 1. This is a technically difficult study. 2. Normal left ventricular cavity size. Mildly decreased left ventricular systolic function. Left ventricular ejection fraction is estimated at 45-50 %. There is septal hypokinesis. This study is inadequate for complete estimation of regional wall motion abnormality. 3. No prior similar studies to compare. Sheeba Lebron MD (Electronically Signed) Final Date: 23 April 2021 14:18 S
--- NOTE | 2021-04-22 11:08 | XRR_ITS ---
PROCEDURE INFORMATION: Exam: XR Chest Exam date and time: 04/22/2021 11:08 AM Age: 75 years old Clinical indication: Dyspnea; Additional info: Dypsnea/hypoxia TECHNIQUE: Imaging protocol: XR of the chest. Views: 1 view. COMPARISON: CR XR chest 1V portable [id number] 01/15/2021 10:05 AM FINDINGS: Lungs: Right lower lobe interstitial congestion.. No consolidation. Pleural spaces: Right lower lobe moderate pleural effusion pleural effusion. No pneumothorax. Heart/Mediastinum: Unremarkable. No cardiomegaly. Bones/joints: Metallic sternotomy wires are in place. A right side central line extends into the SVC. XR/XR chest 1V portable [id number] IMPRESSION: 1. Right lower lobe moderate volume pleural effusion. 2. Right lower lobe interstitial congestion. 3. Right central line in the SVC. 4. Status post sternotomy
--- NOTE | 2021-04-22 11:15 | ED_ITS ---
HPI - SOB/Dyspnea General: Chief Complaint: Shortness of Breath/Dyspnea Stated Complaint: phlegm in throat makes it diff to breath Time Seen by Provider: 04/22/21 10:54 Source: patient Mode of arrival: ambulatory Limitations: physical limitation (Difficulty communicating because of tracheostomy) History of Present Illness: HPI Narrative: 75-year-old male presents emergency room with shortness of breath and cough. According to the he has had a low-grade fever and mildly productive cough. On arrival he was satting 84% at room air. Patient has known history of esophag eal CA had an esophagectomy with a gastric pull-through there was some complications and he ended up having a laryngectomy as well and a tracheostomy placed according to the . He has been coughing up little bit of blood denies any hematochezia or melena. No dysuria urgency or frequency. He is not previously been vaccinated for COVID nor has he had COVID that he has tested positive for MD elicited complaint: shortness of breath and cough Pertinent past history: COPD Context: recent illness Severity: moderate Exacerbating factors: exertion Relieving factors: oxygen and rest Associated symptoms: Reports chest congestion, cough and fever(s); Deny abdominal pain, chest pain, diaphoresis, dizziness, extremity pain, hemoptysis, lightheadedness, myalgias, nausea, orthopnea, palpitations, pa resthesias, polydipsia, polyuria, rash, sense of impending doom, syncope or vomiting Treatment prior to arrival: oxygen Review of Systems Const: Reports: fever(s); Denies: diaphoresis ENMT: Denies: throat pain, ear or mastoid pain, nasal discharge or nasal congestion Card: Denies: chest pain, palpitations, lightheadedness, syncope or orthopnea Resp: Reports: chest congestion; Denies: hemoptysis GI: Denies: abdominal pain, nausea or vomiting : Denies: flank pain, dysuria, urinary frequency or urinary urgency Musc: Denies: extremity pain Skin/Breast: Denies: rash or pruritus Neuro: Denies: dizziness Endo: Denies: polyuria or polydipsia [facility] ED PFSH: Medical History Anxiety CAD (coronary artery disease) CHF (congestive heart failure) Chronic anticoagulation eliquis 2.5 bid for history of dvt Colon cancer DVT (deep venous thrombosis) (~02/2020) Esophageal adenocarcinoma -Follows with Dr Sorto, Dr Hayes and Dr Blanton did surgery -s/p chemoradiation with carboplatin/taxol -s/p esophagectomy, laryngectomy, trachostomy, gastric conduit reconstr uction, j tube placement in 12/13 - Adenocarcinoma involving proximal esophageal margin, however status of final esophageal margin cannot be determined with certainty as several proximal esophageal specimen was submitted and they were not oriented. Adenocarcinoma involving circumferential margin. Distal gastric margin, negative for carcinoma. Metastatic adenocarcinoma involving 4 of 8 lymph nod es. Pathological stage yT3, N2, HER-2/cortez negative, MMR, equivocal expression, molecular testing for MSI show intact. -nivolumab started at 02/21/21 Esophageal stricture Essential hypertension Foot drop, left GERD (gastroesophageal reflux disease) History of pancytopenia chemotherapy related History of stress test 11/29/20 - Large area of old myocardial infarction versus scarring noted in basal to distal inferior and basal to mid inferolateral wall without mario-infarct ischemia, no ekg changes noted Hyperlipidemia Hypothyroid Jejunostomy tube in situ Nodule of spleen Old [place] (myocardial infarction) Pulmonary nodules Tracheostomy in place Surgical History H/O esophagogastroduodenoscopy 09/01/20; with dilation 07/02/20; with dilation History of appendectomy History of colon resection 2014 History of colonoscopy 2019 History of esophagectomy (~11/2020) [facility] History of jejunostomy tube placement 1st malfunctioned, replaced Feb 12 or Mar 16 History of tracheostomy (~11/2020) [facility] Hx of CABG (~1993) Port-A-Cath in place (08/15/20) Status post laryngectomy (~11/2020) [facility] Family History Father Aortic stenosis Other CAD (coronary artery disease) Social History Smoking and tobacco status: never smoked Alcohol intake: current Alcohol intake frequency: few times a month Alcohol type: beer Substance/Drug Use: never Lives independently: No Household members: spouse and children Marital status: Additional social history: communicates by writing, mouthing words or using valve Physical Exam Const: GENERAL APPEARANCE: cooperative ORIENTATION/CONSCIOUSNESS: Yes awake, Yes oriented to person, Yes oriented to place and Yes oriented to time HENMT: COMMON NORMALS: normocephalic, atraumatic and hearing grossly normal bilaterally HEAD & SCALP: normocephalic and atraumatic Neck/C-Spine: OTHER: Tracheostomy in place oxygen mask overlying the tracheostomy Resp: AUSCULTATION: wheezes OTHER: Significantly diminished nearly absent breath sounds at the right base Cardio: COMMON NORMALS: regular rhythm RATE: tachycardic RHYTHM: regular rhythm GI: COMMON NORMALS: Soft to palpation and No hepatosplenomegaly present AUSCULTATION: Yes normoactive bowel sounds PALPATION: Yes Soft to palpation, No Tenderness to palpation present (GI), No Guarding due to palpation present (GI) and Yes No hepatosplenomegaly present OTHER: PEG tube present surrounding tissue appears normal no leakage. Extremity: COMMON NORMALS: normal to inspection, capillary refill normal, no clubbing, cyanosis or edema, no calf tenderness and no pedal edema Neuro: SENSORIUM/ORIENTATION: Yes oriented to person, Yes oriented to place and Yes oriented to time Skin: COMMON NORMALS: no rashes or lesions noted GENERAL SKIN EXAM: no rashes or lesions noted Course Vital Signs: Vital signs: Vital Signs Temperature 98.9 F 04/23/21 02:16 Pulse Rate 86 04/23/21 06:00 Respiratory Rate 20 H 04/23/21 06:00 Blood Pressure 98/70 04/23/21 06:00 Pulse Oximetry 92 04/23/21 06:00 MDM - SOB/Dyspnea Medical Decision Making Patient is actually quite complicated he did test positive for Covid. I think he also has an underlying pneumonia with a pleural effusion. Pat several possibilities for the etiology of the pleural effusion. Discussed with hospitalist. Hospitalist discovered patient is actually on a chemotherapeutic that has a side effect of pleural effusions. Another possibility would be from his primary CA. Patient will be admitted antibiotic coverage initiated. Covid did come back positive we will treat initially for Covid. Dr. Wilhelm is consulting pulmonology. No evidence of PE on CTA of the chest. Patient be admitted to the ICU due to his overall condition. Medical Records I reviewed the patient's medical records. Lab Data I reviewed the patient's lab results. : 04/23/21 03:56 04/23/21 03:56 Labs/Radiology: Radiology Impressions Chest CTA 04/22/21 11:53 IMPRESSION: 1. Proximal main pulmonary arteries are normal. No evidence of pulmonary embolus. 2. Moderate RIGHT pleural effusion progressed compared to previous with compressive atelectasis RIGHT lower lobe. Tiny LEFT pleural effusion. 3. Hazy groundglass infiltrates compatible with Covid 19 pneumonia more prominent in the LEFT upper lobe and LEFT greater than RIGHT lower lobes. Developing consolidation LEFT lower lobe posteriorly. 4. Prior esophagectomy with gastric pull-through. Chest X-Ray 04/23/21 06:00 IMPRESSION: 1. Stable right Mediport catheter. 2. Stable moderate right basilar atelectasis and/or infiltrate and/or effusion. 3. Stable mild to moderate left basilar atelectasis and/or pneumonia. Laboratory Results WBC 7.9 10^3/uL (4.0-10.0) 04/22/21 11:00 RBC 3.83 10^6/uL (4.1-5.3) L 04/22/21 11:00 Hgb 11.7 g/dL (11.7-16.6) 04/22/21 11:00 Hct 36.7 % (42.0-52.0) L 04/22/21 11:00 MCV 95.8 fl (80-94) H 04/22/21 11:00 MCH 30.5 pg (28.0-34.0) 04/22/21 11:00 MCHC 31.9 g/dL (30.0-36.0) 04/22/21 11:00 RDW 14.7 % (12.1-15.1) 04/22/21 11:00 Plt Count 222 10^3/cmm (130-400) 04/22/21 11:00 MPV 10.0 fL (7.4-10.4) 04/22/21 11:00 Neut % (Auto) 92.7 % 04/22/21 11:00 Lymph % (Auto) 2.0 % 04/22/21 11:00 [place] % (Auto) 4.7 % 04/22/21 11:00 Eos % (Auto) 0.0 % 04/22/21 11:00 Baso % (Auto) 0.1 % 04/22/21 11:00 Neut # (Auto) 7.27 10^3/uL (1.8-7.7) 04/22/21 11:00 Lymph # (Auto) 0.2 10^3/uL (0.8-4.8) L 04/22/21 11:00 [place] # (Auto) 0.4 10^3/uL (0.2-0.9) 04/22/21 11:00 Eos # (Auto) 0.0 10^3/uL (0.0-0.8) 04/22/21 11:00 Baso # (Auto) 0.0 10^3/uL (0.0-0.1) 04/22/21 11:00 Nucleated RBC % (auto) 0 % 04/22/21 11:00 Nucleated RBCs # 0.0 /100WBC 04/22/21 11:00 D-Dimer 4.06 ug/mIFEU (0-0.59) H 04/22/21 11:00 Specimen Type Arterial 04/22/21 11:35 Sample Site Radial, left 04/22/21 11:35 ABG pH 7.58 (7.35-7.45) H* 04/22/21 11:35 ABG pCO2 27.6 mmHg (35-45) L 04/22/21 11:35 ABG pO2 58.8 mmHg (80.0-100.0) L 04/22/21 11:35 ABG HCO3 25.9 mmol/L (22-26) 04/22/21 11:35 ABG Base Excess 4.4 mmol/L (-2.0-2.0) H 04/22/21 11:35 Jose Test Pos 04/22/21 11:35 Hematocrit 32.3 % (42-52) L 04/22/21 11:35 O2 Delivery Device Cag 04/22/21 11:35 FiO2 35.0 % 04/22/21 11:35 Aircraft Instrument Mechanic ID Gd 04/22/21 11:35 Sodium 133 mmol/L (136-145) L 04/22/21 11:00 Potassium 4.2 mmol/L (3.5-5.1) 04/22/21 11:00 Chloride 92 mmol/L (98-107) L 04/22/21 11:00 Carbon Dioxide 24 mmol/L (22-29) 04/22/21 11:00 Anion Gap 21.2 (5-19) H 04/22/21 11:00 BUN 35 mg/dL (8-23) H 04/22/21 11:00 Creatinine 0.8 mg/dL (0.7-1.2) 04/22/21 11:00 GFR Calculation Not Reportable 04/22/21 11:00 Glucose 112 mg/dL (65-115) 04/22/21 11:00 Calculated Osmolality 285 mOsm/kg (285-295) 04/22/21 11:00 Lactic Acid 1.8 mmol/L (0.5-2.2) 04/22/21 11:00 Calcium 9.1 mg/dL (8.5-10.5) 04/22/21 11:00 Total Bilirubin 0.4 mg/dL (0.15-1.2) 04/22/21 11:00 AST 47 U/L (0-40) H 04/22/21 11:00 ALT 46 U/L (0-41) H 04/22/21 11:00 Alkaline Phosphatase 183 IU/L (40-130) H 04/22/21 11:00 C-Reactive Protein 126.9 mg/L (0.0-4.9) H 04/22/21 11:00 NT-Pro-B Natriuret Pep 1889 pg/mL (0-125) H 04/22/21 11:00 Total Protein 7.0 g/dL (6.6-8.7) 04/22/21 11:00 Albumin 3.8 g/dL (3.5-5.2) 04/22/21 11:00 Globulin 3.2 g/dL (1.3-4.6) 04/22/21 11:00 Procalcitonin 0.13 ng/mL (0-0.5) 04/22/21 11:00 Coronavirus 229E (PCR) Not detected (NOT DETECT) 04/22/21 11:24 SARS-CoV-2 (PCR) Detected (NOT DETECT) A 04/22/21 11:24 Critical Care Time Critical Care Time: Critical Care Time: Yes Total Critical Care Time: 35 Attestation: The high probability of a clinically significant, sudden or life threatening deterioration of the patient's respiratory system(s) required my full and direct attention, intervention and personal management. The critical care time is as shown. This time is in addition to time spent performing any reported procedures but includes the following: [x] Data and vital sign review and interpretation [x] Patient assessment, examination and intervention [x] Documentation [x] Medication orders and management Discharge Plan Discharge Patient Disposition: Admitted As Inpatient Admit Provider: Carol Wilhelm Clinical Impression: COVID-19, Esophageal adenocarcinoma, Status post laryngectomy, Jejunostomy tube in situ, Tracheostomy in place, Pleural effusion, right, Pneumonia due to COVID-19 virus, Chronic anticoagulation, History of deep vein thrombosis, Acute respiratory failure with hypoxia Condition: Stable Coding Level of Care Code ED Road Oiling Truck Driver for Chg Fwd Exam Detailed
[2021-04-22] MEDS: dexamethasone 4 mg/mL INJ 6 MG IVP ×2 (11:35→16:57)
[2021-04-22 11:44] LABS: Basophils % 0.1 %; Hematocrit 36.7 % (42.0-52.0); Hemoglobin 11.7 g/dL (11.7-16.6); Lymphocytes # 0.2 10^3/uL (0.8-4.8); Mean Corpuscular HGB Conc 31.9 g/dL (30.0-36.0); Mean Corpuscular Hemoglobin 30.5 pg (28.0-34.0); Mean Corpuscular Volume 95.8 fl (80-94); Monocytes # 0.4 10^3/uL (0.2-0.9); Monocytes % 4.7 %; Neutrophils # 7.27 10^3/uL (1.8-7.7); Neutrophils % 92.7 %; Nucleated Red Blood Cells % 0 %; Platelet Count 222 10^3/cmm (130-400); Red Blood Count 3.83 10^6/uL (4.1-5.3); Red Cell Distribution Width 14.7 % (12.1-15.1); White Blood Count 7.9 10^3/uL (4.0-10.0)
[2021-04-22 11:46] LABS: Lactic Sepsis W/Reflex 1.8 mmol/L (0.5-2.2)
[2021-04-22 11:47] LABS: D Dimer 4.06 ug/mIFEU (0-0.59)
[2021-04-22 11:49] LABS: ABG PCO2 27.6 mmHg (35-45); Arterial Blood Gas Hematocrit 32.3 % (42-52); Base Excess ABG 4.4 mmol/L (-2.0-2.0); Blood Gas Allen Test Pos; Blood Gas Operator Identificat GD; Blood Gas Sample Site Radial, left; Blood Gas Sample Type Arterial; HCO3 ABG 25.9 mmol/L (22-26); Oxygen Device CAG; PO2 ABG 58.8 mmHg (80.0-100.0)
[2021-04-22 11:50] LABS: ABG PH Result 7.58 (7.35-7.45)
--- NOTE | 2021-04-22 11:53 | CT_ITS ---
WS: [id number] CTA OF THE CHEST WITH PULMONARY EMBOLISM PROTOCOL TECHNIQUE: High-resolution contrast enhanced CTA of the chest with coronal and sagittal reformatted i mages with pulmonary embolism protocol. MIP images are also reviewed. CLINICAL INFORMATION: elevated d dimer/hypoxia COMPARISON: January 05, 2021 DLP: 567.[address] scans at [facility] use at least one of these dose optimization techniques: automated e xposure control; mA and/or kV adjustment per patient size (includes targeted exams where dose is matc hed to clinical indication); or iterative reconstruction. FINDINGS: Proximal main pulmonary arteries are normal. Normal segmental pulmonary arteries where visualized. So me images degraded by motion artifact. No evidence of pulmonary embolus. Normal caliber thoracic aort a. Prior sternotomy with CABG. Prior esophagectomy with gastric pull-through. No mediastinal or hilar lymphadenopathy. No axillary lymphadenopathy. Tracheostomy. Moderate RIGHT pleural effusion progressed compared to previous. Compressive atelectasis RIGHT lower lobe. Patchy hazy groundglass infiltrates compatible with Covid 19 pneumonia in the LEFT upper lobe a nteriorly, lingula, and LEFT greater than RIGHT lower lobes. Tiny LEFT pleural effusion with small am ount of developing consolidation LEFT lower lobe. Adrenal glands are normal. Splenic artery calcification. Partially visualized RIGHT renal cyst. Hyper trophic changes thoracic spine with ankylosis. CT/CT angio chest PE protcl [id number] IMPRESSION: 1. Proximal main pulmonary arteries are normal. No evidence of pulmonary embol us. 2. Moderate RIGHT pleural effusion progressed compared to previous with compre ssive atelectasis RIGHT lower lobe. Tiny LEFT pleural effusion. 3. Hazy groundglass infiltrates compatible with Covid 19 pneumonia more promin ent in the LEFT upper lobe and LEFT greater than RIGHT lower lobes. Developing consolidation LEFT lower lobe posteriorly. 4. Prior esophagectomy with gastric pull-through.
[2021-04-22 11:56] LABS: NT Pro B Type Natriuretic Pept 1889 pg/mL (0-125); Procalcitonin 0.13 ng/mL (0-0.5)
[2021-04-22 12:07] LABS: Alanine Aminotransferase 46 U/L (0-41); Albumin Level 3.8 g/dL (3.5-5.2); Alkaline Phosphatase 183 IU/L (40-130); Anion Gap 21.2 (5-19); Aspartate Amino Transferase 47 U/L (0-40); Blood Urea Nitrogen 35 mg/dL (8-23); C Reactive Protein 126.9 mg/L (0.0-4.9); Calcium 9.1 mg/dL (8.5-10.5); Carbon Dioxide 24 mmol/L (22-29); Chloride 92 mmol/L (98-107); Globulin 3.2 g/dL (1.3-4.6); Glucose 112 mg/dL (65-115); Osmolality Calculated 285 mOsm/kg (285-295); Potassium 4.2 mmol/L (3.5-5.1); Sodium 133 mmol/L (136-145); Total Bilirubin 0.4 mg/dL (0.15-1.2)
[2021-04-22] MEDS: iohexol 350 mg/mL 100 mL Btl IV (12:33)
[2021-04-22] MEDS: piperacillin-tazobactam 3.375 GM in sodium chloride 0.9% (plus) 50 ML IV ×2 (12:36→18:11)
--- NOTE | 2021-04-22 13:49 | P.HP_ITS ---
Providers/Chief Complaint Admitting Physician: Carol Wilhelm Primary Care Provider: Primary Care Provider Randi Buchanan DO Primary Oncologist Dr Sorto Chief Complaint: phlegm in throat makes it diff to breath History of Present Illness Moustapha Nunes is a 75 year old male who presented to the emergency room with chief complaint of increasing difficulty breathing and cough. Patient has a somewhat complex history and that he has known esophageal adenocarcinoma. He had undergone chemoradiation and then in November had esophagectomy, laryngectomy and tracheostomy placement along with gastric conduit reconstruction. He has a J- tube that was replaced in February of this year. He takes small amounts by mouth and the rest via overnight feeding for 12 hours via his tube. Over the last 2 to 3 days he has been having increasing difficulty with cough and difficulty getting any sputum up. Denies any hemoptysis. Has had some low-grade fevers and general malaise. Reports some pain in his neck upper back and back of his head area. He has been more short of breath both with exertion and with rest including in the supine position. He has been having to sit up more. He has had some nausea but no vomiting. Denied any other GI symptoms. His had COVID about 3 weeks ago. He has not been vaccinated. Him and his did not think that he had COVID and thought that he just had something that was stuck as he has had in the past however oxygen saturations were in the low to mid 80s on arrival. He is not normally on any oxygen via trach collar. Laboratory studies were also highly suspicious for COVID-19 with lymphopenia noted, mild transaminase elevation, elevated D-dimer and CRP along with hypoxemia and overall clinical presentation. Rapid PCR did come back positive for COVID-19. CTA of the chest was done and did not reveal any evidence of PE. Patient does have a history of prior DVT for which she has been on chronic Eliquis therapy at 2-1/2 mg twice daily. It had been stopped recently for replacement of his J- tube but he had restarted it. He received breathing treatments and antibiotics in the emergency room. He is on chronic immunotherapy with nivolumab. He follows with Dr. Sorto locally for his cancer. In addition to radiological changes consistent with Covid, patient was found to have moderate right pleural effusion with some compressive atelectasis, most impressive on CT imaging. He had a small effusion back in December. Given his current clinical status, comorbid conditions and high potential for rapid worsening, patient is being admitted to the ICU. History is obtained from the patient assisted by him writing and gesturing with his hands or answering yes no with nods of his head along with information from his on the phone and review of [employer] records. Review of Systems Const: Reports: fever(s), chills, body aches and malaise ENMT: Reports: dry mouth (not too much worse than usual) and other (no not icable change in taste/small); Denies: throat pain Card: Reports: dyspnea on exertion and orthopnea; Denies: chest pain, edema or acrocyanosis Resp: Reports: dyspnea, productive cough, non-productive cough, wheezing, chest congestion and other (increased tacheal secretions); Denies: pain on inspiration or hemoptysis GI: Reports: nausea; Denies: abdominal pain, vomiting, hematemesis, diarrhea, constipation, hematochezia or melena : Denies: difficulty urinating Musc: Reports: neck pain and back pain (upper); Denies: extremity pain Skin/Breast: Reports: sores (back side); Denies: pruritus Neuro: Reports: headache(s) (back of head) and weakness in extremities (general rather than focal) Psych: Reports: anxiety (does not take lorazepam regularly) Marcus/Lymph: Denies: easy bruising or easy bleeding Medications/Allergies Home Medications Medication Instructions Recorded Confirmed Last Taken Type guaifenesin 100 mg/5 mL oral 200 mg (10 mL) PO Q6H PRN #1500 ml 01/07/21 04/22/21 04/21/21 Rx liquid (Child Mucus Relief Expectorant) lorazepam 2 mg/mL oral concentrate 1 mg (0.5 mL) PO BID PRN #15 ml 01/14/21 04/22/21 04/22/21 Rx oxycodone 5 mg/5 mL oral solution 5 mg (5 mL) FEEDING TUBE Q3H PRN 7 01/28/21 04/22/21 Unknown Rx Days #250 ml levothyroxine 175 mcg tablet 175 mcg PO QAM #90 tab 03/21/21 04/22/21 04/22/21 Rx omeprazole 20 mg capsule,delayed 20 mg PO DAILY #90 cap 03/21/21 04/22/21 04/22/21 Rx release acetaminophen 500 mg capsule 1,000 mg PO Q6H PRN cap 04/01/21 04/22/21 04/21/21 History nitroglycerin 0.4 mg sublingual 0.4 mg SUBLINGUAL Q5M PRN #50 tab 04/01/21 04/22/21 Unknown Rx tablet atorvastatin 20 mg tablet 20 mg PO DAILY #90 tab 04/02/21 04/22/21 04/22/21 Rx oxycodone 5 mg tablet 5 mg PO Q6H PRN 10 Days #60 tab 04/16/21 04/22/21 Unknown Rx apixaban 5 mg tablet (Eliquis) 5 mg PO .COMP 04/22/21 04/22/21 04/22/21 08:00 History nivolumab 240 mg/24 mL intravenous 240 mg IV Q14D 04/22/21 04/22/21 04/16/21 History solution (Opdivo) Allergies Allergy/AdvReac Type Severity Reaction Status Date / Time No Known Allergies Allergy Verified 04/22/21 11:19 PFSH Acute PFSH: Medical History (Updated 04/22/21 @ 16:53 by Carol Wilhelm MD) Anxiety CAD (coronary artery disease) CHF (congestive heart failure) Chronic anticoagulation eliquis 2.5 bid for history of dvt Colon cancer DVT (deep venous thrombosis) (~02/2020) Esophageal adenocarcinoma -Follows with Dr Sorto, Dr Hayes and Dr Blanton did surgery -s/p chemoradiation with carboplatin/taxol -s/p esophagectomy, laryngectomy, trachostomy, gastric conduit reconst ruction, j tube placement in 12/13 - Adenocarcinoma involving proximal esophageal margin, however status of final esophageal margin cannot be determined with certainty as several proximal esophageal specimen was submitted and they were not oriented. Adenocarcinoma involving circumferential margin. Distal gastric margin, negative for carcinoma. Metastatic adenocarcinoma involving 4 of 8 lymph no joselito. Pathological stage yT3, N2, HER-2/cortez negative, MMR, equivocal expression, molecular testing for MSI show intact. -nivolumab started at 02/21/21 Esophageal stricture Essential hypertension Foot drop, left GERD (gastroesophageal reflux disease) History of pancytopenia chemotherapy related History of stress test 11/29/20 - Large area of old myocardial infarction versus scarring noted in basal to distal inferior and basal to mid inferolateral wall without mario-infarct ischemia, no ekg changes noted Hyperlipidemia Hypothyroid Jejunostomy tube in situ Nodule of spleen Old [place] (myocardial infarction) Pulmonary nodules Tracheostomy in place Surgical History (Updated 04/22/21 @ 15:50 by Carol Wilhelm MD) H/O esophagogastroduodenoscopy 09/01/20; with dilation 07/02/20; with dilation History of appendectomy History of colon resection 2014 History of colonoscopy 2019 History of esophagectomy (~11/2020) [facility] History of jejunostomy tube placement 1st malfunctioned, replaced Feb 12 or Mar 16 History of tracheostomy (~11/2020) [facility] Hx of CABG (~1993) Port-A-Cath in place (08/15/20) Status post laryngectomy (~11/2020) [facility] Family History Father Aortic stenosis Other CAD (coronary artery disease) Social History (Updated 04/22/21 @ 15:51 by Carol Wilhelm MD) Smoking and tobacco status: never smoked Alcohol intake: current Alcohol intake frequency: few times a month Alcohol type: beer Substance/Drug Use: never Lives independently: No Household members: spouse and children Marital status: Additional social history: communicates by writing, mouthing words or using valve Vitals/I&O/Wt Last Vital Signs Temp 98.8 F 04/22/21 10:41 Pulse 113 H 04/22/21 11:04 Resp 29 H 04/22/21 11:04 BP 127/84 04/22/21 11:04 Pulse Ox 94 04/22/21 11:04 Weight last 48 hrs Weight 68.946 kg Physical Exam Narrative: Constitutional: alert, ill appearing HEENT: normocephalic, conjunctiva injected, dry membranes, fair dentition Neck: tracheostomy site intact, dry secretions, frequent cough, on humidied oyxgen 15L flow presently Respiratory: audible wheezes, course upper airway noise obscuring more distal sounds, less notable on right compared to left, tachypnea, mild intercostal and supraclavicular retractions with some abdominal breathing noted Cardiovascular: regular, tachycardic, no notable murmurs but heart sounds distant, no acrocyanosis Abdomen: soft, tender around j-tube sight, skin with 4x4 gauze and ointment around site, positive bowel sounds Extremities: no edema, no cyanosis, no calf tenderness Skin: very dry, hyperpigmentation noted to arms bilaterally, various scars from surgery healing well, skin around trach site erythematous Neuro: face symmetric, extra ocular movements intact, moves all extremities, about to write legibly in full sentences when needed Psych: cooperative, anxious Data : 04/22/21 11:00 04/22/21 11:00 Other Labs: Radiology Impressions Chest X-Ray 04/22/21 11:08 IMPRESSION: 1. Right lower lobe moderate volume pleural effusion. 2. Right lower lobe interstitial congestion. 3. Right central line in the SVC. 4. Status post sternotomy Chest CTA 04/22/21 11:53 IMPRESSION: 1. Proximal main pulmonary arteries are normal. No evidence of pulmonary embolus. 2. Moderate RIGHT pleural effusion progressed compared to previous with compressive atelectasis RIGHT lower lobe. Tiny LEFT pleural effusion. 3. Hazy groundglass infiltrates compatible with Covid 19 pneumonia more prominent in the LEFT upper lobe and LEFT greater than RIGHT lower lobes. Developing consolidation LEFT lower lobe posteriorly. 4. Prior esophagectomy with gastric pull-through. Laboratory Results WBC 7.9 10^3/uL (4.0-10.0) 04/22/21 11:00 RBC 3.83 10^6/uL (4.1-5.3) L 04/22/21 11:00 Hgb 11.7 g/dL (11.7-16.6) 04/22/21 11:00 Hct 36.7 % (42.0-52.0) L 04/22/21 11:00 MCV 95.8 fl (80-94) H 04/22/21 11:00 MCH 30.5 pg (28.0-34.0) 04/22/21 11:00 MCHC 31.9 g/dL (30.0-36.0) 04/22/21 11:00 RDW 14.7 % (12.1-15.1) 04/22/21 11:00 Plt Count 222 10^3/cmm (130-400) 04/22/21 11:00 MPV 10.0 fL (7.4-10.4) 04/22/21 11:00 Neut % (Auto) 92.7 % 04/22/21 11:00 Lymph % (Auto) 2.0 % 04/22/21 11:00 [place] % (Auto) 4.7 % 04/22/21 11:00 Eos % (Auto) 0.0 % 04/22/21 11:00 Baso % (Auto) 0.1 % 04/22/21 11:00 Neut # (Auto) 7.27 10^3/uL (1.8-7.7) 04/22/21 11:00 Lymph # (Auto) 0.2 10^3/uL (0.8-4.8) L 04/22/21 11:00 [place] # (Auto) 0.4 10^3/uL (0.2-0.9) 04/22/21 11:00 Eos # (Auto) 0.0 10^3/uL (0.0-0.8) 04/22/21 11:00 Baso # (Auto) 0.0 10^3/uL (0.0-0.1) 04/22/21 11:00 Nucleated RBC % (auto) 0 % 04/22/21 11:00 Nucleated RBCs # 0.0 /100WBC 04/22/21 11:00 D-Dimer 4.06 ug/mIFEU (0-0.59) H 04/22/21 11:00 Specimen Type Arterial 04/22/21 11:35 Sample Site Radial, left 04/22/21 11:35 ABG pH 7.58 (7.35-7.45) H* 04/22/21 11:35 ABG pCO2 27.6 mmHg (35-45) L 04/22/21 11:35 ABG pO2 58.8 mmHg (80.0-100.0) L 04/22/21 11:35 ABG HCO3 25.9 mmol/L (22-26) 04/22/21 11:35 ABG Base Excess 4.4 mmol/L (-2.0-2.0) H 04/22/21 11:35 Jose Test Pos 04/22/21 11:35 Hematocrit 32.3 % (42-52) L 04/22/21 11:35 O2 Delivery Device Cag 04/22/21 11:35 FiO2 35.0 % 04/22/21 11:35 Clinical Laboratory Medical Director ID Gd 04/22/21 11:35 Sodium 133 mmol/L (136-145) L 04/22/21 11:00 Potassium 4.2 mmol/L (3.5-5.1) 04/22/21 11:00 Chloride 92 mmol/L (98-107) L 04/22/21 11:00 Carbon Dioxide 24 mmol/L (22-29) 04/22/21 11:00 Anion Gap 21.2 (5-19) H 04/22/21 11:00 BUN 35 mg/dL (8-23) H 04/22/21 11:00 Creatinine 0.8 mg/dL (0.7-1.2) 04/22/21 11:00 GFR Calculation Not Reportable 04/22/21 11:00 Glucose 112 mg/dL (65-115) 04/22/21 11:00 Calculated Osmolality 285 mOsm/kg (285-295) 04/22/21 11:00 Lactic Acid 1.8 mmol/L (0.5-2.2) 04/22/21 11:00 Calcium 9.1 mg/dL (8.5-10.5) 04/22/21 11:00 Total Bilirubin 0.4 mg/dL (0.15-1.2) 04/22/21 11:00 AST 47 U/L (0-40) H 04/22/21 11:00 ALT 46 U/L (0-41) H 04/22/21 11:00 Alkaline Phosphatase 183 IU/L (40-130) H 04/22/21 11:00 C-Reactive Protein 126.9 mg/L (0.0-4.9) H 04/22/21 11:00 NT-Pro-B Natriuret Pep 1889 pg/mL (0-125) H 04/22/21 11:00 Total Protein 7.0 g/dL (6.6-8.7) 04/22/21 11:00 Albumin 3.8 g/dL (3.5-5.2) 04/22/21 11:00 Globulin 3.2 g/dL (1.3-4.6) 04/22/21 11:00 Procalcitonin 0.13 ng/mL (0-0.5) 04/22/21 11:00 Coronavirus 229E (PCR) Not detected (NOT DETECT) 04/22/21 11:24 SARS-CoV-2 (PCR) Detected (NOT DETECT) A 04/22/21 11:24 Micro: Microbiology 04/22/21 11:08 Blood Culture - Preliminary Blood SPECIMEN COLLECTED 04/22/21 11:00 Blood Culture - Preliminary Blood SPECIMEN COLLECTED Sputum culture has been ordered A&P Assessment and plan (1) Pneumonia due to COVID-19 virus: Symptom onset approximately 2-3 days ago, had COVID a couple of weeks ago, not vaccinated, immunocompromised due to cancer. Has lymphopenia, elevation in transaminases, thickened secretions, hypoxemia, alkalosis along with positive COVID-19 rapid PCR test Dexamethasone started 04/22/2021 Remdesivir started Oxygen therapy as needed to maintain saturations Respiratory therapy to follow Pulmonary Toilet Monitor inflammatory markers/labs Blood cultures were collected Sputum cultures ordered Pro calcitonin 0.13 CRP 126.9 D-dimer 4.0 CTA no PE Lactic acid 1.8 Baseline troponin 28 BNP at presentation 1889 CK and ferritin pending Status: Acute (2) Pleural effusion, right: Had a small right-sided effusion in December 2020, is on nivolumab since the end of January 2021. Has a history of coronary artery disease with remote bypass surgery and reported CHF, ejection fraction unknown with an elevated BNP. In addition he is known esophageal cancer with some lymphatic metastases that was identified at the time of surgery last fall. Effusion is larger than what I would expect with COVID at this point in time. I am concerned that he could have a malignant effusion or even potentially an effusion from nivolumab, seems less likely to be from CHF presently given overall dry appearance though it is also within the differential. Furosemide X1 dose IV currently, monitoring response Monitor for acute worsening that might necessitate drainage If you end up having to drain right pleural effusion during hospital stay would recommend sending for diagnostic studies including cytology in addition to usual studies; if do not have to consider drainage during the hospital stay will need eventual evaluation of fluid should it remain Status: Acute (3) Esophageal adenocarcinoma: Currently on nivolumab started in January 2021, follows with Dr. Sorto, pathological stage yT3N2, at surgery 4 of 8 lymph nodes were positive. Presently nivolumab is held as per discussion with Dr. Sorto, patient and his were updated on this plan Status: Chronic (4) Chronic anticoagulation: Chronically on Eliquis for history of DVT that was identified in either late 2019 or early 2020, involving the left distal femoral vein becoming nearly occlusive to occlusive in the left popliteal vein down to the left tibial peroneal trunk on venous ultrasound in September 2020 Continue usual Eliquis dosing per J-tube (5) Tracheostomy in place: Routine tracheostomy care Status: Chronic (6) Jejunostomy tube in situ: Jejunostomy tube care Status: Chronic (7) CAD (coronary artery disease): Denies any chest pain, had stress testing back in November 2020. Has a history of associated CHF but ejection fraction unknown. In the setting of pleural effusions, will check echocardiogram to evaluate EF at this time Status: Chronic Qualifiers: Coronary Disease-Associated Artery/Lesion type: bypass graft Ruby vs. transplanted heart: nikolski heart Associated angina: without angina Qualified Code(s): I25.810 - Atherosclerosis of coronary artery bypass graft(s) without angina pectoris (8) Hyperlipidemia: Chronically on statin therapy Continue usual statin if CK is not significantly elevated Status: Chronic (9) Hypothyroid: Chronically on levothyroxine Continue levothyroxine Status: Chronic Qualifiers: Hypothyroidism type: acquired Qualified Code(s): E03.9 - Hypothyroidis m, unspecified (10) Anxiety: Reports rare usage of as needed Ativan and pain medication only a few times a week Will continue as needed benzodiazepines and oxycodone for symptom control Status: Chronic Plan Inpatient admission Continue broad-spectrum antibiotics currently given comorbid conditions and immunocompromise When patient in a more comfortable bed and respiratory status was stabilized need to evaluate sacral area as patient does complain of sores present on admission unable to fully assess at this time Chronic Eliquis on board due to known history of DVT Protonix for GI prophylaxis Continue home medications as described Supportive care otherwise Currently anticipate discharge home, possibly with oxygen therapy, however it will ultimately depend on clinical course Findings, concerns and plans, including covid specific treatments were discussed with the patient and his given an they were given opportunity to ask questions Full code currently as per discussion with patient in the presence of his by phone. He stated that he would only want to be on ventilator if he was sedated and only short-term and that he would want chest compressions and other aggressive life-saving measures at least initially. I did review with patient and his that with known comorbid conditions at risk of progressively worsening COVID symptoms that might necessitate more aggressive care to keep Mr. Sheikh alive in the coming days. Attestations Medical Necessity Statement*: Anticipate stay greater than 2 midnights in patient with covid, requiring oxygen and other care as noted above. At high risk of rapid clinical decline given right effusion, tracheostomy, history of cancer on immunotherapy along with abnormalities noted thus far on inflammatory markers. Coding Level of Care Code Acute Title Officer for Chg Fwd Diagnoses Pneumonia due to COVID-19 virus U07.1; J12.82 Pleural effusion, right J90 Esophageal adenocarcinoma C15.9 Chronic anticoagulation Z79.01 Hyperlipidemia E78.5 Hypothyroid E03.9 Hypothyroidism type: acquired Tracheostomy in place Z93.0 Jejunostomy tube in situ Z93.4 CAD (coronary artery disease) I25.810 Coronary Disease-Associated Artery/Lesion type: bypass graft Ruby vs. transplanted heart: nikolski heart Associated angina: without angina Anxiety F41.9
[2021-04-22] MEDS: levofloxacin-dextrose 5 % 750 MG/150 ML PREMIX 100 MG IV (13:59)
[2021-04-22 14:06] LABS: Adenovirus Not Detected (NOT DETECT); Chlamydia Pneumoniae Not Detected (NOT DETECT); Coronavirus 229E,HKU1,NL63,OC4 Not Detected (NOT DETECT); Human Metapneumovirus Not Detected (NOT DETECT); Human Rhinovirus/Enterovirus Not Detected (NOT DETECT); Influenza A Not Detected (NOT DETECT); Influenza A H1 Not Detected (NOT DETECT); Influenza A H1-2009 Not Detected (NOT DETECT); Influenza A H3 Not Detected (NOT DETECT); Influenza B Not Detected (NOT DETECT); Mycoplasma Pneumoniae Not Detected (NOT DETECT); Parainfluenza Virus Type 1 Not Detected (NOT DETECT); Parainfluenza Virus Type 2 Not Detected (NOT DETECT); Parainfluenza Virus Type 3 Not Detected (NOT DETECT); Parainfluenza Virus Type 4 Not Detected (NOT DETECT); Respiratory Syncytial Virus A Not Detected (NOT DETECT); Respiratory Syncytial Virus B Not Detected (NOT DETECT); SARS-COV-2 Detected (NOT DETECT)
[2021-04-22] MEDS: FUROsemide 10 mg/mL SDV 2mL 20 MG IVP (17:01)
[2021-04-22] MEDS: remdesivir 200 MG in sodium chloride 0.9% (100 ml) 100 ML 100 MG IV (17:03)
[2021-04-22] MEDS: vancomycin 1,000 MG in sodium chloride 0.9% 250 ML 250 MG IV (18:09)
--- NOTE | 2021-04-22 19:25 | PC.NURSE ---
REceived patient form ER staff at approximately 1630. Vitals within normal limits. Breathing was initially labored while transferring beds, but quickly recovered. Receiving 35% O2 via blow by mask over trach. Started medications as ordered. Transfer to ICU was uneventful.
[2021-04-22] MEDS: atorvastatin 40 mg Tablet 20 MG PO (20:08)
[2021-04-22] MEDS: apixaban 5 mg Tablet 2.5 MG PO (20:09)
[2021-04-22] MEDS: docusate sodium 10 mg/mL (5ml) Liq 100 MG PO (20:09)
[2021-04-23] VITALS (184 sets, daily range): BP systolic 92–137; BP diastolic 59–107; PULSE 69–113; RESP 14–45; TEMP 35.8–37.2; O2SAT 65–100
[2021-04-23] MEDS: oxyCODONE 5 mg IR Tab/Cap PO ×2 (01:53→23:12)
[2021-04-23] MEDS: piperacillin-tazobactam 3.375 GM in sodium chloride 0.9% (plus) 50 ML IV ×3 (02:00→17:45)
[2021-04-23 04:40] LABS: Hematocrit 32.2 % (42.0-52.0); Hemoglobin 10.3 g/dL (11.7-16.6); Lymphocytes # 0.1 10^3/uL (0.8-4.8); Mean Corpuscular Hemoglobin 30.5 pg (28.0-34.0); Mean Corpuscular Volume 95.3 fl (80-94); Monocytes # 0.2 10^3/uL (0.2-0.9); Monocytes % 4.6 %; Neutrophils % 92.5 %; Nucleated Red Blood Cells % 0 %; Platelet Count 192 10^3/cmm (130-400); Red Blood Count 3.38 10^6/uL (4.1-5.3); Red Cell Distribution Width 14.9 % (12.1-15.1); White Blood Count 4.5 10^3/uL (4.0-10.0)
[2021-04-23 05:07] LABS: Alanine Aminotransferase 36 U/L (0-41); Albumin Level 3.1 g/dL (3.5-5.2); Alkaline Phosphatase 137 IU/L (40-130); Anion Gap 17.5 (5-19); Aspartate Amino Transferase 39 U/L (0-40); Blood Urea Nitrogen 38 mg/dL (8-23); Calcium 8.8 mg/dL (8.5-10.5); Carbon Dioxide 22 mmol/L (22-29); Chloride 100 mmol/L (98-107); Globulin 3.6 g/dL (1.3-4.6); Glucose 156 mg/dL (65-115); Magnesium 1.9 mg/dL (1.7-2.3); Osmolality Calculated 294 mOsm/kg (285-295); Potassium 3.5 mmol/L (3.5-5.1); Sodium 136 mmol/L (136-145); Total Bilirubin 0.3 mg/dL (0.15-1.2); Total Protein 6.7 g/dL (6.6-8.7)
[2021-04-23] MEDS: levothyroxine 175 mcg Tablet PO (05:43)
[2021-04-23] MEDS: vancomycin 1,000 MG in sodium chloride 0.9% 250 ML 250 MG IV ×2 (05:43→18:14)
--- NOTE | 2021-04-23 06:00 | XRR_ITS ---
PROCEDURE INFORMATION: Exam: XR Chest Exam date and time: 04/23/2021 6:00 AM Age: 75 years old Clinical indication: Condition or disease; Lung condition and disease; Pleural effusion; Other: Covid, ; additional info: Covid, right pleaural effuiosn TECHNIQUE: Imaging protocol: XR of the chest. Views: 1 view. COMPARISON: CR XR chest 1V portable [id number] 04/22/2021 11:15 AM FINDINGS: Tubes, catheters and devices: Stable right Mediport catheter. Lungs: Stable moderate right basilar atelectasis and/or infiltrate and/or effusion. Stable mild to moderate left basilar atelectasis and/or pneumonia. Pleural spaces: Unremarkable. No pleural effusion. No pneumothorax. Heart/Mediastinum: Unremarkable. No cardiomegaly. Bones/joints: Stable sternotomy. XR/XR chest 1V portable [id number] IMPRESSION: 1. Stable right Mediport catheter. 2. Stable moderate right basilar atelectasis and/or infiltrate and/or effusion. 3. Stable mild to moderate left basilar atelectasis and/or pneumonia.
--- NOTE | 2021-04-23 09:08 | PC.NUTR ---
Consult received for TF recommendations. According to gastric tube assessment Pt. is on Jevity 1.2 @ 80 mls/hr and is tolerating well. Recommend continuing with goal rate of 80 mls/hr as this is close to 100% of Pt's estimated needs as well as adding flushes of 120 mls Q4H or per MD discretion. Details in RD assessment.
[2021-04-23] MEDS: docusate sodium 10 mg/mL (5ml) Liq 100 MG PO ×2 (09:57→21:15)
[2021-04-23] MEDS: apixaban 5 mg Tablet 2.5 MG PO ×2 (09:57→21:12)
[2021-04-23] MEDS: pantoprazole DR 40 mg Tablet PO (09:57)
[2021-04-23 11:23] LABS: ABG PCO2 30.4 mmHg (35-45); ABG PH Result 7.51 (7.35-7.45); Alveolar-Arterial Oxygen Gradi 18.8 mmHg (5-10); Arterial Blood Gas Hematocrit 38.4 % (42-52); Base Excess ABG 1.6 mmol/L (-2.0-2.0); Blood Gas Allen Test Pos; Blood Gas Operator Identificat BD; Blood Gas Sample Site Brachial, left; Blood Gas Sample Type Arterial; Carboxyhemoglobin 0.8 %THgb (0.4-20.1); HGB O2 Sat 92.7 % (95-100); Ionized Calcium Level - ABG 1.2 mmol/L (1.1-1.4); Methemoglobin 0.7 % (0.4-1.5); Oxygen Device HAG; Oxygen Saturation ABG 94.1; PO2 ABG 66.7 mmHg (80.0-100.0); Potassium Level - ABG 3.8 mmol/L (3.5-5.0); Total Hemoglobin 12.5 g/dL (14-18)
--- NOTE | 2021-04-23 12:41 | PM.PN ---
Subjective Subjective: Patient was seen and examined this morning, he is on 35% oxygen, 15 L, no overnight events, he is endorsing feeling better, He is full code No leukocytosis Plan to give him 5 days of remdesivir and then reevaluate if he can be discharged home Vitals/I&O/Wt Last Vital Signs Temp 96.8 F L 04/23/21 08:35 Pulse 81 04/23/21 10:55 Resp 25 H 04/23/21 10:55 BP 118/79 04/23/21 10:55 Pulse Ox 85 L 04/23/21 10:50 04/22/21 04/23/21 04/23/21 22:59 06:59 14:59 Intake Total 680 / 680 770 / 1450 933 / 933 Output Total 1720 / 1720 480 / 2200 200 / 200 Balance -1040 / -1040 290 / -750 733 / 733 Weight last 48 hrs Weight 68.492 kg Weight 68.946 kg Physical Exam Narrative: Patient was sitting in a recliner Saturating well on 35% 50 L ABG PO2 66 J-tube in place with mild drainage around insertion site Feeds running at 80 mL/h No active focal deficit No active labored breathing Trach collar attached to the oxygen 35% 50 L Humidified, Nonfocal neuro exam Patient does communicate via writing on the board Clinically looks slightly dehydrated Data : 04/23/21 03:56 04/23/21 03:56 Micro: Microbiology 04/22/21 11:08 Blood Culture - Preliminary Blood NEGATIVE TO DATE 04/22/21 11:00 Blood Culture - Preliminary Blood NEGATIVE TO DATE A&P Assessment and plan (1) Esophageal adenocarcinoma: Status: Chronic (2) Pneumonia due to COVID-19 virus: Status: Acute (3) Pleural effusion, right: Status: Acute (4) Chronic anticoagulation: Status: Acute (5) History of deep vein thrombosis: Status: Acute (6) Acute respiratory failure with hypoxia: Status: Acute (7) Tracheostomy in place: Status: Chronic (8) Status post laryngectomy: Status: Acute (9) Jejunostomy tube in situ: Status: Chronic (10) PEG tube malfunction: Status: Acute (11) Immunotherapy: Status: Chronic Plan COVID-19 related acute hypoxia Currently on 35% of a 15 L No acute worsening I am planning to finish 5 days of remdesivir and then reevaluate if patient can be discharged home on oxygen Continue Decadron Not a candidate of Actemra or baricitinib because of immunocompromise state Patient is full code this was fully discussed when I evaluated him today as well Continue anticoagulating agent No electrolyte imbalance ABG requested this morning which showed PO2 66.7 Sats do not correlate with the ABG Continue tube feeds currently running at 80 mils per hour, needs dressing change around the J-tube Continue levothyroxine for his hypothyroidism Currently on oxycodone for pain management Planning to discontinue Zosyn in next 48 hours if he remains afebrile he is high risk for superimposed bacterial infection, plan to discontinue vancomycin after negative MRSA PCR, Previous sputum culture showed Pseudomonas from 01/06/2021 Attestations Medical Necessity Statement*: Continue hospital management Time Spent in Patient Care: 30mins Coding Level of Care Code Acute [employer] for g Fwd Diagnoses Esophageal adenocarcinoma C15.9 Pneumonia due to COVID-19 virus U07.1; J12.82 Pleural effusion, right J90 Chronic anticoagulation Z79.01 History of deep vein thrombosis Z86.718 Acute respiratory failure with hypoxia J96.[address] Z93.0 Status post laryngectomy Z90.02 Jejunostomy tube in situ Z93.4 PEG tube malfunction K94.23 Immunotherapy Z29.8
[2021-04-23] MEDS: dexamethasone 4 mg/mL INJ 6 MG IVP (15:48)
[2021-04-23] MEDS: remdesivir 100 MG in sodium chloride 0.9% (100 ml) 80 ML IV (17:45)
--- NOTE | 2021-04-23 18:11 | PC.NURSE ---
Shift summary: Uneventful shift patient was up to a chair throughout entire 12 hour shift. Oxygen saturations remained in the mid 90's on 35% fio2 via trach collar. patient had 1 bowel movement today, and 400mL of urine output. Patient transfers from bed to chair easily.
[2021-04-23] MEDS: atorvastatin 40 mg Tablet 20 MG PO (21:12)
[2021-04-24] VITALS (57 sets, daily range): BP systolic 97–130; BP diastolic 59–84; PULSE 67–95; RESP 12–33; TEMP 36.1–37.1; O2SAT 89–97
[2021-04-24] MEDS: piperacillin-tazobactam 3.375 GM in sodium chloride 0.9% (plus) 50 ML IV ×3 (01:53→18:47)
[2021-04-24] MEDS: oxyCODONE 5 mg IR Tab/Cap PO ×3 (03:18→20:25)
[2021-04-24 04:35] LABS: Hematocrit 34.9 % (42.0-52.0); Hemoglobin 11.1 g/dL (11.7-16.6); Lymphocytes # 0.2 10^3/uL (0.8-4.8); Lymphocytes % 1.3 %; Mean Corpuscular HGB Conc 31.8 g/dL (30.0-36.0); Mean Corpuscular Hemoglobin 30.1 pg (28.0-34.0); Mean Corpuscular Volume 94.6 fl (80-94); Monocytes # 0.5 10^3/uL (0.2-0.9); Monocytes % 4.2 %; Neutrophils # 11.09 10^3/uL (1.8-7.7); Nucleated Red Blood Cells % 0 %; Platelet Count 223 10^3/cmm (130-400); Red Blood Count 3.69 10^6/uL (4.1-5.3); Red Cell Distribution Width 14.6 % (12.1-15.1); White Blood Count 11.8 10^3/uL (4.0-10.0)
[2021-04-24 04:49] LABS: Alanine Aminotransferase 33 U/L (0-41); Albumin Level 3.1 g/dL (3.5-5.2); Alkaline Phosphatase 137 IU/L (40-130); Anion Gap 19.2 (5-19); Aspartate Amino Transferase 31 U/L (0-40); Blood Urea Nitrogen 39 mg/dL (8-23); Calcium 9.1 mg/dL (8.5-10.5); Carbon Dioxide 21 mmol/L (22-29); Chloride 98 mmol/L (98-107); Globulin 3.6 g/dL (1.3-4.6); Glucose 171 mg/dL (65-115); Osmolality Calculated 291 mOsm/kg (285-295); Potassium 4.2 mmol/L (3.5-5.1); Sodium 134 mmol/L (136-145); Total Bilirubin 0.2 mg/dL (0.15-1.2); Total Protein 6.7 g/dL (6.6-8.7)
[2021-04-24 04:50] LABS: Vancomycin Trough 19.6 ug/mL (10-15)
[2021-04-24] MEDS: vancomycin 1,000 MG in sodium chloride 0.9% 250 ML 250 MG IV (05:43)
[2021-04-24] MEDS: levothyroxine 175 mcg Tablet PO (05:43)
[2021-04-24] MEDS: apixaban 5 mg Tablet 2.5 MG PO ×2 (08:33→20:26)
[2021-04-24] MEDS: pantoprazole DR 40 mg Tablet PO (08:34)
[2021-04-24] MEDS: docusate sodium 10 mg/mL (5ml) Liq 100 MG PO ×2 (08:44→20:27)
--- NOTE | 2021-04-24 09:57 | P.PN_ITS ---
Subjective Subjective: No overnight events patient was in no overnight events, this morning he was asked me to drain water from theOxygen tube, I asked RT to assist me Currently on 15 L 35% No severe leukocytosis Vitals/I&O/Wt Last Vital Signs Temp 98.3 F 04/23/21 23:07 Pulse 88 04/24/21 07:44 Resp 19 H 04/24/21 08:29 BP 112/78 04/24/21 06:15 Pulse Ox 90 04/24/21 08:29 04/23/21 04/24/21 04/24/21 22:59 06:59 14:59 Intake Total 920 / 2553 830 / 3383 Output Total 500 / 700 300 / 1000 Balance 420 / 1853 530 / 2383 Weight last 48 hrs Weight 68.629 kg Weight 68.492 kg Weight 68.946 kg Physical Exam Narrative: Patient was sitting patient was sitting comfortably in his bed Nonfocal neuro exam 15 L 35% oxygen Saturating well No audible stridor, chest does sound congested No signs of edema of legs Dressing is soaked with the feeds around J-tube No active chest pain S1, S2 Data : 04/24/21 04:18 04/24/21 04:18 Micro: Microbiology 04/22/21 11:08 Blood Culture - Preliminary Blood NEGATIVE TO DATE 04/22/21 11:00 Blood Culture - Preliminary Blood NEGATIVE TO DATE A&P Assessment and plan (1) Hyperlipidemia: Status: Chronic (2) Essential hypertension: Status: Chronic (3) Esophageal adenocarcinoma: Status: Chronic (4) Hypothyroid: Status: Chronic Qualifiers: Hypothyroidism type: acquired Qualified Code(s): E03.9 - Hypothyroidism, unspecified (5) History of deep vein thrombosis: Status: Acute (6) COVID-19: Status: Acute (7) Immunotherapy: Status: Chronic (8) PEG tube malfunction: Status: Acute Plan Today I am not going to change any of his antimicrobials Continue remdesivir and steroids Continue empirical coverage of antibiotics secondary to his immunocompromise state COVID-19 related hypoxia: Currently doing well on 15 L 35% FiO2 Full code J-tube running at 80 mL/h If he stays stable in next 24 hours I might be able to transfer him out to [facility] dvT continue Eliquis Plan to de-escalate antibiotics in next 24 hours if he stays clinically stable Attestations Medical Necessity Statement*: Continue hospitalization Time Spent in Patient Care: 15mins Coding Level of Care Code Acute Senior Maintenance Technician for Chg Fwd Diagnoses Hyperlipidemia E78.5 Essential hypertension I10 Esophageal adenocarcinoma C15.9 Hypothyroid E03.9 Hypothyroidism type: acquired History of deep vein thrombosis Z86.718 COVID-19 U07.1 Immunotherapy Z29.8 PEG tube malfunction K94.23
--- NOTE | 2021-04-24 10:43 | PC.CHAP ---
Pastoral Care Encounter/Spiritual Assessment Type of Contact [] Declined security solutions architect visit [] Patient/Family/Request visit [] Outpatient visit [] Follow-up visit [] Physician referral [] Code/Alert [x] Routine visit [] Staff referral [] Actively dying [] Patient sleeping [] Family support [] [] Out of room [] Palliative care [] [] Receiving care in room [] Pre-surgical visit [] Trauma [] Long length of stay [x] ICU visit [x] Other: setting in chair... isolated Relational/Emotional Strength [] Patient feels connected with others/family/visitors/staff [] Distress [] Loneliness/isolation [] Abandonment Spirituality of Patient [] Person of Ana Luisa [] Attends Gnosticist of their Ana Luisa [] Believes in Prayer [] Reads Bible or Amish materials [] There are Spiritual issues to be addressed Car Sales Consultant Interventions [x] Prayer [] Active listening [] Non-anxious presence [] Spiritual/emotional support [] Crisis/trauma care [] Spiritual counseling [] Bereavement support [] Provided bereavement packet [] Provided Bible/devotional materials [] Provided toy/stuffed animal, coloring book to patient or family member [] Provided Communion [] Anointing/[place] [] Salvation [x] Completed spiritual assessment [] Other: Impact on Illness or Injury [] Angry [] Fearful [] Anxious [] Often cries [] Exhaustion [] Unable to work [] Unable to attend scientology [] Unable to walk/stand [] Unable to read [] Unable to drive [] Unable to eat/drink [] Unable to sleep [] Unable to be with family [] Patient intubated [] Other: Summary Time spent with patient
[2021-04-24] MEDS: dexamethasone 4 mg/mL INJ 6 MG IVP (15:20)
[2021-04-24] MEDS: remdesivir 100 MG in sodium chloride 0.9% (100 ml) 80 ML IV (17:42)
--- NOTE | 2021-04-24 18:42 | PC.NURSE ---
Shift Note:Pt out of bed to chair before 0800 and he has sat in that chair all day. He had a headache this am, received Oxy IR (see APR) and has denied needing any further pain meds today. Tube feeding stopped before 1000. Pt able to swallow very small pills. He remains on trach collar at 35%. He requested cleaning of his trach once today, it was done. He has a yankuer to suction within reach to use. He uses the urinal, 125-150ml at a time. He has adequate output see I &Os. Paper and pen at bedside so he cn communicate his needs. Frequent safety and comfort rounds continue. Orders and/or nursing care completed as indicated. Patient monitored for response to intervention and treatment(s). Education provided includes Remdesivir, Zosyn and protonix. Patient nodded his head to understadning of medications and plan of care. Will continue to monitor.
--- NOTE | 2021-04-24 19:39 | PC.NURSE ---
Pt reports that he has a pressure ulcer on his buttocks, but not observed by nursing at this time. Trach is uncuffed. No dressing in place. Small area of scabbing present at trach site.
[2021-04-24] MEDS: atorvastatin 40 mg Tablet 20 MG PO (20:26)
[2021-04-24] MEDS: vancomycin 750 MG in sodium chloride 0.9% 250 ML 250 MG IV (20:27)
--- NOTE | 2021-04-24 22:33 | PC.NURSE ---
Pt reports that he has had wounds on his buttocks for a long time. Optifoam not available. Pt wished to have something padded placed over wound. Dressing in place with paper tape.
[2021-04-25] VITALS (28 sets, daily range): BP systolic 102–149; BP diastolic 69–99; PULSE 68–108; RESP 6–35; TEMP 36.1–36.7; O2SAT 87–96
[2021-04-25] MEDS: piperacillin-tazobactam 3.375 GM in sodium chloride 0.9% (plus) 50 ML IV ×3 (02:06→18:22)
[2021-04-25] MEDS: oxyCODONE 5 mg IR Tab/Cap PO ×2 (02:14→20:34)
[2021-04-25] MEDS: levothyroxine 175 mcg Tablet PO (05:28)
[2021-04-25 05:31] LABS: Basophils % 0.1 %; Hematocrit 34.1 % (42.0-52.0); Hemoglobin 10.6 g/dL (11.7-16.6); Lymphocytes # 0.1 10^3/uL (0.8-4.8); Mean Corpuscular HGB Conc 31.1 g/dL (30.0-36.0); Mean Corpuscular Hemoglobin 29.6 pg (28.0-34.0); Mean Corpuscular Volume 95.3 fl (80-94); Mean Platelet Volume 9.8 fL (7.4-10.4); Monocytes # 0.5 10^3/uL (0.2-0.9); Monocytes % 4.1 %; Neutrophils # 10.27 10^3/uL (1.8-7.7); Neutrophils % 94.2 %; Nucleated Red Blood Cells % 0 %; Platelet Count 239 10^3/cmm (130-400); Red Blood Count 3.58 10^6/uL (4.1-5.3); Red Cell Distribution Width 14.6 % (12.1-15.1); White Blood Count 10.9 10^3/uL (4.0-10.0)
[2021-04-25 05:51] LABS: Anion Gap 17.2 (5-19); Blood Urea Nitrogen 36 mg/dL (8-23); Calcium 8.8 mg/dL (8.5-10.5); Carbon Dioxide 22 mmol/L (22-29); Chloride 97 mmol/L (98-107); Glucose 154 mg/dL (65-115); Osmolality Calculated 285 mOsm/kg (285-295); Potassium 4.2 mmol/L (3.5-5.1); Sodium 132 mmol/L (136-145)
[2021-04-25 05:55] LABS: ABG PCO2 31.5 mmHg (35-45); ABG PH Result 7.49 (7.35-7.45); Arterial Blood Gas Hematocrit 34.6 % (42-52); Base Excess ABG 1.2 mmol/L (-2.0-2.0); Blood Gas Allen Test Pos; Blood Gas Sample Site Radial, left; Blood Gas Sample Type Arterial; Oxygen Device CAG; PO2 ABG 65.1 mmHg (80.0-100.0)
[2021-04-25 08:10] LABS: Glucose Point of Care 125 mg/dL (70-110)
[2021-04-25] MEDS: apixaban 5 mg Tablet 2.5 MG PO ×2 (08:31→20:35)
[2021-04-25] MEDS: pantoprazole DR 40 mg Tablet PO (08:32)
[2021-04-25] MEDS: vancomycin 750 MG in sodium chloride 0.9% 250 ML 250 MG IV (08:35)
[2021-04-25] MEDS: docusate sodium 10 mg/mL (5ml) Liq 100 MG PO (08:36)
--- NOTE | 2021-04-25 09:30 | PC.SOCIAL ---
IMM Update pg 2 of IMM updated and reviewed w/ patient. Copy provided and copy placed in chart.
--- NOTE | 2021-04-25 16:13 | PM.PN ---
Subjective Subjective: Patient was not endorsing any events overnight He is doing well on 9 L 35% high flow trach collar cap I will discontinue Vanco and Zosyn, MRSA PCR negative, de-escalate to Levaquin. Sputum culture positive for Pseudomonas Afebrile Patient to finish 5 days of remdesivir and then plan to discharge home with oxygen updated Vitals/I&O/Wt Last Vital Signs Temp 97.0 F L 04/25/21 07:00 Pulse 84 04/25/21 14:00 Resp 35 H 04/25/21 14:00 BP 123/78 04/25/21 14:00 Pulse Ox 88 L 04/25/21 14:00 04/25/21 04/25/21 04/25/21 06:59 14:59 22:59 Intake Total 1380 / 2740 780 / 780 Output Total 320 / 1295 575 / 575 Balance 1060 / 1445 205 / 205 Weight last 48 hrs Weight 68.629 kg Physical Exam Narrative: Patient was sitting comfortably in his bed Saturating well on 9 L 35% oxygen Abdomen soft J-tube in place dressing has been changed None tender abdomen Bilateral breath sounds with rhonchi Nonfocal neuro exam Trach collar with high flow No signs of edema of legs Looks euvolemic Appropriate mood and affect Data : 04/25/21 04:05 04/25/21 04:05 Micro: Microbiology 04/23/21 16:00 MRSA Culture - Final Nose A&P Assessment and plan (1) CHF (congestive heart failure): Status: Chronic Qualifiers: Heart failure type: unspecified Heart failure chronicity: chronic Qualified Code(s): I50.9 - Heart failure, unspecified (2) Essential hypertension: Status: Chronic (3) Hypothyroid: Status: Chronic Qualifiers: Hypothyroidism type: acquired Qualified Code(s): E03.9 - Hypothyroidism, unspecified (4) GERD (gastroesophageal reflux disease): Status: Chronic (5) Esophageal adenocarcinoma: Status: Chronic (6) Pleural effusion, right: Status: Acute (7) Pneumonia due to COVID-19 virus: Status: Acute (8) Immunotherapy: Status: Chronic (9) COVID-19: Status: Acute (10) Chronic anticoagulation: Status: Acute (11) History of deep vein thrombosis: Status: Acute (12) Acute respiratory failure with hypoxia: Status: Acute (13) Jejunostomy tube in situ: Status: Chronic (14) Status post laryngectomy: Status: Acute (15) Tracheostomy in place: Status: Chronic Plan Hypoxia related to COVID-19 FiO2 weaned down to 9 L, 35% Afebrile To finish 5 days of remdesivir and then plan disposition home after home O2 eval Finished 10 days of Decadron Concern for superimposed bacterial infection, MRSA PCR negative, discontinue vancomycin Previous history of positive Pseudomonas in sputum, de-escalate Zosyn to Levaquin No fever episodes noted History of DVT: Continue Eliquis J-tube in place Jevity feeds running at 80 mL/h Full code after home O2 eval will discharge over the weekend History of coronary disease no active chest pain Trach collar, routine trach collar care RT on board Attestations Medical Necessity Statement*: trabsfer to [facility] Time Spent in Patient Care: 20mins Coding Level of Care Code Acute Gear Hobber Set Up Operator for Chg Fwd Diagnoses CHF (congestive heart failure) I50.9 Heart failure type: unspecified Heart failure chronicity: chronic Essential hypertension I10 Hypothyroid E03.9 Hypothyroidism type: acquired GERD (gastroesophageal reflux disease) K21.9 Esophageal adenocarcinoma C15.9 Pleural effusion, right J90 Pneumonia due to COVID-19 virus U07.1; J12.82 Immunotherapy Z29.8 COVID-19 U07.1 Chronic anticoagulation Z79.01 History of deep vein thrombosis Z86.718 Acute respiratory failure with hypoxia J96.01 Jejunostomy tube in situ Z93.4 Status post laryngectomy Z90.[address] Z93.0
[2021-04-25] MEDS: dexamethasone 4 mg/mL INJ 6 MG IVP (17:00)
[2021-04-25] MEDS: remdesivir 100 MG in sodium chloride 0.9% (100 ml) 80 ML IV (17:22)
--- NOTE | 2021-04-25 17:40 | PC.NURSE ---
Report called to SHIMA Bee on [facility]. Patient to be transferred to room 106. Patient verbalized understanding.
--- NOTE | 2021-04-25 19:46 | PC.NURSE ---
Received patient from ICU via bed. Patient c/o pain to back of head and neck 10/02 requesting an oxycodone with night time medications. Informed RT patient also requesting suctioning for trach. HAG collar in place with 10L O2 presently with SpO2 85-89%. Instructed patient regarding new room. Patient expressed understanding. Patient keeps writing tablet at bedside for communication. Patient denies other needs presently. No distress observed. Will continue to monitor.
[2021-04-25] MEDS: atorvastatin 40 mg Tablet 20 MG PO (20:35)
[2021-04-25] MEDS: acetylcysteine 200 mg/mL SDV 4 mL 100 MG INHALATION ×2 (20:35→23:15)
[2021-04-26] VITALS (19 sets, daily range): BP systolic 95–136; BP diastolic 68–88; PULSE 82–115; RESP 18–39; TEMP 36.5–36.6; O2SAT 87–96
[2021-04-26] MEDS: acetylcysteine 200 mg/mL SDV 4 mL 100 MG INHALATION ×5 (03:16→20:09)
[2021-04-26] MEDS: ipratropium-albuterol 3 mL Neb INHALATION ×5 (03:16→20:10)
[2021-04-26 04:47] LABS: Basophils % 0.1 %; Hematocrit 36.7 % (42.0-52.0); Hemoglobin 11.7 g/dL (11.7-16.6); Lymphocytes # 0.1 10^3/uL (0.8-4.8); Lymphocytes % 1.2 %; Mean Corpuscular HGB Conc 31.9 g/dL (30.0-36.0); Mean Corpuscular Hemoglobin 30.3 pg (28.0-34.0); Mean Corpuscular Volume 95.1 fl (80-94); Mean Platelet Volume 9.6 fL (7.4-10.4); Monocytes # 0.3 10^3/uL (0.2-0.9); Monocytes % 3.8 %; Neutrophils # 8.33 10^3/uL (1.8-7.7); Neutrophils % 94.3 %; Nucleated Red Blood Cells % 0 %; Platelet Count 238 10^3/cmm (130-400); Red Blood Count 3.86 10^6/uL (4.1-5.3); Red Cell Distribution Width 14.6 % (12.1-15.1); White Blood Count 8.8 10^3/uL (4.0-10.0)
[2021-04-26] MEDS: levoFLOXacin 750 mg Tablet PO (05:15)
[2021-04-26] MEDS: levothyroxine 175 mcg Tablet PO (05:15)
[2021-04-26 05:20] LABS: Anion Gap 17.9 (5-19); Blood Urea Nitrogen 35 mg/dL (8-23); C Reactive Protein 69.9 mg/L (0.0-4.9); Carbon Dioxide 21 mmol/L (22-29); Chloride 100 mmol/L (98-107); Glucose 167 mg/dL (65-115); Osmolality Calculated 292 mOsm/kg (285-295); Potassium 3.9 mmol/L (3.5-5.1); Sodium 135 mmol/L (136-145)
--- NOTE | 2021-04-26 06:09 | PC.NURSE ---
Shift Note Frequent safety and comfort rounds continue. Orders and/or nursing care completed as indicated. Patient monitored for response to intervention and treatment(s). Education provided includes oxycodone and levaquin. Patient verbalized understanding. Patient denies other needs presently. No distress observed. Will continue to monitor.
[2021-04-26] MEDS: apixaban 5 mg Tablet 2.5 MG PO ×2 (07:46→20:04)
[2021-04-26] MEDS: pantoprazole DR 40 mg Tablet PO (07:47)
[2021-04-26] MEDS: zinc oxide oint 30 gm 1 APPLIC TOPICAL (10:57)
[2021-04-26] MEDS: FUROsemide 10 mg/mL SDV 4mL 40 MG IVP (10:57)
--- NOTE | 2021-04-26 12:37 | PM.PN ---
Subjective Subjective: Patient was seen this morning, trach collar on 10 L, he tells me he does not use oxygen at home, he continues to feel short of breath, normally walks and ambulates at home, he tells he did get up to the side of the bed to the commode, he felt weak Vitals/I&O/Wt Last Vital Signs Temp 97.9 F 04/26/21 08:28 Pulse 115 H 04/26/21 12:08 Resp 39 H 04/26/21 12:08 BP 117/74 04/26/21 12:08 Pulse Ox 87 L 04/26/21 12:08 04/25/21 04/26/21 04/26/21 22:59 06:59 14:59 Intake Total 271.667 / 6927.067 7772 / 2092.667 Output Total 700 / 1275 600 / 1875 Balance -428.333 / -223.333 441 / 217.667 Weight last 48 hrs Weight 68.583 kg Physical Exam Const: COMMON NORMALS: no acute distress and patient oriented x3 Resp: COMMON NORMALS: normal respiratory effort, No retractions and No use of accessory muscles AUSCULTATION: diminished lung sounds diffuse Cardio: COMMON NORMALS: regular rate, regular rhythm, S1 normal heart sound present and S2 normal heart sound present RATE: regular rate RHYTHM: regular rhythm HEART SOUNDS: S1 normal heart sound present and S2 normal heart sound present GI: COMMON NORMALS: Normal to inspection, nondistended, normoactive bowel sounds present, Soft to palpation, non-tender and No hepatosplenomegaly present PALPATION: Yes Soft to palpation and Yes No hepatosplenomegaly present Extremity: COMMON NORMALS: no pedal edema Neuro: COMMON NORMALS: patient oriented x3 Data : 04/26/21 04:36 04/26/21 04:36 A&P Assessment and plan (1) CHF (congestive heart failure): Status: Chronic Qualifiers: Heart failure type: unspecified Heart failure chronicity: chronic Qualified Code(s): I50.9 - Heart failure, unspecified (2) Essential hypertension: Status: Chronic (3) Hypothyroid: Status: Chronic Qualifiers: Hypothyroidism type: acquired Qualified Code(s): E03.9 - Hypothyroidism, unspecified (4) GERD (gastroesophageal reflux disease): Status: Chronic (5) Esophageal adenocarcinoma: Status: Chronic (6) Pleural effusion, right: Status: Acute (7) Pneumonia due to COVID-19 virus: Status: Acute (8) Immunotherapy: Status: Chronic (9) COVID-19: Status: Acute (10) Chronic anticoagulation: Status: Acute (11) History of deep vein thrombosis: Status: Acute (12) Acute respiratory failure with hypoxia: Status: Acute (13) Jejunostomy tube in situ: Status: Chronic (14) Status post laryngectomy: Status: Acute (15) Tracheostomy in place: Status: Chronic Plan Hypoxia related to COVID-19 FiO2 weaned down to 10 L, 35% FiO2 Afebrile To finish 5 days of remdesivir As he continues to feel short of breath, immunocompromise state given underlying malignancy, start baricitinib, will consider Actemra Finished 10 days of Decadron Concern for superimposed bacterial infection, MRSA PCR negative, discontinue vancomycin Previous history of positive Pseudomonas in sputum, de-escalate Zosyn to Levaquin No fever episodes noted History of DVT: Continue Eliquis J-tube in place Jevity feeds running at 80 mL/h Full code after home O2 eval will discharge over the weekend History of coronary disease no active chest pain Trach collar, routine trach collar care RT on board Attestations Medical Necessity Statement*: Patient requires hospitalization for acute respiratory failure secondary COVID-19 pneumonia Coding Level of Care Code Acute Sales Development Associate for g Fwd Diagnoses CHF (congestive heart failure) I50.9 Heart failure type: unspecified Heart failure chronicity: chronic Essential hypertension I10 Hypothyroid E03.9 Hypothyroidism type: acquired GERD (gastroesophageal reflux disease) K21.9 Esophageal adenocarcinoma C15.9 Pleural effusion, right J90 Pneumonia due to COVID-19 virus U07.1; J12.82 Immunotherapy Z29.8 COVID-19 U07.1 Chronic anticoagulation Z79.01 History of deep vein thrombosis Z86.718 Acute respiratory failure with hypoxia J96.01 Jejunostomy tube in situ Z93.4 Status post laryngectomy Z90.[address] Z93.0
[2021-04-26] MEDS: dexamethasone 4 mg/mL INJ 6 MG IVP (14:14)
[2021-04-26] MEDS: remdesivir 100 MG in sodium chloride 0.9% (100 ml) 80 ML IV (17:53)
[2021-04-26] MEDS: atorvastatin 40 mg Tablet 20 MG PO (20:05)
[2021-04-26] MEDS: oxyCODONE 5 mg IR Tab/Cap PO (22:48)
[2021-04-27] VITALS (18 sets, daily range): BP systolic 108–130; BP diastolic 72–86; PULSE 90–120; RESP 19–33; TEMP 36.4–36.6; O2SAT 91–98; BMI 23.1
[2021-04-27] MEDS: ipratropium-albuterol 3 mL Neb INHALATION ×5 (00:27→21:30)
[2021-04-27] MEDS: acetylcysteine 200 mg/mL SDV 4 mL 100 MG INHALATION ×5 (00:28→21:30)
[2021-04-27 04:17] LABS: Basophils % 0.1 %; Hematocrit 36.4 % (42.0-52.0); Hemoglobin 11.6 g/dL (11.7-16.6); Lymphocytes # 0.2 10^3/uL (0.8-4.8); Lymphocytes % 1.5 %; Mean Corpuscular HGB Conc 31.9 g/dL (30.0-36.0); Mean Corpuscular Volume 94.1 fl (80-94); Mean Platelet Volume 9.5 fL (7.4-10.4); Monocytes # 0.4 10^3/uL (0.2-0.9); Monocytes % 4.1 %; Neutrophils # 9.76 10^3/uL (1.8-7.7); Neutrophils % 93.5 %; Nucleated Red Blood Cells % 0 %; Platelet Count 201 10^3/cmm (130-400); Red Blood Count 3.87 10^6/uL (4.1-5.3); Red Cell Distribution Width 14.6 % (12.1-15.1); White Blood Count 10.4 10^3/uL (4.0-10.0)
[2021-04-27 04:50] LABS: NT Pro B Type Natriuretic Pept 2693 pg/mL (0-125); Procalcitonin 0.08 ng/mL (0-0.5)
[2021-04-27 05:02] LABS: Alanine Aminotransferase 22 U/L (0-41); Albumin Level 3.2 g/dL (3.5-5.2); Alkaline Phosphatase 121 IU/L (40-130); Aspartate Amino Transferase 18 U/L (0-40); Blood Urea Nitrogen 37 mg/dL (8-23); C Reactive Protein 93.3 mg/L (0.0-4.9); Calcium 8.1 mg/dL (8.5-10.5); Carbon Dioxide 22 mmol/L (22-29); Chloride 97 mmol/L (98-107); Globulin 3.2 g/dL (1.3-4.6); Glucose 180 mg/dL (65-115); Magnesium 2.1 mg/dL (1.7-2.3); Osmolality Calculated 289 mOsm/kg (285-295); Phosphorus 2.9 mg/dL (2.5-4.5); Sodium 133 mmol/L (136-145); Total Bilirubin 0.2 mg/dL (0.15-1.2); Total Protein 6.4 g/dL (6.6-8.7)
[2021-04-27 05:41] LABS: Anion Gap 17.9 (5-19); Potassium 3.9 mmol/L (3.5-5.1)
[2021-04-27] MEDS: oxyCODONE 5 mg IR Tab/Cap PO ×2 (06:32→21:07)
[2021-04-27] MEDS: levoFLOXacin 750 mg Tablet PO (06:32)
[2021-04-27] MEDS: levothyroxine 175 mcg Tablet PO (06:33)
[2021-04-27] MEDS: pantoprazole DR 40 mg Tablet PO (08:36)
[2021-04-27] MEDS: apixaban 5 mg Tablet 2.5 MG PO ×2 (08:36→21:08)
[2021-04-27] MEDS: FUROsemide 10 mg/mL SDV 4mL 40 MG IVP (09:59)
--- NOTE | 2021-04-27 10:40 | PC.SOCIAL ---
IMM Updated Updated pt's on IMM. No questions voiced. Provided pt a copy. Initialed, dated, & timed copy in chart.
--- NOTE | 2021-04-27 12:55 | PM.PN ---
Subjective Subjective: Patient was seen this morning, sitting up in a chair, currently on 10 L, no fevers, no chills, no nausea, no vomiting, Vitals/I&O/Wt Last Vital Signs Temp 97.9 F 04/27/21 00:38 Pulse 120 H 04/27/21 11:32 Resp 30 H 04/27/21 11:15 BP 130/85 04/27/21 08:00 Pulse Ox 93 04/27/21 11:15 04/26/21 04/27/21 04/27/21 22:59 06:59 14:59 Intake Total 100 / 220 120 / 340 120 / 120 Output Total 100 / 500 650 / 1150 100 / 100 Balance 0 / -280 -530 / -810 20 / Weight last 48 hrs Weight 68.855 kg Weight 68.583 kg Physical Exam Const: COMMON NORMALS: no acute distress and patient oriented x3 Resp: COMMON NORMALS: normal respiratory effort, No retractions and No use of accessory muscles AUSCULTATION: diminished lung sounds diffuse Cardio: COMMON NORMALS: regular rate, regular rhythm, S1 normal heart sound present and S2 normal heart sound present RATE: regular rate RHYTHM: regular rhythm HEART SOUNDS: S1 normal heart sound present and S2 normal heart sound present GI: COMMON NORMALS: Normal to inspection, nondistended, normoactive bowel sounds present, Soft to palpation, non-tender and No hepatosplenomegaly present PALPATION: Yes Soft to palpation and Yes No hepatosplenomegaly present Extremity: COMMON NORMALS: no pedal edema Neuro: COMMON NORMALS: patient oriented x3 Psych: COMMON NORMALS: mental status grossly normal Data : 04/27/21 03:35 04/27/21 03:35 Micro: Microbiology 04/22/21 11:08 Blood Culture - Final Blood NO GROWTH AFTER 5 DAYS 04/22/21 11:00 Blood Culture - Final Blood NO GROWTH AFTER 5 DAYS 04/26/21 14:00 Legionella Urinary Antigen - Final Urine,Voided A&P Assessment and plan (1) CHF (congestive heart failure): Status: Chronic Qualifiers: Heart failure type: unspecified Heart failure chronicity: chronic Qualified Code(s): I50.9 - Heart failure, unspecified (2) Essential hypertension: Status: Chronic (3) Hypothyroid: Status: Chronic Qualifiers: Hypothyroidism type: acquired Qualified Code(s): E03.9 - Hypothyroidism, unspecified (4) GERD (gastroesophageal reflux disease): Status: Chronic (5) Esophageal adenocarcinoma: Status: Chronic (6) Pleural effusion, right: Status: Acute (7) Pneumonia due to COVID-19 virus: Status: Acute (8) Immunotherapy: Status: Chronic (9) COVID-19: Status: Acute (10) Chronic anticoagulation: Status: Acute (11) History of deep vein thrombosis: Status: Acute (12) Acute respiratory failure with hypoxia: Status: Acute (13) Jejunostomy tube in situ: Status: Chronic (14) Status post laryngectomy: Status: Acute (15) Tracheostomy in place: Status: Chronic Plan Hypoxia related to COVID-19 FiO2 weaned down to 10 L, 35% FiO2 Afebrile To finish 5 days of remdesivir As he continues to feel short of breath, immunocompromise state given underlying malignancy, on baricitinib, will consider Actemra based on sputum analysis Finished 10 days of Decadron Concern for superimposed bacterial infection, Currently on Levaquin No fever episodes noted History of DVT: Continue Eliquis J-tube in place Jevity feeds running at 80 mL/h Full code after home O2 eval will discharge over the weekend History of coronary disease no active chest pain Trach collar, routine trach collar care RT on board Attestations Medical Necessity Statement*: Patient requires hospitalization for COVID-19 pneumonia Coding Level of Care Code Acute Fixing Carpenter for [facility] Fwd Diagnoses CHF (congestive heart failure) I50.9 Heart failure type: unspecified Heart failure chronicity: chronic Essential hypertension I10 Hypothyroid E03.9 Hypothyroidism type: acquired GERD (gastroesophageal reflux disease) K21.9 Esophageal adenocarcinoma C15.9 Pleural effusion, right J90 Pneumonia due to COVID-19 virus U07.1; J12.82 Immunotherapy Z29.8 COVID-19 U07.1 Chronic anticoagulation Z79.01 History of deep vein thrombosis Z86.718 Acute respiratory failure with hypoxia J96.01 Jejunostomy tube in situ Z93.4 Status post laryngectomy Z90.[address] Z93.0
[2021-04-27] MEDS: dexamethasone 4 mg/mL INJ 6 MG IVP (16:18)
--- NOTE | 2021-04-27 19:37 | PC.OT ---
OT services withheld this date per nursing request as patient is wore out and heart rate has been going up when exercising.
[2021-04-27] MEDS: atorvastatin 40 mg Tablet 20 MG PO (21:08)
[2021-04-28] VITALS (27 sets, daily range): BP systolic 101–131; BP diastolic 69–98; PULSE 85–123; RESP 16–36; TEMP 36.1–36.8; O2SAT 86–97; BMI 23.1
[2021-04-28 03:35] LABS: Basophils % 0.1 %; Hematocrit 37.4 % (42.0-52.0); Lymphocytes # 0.1 10^3/uL (0.8-4.8); Lymphocytes % 1.4 %; Mean Corpuscular HGB Conc 32.1 g/dL (30.0-36.0); Mean Corpuscular Hemoglobin 30.6 pg (28.0-34.0); Mean Corpuscular Volume 95.4 fl (80-94); Mean Platelet Volume 9.8 fL (7.4-10.4); Monocytes # 0.5 10^3/uL (0.2-0.9); Monocytes % 4.5 %; Neutrophils # 9.53 10^3/uL (1.8-7.7); Neutrophils % 92.4 %; Nucleated Red Blood Cells % 0 %; Platelet Count 189 10^3/cmm (130-400); Red Blood Count 3.92 10^6/uL (4.1-5.3); Red Cell Distribution Width 14.9 % (12.1-15.1); White Blood Count 10.3 10^3/uL (4.0-10.0)
[2021-04-28 03:56] LABS: NT Pro B Type Natriuretic Pept 2029 pg/mL (0-125); Procalcitonin 0.08 ng/mL (0-0.5)
[2021-04-28 04:07] LABS: Alanine Aminotransferase 20 U/L (0-41); Albumin Level 3.5 g/dL (3.5-5.2); Alkaline Phosphatase 125 IU/L (40-130); Anion Gap 18.2 (5-19); Aspartate Amino Transferase 15 U/L (0-40); Blood Urea Nitrogen 43 mg/dL (8-23); C Reactive Protein 56.8 mg/L (0.0-4.9); Calcium 8.4 mg/dL (8.5-10.5); Carbon Dioxide 23 mmol/L (22-29); Chloride 98 mmol/L (98-107); Globulin 3.2 g/dL (1.3-4.6); Glucose 174 mg/dL (65-115); Magnesium 2.3 mg/dL (1.7-2.3); Osmolality Calculated 295 mOsm/kg (285-295); Phosphorus 3.3 mg/dL (2.5-4.5); Potassium 4.2 mmol/L (3.5-5.1); Sodium 135 mmol/L (136-145); Total Bilirubin 0.2 mg/dL (0.15-1.2); Total Protein 6.7 g/dL (6.6-8.7)
[2021-04-28] MEDS: acetylcysteine 200 mg/mL SDV 4 mL 100 MG INHALATION ×6 (04:22→23:13)
[2021-04-28] MEDS: ipratropium-albuterol 3 mL Neb INHALATION ×6 (04:22→23:13)
[2021-04-28] MEDS: oxyCODONE 5 mg IR Tab/Cap PO (06:34)
[2021-04-28] MEDS: levothyroxine 175 mcg Tablet PO (06:34)
[2021-04-28] MEDS: levoFLOXacin 750 mg Tablet PO (06:34)
[2021-04-28] MEDS: apixaban 5 mg Tablet 2.5 MG PO ×2 (09:15→19:51)
[2021-04-28] MEDS: pantoprazole DR 40 mg Tablet PO (09:19)
[2021-04-28] MEDS: CLONazepam 0.5 mg Tablet PO ×2 (12:41→22:36)
--- NOTE | 2021-04-28 13:42 | P.PN_ITS ---
Subjective Subjective: Patient was seen this morning, sitting up in a chair, does not feel like he is ready to go home, still on 10 L 40% FiO2, still complaining of shortness of breath, Vitals/I&O/Wt Last Vital Signs Temp 97.7 F 04/28/21 11:46 Pulse 99 04/28/21 11:59 Resp 18 04/28/21 11:59 BP 131/98 04/28/21 11:46 Pulse Ox 94 04/28/21 11:59 04/27/21 04/28/21 04/28/21 22:59 06:59 14:59 Intake Total 240 / 480 90 / 570 270 / 270 Output Total 200 / 1100 350 / 1450 550 / 550 Balance 40 / -620 -260 / -880 -280 / -280 Weight last 48 hrs Weight 68.855 kg Weight 68.855 kg Physical Exam Const: COMMON NORMALS: no acute distress and patient oriented x3 Resp: COMMON NORMALS: normal respiratory effort, No retractions, No use of accessory muscles and clear to auscultation bilaterally AUSCULTATION: clear to auscultation bilaterally Cardio: COMMON NORMALS: regular rate, regular rhythm, S1 normal heart sound present and S2 normal heart sound present RATE: regular rate RHYTHM: regular rhythm HEART SOUNDS: S1 normal heart sound present and S2 normal heart sound present GI: COMMON NORMALS: Normal to inspection, nondistended, normoactive bowel sounds present, Soft to palpation, non-tender, No hepatosplenomegaly present and no masses PALPATION: Yes Soft to palpation and Yes No hepatosplenomegaly present Extremity: COMMON NORMALS: no pedal edema Neuro: COMMON NORMALS: patient oriented x3 Psych: COMMON NORMALS: mental status grossly normal Data : 04/28/21 03:00 04/28/21 03:00 Micro: Microbiology 04/27/21 11:20 Gram Stain - Final Sputum - Expectorated Sputum 04/26/21 14:00 Bacterial Antigens - Final Urine,Voided 04/22/21 11:08 Blood Culture - Final Blood NO GROWTH AFTER 5 DAYS 04/22/21 11:00 Blood Culture - Final Blood NO GROWTH AFTER 5 DAYS A&P Assessment and plan (1) CHF (congestive heart failure): Status: Chronic Qualifiers: Heart failure type: unspecified Heart failure chronicity: chronic Qualified Code(s): I50.9 - Heart failure, unspecified (2) Essential hypertension: Status: Chronic (3) Hypothyroid: Status: Chronic Qualifiers: Hypothyroidism type: acquired Qualified Code(s): E03.9 - Hypothyr oidism, unspecified (4) GERD (gastroesophageal reflux disease): Status: Chronic (5) Esophageal adenocarcinoma: Status: Chronic (6) Pleural effusion, right: Status: Acute (7) Pneumonia due to COVID-19 virus: Status: Acute (8) Immunotherapy: Status: Chronic (9) COVID-19: Status: Acute (10) Chronic anticoagulation: Status: Acute (11) History of deep vein thrombosis: Status: Acute (12) Acute respiratory failure with hypoxia: Status: Acute (13) Jejunostomy tube in situ: Status: Chronic (14) Status post laryngectomy: Status: Acute (15) Tracheostomy in place: Status: Chronic Plan Hypoxia related to COVID-19 FiO2 weaned down to 10 L, 40% FiO2 Afebrile Remdesivir day 5 of As he continues to feel short of breath, immunocompromise state given underlying malignancy, on baricitinib day 3 will consider Actemra based on sputum analysis Finished 10 days of Decadron Concern for superimposed bacterial infection, Currently on Levaquin 1 dose of Lasix today No fever episodes noted History of DVT: Continue Eliquis J-tube in place Jevity feeds running at 80 mL/h Full code after home O2 eval will discharge over the weekend History of coronary disease no active chest pain Trach collar, routine trach collar care RT on board Attestations Medical Necessity Statement*: Patient requires hospitalization for acute respiratory failure secondary COVID-19 Coding Level of Care Code Acute Ultrasound Specialist for Chg Fwd Diagnoses CHF (congestive heart failure) I50.9 Heart failure type: unspecified Heart failure chronicity: chronic Essential hypertension I10 Hypothyroid E03.9 Hypothyroidism type: acquired GERD (gastroesophageal reflux disease) K21.9 Esophageal adenocarcinoma C15.9 Pleural effusion, right J90 Pneumonia due to COVID-19 virus U07.1; J12.82 Immunotherapy Z29.8 COVID-19 U07.1 Chronic anticoagulation Z79.01 History of deep vein thrombosis Z86.718 Acute respiratory failure with hypoxia J96.01 Jejunostomy tube in situ Z93.4 Status post laryngectomy Z90.[address] Z93.0
[2021-04-28] MEDS: dexamethasone 4 mg/mL INJ 6 MG IVP (16:24)
[2021-04-28] MEDS: FUROsemide 10 mg/mL SDV 4mL 40 MG IVP (16:25)
--- NOTE | 2021-04-28 16:48 | PC.OT ---
OT services withheld this date. Nursing stated that he is tired, wants to rest and sleep. To attempt on a later date.
[2021-04-28] MEDS: atorvastatin 40 mg Tablet 20 MG PO (19:52)
[2021-04-28] MEDS: docusate sodium 10 mg/mL (5ml) Liq 100 MG PO (19:53)
[2021-04-29] VITALS (23 sets, daily range): BP systolic 106–138; BP diastolic 70–85; PULSE 69–97; RESP 18–34; TEMP 35.9–36.8; O2SAT 82–97; BMI 23.1
[2021-04-29 02:32] LABS: Hematocrit 28.7 % (42.0-52.0); Hemoglobin 8.7 g/dL (11.7-16.6); Lymphocytes # 0.1 10^3/uL (0.8-4.8); Lymphocytes % 1.4 %; Mean Corpuscular HGB Conc 30.3 g/dL (30.0-36.0); Mean Corpuscular Hemoglobin 30.1 pg (28.0-34.0); Mean Corpuscular Volume 99.3 fl (80-94); Mean Platelet Volume 9.6 fL (7.4-10.4); Monocytes # 0.3 10^3/uL (0.2-0.9); Monocytes % 4.6 %; Neutrophils # 6.64 10^3/uL (1.8-7.7); Neutrophils % 91.8 %; Nucleated Red Blood Cells % 0 %; Platelet Count 135 10^3/cmm (130-400); Red Blood Count 2.89 10^6/uL (4.1-5.3); Red Cell Distribution Width 14.9 % (12.1-15.1); White Blood Count 7.2 10^3/uL (4.0-10.0)
[2021-04-29] MEDS: ipratropium-albuterol 3 mL Neb INHALATION ×5 (03:00→20:49)
[2021-04-29 03:04] LABS: NT Pro B Type Natriuretic Pept 1085 pg/mL (0-125); Procalcitonin 0.05 ng/mL (0-0.5)
[2021-04-29 03:17] LABS: Alanine Aminotransferase 12 U/L (0-41); Albumin Level 2.1 g/dL (3.5-5.2); Alkaline Phosphatase 73 IU/L (40-130); Anion Gap 13.6 (5-19); Aspartate Amino Transferase 10 U/L (0-40); Blood Urea Nitrogen 28 mg/dL (8-23); C Reactive Protein 18.1 mg/L (0.0-4.9); Carbon Dioxide 16 mmol/L (22-29); Chloride 113 mmol/L (98-107); Globulin 1.9 g/dL (1.3-4.6); Glucose 99 mg/dL (65-115); Magnesium 1.4 mg/dL (1.7-2.3); Osmolality Calculated 296 mOsm/kg (285-295); Phosphorus 2.7 mg/dL (2.5-4.5); Sodium 140 mmol/L (136-145); Total Bilirubin 0.2 mg/dL (0.15-1.2)
[2021-04-29 03:19] LABS: Calcium 5.1 mg/dL (8.5-10.5); Potassium 2.6 mmol/L (3.5-5.1)
[2021-04-29] MEDS: lidocaine 1% 5 ML in potassium chloride premix 100 ML 50 ML IV (03:38)
[2021-04-29] MEDS: potassium chloride oral liq 20 mEq/15 mL UDC 60 MEQ PO (04:18)
[2021-04-29] MEDS: levothyroxine 175 mcg Tablet PO (05:29)
[2021-04-29] MEDS: levoFLOXacin 750 mg Tablet PO (05:29)
[2021-04-29] MEDS: acetylcysteine 200 mg/mL SDV 4 mL 100 MG INHALATION ×4 (07:35→20:49)
[2021-04-29] MEDS: calcium carbonate 500 mg Chew Tablet 2000 MG PO (08:20)
[2021-04-29] MEDS: pantoprazole DR 40 mg Tablet PO (08:20)
[2021-04-29] MEDS: apixaban 5 mg Tablet 2.5 MG PO ×2 (08:21→20:52)
[2021-04-29] MEDS: CLONazepam 0.5 mg Tablet PO ×2 (08:21→21:17)
[2021-04-29] MEDS: magnesium sulfate premix 4 GM/100 ML PREMIX IV (08:22)
[2021-04-29 08:51] LABS: Ionized Calcium 1.2 mmol/L (1.1-1.4)
[2021-04-29 09:01] LABS: Alanine Aminotransferase 19 U/L (0-41); Albumin Level 3.5 g/dL (3.5-5.2); Alkaline Phosphatase 134 IU/L (40-130); Anion Gap 18.3 (5-19); Aspartate Amino Transferase 16 U/L (0-40); Blood Urea Nitrogen 44 mg/dL (8-23); Calcium 8.5 mg/dL (8.5-10.5); Carbon Dioxide 23 mmol/L (22-29); Chloride 96 mmol/L (98-107); Globulin 3.1 g/dL (1.3-4.6); Glucose 108 mg/dL (65-115); Osmolality Calculated 286 mOsm/kg (285-295); Potassium 5.3 mmol/L (3.5-5.1); Sodium 132 mmol/L (136-145); Total Bilirubin 0.2 mg/dL (0.15-1.2); Total Protein 6.6 g/dL (6.6-8.7)
--- NOTE | 2021-04-29 09:49 | PC.SOCIAL ---
IMM update IMM updated with patient's . Verbalized an understanding. Initialled, dated, timed, and placed in chart.
--- NOTE | 2021-04-29 11:03 | PC.CHAP ---
Pastoral Care Encounter/Spiritual Assessment Type of Contact [] Declined backhaul driver visit [] Patient/Family/Request visit [] Outpatient visit [] Follow-up visit [] Physician referral [] Code/Alert [x] Routine visit [] Staff referral [] Actively dying [x] Patient sleeping [] Family support [] [] Out of room [] Palliative care [] [] Receiving care in room [] Pre-surgical visit [] Trauma [] Long length of stay [] ICU visit [x] Other: isolated Relational/Emotional Strength [] Patient feels connected with others/family/visitors/staff [] Distress [] Loneliness/isolation [] Abandonment Spirituality of Patient [] Person of Ana Luisa [] Attends Jainism of their [place]isa [] Believes in Prayer [] Reads Bible or Pentecostalism materials [] There are Spiritual issues to be addressed Wood Craftsman Interventions [x] Prayer [] Active listening [] Non-anxious presence [] Spiritual/emotional support [] Crisis/trauma care [] Spiritual counseling [] Bereavement support [] Provided bereavement packet [] Provided Bible/devotional materials [] Provided toy/stuffed animal, coloring book to patient or family member [] Provided Communion [] Anointing/[place] [] Salvation [x] Completed spiritual assessment [] Other: Impact on Illness or Injury [] Angry [] Fearful [] Anxious [] Often cries [] Exhaustion [] Unable to work [] Unable to attend adventism [] Unable to walk/stand [] Unable to read [] Unable to drive [] Unable to eat/drink [] Unable to sleep [] Unable to be with family [] Patient intubated [] Other: Summary Time spent with patient
--- NOTE | 2021-04-29 13:00 | PC.NURSE ---
Nurse changed patient bedding and helped scoot patient up in the chair. changed patient gown, repositioned, applied a skin barrier as well as cleaned up the patient.
--- NOTE | 2021-04-29 13:36 | P.PN_ITS ---
Subjective Subjective: Patient was seen this morning, he tells me that he continues to feel weak, short of breath, but it is improving, currently on 10 L, 35%, afebrile overnight Vitals/I&O/Wt Last Vital Signs Temp 96.7 F L 04/29/21 07:46 Pulse 83 04/29/21 12:11 Resp 18 04/29/21 12:11 BP 117/73 04/29/21 11:51 Pulse Ox 93 04/29/21 12:11 04/28/21 04/29/21 04/29/21 22:59 06:59 14:59 Intake Total 105 / 375 800 / 800 Output Total 1250 / 1800 550 / 2350 575 / 575 Balance -1250 / -1530 -445 / -1975 225 / 225 Weight last 48 hrs Weight 68.855 kg Weight 68.855 kg Physical Exam Const: COMMON NORMALS: no acute distress and patient oriented x3 Resp: COMMON NORMALS: normal respiratory effort, No retractions, No use of accessory muscles and clear to auscultation bilaterally AUSCULTATION: clear to auscultation bilaterally Cardio: COMMON NORMALS: regular rate, regular rhythm, S1 normal heart sound present and S2 normal heart sound present RATE: regular rate RHYTHM: regular rhythm HEART SOUNDS: S1 normal heart sound present and S2 normal heart sound present GI: COMMON NORMALS: Normal to inspection, nondistended, normoactive bowel sounds present, Soft to palpation, non-tender and No hepatosplenomegaly present PALPATION: Yes Soft to palpation and Yes No hepatosplenomegaly present Extremity: COMMON NORMALS: no pedal edema Neuro: COMMON NORMALS: patient oriented x3 Psych: COMMON NORMALS: mental status grossly normal Data : 04/29/21 02:22 04/29/21 08:08 Micro: Microbiology 04/27/21 11:20 Gram Stain - Final Sputum - Expectorated Sputum Sputum Culture - Preliminary A&P Assessment and plan (1) CHF (congestive heart failure): Status: Chronic Qualifiers: Heart failure type: unspecified Heart failure chronicity: chronic Qualified Code(s): I50.9 - Heart failure, unspecified (2) Essential hypertension: Status: Chronic (3) Hypothyroid: Status: Chronic Qualifiers: Hypothyroidism type: acquired Qualified Code(s): E03.9 - Hypothyroi dism, unspecified (4) GERD (gastroesophageal reflux disease): Status: Chronic (5) Esophageal adenocarcinoma: Status: Chronic (6) Pleural effusion, right: Status: Acute (7) Pneumonia due to COVID-19 virus: Status: Acute (8) Immunotherapy: Status: Chronic (9) COVID-19: Status: Acute (10) Chronic anticoagulation: Status: Acute (11) History of deep vein thrombosis: Status: Acute (12) Acute respiratory failure with hypoxia: Status: Acute (13) Jejunostomy tube in situ: Status: Chronic (14) Status post laryngectomy: Status: Acute (15) Tracheostomy in place: Status: Chronic Plan Hypoxia related to COVID-19 pneumonia FiO2 weaned down to 10 L, 40% FiO2 Afebrile Completed 5 days of remdesivir As he continues to feel short of breath, immunocompromise state given underlying malignancy, on baricitinib day 3 of will consider Actemra based on sputum analysis Continue Decadron Concern for superimposed bacterial infection, although cultures have been unremarkable, sputum cultures so far unremarkable Currently on Levaquin Hold off on Lasix No fever episodes noted Hypokalemia, replace Hypomagnesemia replace Hypocalcemia, likely lab error, recheck ionized calcium, serum calcium History of DVT: Continue Eliquis J-tube in place Jevity feeds running at 80 mL/h Full code after home O2 eval will discharge over the weekend History of coronary disease no active chest pain Trach collar, routine trach collar care RT on board Attestations Medical Necessity Statement*: Patient requires hospitalization for hypoxia are related to COVID-19 pneumonia Coding Level of Care Code 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
[2021-04-29] MEDS: dexamethasone 4 mg/mL INJ 6 MG IVP (17:23)
[2021-04-29] MEDS: atorvastatin 40 mg Tablet 20 MG PO (20:52)
[2021-04-29] MEDS: docusate sodium 10 mg/mL (5ml) Liq 100 MG PO (20:53)
[2021-04-30] VITALS (29 sets, daily range): BP systolic 104–132; BP diastolic 70–84; PULSE 77–112; RESP 16–34; TEMP 35.7–36.6; O2SAT 86–102
[2021-04-30] MEDS: ipratropium-albuterol 3 mL Neb INHALATION ×7 (00:16→23:33)
[2021-04-30] MEDS: acetylcysteine 200 mg/mL SDV 4 mL 100 MG INHALATION ×6 (00:16→23:33)
[2021-04-30] MEDS: oxyCODONE 5 mg IR Tab/Cap PO ×2 (01:14→21:31)
[2021-04-30 04:44] LABS: Basophils % 0.1 %; Hematocrit 39.7 % (42.0-52.0); Hemoglobin 12.7 g/dL (11.7-16.6); Lymphocytes # 0.1 10^3/uL (0.8-4.8); Lymphocytes % 0.9 %; Mean Corpuscular Hemoglobin 30.4 pg (28.0-34.0); Mean Platelet Volume 9.2 fL (7.4-10.4); Monocytes # 0.5 10^3/uL (0.2-0.9); Monocytes % 3.5 %; Neutrophils # 12.59 10^3/uL (1.8-7.7); Neutrophils % 93.1 %; Nucleated Red Blood Cells % 0 %; Platelet Count 204 10^3/cmm (130-400); Red Blood Count 4.18 10^6/uL (4.1-5.3); Red Cell Distribution Width 14.8 % (12.1-15.1); White Blood Count 13.5 10^3/uL (4.0-10.0)
[2021-04-30 05:03] LABS: Alanine Aminotransferase 21 U/L (0-41); Albumin Level 3.2 g/dL (3.5-5.2); Alkaline Phosphatase 135 IU/L (40-130); Anion Gap 17.4 (5-19); Aspartate Amino Transferase 18 U/L (0-40); Blood Urea Nitrogen 45 mg/dL (8-23); C Reactive Protein 12.9 mg/L (0.0-4.9); Calcium 9.1 mg/dL (8.5-10.5); Carbon Dioxide 20 mmol/L (22-29); Chloride 98 mmol/L (98-107); Globulin 3.5 g/dL (1.3-4.6); Glucose 225 mg/dL (65-115); Magnesium 2.6 mg/dL (1.7-2.3); Osmolality Calculated 291 mOsm/kg (285-295); Potassium 4.4 mmol/L (3.5-5.1); Sodium 131 mmol/L (136-145); Total Bilirubin 0.2 mg/dL (0.15-1.2); Total Protein 6.7 g/dL (6.6-8.7)
[2021-04-30 05:15] LABS: NT Pro B Type Natriuretic Pept 1142 pg/mL (0-125); Procalcitonin 0.05 ng/mL (0-0.5)
[2021-04-30] MEDS: levothyroxine 175 mcg Tablet PO (06:48)
[2021-04-30] MEDS: levoFLOXacin 750 mg Tablet PO (06:48)
[2021-04-30] MEDS: pantoprazole DR 40 mg Tablet PO (10:16)
[2021-04-30] MEDS: CLONazepam 0.5 mg Tablet PO ×2 (10:17→21:01)
[2021-04-30] MEDS: apixaban 5 mg Tablet 2.5 MG PO ×2 (10:17→21:02)
[2021-04-30] MEDS: docusate sodium 10 mg/mL (5ml) Liq 100 MG PO (10:17)
--- NOTE | 2021-04-30 14:31 | P.PN_ITS ---
Subjective Subjective: Patient was seen this morning, according to nursing staff he did get up with physical therapy took a few steps, but continues to have generalized weakness, continues to complain of generalized weakness, no significant output from tracheostomy, does have shortness of breath with exertion, afebrile overnight, is down to 8 L Vitals/I&O/Wt Last Vital Signs Temp 96.3 F L 04/30/21 07:59 Pulse 83 04/30/21 11:49 Resp 24 H 04/30/21 11:45 BP 114/78 04/30/21 11:45 Pulse Ox 90 04/30/21 11:45 04/29/21 04/30/21 04/30/21 22:59 06:59 14:59 Intake Total 50 / 850 340 / 340 Output Total 550 / 1125 550 / 1675 500 / 500 Balance -500 / -275 -550 / -825 -160 / -160 Weight last 48 hrs Weight 68.492 kg Weight 68.855 kg Physical Exam Const: COMMON NORMALS: no acute distress and patient oriented x3 Resp: COMMON NORMALS: normal respiratory effort, No retractions, No use of accessory muscles and clear to auscultation bilaterally AUSCULTATION: clear to auscultation bilaterally Cardio: COMMON NORMALS: regular rate, regular rhythm, S1 normal heart sound present and S2 normal heart sound present RATE: regular rate RHYTHM: regular rhythm HEART SOUNDS: S1 normal heart sound present and S2 normal heart sound present GI: COMMON NORMALS: Normal to inspection, nondistended, normoactive bowel sounds present, Soft to palpation, non-tender and No hepatosplenomegaly present PALPATION: Yes Soft to palpation and Yes No hepatosplenomegaly present Extremity: COMMON NORMALS: no pedal edema Neuro: COMMON NORMALS: patient oriented x3 Psych: COMMON NORMALS: mental status grossly normal Data : 04/30/21 04:21 04/30/21 04:21 Micro: Microbiology 04/27/21 11:20 Gram Stain - Final Sputum - Expectorated Sputum Sputum Culture - Preliminary Gram Negative Rods A&P Assessment and plan (1) CHF (congestive heart failure): Status: Chronic Qualifiers: Heart failure type: unspecified Heart failure chronicity: chronic Qualified Code(s): I50.9 - Heart failure, unspecified (2) Essential hypertension: Status: Chronic (3) Hypothyroid: Status: Chronic Qualifiers: Hypothyroidism type: acquired Qualified Code(s): E03.9 - Hypothyroidism, unspecified (4) GERD (gastroesophageal reflux disease): Status: Chronic (5) Esophageal adenocarcinoma: Status: Chronic (6) Pleural effusion, right: Status: Acute (7) Pneumonia due to COVID-19 virus: Status: Acute (8) Immunotherapy: Status: Chronic (9) COVID-19: Status: Acute (10) Chronic anticoagulation: Status: Acute (11) History of deep vein thrombosis: Status: Acute (12) Acute respiratory failure with hypoxia: Status: Acute (13) Jejunostomy tube in situ: Status: Chronic (14) Status post laryngectomy: Status: Acute (15) Tracheostomy in place: Status: Chronic Plan Hypoxia related to COVID-19 pneumonia FiO2 weaned down to 8 L, 40% FiO2 Afebrile Completed 5 days of remdesivir As he continues to feel short of breath, immunocompromise state given underlying malignancy, on baricitinib day 4 of will consider Actemra based on sputum analysis Continue Decadron Concern for superimposed bacterial infection, although cultures have been unremarkable, sputum cultures so far unremarkable Currently on Levaquin Hold off on Lasix for today No fever episodes noted Hypokalemia, replace Hypomagnesemia replace Hypocalcemia, resolved, lab error History of DVT: Continue Eliquis J-tube in place Jevity feeds running at 100 mL/h Full code after home O2 eval will discharge over the weekend History of coronary disease no active chest pain Trach collar, routine trach collar care RT on board PT OT Anticipate discharge in the next 24 hours Attestations Medical Necessity Statement*: Patient requires hospitalization for COVID-19 pneumonia Coding Level of Care Code 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 [facility] Fwd Diagnoses CHF (congestive heart failure) I50.9 Heart failure type: unspecified Heart failure chronicity: chronic Essential hypertension I10 Hypothyroid E03.9 Hypothyroidism type: acquired GERD (gastroesophageal reflux disease) K21.9 Esophageal adenocarcinoma C15.9 Pleural effusion, right J90 Pneumonia due to COVID-19 virus U07.1; J12.82 Immunotherapy Z29.8 COVID-19 U07.1 Chronic anticoagulation Z79.01 History of deep vein thrombosis Z86.718 Acute respiratory failure with hypoxia J96.01 Jejunostomy tube in situ Z93.4 Status post laryngectomy Z90.[address] Z93.0
[2021-04-30] MEDS: dexamethasone 4 mg/mL INJ 6 MG IVP (16:58)
[2021-04-30] MEDS: atorvastatin 40 mg Tablet 20 MG PO (21:02)
[2021-05-01] VITALS (21 sets, daily range): BP systolic 94–118; BP diastolic 68–84; PULSE 76–100; RESP 19–34; TEMP 36.4–36.5; O2SAT 90–97
[2021-05-01] MEDS: ipratropium-albuterol 3 mL Neb INHALATION ×5 (03:35→19:38)
[2021-05-01] MEDS: acetylcysteine 200 mg/mL SDV 4 mL 100 MG INHALATION ×5 (03:36→19:38)
[2021-05-01 04:46] LABS: Basophils % 0.1 %; Hemoglobin 12.8 g/dL (11.7-16.6); Lymphocytes # 0.1 10^3/uL (0.8-4.8); Lymphocytes % 0.6 %; Mean Corpuscular Hemoglobin 29.9 pg (28.0-34.0); Mean Corpuscular Volume 93.5 fl (80-94); Mean Platelet Volume 9.1 fL (7.4-10.4); Monocytes # 0.7 10^3/uL (0.2-0.9); Monocytes % 4.6 %; Neutrophils # 13.24 10^3/uL (1.8-7.7); Neutrophils % 92.7 %; Nucleated Red Blood Cells % 0 %; Platelet Count 207 10^3/cmm (130-400); Red Blood Count 4.28 10^6/uL (4.1-5.3); Red Cell Distribution Width 14.9 % (12.1-15.1); White Blood Count 14.3 10^3/uL (4.0-10.0)
[2021-05-01 05:14] LABS: Alanine Aminotransferase 22 U/L (0-41); Albumin Level 3.5 g/dL (3.5-5.2); Alkaline Phosphatase 134 IU/L (40-130); Aspartate Amino Transferase 21 U/L (0-40); Blood Urea Nitrogen 42 mg/dL (8-23); C Reactive Protein 44.1 mg/L (0.0-4.9); Calcium 9.2 mg/dL (8.5-10.5); Carbon Dioxide 23 mmol/L (22-29); Chloride 98 mmol/L (98-107); Globulin 3.4 g/dL (1.3-4.6); Glucose 190 mg/dL (65-115); Magnesium 2.3 mg/dL (1.7-2.3); Osmolality Calculated 292 mOsm/kg (285-295); Sodium 133 mmol/L (136-145); Total Bilirubin 0.3 mg/dL (0.15-1.2); Total Protein 6.9 g/dL (6.6-8.7)
[2021-05-01 05:22] LABS: NT Pro B Type Natriuretic Pept 1059 pg/mL (0-125); Procalcitonin 0.08 ng/mL (0-0.5)
[2021-05-01] MEDS: levoFLOXacin 750 mg Tablet PO (05:38)
[2021-05-01] MEDS: levothyroxine 175 mcg Tablet PO (05:38)
--- NOTE | 2021-05-01 08:39 | PC.NURSE ---
patient has no speech due to trach can communicate via writing and a voice box at bedside
--- NOTE | 2021-05-01 09:00 | PC.SOCIAL ---
IMM Update pg 2 of IMM updated and reviewed w/ patient. Copy provided. Copy in chart updated.
[2021-05-01] MEDS: apixaban 5 mg Tablet 2.5 MG PO (09:11)
[2021-05-01] MEDS: pantoprazole DR 40 mg Tablet PO (09:12)
--- NOTE | 2021-05-01 09:56 | XR_ITS ---
WS: [id number] PORTABLE CHEST HISTORY: sob COMPARISON: 04/23/2021 Tracheostomy remains in good position. Right-sided Mediport with tip in the expected location of the mid SVC. Lung volumes are decreased. Atelectatic changes at the lung bases. Small bilateral layering pleural e ffusions. No pneumothorax. Cardiac size: Mildly enlarged cardiac silhouette. Mediastinum/Aorta: Prior median sternotomy. Atherosclerotic changes within the aorta. Degenerative changes at the glenohumeral joints. XR/XR chest 1V portable [id number] IMPRESSION: 1. Small bilateral pleural effusions with compressive atelectasis at the lung bases. Slightly greater opacification at the RIGHT lung base. Underlying pneumo nicolasa not excluded. No improvement since the prior study. 2. Tracheostomy and RIGHT Mediport remains unchanged.
--- NOTE | 2021-05-01 10:57 | PC.NURSE ---
spoke with Dr Alvarado about possible thoracentesis discussed patient is on eliquis instructions to obtain PT inr and let radiology decide when or if there is enough
[2021-05-01] MEDS: piperacillin-tazobactam 3.375 GM in sodium chloride 0.9% (plus) 50 ML IV ×2 (11:10→17:34)
--- NOTE | 2021-05-01 11:42 | PM.PN ---
Subjective Subjective: Patient was seen this morning, continues to have generalized weakness, poor appetite, currently on 10 L, complains of shortness of breath with exertion, did get up with physical therapy, did desat in the low 80s with exertion Vitals/I&O/Wt Last Vital Signs Temp 97.5 F L 05/01/21 08:00 Pulse 85 05/01/21 11:23 Resp 33 H 05/01/21 11:23 BP 112/81 05/01/21 08:00 Pulse Ox 92 05/01/21 11:23 04/30/21 05/01/21 05/01/21 22:59 06:59 14:59 Intake Total 120 / 460 0 / 460 Output Total 350 / 850 250 / 250 Balance -230 / -390 0 / -390 -250 / -250 Weight last 48 hrs Weight 68.492 kg Physical Exam Const: COMMON NORMALS: no acute distress and patient oriented x3 Resp: COMMON NORMALS: normal respiratory effort AUSCULTATION: wheezes Cardio: COMMON NORMALS: regular rate, regular rhythm, S1 normal heart sound present and S2 normal heart sound present RATE: regular rate RHYTHM: regular rhythm HEART SOUNDS: S1 normal heart sound present and S2 normal heart sound present Neuro: COMMON NORMALS: patient oriented x3 Psych: COMMON NORMALS: mental status grossly normal Data : 05/01/21 04:35 05/01/21 04:35 Micro: Microbiology 04/27/21 11:20 Gram Stain - Final Sputum - Expectorated Sputum Sputum Culture - Preliminary Gram Negative Rods A&P Assessment and plan (1) CHF (congestive heart failure): Status: Chronic Qualifiers: Heart failure type: unspecified Heart failure chronicity: chronic Qualified Code(s): I50.9 - Heart failure, unspecified (2) Essential hypertension: Status: Chronic (3) Hypothyroid: Status: Chronic Qualifiers: Hypothyroidism type: acquired Qualified Code(s): E03.9 - Hypothyroidism, unspecified (4) GERD (gastroesophageal reflux disease): Status: Chronic (5) Esophageal adenocarcinoma: Status: Chronic (6) Pleural effusion, right: Status: Acute (7) Pneumonia due to COVID-19 virus: Status: Acute (8) Immunotherapy: Status: Chronic (9) COVID-19: Status: Acute (10) Chronic anticoagulation: Status: Acute (11) History of deep vein thrombosis: Status: Acute (12) Acute respiratory failure with hypoxia: Status: Acute (13) Jejunostomy tube in situ: Status: Chronic (14) Status post laryngectomy: Status: Acute (15) Tracheostomy in place: Status: Chronic Plan Hypoxia related to COVID-19 pneumonia FiO2 weaned down to 10 L HAG, 40% FiO2 Completed 5 days of remdesivir As he continues to feel short of breath, immunocompromise state given underlying malignancy, on baricitinib day 4 of 14 Continue Decadron Concern for superimposed bacterial infection, although cultures have been unremarkable, sputum cultures so far show gram-negative rods, history of Pseudomonas, continue Levaquin, add Zosyn Does have bilateral pleural effusions, has been diuresed -1.5 L, ultrasound for thoracocentesis Hold off on Lasix for today No fever episodes noted Hypokalemia, replace Hypomagnesemia replace Hypocalcemia, resolved, lab error History of DVT: Continue Eliquis J-tube in place Jevity feeds running at 100 mL/h Full code after home O2 eval will discharge over the weekend History of coronary disease no active chest pain Trach collar, routine trach collar care RT on board PT OT Anticipate discharge in the next 24 hours Attestations Medical Necessity Statement*: Patient requires hospitalization for COVID-19 Coding Level of Care Code Acute Bibliographic Services Specialist for g Fwd Diagnoses CHF (congestive heart failure) I50.9 Heart failure type: unspecified Heart failure chronicity: chronic Essential hypertension I10 Hypothyroid E03.9 Hypothyroidism type: acquired GERD (gastroesophageal reflux disease) K21.9 Esophageal adenocarcinoma C15.9 Pleural effusion, right J90 Pneumonia due to COVID-19 virus U07.1; J12.82 Immunotherapy Z29.8 COVID-19 U07.1 Chronic anticoagulation Z79.01 History of deep vein thrombosis Z86.718 Acute respiratory failure with hypoxia J96.01 Jejunostomy tube in situ Z93.4 Status post laryngectomy Z90.[address] Z93.0
[2021-05-01 11:47] LABS: INR 1.15 (0.8-1.2)
[2021-05-01] MEDS: oxyCODONE 5 mg IR Tab/Cap PO ×2 (12:38→20:56)
[2021-05-01] MEDS: dexamethasone 4 mg/mL INJ 6 MG IVP (14:15)
--- NOTE | 2021-05-01 17:16 | PC.NURSE ---
spoke with Dr quigley with concerns of patient being on eliquis and scheduled to have a thoracentisis 05/02/[address] eliquis order on hold
--- NOTE | 2021-05-01 18:31 | PC.NURSE ---
This nurse agrees with all documentation and medication administration by Malika salinas student nurse
[2021-05-01] MEDS: atorvastatin 40 mg Tablet 20 MG PO (20:56)
[2021-05-01] MEDS: CLONazepam 0.5 mg Tablet PO (21:01)
[2021-05-02] VITALS (21 sets, daily range): BP systolic 95–119; BP diastolic 68–86; PULSE 72–138; RESP 15–34; TEMP 36.6–37.1; O2SAT 92–98; BMI 23.0
[2021-05-02] MEDS: piperacillin-tazobactam 3.375 GM in sodium chloride 0.9% (plus) 50 ML IV ×3 (02:33→17:28)
[2021-05-02 03:33] LABS: Basophils % 0.1 %; Hematocrit 38.9 % (42.0-52.0); Hemoglobin 12.5 g/dL (11.7-16.6); Lymphocytes # 0.1 10^3/uL (0.8-4.8); Lymphocytes % 0.6 %; Mean Corpuscular HGB Conc 32.1 g/dL (30.0-36.0); Mean Corpuscular Hemoglobin 30.1 pg (28.0-34.0); Mean Corpuscular Volume 93.7 fl (80-94); Mean Platelet Volume 9.6 fL (7.4-10.4); Monocytes # 0.6 10^3/uL (0.2-0.9); Monocytes % 4.1 %; Neutrophils # 14.44 10^3/uL (1.8-7.7); Nucleated Red Blood Cells % 0 %; Platelet Count 207 10^3/cmm (130-400); Red Blood Count 4.15 10^6/uL (4.1-5.3); White Blood Count 15.5 10^3/uL (4.0-10.0)
[2021-05-02 04:12] LABS: NT Pro B Type Natriuretic Pept 810 pg/mL (0-125); Procalcitonin 0.08 ng/mL (0-0.5)
[2021-05-02 04:23] LABS: Alanine Aminotransferase 19 U/L (0-41); Albumin Level 3.3 g/dL (3.5-5.2); Alkaline Phosphatase 122 IU/L (40-130); Anion Gap 17.7 (5-19); Aspartate Amino Transferase 15 U/L (0-40); Blood Urea Nitrogen 40 mg/dL (8-23); C Reactive Protein 29.6 mg/L (0.0-4.9); Calcium 9.3 mg/dL (8.5-10.5); Carbon Dioxide 23 mmol/L (22-29); Chloride 97 mmol/L (98-107); Globulin 2.9 g/dL (1.3-4.6); Glucose 166 mg/dL (65-115); Magnesium 2.2 mg/dL (1.7-2.3); Osmolality Calculated 290 mOsm/kg (285-295); Potassium 4.7 mmol/L (3.5-5.1); Sodium 133 mmol/L (136-145); Total Bilirubin 0.3 mg/dL (0.15-1.2); Total Protein 6.2 g/dL (6.6-8.7)
[2021-05-02] MEDS: levoFLOXacin 750 mg Tablet PO (06:07)
[2021-05-02] MEDS: levothyroxine 175 mcg Tablet PO (06:07)
[2021-05-02] MEDS: oxyCODONE 5 mg IR Tab/Cap PO ×3 (06:07→21:16)
[2021-05-02] MEDS: ipratropium-albuterol 3 mL Neb INHALATION ×5 (07:40→23:36)
[2021-05-02] MEDS: acetylcysteine 200 mg/mL SDV 4 mL 100 MG INHALATION ×5 (07:40→23:36)
[2021-05-02] MEDS: pantoprazole DR 40 mg Tablet PO (09:45)
[2021-05-02] MEDS: apixaban 5 mg Tablet 2.5 MG PO ×2 (09:46→21:15)
[2021-05-02] MEDS: FUROsemide 10 mg/mL SDV 4mL 40 MG IVP (10:01)
--- NOTE | 2021-05-02 10:40 | PM.PN ---
Subjective Subjective: Patient was seen this morning, continues to have complaints of generalized weakness,, his strength is somewhat improving, he thinks that he needs to get rehab, possibly in [place] Vitals/I&O/Wt Last Vital Signs Temp 98.8 F 05/02/21 07:07 Pulse 88 05/02/21 07:49 Resp 20 H 05/02/21 07:41 BP 119/86 05/02/21 07:07 Pulse Ox 95 05/02/21 07:41 05/01/21 05/02/21 05/02/21 22:59 06:59 14:59 Intake Total 280 / 280 1360 / 1640 50 / 50 Output Total 550 / 800 675 / 1475 Balance -270 / -520 685 / 165 50 / 50 Weight last 48 hrs Weight 68.629 kg Physical Exam Const: COMMON NORMALS: no acute distress and patient oriented x3 Resp: COMMON NORMALS: normal respiratory effort, No retractions, No use of accessory muscles and clear to auscultation bilaterally AUSCULTATION: clear to auscultation bilaterally Cardio: COMMON NORMALS: regular rate, regular rhythm, S1 normal heart sound present and S2 normal heart sound present RATE: regular rate RHYTHM: regular rhythm HEART SOUNDS: S1 normal heart sound present and S2 normal heart sound present GI: COMMON NORMALS: Normal to inspection, nondistended, normoactive bowel sounds present, Soft to palpation, non-tender and No hepatosplenomegaly present PALPATION: Yes Soft to palpation and Yes No hepatosplenomegaly present Extremity: COMMON NORMALS: no pedal edema Neuro: COMMON NORMALS: patient oriented x3 Data : 05/02/21 03:10 05/02/21 03:10 Micro: Microbiology 04/27/21 11:20 Gram Stain - Final Sputum - Expectorated Sputum Sputum Culture - Final Pseudomonas aeruginosa Pseudomonas aeruginosa#2 A&P Assessment and plan (1) CHF (congestive heart failure): Status: Chronic Qualifiers: Heart failure type: unspecified Heart failure chronicity: chronic Qualified Code(s): I50.9 - Heart failure, unspecified (2) Essential hypertension: Status: Chronic (3) Hypothyroid: Status: Chronic Qualifiers: Hypothyroidism type: acquired Qualified Code(s): E03.9 - Hypothyroidism, unspecified (4) GERD (gastroesophageal reflux disease): Status: Chronic (5) Esophageal adenocarcinoma: Status: Chronic (6) Pleural effusion, right: Status: Acute (7) Pneumonia due to COVID-19 virus: Status: Acute (8) Immunotherapy: Status: Chronic (9) COVID-19: Status: Acute (10) Chronic anticoagulation: Status: Acute (11) History of deep vein thrombosis: Status: Acute (12) Acute respiratory failure with hypoxia: Status: Acute (13) Jejunostomy tube in situ: Status: Chronic (14) Status post laryngectomy: Status: Acute (15) Tracheostomy in place: Status: Chronic Plan Hypoxia related to COVID-19 pneumonia FiO2 weaned down to 10 L HAG, 40% FiO2 Completed 5 days of remdesivir As he continues to feel short of breath, immunocompromise state given underlying malignancy, on baricitinib day 5 of Continue Decadron Concern for superimposed bacterial infection, although cultures have been unremarkable, sputum cultures so far show gram-negative rods, history of Pseudomonas, continue Levaquin, continue Zosyn Does have bilateral pleural effusions, has been diuresed -1.5 L,minimal bilateral pleural effusions, continue to diurese, 1 dose Lasix today No fever episodes noted Hypokalemia, monitor Hypomagnesemia, monitor Hypocalcemia, monitor History of DVT: Continue Eliquis J-tube in place Jevity feeds running at 100 mL/h Full code after home O2 eval will discharge over the weekend History of coronary disease no active chest pain Trach collar, routine trach collar care RT on board PT OT Working on placement to long-term care facility, possible rehab Attestations Medical Necessity Statement*: Patient requires hospitalization for COVID-19 Coding Level of Care Code Acute Oracle Database Architect for g Fwd Diagnoses CHF (congestive heart failure) I50.9 Heart failure type: unspecified Heart failure chronicity: chronic Essential hypertension I10 Hypothyroid E03.9 Hypothyroidism type: acquired GERD (gastroesophageal reflux disease) K21.9 Esophageal adenocarcinoma C15.9 Pleural effusion, right J90 Pneumonia due to COVID-19 virus U07.1; J12.82 Immunotherapy Z29.8 COVID-19 U07.1 Chronic anticoagulation Z79.01 History of deep vein thrombosis Z86.718 Acute respiratory failure with hypoxia J96.01 Jejunostomy tube in situ Z93.4 Status post laryngectomy Z90.[address] Z93.0
[2021-05-02] MEDS: dexamethasone 4 mg/mL INJ 6 MG IVP (16:04)
[2021-05-02] MEDS: CLONazepam 0.5 mg Tablet PO (21:15)
[2021-05-02] MEDS: atorvastatin 40 mg Tablet 20 MG PO (21:15)
--- NOTE | 2021-05-02 23:40 | PC.NURSE ---
Jevity 1.2 started at 2200 at 100 ml/hr with 120 cc flush q4hr per order.
[2021-05-03] VITALS (24 sets, daily range): BP systolic 100–137; BP diastolic 70–104; PULSE 94–147; RESP 15–32; TEMP 35.6–36.4; O2SAT 89–100
--- NOTE | 2021-05-03 00:22 | PC.NURSE ---
After repositioning patient in bed, patient's heart rate went to 140 ST. Patient's heart rate stayed there for about 30 or 40 minutes before coming back down. Patient's heart rate is currently 107.
[2021-05-03] MEDS: piperacillin-tazobactam 3.375 GM in sodium chloride 0.9% (plus) 50 ML IV ×2 (00:25→10:14)
--- NOTE | 2021-05-03 00:48 | PC.NURSE ---
Patient currently right side laying and is refusing to be turned or repositioned at this time.
--- NOTE | 2021-05-03 01:07 | PC.NURSE ---
Patient is currently resting with eyes closed.
[2021-05-03] MEDS: ipratropium-albuterol 3 mL Neb INHALATION ×5 (03:41→23:30)
[2021-05-03] MEDS: acetylcysteine 200 mg/mL SDV 4 mL 100 MG INHALATION ×5 (03:41→23:30)
[2021-05-03] MEDS: levothyroxine 175 mcg Tablet PO (04:25)
[2021-05-03] MEDS: levoFLOXacin 750 mg Tablet PO (04:25)
[2021-05-03 05:09] LABS: Basophils % 0.2 %; Hematocrit 41.4 % (42.0-52.0); Hemoglobin 13.5 g/dL (11.7-16.6); Lymphocytes # 0.1 10^3/uL (0.8-4.8); Lymphocytes % 0.7 %; Mean Corpuscular HGB Conc 32.6 g/dL (30.0-36.0); Mean Corpuscular Hemoglobin 30.4 pg (28.0-34.0); Mean Corpuscular Volume 93.2 fl (80-94); Mean Platelet Volume 9.3 fL (7.4-10.4); Monocytes # 0.7 10^3/uL (0.2-0.9); Monocytes % 3.6 %; Neutrophils # 17.57 10^3/uL (1.8-7.7); Neutrophils % 93.8 %; Nucleated Red Blood Cells % 0 %; Platelet Count 230 10^3/cmm (130-400); Red Blood Count 4.44 10^6/uL (4.1-5.3); White Blood Count 18.7 10^3/uL (4.0-10.0)
--- NOTE | 2021-05-03 05:15 | PC.NURSE ---
Patient repositioned and lifted up in bed with 2 assist. Patient placed back as right side laying. Patient refuses left side laying and supine.
[2021-05-03 05:24] LABS: Magnesium 2.2 mg/dL (1.7-2.3)
[2021-05-03 05:30] LABS: Anion Gap 17.8 (5-19); Blood Urea Nitrogen 46 mg/dL (8-23); Calcium 9.5 mg/dL (8.5-10.5); Carbon Dioxide 24 mmol/L (22-29); Chloride 95 mmol/L (98-107); Glucose 184 mg/dL (65-115); Osmolality Calculated 293 mOsm/kg (285-295); Potassium 3.8 mmol/L (3.5-5.1); Sodium 133 mmol/L (136-145)
--- NOTE | 2021-05-03 07:37 | CT_ITS ---
WS: [id number] CT CHEST WITHOUT INTRAVENOUS CONTRAST HISTORY: Pseudomonas, RIGHT pleural effusion. TECHNIQUE: Contiguous 5 mm axial imaging performed on the thorax. Coronal and sagittal reformats are submitted. All CT scans at [facility] use at least one of these dose optimization techniques: automated exposure control; mA and/or kV adjustment per patient size (includes targeted exams where dose is matched to clinical indication); or iterative reconstruction. CONTRAST: None DLP: 728.9 mGy.cm COMPARISON: 04/22/2021 01/05/2021 Lungs and central airway: Atelectasis of portions of the RIGHT upper, middle and lower lobes due to a moderate pleural effusion. Very similar to the prior examination with significant progression. Mild haziness and groundglass attenuation in the adjacent atelectatic lung. Partial atelectasis LEFT lower lobe. Mild haziness and groundglass attenuation scattered throughout the LEFT upper lobe. Very simil ar to the prior study. The atelectatic portion in the LEFT lower lobe has increased. Pleura: Moderate layering RIGHT pleural effusion. No effusion on the LEFT. Heart and pericardium: Heart is moderately enlarged. Heavy calcifications in the coronary arteries. Tracheostomy tube remains in good position. There is a catheter running partly through the anterior e sophagus. Catheter has been present on prior studies. Atherosclerosis aorta. Prior median sternotomy. Again noted is the gastric pull-through. There is diffuse quuc-yl-tlsoohic wall thickening of the ga stric pull-through which is unremarkable. No adenopathy appreciated. No adrenal mass. Low-attenuation mass measuring 18 mm in the upper pole RIGHT kidney. CT/CT chest wo con [id number] IMPRESSION: 1. Moderate size RIGHT pleural effusion. 2. Compressive atelectasis most significant in the RIGHT lower lobe and LEFT l ower lobes. LEFT lower lobe atelectasis has progressed since the most recent ex am. Partial atelectasis RIGHT upper and RIGHT middle lobes. 3. Unchanged appearance of the gastric pull-through with wall thickening. 4. Tracheostomy.
[2021-05-03] MEDS: apixaban 5 mg Tablet 2.5 MG PO (10:14)
[2021-05-03] MEDS: CLONazepam 0.5 mg Tablet PO ×2 (10:15→23:30)
[2021-05-03] MEDS: pantoprazole DR 40 mg Tablet PO (10:15)
[2021-05-03] MEDS: oxyCODONE 5 mg IR Tab/Cap PO ×2 (10:36→15:58)
--- NOTE | 2021-05-03 10:58 | PC.SOCIAL ---
IMM Update pg 2 of IMM updated and reviewed w/ patient. Copy provided. Copy in chart updated.
--- NOTE | 2021-05-03 11:20 | ECG_ITS ---
[facility] Test Date: 2021-05-03 Pat Name: Moustapha Nunes Department: Room: 106 Gender: Male Director Center: : 1945 Requested By: Fercho Alvarado Order Number: [id number] Fina MD: Nolan Leon M.D. Measurements Intervals [place] Rate: 118 P: 45 ND: 133 QRS: 79 QRSD: 103 T: -50 QT: 317 QTc: 445 Interpretive Statements SINUS TACHYCARDIA WITH OCCASIONAL SUPRAVENTRICULAR PREMATURE COMPLEXES POSSIBLE INFERIOR MYOCARDIAL INFARCTION , OF INDETERMINATE AGE [30 ms Q WAVE IN II/aVF] Compared to ECG 01/05/2021 08:28:27 No significant changes Electronically Signed On 05-05-2021 15:56:17 CDT by Nolan Leon M.D. [id number]
[2021-05-03 12:50] LABS: INR 1.25 (0.8-1.2)
[2021-05-03] MEDS: zinc oxide oint 30 gm 1 APPLIC TOPICAL (12:57)
--- NOTE | 2021-05-03 13:21 | PM.PN ---
Subjective Subjective: Patient was seen this morning, continues to complain of fatigue, tiredness, he would like to try Ensure drinks, still complains of weakness, shortness of breath At noon, patient developed heart rates as high as 150s, EKG shows sinus tachycardia, but upon my review on telemetry monitoring, it looks like atrial fibrillation, potassium within normal limits, magnesium within normal limits, was given 150 amiodarone bolus, heart rates in the 100s thereafter, Vitals/I&O/Wt Last Vital Signs Temp 96.0 F L 05/03/21 11:56 Pulse 147 H 05/03/21 11:56 Resp 21 H 05/03/21 11:56 BP 117/94 05/03/21 11:56 Pulse Ox 92 05/03/21 11:56 05/02/21 05/03/21 05/03/21 22:59 06:59 14:59 Intake Total 160 / 260 100 / 360 233 / 233 Output Total 400 / 400 300 / 700 Balance -240 / -140 -200 / -340 233 / 233 Weight last 48 hrs Weight 64.274 kg Weight 68.629 kg Physical Exam Const: COMMON NORMALS: no acute distress and patient oriented x3 Neck/C-Spine: COMMON NORMALS: no JVD Resp: COMMON NORMALS: normal respiratory effort, No retractions and No use of accessory muscles AUSCULTATION: crackles and wheezes Cardio: COMMON NORMALS: no JVD, S1 normal heart sound present and S2 normal heart sound present RATE: tachycardic RHYTHM: abnormal rhythm irregularly irregular HEART SOUNDS: S1 normal heart sound present and S2 normal heart sound present GI: COMMON NORMALS: Normal to inspection, nondistended, normoactive bowel sounds present, Soft to palpation, non-tender and No hepatosplenomegaly present PALPATION: Yes Soft to palpation and Yes No hepatosplenomegaly present Extremity: COMMON NORMALS: no pedal edema Neuro: COMMON NORMALS: patient oriented x3 Psych: COMMON NORMALS: mental status grossly normal Data : 05/03/21 04:33 05/03/21 04:33 A&P Assessment and plan (1) CHF (congestive heart failure): Status: Chronic Qualifiers: Heart failure type: unspecified Heart failure chronicity: chronic Qualified Code(s): I50.9 - Heart failure, unspecified (2) Essential hypertension: Status: Chronic (3) Hypothyroid: Status: Chronic Qualifiers: Hypothyroidism type: acquired Qualified Code(s): E03.9 - Hypothyroidism, unspecified (4) GERD (gastroesophageal reflux disease): Status: Chronic (5) Esophageal adenocarcinoma: Status: Chronic (6) Pleural effusion, right: Status: Acute (7) Pneumonia due to COVID-19 virus: Status: Acute (8) Immunotherapy: Status: Chronic (9) COVID-19: Status: Acute (10) Chronic anticoagulation: Status: Acute (11) History of deep vein thrombosis: Status: Acute (12) Acute respiratory failure with hypoxia: Status: Acute (13) Jejunostomy tube in situ: Status: Chronic (14) Status post laryngectomy: Status: Acute (15) Tracheostomy in place: Status: Chronic (16) Protein calorie malnutrition: Status: Acute (17) Physical deconditioning: Status: Acute (18) Recurrent right pleural effusion: Status: Acute (19) Atrial fibrillation: Status: Acute Plan Hypoxia related to COVID-[address] of the chest today showed 1.? Moderate size RIGHT pleural effusion. 2.? Compressive atelectasis most significant in the RIGHT lower lobe and LEFT lower lobes. LEFT lower lobe atelectasis has progressed since the most recent exam. Partial atelectasis RIGHT upper and RIGHT middle lobes. 3.? Unchanged appearance of the gastric pull-through with wall thickening. 4.? Tracheostomy. FiO2 currently 10 L HAG, 40% FiO2 Completed 5 days of remdesivir As he continues to feel short of breath, immunocompromise state given underlying malignancy, on baricitinib day 7 of 14 Continue Decadron Sputum cultures so far showed 2 strains of Pseudomonas, secondary multidrug-resistant, sensitive to Zosyn and cefepime Stop Zosyn due to high KEMI, stop Levaquin Start cefepime 2 g every 12 hours Does have bilateral pleural effusions, has been diuresed -1.5 L, 1 dose Lasix today Does have large right pleural effusion, did receive Eliquis this morning 2.5, hold further doses, discussed with Dr. Richardson, will have a thoracocentesis diagnostic and therapeutic, concerns for possible underlying empyema No fever episodes noted Atrial fibrillation, received 150 mg amiodarone bolus, heart rates in the 100s, start amiodarone 400 twice daily p.o., maintain potassium greater than 4, magnesium greater than 2, Eliquis currently on hold for plans for thoracocentesis Hypokalemia, monitor Hypomagnesemia, monitor Hypocalcemia, monitor History of DVT: Currently on Eliquis on hold, as plans for thoracocentesis J-tube in place Jevity feeds running at 100 mL/h Discussed with speech therapy, okay with Ensure drinks twice daily Full code after home O2 eval will discharge over the weekend History of coronary disease no active chest pain Trach collar, routine trach collar care RT on board PT OT Working on placement to long-term care facility, possible rehab Attestations Medical Necessity Statement*: Patient requires hospitalization for COVID-19 pneumonia, right pleural effusion, A. fib, deconditioning Coding Level of Care Code Acute Flavoring Machine Operator for Chg Fwd Diagnoses CHF (congestive heart failure) I50.9 Heart failure type: unspecified Heart failure chronicity: chronic Essential hypertension I10 Hypothyroid E03.9 Hypothyroidism type: acquired GERD (gastroesophageal reflux disease) K21.9 Esophageal adenocarcinoma C15.9 Pleural effusion, right J90 Pneumonia due to COVID-19 virus U07.1; J12.82 Immunotherapy Z29.8 COVID-19 U07.1 Chronic anticoagulation Z79.01 History of deep vein thrombosis Z86.718 Acute respiratory failure with hypoxia J96.01 Jejunostomy tube in situ Z93.4 Status post laryngectomy Z90.[address] Z93.0 Protein calorie malnutrition E46 Physical deconditioning R53.81 Recurrent right pleural effusion J90 Atrial fibrillation I48.91
[2021-05-03] MEDS: cefepime 2,000 MG in sodium chloride 0.9% (plus) 50 ML 100 MG IV (13:30)
--- NOTE | 2021-05-03 15:00 | US_ITS ---
WS: [id number] ULTRASOUND-GUIDED THORACENTESIS CLINICAL INFORMATION: right pleural effusion COMPARISON: None. PROCEDURE: Informed consent: The risks, benefits, and alternatives of the procedure were discussed with the ceciila ent. Verbal and written consent was obtained. Timeout: A timeout was performed to confirm the correct patient, procedure, and site. Site: RIGHT Preparation: A suitable skin site was identified. The patient was prepped and draped in usual sterile fashion. Lidocaine 1% was used for local anesthesia. Catheter: 4 [place] One-Step catheter. Fluid Volume: 1000 ml Color: Clear yellow 50cc's sent for requested diagnostic tests. Complications: No immediate complications. US/ thoracentesis [id number] IMPRESSION: 1. Uncomplicated ultrasound-guided thoracentesis. 2. Portable radiograph pending.
--- NOTE | 2021-05-03 15:08 | PC.OT ---
OT tx attempted 2x today. Pts heart rate elevated (145 at rest) this a.m. and pt having thoracentesis this p.m. Tx to be attempted again tomorrow.
--- NOTE | 2021-05-03 15:12 | NUR.SHIFT ---
[facility] Right side Thoracentesis 1512-time out done w/Erick Damon; [facility] dept, this nurse SHIMA Noel. 1000 ml of pleural fluid drained out. Pt tolerated the procedure well. portable xray taken post procedure. RT notified on pt's procedure.
--- NOTE | 2021-05-03 15:40 | XR_ITS ---
WS: [id number] CHEST XRAY TECHNIQUE: Portable chest. CLINICAL INFORMATION: post thoracentesis COMPARISON: May 01, 2021 FINDINGS: RIGHT central venous catheter is unchanged. Tracheostomy. Heart: Cardiomegaly. Sternotomy. Aortic calcification. Prominent LEFT ventricle. Lungs: Improved RIGHT pleural effusion post thoracentesis. Bibasilar atelectasis. Possible tiny apica l pneumothorax or pleural reflection in the RIGHT lung apex. Recommend interval follow-up radiograph in 4 to 6 hours. Small LEFT pleural effusion with LEFT basilar atelectasis is unchanged. Bones: Osteopenia. XR/XR chest 1V portable [id number] IMPRESSION: 1. Improved RIGHT pleural effusion post thoracentesis with RIGHT basilar atele ctasis. Improved aeration RIGHT lung. 2. Possible tiny RIGHT apical pneumothorax or pleural reflection at the lung a pex. Recommend follow-up radiograph in 4 to 6 hours to assess change. 3. No other significant changes compared to previous. Notified Antwan Richardson MD at 05/03/2021 4:50 PM.
[2021-05-03 15:57] LABS: Body Fluid Polynuclear #Cells 0.027; Body Fluid WBC 82 /uL; Monocytes # Body Fluid 0.055; RBC, Body Fluid 0 10^3/uL
[2021-05-03] MEDS: FUROsemide 10 mg/mL SDV 4mL 40 MG IVP (15:57)
[2021-05-03] MEDS: dexamethasone 4 mg/mL INJ 6 MG IVP (15:57)
[2021-05-03] MEDS: amiodarone 200 mg Tablet 400 MG PO (15:58)
[2021-05-03 16:29] LABS: Apprearance, Body Fluid CLEAR; Color, Body Fluid YELLOW; PATH Referral YES
[2021-05-03 17:06] LABS: Creatinine Body Fluid 0.94 (0.7-1.2)
--- NOTE | 2021-05-03 18:20 | PC.NURSE ---
report given to ICU nurse
[2021-05-03 18:44] LABS: Albumin Body Fluid 2.6 g/dL
[2021-05-03 18:45] LABS: LDH Pleural Fluid 119 U/L; Total Protein Pleural Fluid 4.1 g/dL; Triglycerides, Pleural Fluid 11 mg/dL
--- NOTE | 2021-05-03 19:24 | PM.CONSULT ---
Providers/Reason For Consult Consulting Physician/Specialty*: Nawaf Valero MD/ Pulmonary Critical Care Reason for Consult*: Acute hypoxemic respiratory failure in patient with right pleural effusion suspected pneumonia Requesting Physician: Fercho Alvarado MD Attending Physician: Fercho Alvarado MD Primary Care Provider: Randi Buchanan DO History of Present Illness History of Present Illness Moustapha Nunes is a 75 year old male Adenocarcinoma s/p chemoradiation, on chronic immunotherapy with the nivolumab, esophagectomy, laryngectomy, tracheostomy placement along with gastric conduit reconstruction in November 2020. He has a J-tube replaced in February 2021. 2 to 3 days prior to this hospital admission on 04/22/2021 patient has increasing difficulty with cough, nonproductive, low-grade fevers and general malaise, worsening shortness of breath on exertion and breast. He had some nausea but no vomiting. Patient headquartered 3 weeks ago. Saturations were in the mid 80s on arrival, does not usually use any oxygen with activity pallor. Patient rapid PCR is positive for COVID-19. CT chest did not reveal any evidence of PE. Patient did have prior history of DVT for which she was on chronic Eliquis therapy 2.5 mg twice daily. Admission CT chest on 04/22/2019, moderate 5 pleural effusion progressed compared to previous compressive atelectasis right lower lobe with tiny left pleural effusion. There is a thrombus infiltrates compatible with COVID-19 pneumonia prominent left greater than right lower lobes. Developing consolidation left lower lobe posteriorly. Pulmonary consult requested for worsening hypoxia, leukocytosis Patient seen at bedside today, appears sick, reported feeling somewhat better since admission but still is feeling weak. Patient communicates by writing on paper. Currently requiring 10 L HAG and 40% FiO2 through trach. Intermittently tachycardic and received amiodarone bolus today morning. Patient was treated with 5-day course of remdesivir, currently on Decadron on baricitinib, broad-spectrum antibiotics with Levaquin. Previous admission sputum cultures grew Pseudomonas- Zosyn was added to Levaquin. Most recent sputum cultures today MDR Pseudomonas sensitive to Zosyn and cefepime. Other labs and imaging reviewed Review of Systems General: Reports: 10 or more systems reviewed and unremarkable except in HPI and below Medications/Allergies Home Medications Medication Instructions Recorded Confirmed Last Taken Type guaifenesin 100 mg/5 mL oral 200 mg (10 mL) PO Q6H PRN #1500 ml 01/07/21 04/22/21 04/21/21 Rx liquid (Child Mucus Relief Expectorant) lorazepam 2 mg/mL oral concentrate 1 mg (0.5 mL) PO BID PRN #15 ml 01/14/21 04/22/21 04/22/21 Rx oxycodone 5 mg/5 mL oral solution 5 mg (5 mL) FEEDING TUBE Q3H PRN 7 01/28/21 04/22/21 Unknown Rx Days #250 ml levothyroxine 175 mcg tablet 175 mcg PO QAM #90 tab 03/21/21 04/22/21 04/22/21 Rx omeprazole 20 mg capsule,delayed 20 mg PO DAILY #90 cap 03/21/21 04/22/21 04/22/21 Rx release acetaminophen 500 mg capsule 1,000 mg PO Q6H PRN cap 04/01/21 04/22/21 04/21/21 History nitroglycerin 0.4 mg sublingual 0.4 mg SUBLINGUAL Q5M PRN #50 tab 04/01/21 04/22/21 Unknown Rx tablet atorvastatin 20 mg tablet 20 mg PO DAILY #90 tab 04/02/21 04/22/21 04/22/21 Rx oxycodone 5 mg tablet 5 mg PO Q6H PRN 10 Days #60 tab 04/16/21 04/22/21 Unknown Rx apixaban 5 mg tablet (Eliquis) 2.5 mg PO BID@09,21 04/22/21 04/22/21 04/22/21 08:00 History nivolumab 240 mg/24 mL intravenous 240 mg IV Q14D 04/22/21 04/22/21 04/16/21 History solution (Opdivo) Allergies Allergy/AdvReac Type Severity Reaction Status Date / Time No Known Allergies Allergy Verified 04/22/21 11:19 Current Medications Generic Name Dose Route Start Last Admin Trade Name Freq PRN Reason Stop Dose Admin Acetylcysteine 100 mg 04/25/21 20:00 05/03/21 16:14 Acetylcysteine 200 Mg/Ml Sdv 4 Ml INHALATION 100 mg Q4H.RESPIRATORY ANDREA Administration Albuterol/Ipratropium 3 ml 04/26/21 12:00 05/03/21 16:13 Ipratropium-Albuterol 3 Ml Neb INHALATION 3 ml Q4H.RESPIRATORY ANDREA Administration Amiodarone HCl 400 mg 05/03/21 13:30 05/03/21 15:58 Amiodarone 200 Mg Tablet PO 400 mg Q12H ANDREA Administration Apixaban 2.5 mg 04/22/21 21:00 05/03/21 10:14 Apixaban 5 Mg Tablet PO 2.5 mg BID@ ANDREA Administration Atorvastatin Calcium 20 mg 04/22/21 21:00 05/02/21 21:15 Atorvastatin 40 Mg Tablet PO 20 mg BEDTIME ANDREA Administration Baricitinib 4 mg 04/26/21 12:45 05/03/21 10:37 Baricitinib 2 Mg Tablet PO 05/10/21 12:46 4 mg Q24H ANDREA Administration Clonazepam 0.5 mg 04/28/21 12:30 05/03/21 10:15 Clonazepam 0.5 Mg Tablet PO 0.5 mg BID PRN Administration ANXIETY Dexamethasone 6 mg 04/22/21 15:00 05/03/21 15:57 Dexamethasone 4 Mg/Ml Inj IVP 6 mg Q24H ANDREA Administration Docusate Sodium 100 mg 04/22/21 21:00 05/03/21 10:15 Docusate Sodium 10 Mg/Ml (5ml) Liq PO Not Given BID@0900,2100 ANDREA Cefepime HCl 2,000 mg/ Sodium 50 mls @ 100 mls/hr 05/03/21 13:15 05/03/21 14:15 Chloride IV Infused Q12H ANDREA Infusion Protocol Levothyroxine Sodium 175 mcg 04/23/21 06:00 05/03/21 04:25 Levothyroxine 175 Mcg Tablet PO 175 mcg QAM ANDREA Administration Oxycodone HCl 5 mg 04/26/21 21:43 05/03/21 15:58 Oxycodone 5 Mg Ir Tab/Cap PO 5 mg Q4H PRN Administration MODERATE PAIN Pantoprazole Sodium 40 mg 04/23/21 09:00 05/03/21 10:[address] 40 Mg Tablet PO 40 mg DAILY ANDREA Administration Zinc Oxide 1 applic 04/26/21 08:12 05/03/21 12:57 Zinc Oxide Oint 30 Gm TOPICAL 1 applic PRN PRN Administration SKIN PROTECTANT PFSH Acute PFSH: Medical History Anxiety CAD (coronary artery disease) CHF (congestive heart failure) Chronic anticoagulation eliquis 2.5 bid for history of dvt Colon cancer DVT (deep venous thrombosis) (~02/2020) Esophageal adenocarcinoma -Follows with Dr Sorto, Dr Hayes and Dr Blanton did surgery -s/p chemoradiation with carboplatin/taxol -s/p esophagectomy, laryngectomy, trachostomy, gastric conduit reconstruction, j tube placement in 12/13 - Adenocarcinoma involving proximal esophageal margin, however status of final esophageal margin cannot be determined with certainty as several proximal esophageal specimen was submitted and they were not oriented. Adenocarcinoma involving circumferential margin. Distal gastric margin, negative for carcinoma. Metastatic adenocarcinoma involving 4 of 8 lymph nodes. Pathological stage yT3, N2, HER-2/cortez negative, MMR, equivocal expression, molecular testing for MSI show intact. -nivolumab started at 02/21/21 Esophageal stricture Essential hypertension Foot drop, left GERD (gastroesophageal reflux disease) History of pancytopenia chemotherapy related History of stress test 11/29/20 - Large area of old myocardial infarction versus scarring noted in basal to distal inferior and basal to mid inferolateral wall without mario-infarct ischemia, no ekg changes noted Hyperlipidemia Hypothyroid Jejunostomy tube in situ Nodule of spleen Old [place] (myocardial infarction) Pulmonary nodules Tracheostomy in place Surgical History H/O esophagogastroduodenoscopy 09/01/20; with dilation 07/02/20; with dilation History of appendectomy History of colon resection 2014 History of colonoscopy 2018 History of esophagectomy (~11/2020) [facility] History of jejunostomy tube placement 1st malfunctioned, replaced Feb 12 or Mar 16 History of tracheostomy (~11/2020) [facility] Hx of CABG (~1993) Port-A-Cath in place (08/15/20) Status post laryngectomy (~11/2020) [facility] Family History Father Aortic stenosis Other CAD (coronary artery disease) Social History Smoking and tobacco status: never smoked Alcohol intake: current Alcohol intake frequency: few times a month Alcohol type: beer Substance/Drug Use: never Lives independently: No Household members: spouse and children Marital status: Additional social history: communicates by writing, mouthing words or using valve Vitals/I&O/Wt Last Vital Signs Temp 97.6 F 05/03/21 16:40 Pulse 110 H 05/03/21 16:40 Resp 32 H 05/03/21 16:40 BP 137/104 05/03/21 16:40 Pulse Ox 100 05/03/21 16:40 05/03/21 05/03/21 05/03/21 06:59 14:59 22:59 Intake Total 100 / 360 283 / 283 Output Total 300 / 700 475 / 475 Balance -200 / -340 283 / 283 -475 / -192 Weight last 48 hrs Weight 141 lb 11.2 oz Weight 151 lb 4.8 oz Physical Exam Narrative: General: alert, NAD HEENT: conj clear, EOMI, PERRL, mmm, Neck: Trach collar, supple, no meningismus Heme: no cervical LAP Pulmonary: Reduced breath sounds on right lower lung zone there was diffuse crepitations bilaterally Cardiovascular: rrr, nl s1s2, no mrg Abdomen: soft, nt, nd, no r/g, bs+ Extremities: pulses +, no edema, no c/c : no CVA tenderness Skin: intact, no rash MSK: no back or neck pain Neurologic: grossly intact Data : 05/03/21 04:33 05/03/21 04:33 Other Labs: Radiology Impressions Chest CTA 04/22/21 11:53 IMPRESSION: 1. Proximal main pulmonary arteries are normal. No evidence of pulmonary embolus. 2. Moderate RIGHT pleural effusion progressed compared to previous with compressive atelectasis RIGHT lower lobe. Tiny LEFT pleural effusion. 3. Hazy groundglass infiltrates compatible with Covid 19 pneumonia more prominent in the LEFT upper lobe and LEFT greater than RIGHT lower lobes. Developing consolidation LEFT lower lobe posteriorly. 4. Prior esophagectomy with gastric pull-through. Chest CT 05/03/21 07:37 IMPRESSION: 1. Moderate size RIGHT pleural effusion. 2. Compressive atelectasis most significant in the RIGHT lower lobe and LEFT lower lobes. LEFT lower lobe atelectasis has progressed since the most recent exam. Partial atelectasis RIGHT upper and RIGHT middle lobes. 3. Unchanged appearance of the gastric pull-through with wall thickening. 4. Tracheostomy. Thoracentesis Ultrasound 05/03/21 15:00 IMPRESSION: 1. Uncomplicated ultrasound-guided thoracentesis. 2. Portable radiograph pending. Chest X-Ray 05/03/21 15:40 IMPRESSION: 1. Improved RIGHT pleural effusion post thoracentesis with RIGHT basilar atelectasis. Improved aeration RIGHT lung. 2. Possible tiny RIGHT apical pneumothorax or pleural reflection at the lung apex. Recommend follow-up radiograph in 4 to 6 hours to assess change. 3. No other significant changes compared to previous. Notified Antwan Richardson MD at 05/03/2021 4:50 PM. Laboratory Results WBC 18.7 10^3/uL (4.0-10.0) H 05/03/21 04:33 RBC 4.44 10^6/uL (4.1-5.3) 05/03/21 04:33 Hgb 13.5 g/dL (11.7-16.6) 05/03/21 04:33 Hct 41.4 % (42.0-52.0) L 05/03/21 04:33 MCV 93.2 fl (80-94) 05/03/21 04:33 MCH 30.4 pg (28.0-34.0) 05/03/21 04:33 MCHC 32.6 g/dL (30.0-36.0) 05/03/21 04:33 RDW 15.0 % (12.1-15.1) 05/03/21 04:33 Plt Count 230 10^3/cmm (130-400) 05/03/21 04:33 MPV 9.3 fL (7.4-10.4) 05/03/21 04:33 Neut % (Auto) 93.8 % 05/03/21 04:33 Lymph % (Auto) 0.7 % 05/03/21 04:33 [place] % (Auto) 3.6 % 05/03/21 04:33 Eos % (Auto) 0.0 % 05/03/21 04:33 Baso % (Auto) 0.2 % 05/03/21 04:33 Neut # (Auto) 17.57 10^3/uL (1.8-7.7) H 05/03/21 04:33 Lymph # (Auto) 0.1 10^3/uL (0.8-4.8) L 05/03/21 04:33 [place] # (Auto) 0.7 10^3/uL (0.2-0.9) 05/03/21 04:33 Eos # (Auto) 0.0 10^3/uL (0.0-0.8) 05/03/21 04:33 Baso # (Auto) 0.0 10^3/uL (0.0-0.1) 05/03/21 04:33 Nucleated RBC % (auto) 0 % 05/03/21 04:33 Nucleated RBCs # 0.0 /100WBC 05/03/21 04:33 Differential Comment Yes 05/03/21 15:26 PT 16.10 SECONDS (12.1-14.9) H 05/03/21 12:23 INR 1.25 (0.8-1.2) H 05/03/21 12:23 D-Dimer 4.06 ug/mIFEU (0-0.59) H 04/22/21 11:00 Specimen Type Arterial 04/25/21 05:45 Sample Site Radial, left 04/25/21 05:45 ABG pH 7.49 (7.35-7.45) H 04/25/21 05:45 ABG pCO2 31.5 mmHg (35-45) L 04/25/21 05:45 ABG pO2 65.1 mmHg (80.0-100.0) L 04/25/21 05:45 ABG HCO3 24.0 mmol/L (22-26) 04/25/21 05:45 ABG O2 Saturation 94.1 04/23/21 11:15 ABG Base Excess 1.2 mmol/L (-2.0-2.0) 04/25/21 05:45 Jose Test Pos 04/25/21 05:45 A-a O2 Gradient 18.8 mmHg (5-10) H 04/23/21 11:15 Hematocrit 34.6 % (42-52) L 04/25/21 05:45 Hgb O2 Saturation 92.7 % (95-100) L 04/23/21 11:15 Carboxyhemoglobin 0.8 %THgb (0.4-20.1) 04/23/21 11:15 Methemoglobin 0.7 % (0.4-1.5) 04/23/21 11:15 Total Hemoglobin 12.5 g/dL (14-18) L 04/23/21 11:15 Sodium 134.0 mmol/L (131-143) 04/23/21 11:15 Potassium 3.8 mmol/L (3.5-5.0) 04/23/21 11:15 Glucose 123.0 mg/dL (70-115) H 04/23/21 11:15 Ionized Calcium 1.2 mmol/L (1.1-1.4) 04/23/21 11:15 O2 Delivery Device Cag 04/25/21 05:45 O2 Liters/Min 10.0 % 04/25/21 05:45 FiO2 35.0 % 04/25/21 05:45 Composition Weatherboard Applier ID ,[email or web address] 04/25/21 05:45 Sodium 133 mmol/L (136-145) L 05/03/21 04:33 Potassium 3.8 mmol/L (3.5-5.1) 05/03/21 04:33 Chloride 95 mmol/L (98-107) L 05/03/21 04:33 Carbon Dioxide 24 mmol/L (22-29) 05/03/21 04:33 Anion Gap 17.8 (5-19) 05/03/21 04:33 BUN 46 mg/dL (8-23) H 05/03/21 04:33 Creatinine 0.9 mg/dL (0.7-1.2) 05/03/21 04:33 GFR Calculation Not Reportable 05/03/21 04:33 Glucose 184 mg/dL (65-115) H 05/03/21 04:33 POC Glucose 125 mg/dL (70-110) H 04/25/21 07:43 Calculated Osmolality 293 mOsm/kg (285-295) 05/03/21 04:33 Lactic Acid 1.8 mmol/L (0.5-2.2) 04/22/21 11:00 Calcium 9.5 mg/dL (8.5-10.5) 05/03/21 04:33 Ionized Calcium Shefali 1.2 mmol/L (1.1-1.4) 04/29/21 08:08 Phosphorus 2.7 mg/dL (2.5-4.5) 04/29/21 02:22 Magnesium 2.2 mg/dL (1.7-2.3) 05/03/21 04:33 Total Bilirubin 0.3 mg/dL (0.15-1.2) 05/02/21 03:10 AST 15 U/L (0-40) 05/02/21 03:10 ALT 19 U/L (0-41) 05/02/21 03:10 Alkaline Phosphatase 122 IU/L (40-130) 05/02/21 03:10 C-Reactive Protein 29.6 mg/L (0.0-4.9) H 05/02/21 03:10 NT-Pro-B Natriuret Pep 810 pg/mL (0-125) H 05/02/21 03:10 Total Protein 6.2 g/dL (6.6-8.7) L 05/02/21 03:10 Albumin 3.3 g/dL (3.5-5.2) L 05/02/21 03:10 Globulin 2.9 g/dL (1.3-4.6) 05/02/21 03:10 Procalcitonin 0.08 ng/mL (0-0.5) 05/02/21 03:10 Fluid Color Yellow 05/03/21 15:26 Fluid Appearance Clear 05/03/21 15:26 Fluid WBC 82 /uL 05/03/21 15:26 Fluid RBC 0 10^3/uL 05/03/21 15:26 Fluid Hematocrit 0.0 % 05/03/21 15:26 Fld Polynuclear WBCs # 0.027 05/03/21 15:26 Fld Polynuclear WBCs % 32.900 % 05/03/21 15:26 Fl Mononucl WBCs #(Auto) 0.055 05/03/21 15:26 Fl Mononuclear % Auto 67.100 % 05/03/21 15:26 Fluid Albumin 2.6 g/dL 05/03/21 15:26 Fluid Creatinine 0.94 (0.7-1.2) 05/03/21 15:26 Pleural pH 8.00 (6.5-7.5) H 05/03/21 15:26 Pleural Total Protein 4.1 g/dL 05/03/21 15:26 Pleural LDH 119 U/L 05/03/21 15:26 Pleural Glucose 184.0 mg/dL 05/03/21 15:26 Pleural Amylase 26.0 U/L 05/03/21 15:26 Pleural Triglycerides 11 mg/dL 05/03/21 15:26 Vancomycin Trough 19.6 ug/mL (10-15) H 04/24/21 04:18 Coronavirus 229E (PCR) Not detected (NOT DETECT) 04/22/21 11:24 SARS-CoV-2 (PCR) Detected (NOT DETECT) A 04/22/21 11:24 A&P Assessment and plan (1) Acute respiratory distress syndrome (ARDS) due to 2019-nCoV: Status: Acute (2) Atrial fibrillation: Status: Acute (3) CHF (congestive heart failure): Status: Chronic Qualifiers: Heart failure type: unspecified Heart failure chronicity: chronic Qualified Code(s): I50.9 - Heart failure, unspecified (4) Esophageal adenocarcinoma: Status: Chronic (5) Immunotherapy: Status: Chronic (6) Acute respiratory failure with hypoxia: Status: Acute (7) Pulmonary nodules: Status: Chronic (8) Status post laryngectomy: Status: Acute (9) Tracheostomy in place: Status: Chronic (10) Recurrent right pleural effusion: Status: Acute Plan #Acute hypoxic respiratory failure #Multifactorial secondary to moderate pleural effusion/COVID-19 pneumonia/MDR Pseudomonas pneumonia/CHF/atrial fibrillation/pneumonitis secondary to nivolumab -Currently requiring 10 L 40% via HAG-monitor saturations to keep>88% -Patient completed a 5-day course of remdesivir, currently on baricitinib and dexamethasone -held nivolumab during admission -discontinue baricitinib - given concomitant Pseudomonas pneumonia -Recommended to discontinue Levaquin and Zosyn and start patient on cefepime as it has better KEMI than other antibiotics -Patient is at risk for aspiration due to previous gastric pull-up surgery; currently feeding through [id number] appropriate residuals -Echo August 2021: Showed technically difficult study normal LV size and EF 45 to 50% with septal hypokinesis -Today started on amiodarone 400 mg p.o. twice daily for atrial fibrillation -Received Lasix 40 mg IV push yesterday -Closely monitor input output, renal functions and try to keep net negative to even-Lasix as needed -I will recommend to transfer patient to ICU for observation over this weekend and connect trach to ventilator if needed -Continue trach collar care, aspiration precautions, out of bed to chair, monitor saturations #Right pleural effusion -possible parapneumonic #tiny RIGHT apical pneumothorax or pleural reflection at the lung apex-postprocedure -S/p thoracentesis by IR drained 1000 cc of clear yellow fluid drained -Pleural pH reported 8, total protein 4.1, LDH 119, WBC 82, 32% neutrophils-exudative by light criteria with total protein>0.5-likely parapneumonic effusion -Cultures pending -Also sent for cytology-given history of pulmonary nodules and patient with history of esophageal adenocarcinoma -Repeat chest x-ray today night to follow-up on tiny apical pneumothorax -Patient is on antibiotics for parapneumonic effusion #History of DVT -Resume Eliquis in a.m. Recommendations conveyed to hospitalist, RN, RT taking care of the patient Consult Attestations Medical Necessity Statement: #Acute hypoxic respiratory failure-required ICU monitoring 24 to 48 hours Time Spent in Patient Care: The high probability of a clinically significant, sudden or life threatening deterioration of the patient's [respiratory, cardiac, system(s) required my full and direct attention, intervention and personal management. The critical care time is as shown. This time is in addition to time spent performing any reported procedures but includes the following: [x] Data and vital sign review and interpretation [x] Patient assessment, examination and intervention [x] Documentation [x] Medication orders and management Critical Care Time: Critical Care Time (min): 55 Coding Level of Care Code New Pt Acute Sustain Engineer for Chg Fwd Patient Type New History Comprehensive Exam Comprehensive Medical Decision Making High Complexity Diagnoses Acute respiratory distress syndrome (ARDS) due to 2019-nCoV U07.1; J80 Atrial fibrillation I48.91 CHF (congestive heart failure) I50.9 Heart failure type: unspecified Heart failure chronicity: chronic Esophageal adenocarcinoma C15.9 Immunotherapy Z29.8 Acute respiratory failure with hypoxia J96.01 Pulmonary nodules R91.8 Status post laryngectomy Z90.[address] Z93.0 Recurrent right pleural effusion J90 Time Spent (min) 55
--- NOTE | 2021-05-03 20:34 | PC.NURSE ---
Shift Note Frequent safety and comfort rounds continue. Orders and/or nursing care completed as indicated. Patient monitored for response to intervention and treatment(s). Education provided includes thoracentesis, ct scan and chest xray, oxygenation. Patient and/or communications representative verbalizes understanding. Will continue to monitor.
[2021-05-03] MEDS: docusate sodium 10 mg/mL (5ml) Liq 100 MG PO (20:40)
[2021-05-03] MEDS: atorvastatin 40 mg Tablet 20 MG PO (20:40)
--- NOTE | 2021-05-03 21:00 | XRR_ITS ---
PROCEDURE INFORMATION: Exam: XR Chest Exam date and time: 05/03/2021 9:00 PM Age: 75 years old Clinical indication: Dyspnea; Prior surgery; Surgery date: 6+ months; Additional info: Follow-up for right apical pneumothorax TECHNIQUE: Imaging protocol: XR of the chest. Views: 1 view. COMPARISON: CR XR chest 1V portable [id number] 05/03/2021 3:48 PM FINDINGS: Tubes, catheters and devices: Infusion port catheter is in place with its tip in the superior vena cava. Tracheostomy tube is in satisfactory position. Lungs: Basilar atelectasis and infiltrates are not significantly changed. Pleural spaces: There is a small right pneumothorax which appears smaller than on on the examination done at 3:49 p.m.. Small pleural effusions not significantly changed. Heart/Mediastinum: Unremarkable. No cardiomegaly. Bones/joints: Unremarkable. XR/XR chest 1V portable [id number] IMPRESSION: 1. Slight decrease in right pneumothorax. 2. No change in pleural fluid and pulmonary findings.
[2021-05-03 21:26] LABS: ABG PCO2 33.1 mmHg (35-45); ABG PH Result 7.49 (7.35-7.45); Alveolar-Arterial Oxygen Gradi 18.5 mmHg (5-10); Arterial Blood Gas Hematocrit 44.6 % (42-52); Base Excess ABG 2.6 mmol/L (-2.0-2.0); Blood Gas Sample Site Brachial, right; Blood Gas Sample Type Arterial; Carboxyhemoglobin 0.8 %THgb (0.4-20.1); HCO3 ABG 25.4 mmol/L (22-26); HGB O2 Sat 92.6 % (95-100); Ionized Calcium Level - ABG 1.2 mmol/L (1.1-1.4); Methemoglobin 0.7 % (0.4-1.5); Oxygen Device HAG; PO2 ABG 66.8 mmHg (80.0-100.0); Potassium Level - ABG 3.8 mmol/L (3.5-5.0); Total Hemoglobin 14.6 g/dL (14-18)
[2021-05-04] VITALS (34 sets, daily range): BP systolic 98–132; BP diastolic 69–98; PULSE 94–113; RESP 15–34; TEMP 35.6–36.8; O2SAT 89–99
[2021-05-04] MEDS: cefepime 2,000 MG in sodium chloride 0.9% (plus) 50 ML 100 MG IV ×2 (00:53→13:14)
[2021-05-04] MEDS: amiodarone 200 mg Tablet 400 MG PO ×2 (00:54→13:14)
[2021-05-04] MEDS: ipratropium-albuterol 3 mL Neb INHALATION ×6 (03:43→23:03)
[2021-05-04] MEDS: acetylcysteine 200 mg/mL SDV 4 mL 100 MG INHALATION ×2 (03:43→08:10)
[2021-05-04] MEDS: levothyroxine 175 mcg Tablet PO (05:26)
[2021-05-04 05:32] LABS: Basophils % 0.2 %; Hematocrit 40.9 % (42.0-52.0); Hemoglobin 13.4 g/dL (11.7-16.6); Lymphocytes # 0.2 10^3/uL (0.8-4.8); Lymphocytes % 0.8 %; Mean Corpuscular HGB Conc 32.8 g/dL (30.0-36.0); Mean Corpuscular Hemoglobin 31.1 pg (28.0-34.0); Mean Corpuscular Volume 94.9 fl (80-94); Mean Platelet Volume 9.9 fL (7.4-10.4); Monocytes # 0.9 10^3/uL (0.2-0.9); Monocytes % 4.4 %; Neutrophils # 18.14 10^3/uL (1.8-7.7); Neutrophils % 92.7 %; Nucleated Red Blood Cells % 0 %; Platelet Count 238 10^3/cmm (130-400); Red Blood Count 4.31 10^6/uL (4.1-5.3); Red Cell Distribution Width 15.2 % (12.1-15.1); White Blood Count 19.6 10^3/uL (4.0-10.0)
[2021-05-04 05:49] LABS: INR 1.19 (0.8-1.2)
[2021-05-04 05:58] LABS: NT Pro B Type Natriuretic Pept 1657 pg/mL (0-125)
[2021-05-04 06:09] LABS: Blood Urea Nitrogen 55 mg/dL (8-23); C Reactive Protein 29.7 mg/L (0.0-4.9); Calcium 8.5 mg/dL (8.5-10.5); Carbon Dioxide 22 mmol/L (22-29); Chloride 97 mmol/L (98-107); Glucose 162 mg/dL (65-115); Magnesium 2.3 mg/dL (1.7-2.3); Osmolality Calculated 297 mOsm/kg (285-295); Phosphorus 3.8 mg/dL (2.5-4.5); Sodium 134 mmol/L (136-145)
--- NOTE | 2021-05-04 07:00 | XRR_ITS ---
PROCEDURE INFORMATION: Exam: XR Chest Exam date and time: 05/04/2021 7:00 AM Age: 75 years old Clinical indication: Prior surgery; Surgery type: Cabg. Tracheostomy. ; Patient HX: F/u for RT apical pneumothorax. ; Additional info: SOB TECHNIQUE: Imaging protocol: XR of the chest. Views: 1 view. COMPARISON: 1. CR (CHEST, ) 05/03/2021 9:09 PM 2. CR XR chest 1V portable [id number] 05/03/2021 3:48 PM FINDINGS: Tubes, catheters and devices: Tracheostomy tube in place in expected position. Right IJ infusion port in place. Monitor leads project over the chest. Lungs: Bibasilar pneumonia versus atelectasis. Pleural spaces: Redemonstrated small lateral and apical right pneumothorax, which appears slightly increased compared to prior study. Mild residual right pleural effusion. Heart/Mediastinum: Heart size is normal. Prior CABG. Vasculature: Atherosclerotic tortuosity of the thoracic aorta. Bones/joints: Sternotomy wires are seen. Thoracic spondylosis and degenerative bony changes. XR/XR chest 1V portable [id number] IMPRESSION: 1. Redemonstrated small lateral and apical right pneumothorax, which appears slightly increased compared to prior study. 2. Mild residual right pleural effusion. 3. Bibasilar pneumonia versus atelectasis. 4. Atherosclerotic vascular disease and prior CABG.
[2021-05-04] MEDS: pantoprazole DR 40 mg Tablet PO (09:39)
[2021-05-04] MEDS: apixaban 5 mg Tablet 2.5 MG PO ×2 (09:39→21:03)
[2021-05-04] MEDS: oxyCODONE 5 mg IR Tab/Cap PO ×2 (09:44→21:04)
--- NOTE | 2021-05-04 11:00 | XRR_ITS ---
PROCEDURE INFORMATION: Exam: XR Chest Exam date and time: 05/04/2021 11:00 AM Age: 75 years old Clinical indication: Condition or disease; Lung condition and disease; Pneumothorax; Additional info: Pneumothorax, timed for 11am TECHNIQUE: Imaging protocol: XR of the chest. Views: 1 view. Total images: 1 COMPARISON: CR (CHEST, ) 05/04/2021 5:25 AM FINDINGS: Tubes, catheters and devices: A right infusion port is present. Lungs: Stable bilateral pleuroparenchymal disease. Pleural spaces: No pneumothorax. Small right pneumothorax unchanged. Heart/Mediastinum: Heart size is stable when compared to the prior exam. Bones/joints: Osseous structures are unchanged from the prior exam. Other findings: Stable postsurgical changes. XR/XR chest 1V portable [id number] IMPRESSION: 1. Stable bilateral pleuroparenchymal disease. 2. Small right pneumothorax unchanged.
--- NOTE | 2021-05-04 14:46 | P.PN_ITS ---
Subjective Subjective: Patient was seen this morning, he sitting up in a bed, in ICU, on 8 L HAG saturations in the high 90s, he tells me he feels a lot better after his thoracocentesis, continues to have a poor appetite, I advised him that after his thoracocentesis, he developed a small apical lateral pneumothorax, denies any chest pain, denies any worsening shortness of breath Vitals/I&O/Wt Last Vital Signs Temp 96.1 F L 05/04/21 08:00 Pulse 103 H 05/04/21 14:00 Resp 22 H 05/04/21 13:00 BP 111/82 05/04/21 13:00 Pulse Ox 94 05/04/21 13:00 05/03/21 05/04/21 05/04/21 22:59 06:59 14:59 Intake Total 120 / 403 1286 / 1689 1409 / 1409 Output Total 775 / 775 950 / 1725 100 / 100 Balance -655 / -372 336 / -36 1309 / 1309 Weight last 48 hrs Weight 61.19 kg Weight 64.274 kg Physical Exam Const: COMMON NORMALS: no acute distress and patient oriented x3 Resp: COMMON NORMALS: normal respiratory effort, No retractions, No use of accessory muscles and clear to auscultation bilaterally AUSCULTATION: clear to auscultation bilaterally Cardio: COMMON NORMALS: regular rate, regular rhythm, S1 normal heart sound present and S2 normal heart sound present RATE: regular rate RHYTHM: regular rhythm HEART SOUNDS: S1 normal heart sound present and S2 normal heart sound present GI: COMMON NORMALS: Normal to inspection, nondistended, normoactive bowel sounds present, Soft to palpation, non-tender and No hepatosplenomegaly present PALPATION: Yes Soft to palpation and Yes No hepatosplenomegaly present Extremity: COMMON NORMALS: no pedal edema Neuro: COMMON NORMALS: patient oriented x3 Psych: COMMON NORMALS: mental status grossly normal Data : 05/04/21 04:59 05/04/21 04:59 Micro: Microbiology 05/03/21 15:26 Gram Stain - Final Pleural Fluid Body Fluid Culture - Preliminary A&P Assessment and plan (1) CHF (congestive heart failure): Status: Chronic Qualifiers: Heart failure type: unspecified Heart failure chronicity: chronic Qualified Code(s): I50.9 - Heart failure, unspecified (2) Essential hypertension: Status: Chronic (3) Hypothyroid: Status: Chronic Qualifiers: Hypothyroidism type: acquired Qualified Code(s): E03.9 - Hypothy roidism, unspecified (4) GERD (gastroesophageal reflux disease): Status: Chronic (5) Esophageal adenocarcinoma: Status: Chronic (6) Pleural effusion, right: Status: Acute (7) Pneumonia due to COVID-19 virus: Status: Acute (8) Immunotherapy: Status: Chronic (9) COVID-19: Status: Acute (10) Chronic anticoagulation: Status: Acute (11) History of deep vein thrombosis: Status: Acute (12) Acute respiratory failure with hypoxia: Status: Acute (13) Jejunostomy tube in situ: Status: Chronic (14) Status post laryngectomy: Status: Acute (15) Tracheostomy in place: Status: Chronic (16) Protein calorie malnutrition: Status: Acute (17) Physical deconditioning: Status: Acute (18) Recurrent right pleural effusion: Status: Acute (19) Atrial fibrillation: Status: Acute (20) Acute respiratory distress syndrome (ARDS) due to 2019-nCoV: Status: Acute (21) Pseudomonas pneumonia: Status: Acute (22) Pneumothorax, right: Status: Acute (23) Physical deconditioning: Status: Acute Plan Hypoxia related to COVID-19 pneumonia, acute respiratory distress syndrome, Repeat CT of the chest today showed 1.? Moderate size RIGHT pleural effusion. 2.? Compressive atelectasis most significant in the RIGHT lower lobe and LEFT lower lobes. LEFT lower lobe atelectasis has progressed since the most recent exam. Partial atelectasis RIGHT upper and RIGHT middle lobes. 3.? Unchanged appearance of the gastric pull-through with wall thickening. 4.? Tracheostomy. FiO2 currently 10 L HAG, 40% FiO2 Completed 5 days of remdesivir Baricitinib has been discontinued Continue Decadron Currently on cefepime Does have small bilateral pleural effusions, has been diuresed -1.5 L, Resume Eliquis 2.5 mg twice daily Trach collar care, aspiration precautions, out of bed Pseudomonas pneumonia, Pseudomonas positive sputum cultures, multidrug- resistant, currently on cefepime Right pleural effusion, status post thoracocentesis, 1 L removed, -Likely parapneumonic effusion -Cultures so far have been unremarkable -Pathology pending Right apical pneumothorax, right lateral pneumothorax -Denies any chest pain, no worsening shortness of breath -Continue to conservatively manage, serially chest x-rays -Avoid positive pressure ventilation Atrial fibrillation, received 150 mg amiodarone bolus, heart rates in the 100s, start amiodarone 400 twice daily p.o., maintain potassium greater than 4, magnesium greater than 2, Eliquis Hypokalemia, monitor Hypomagnesemia, monitor Hypocalcemia, monitor History of DVT: Eliquis J-tube in place Jevity feeds running at 100 mL/h Discussed with speech therapy, okay with Ensure drinks twice daily Full code after home O2 eval will discharge over the weekend History of coronary disease no active chest pain Trach collar, routine trach collar care RT on board PT OT Working on placement to long-term care facility, possible rehab Attestations Medical Necessity Statement*: Patient requires hospitalization due to acute respiratory failure COVID-19, pneumothorax, deconditioning, protein calorie malnutrition, Pseudomonas pneumonia Critical Care Time: 35 Coding Level of Care Code Acute Hearing Therapy Director for Chg Fwd Diagnoses CHF (congestive heart failure) I50.9 Heart failure type: unspecified Heart failure chronicity: chronic Essential hypertension I10 Hypothyroid E03.9 Hypothyroidism type: acquired GERD (gastroesophageal reflux disease) K21.9 Esophageal adenocarcinoma C15.9 Pleural effusion, right J90 Pneumonia due to COVID-19 virus U07.1; J12.82 Immunotherapy Z29.8 COVID-19 U07.1 Chronic anticoagulation Z79.01 History of deep vein thrombosis Z86.718 Acute respiratory failure with hypoxia J96.01 Jejunostomy tube in situ Z93.4 Status post laryngectomy Z90.[address] Z93.0 Protein calorie malnutrition E46 Physical deconditioning R53.81 Recurrent right pleural effusion J90 Atrial fibrillation I48.91 Acute respiratory distress syndrome (ARDS) due to 2019-nCoV U07.1; J80 Pseudomonas pneumonia J15.1 Pneumothorax, right J93.9 Physical deconditioning R53.81
--- NOTE | 2021-05-04 14:59 | P.PN_ITS ---
Subjective Subjective: -No acute events overnight -Transferred to ICU yesterday for close observation -Patient reported symptomatic improvement after thoracentesis yesterday -Down to 8 L 30% saturating 97% -Other labs and imaging reviewed - updated at bedside Vitals/I&O/Wt Last Vital Signs Temp 96.1 F L 05/04/21 08:00 Pulse 103 H 05/04/21 14:00 Resp 22 H 05/04/21 13:00 BP 111/82 05/04/21 13:00 Pulse Ox 94 05/04/21 13:00 05/04/21 05/04/21 05/04/21 06:59 14:59 22:59 Intake Total 1286 / 1689 1409 / 1409 Output Total 950 / 1725 100 / 100 Balance 336 / -36 1309 / 1309 Weight last 48 hrs Weight 134 lb 14.4 oz Weight 141 lb 11.2 oz Physical Exam Narrative: General: alert, NAD HEENT: conj clear, EOMI, PERRL, mmm, Neck: Trach collar, supple, no meningismus Heme: no cervical LAP Pulmonary: Improved breath sounds on right lower lung zone there was diffuse crepitations bilaterally Cardiovascular: rrr, nl s1s2, no mrg Abdomen: soft, nt, nd, no r/g, bs+ Extremities: pulses +, no edema, no c/c : no CVA tenderness Skin: intact, no rash MSK: no back or neck pain Neurologic: grossly intact Data : 05/04/21 04:59 05/04/21 04:59 Other Labs: Radiology Impressions Chest CTA 04/22/21 11:53 IMPRESSION: 1. Proximal main pulmonary arteries are normal. No evidence of pulmonary embolus. 2. Moderate RIGHT pleural effusion progressed compared to previous with compressive atelectasis RIGHT lower lobe. Tiny LEFT pleural effusion. 3. Hazy groundglass infiltrates compatible with Covid 19 pneumonia more prominent in the LEFT upper lobe and LEFT greater than RIGHT lower lobes. Developing consolidation LEFT lower lobe posteriorly. 4. Prior esophagectomy with gastric pull-through. Chest CT 05/03/21 07:37 IMPRESSION: 1. Moderate size RIGHT pleural effusion. 2. Compressive atelectasis most significant in the RIGHT lower lobe and LEFT lower lobes. LEFT lower lobe atelectasis has progressed since the most recent exam. Partial atelectasis RIGHT upper and RIGHT middle lobes. 3. Unchanged appearance of the gastric pull-through with wall thickening. 4. Tracheostomy. Thoracentesis Ultrasound 05/03/21 15:00 IMPRESSION: 1. Uncomplicated ultrasound-guided thoracentesis. 2. Portable radiograph pending. Chest X-Ray 05/04/21 11:00 IMPRESSION: 1. Stable bilateral pleuroparenchymal disease. 2. Small right pneumothorax unchanged. Laboratory Results WBC 19.6 10^3/uL (4.0-10.0) H 05/04/21 04:59 RBC 4.31 10^6/uL (4.1-5.3) 05/04/21 04:59 Hgb 13.4 g/dL (11.7-16.6) 05/04/21 04:59 Hct 40.9 % (42.0-52.0) L 05/04/21 04:59 MCV 94.9 fl (80-94) H 05/04/21 04:59 MCH 31.1 pg (28.0-34.0) 05/04/21 04:59 MCHC 32.8 g/dL (30.0-36.0) 05/04/21 04:59 RDW 15.2 % (12.1-15.1) H 05/04/21 04:59 Plt Count 238 10^3/cmm (130-400) 05/04/21 04:59 MPV 9.9 fL (7.4-10.4) 05/04/21 04:59 Neut % (Auto) 92.7 % 05/04/21 04:59 Lymph % (Auto) 0.8 % 05/04/21 04:59 [place] % (Auto) 4.4 % 05/04/21 04:59 Eos % (Auto) 0.0 % 05/04/21 04:59 Baso % (Auto) 0.2 % 05/04/21 04:59 Neut # (Auto) 18.14 10^3/uL (1.8-7.7) H 05/04/21 04:59 Lymph # (Auto) 0.2 10^3/uL (0.8-4.8) L 05/04/21 04:59 [place] # (Auto) 0.9 10^3/uL (0.2-0.9) 05/04/21 04:59 Eos # (Auto) 0.0 10^3/uL (0.0-0.8) 05/04/21 04:59 Baso # (Auto) 0.0 10^3/uL (0.0-0.1) 05/04/21 04:59 Nucleated RBC % (auto) 0 % 05/04/21 04:59 Nucleated RBCs # 0.0 /100WBC 05/04/21 04:59 Differential Comment Yes 05/03/21 15:26 PT 15.40 SECONDS (12.1-14.9) H 05/04/21 04:59 INR 1.19 (0.8-1.2) 05/04/21 04:59 D-Dimer 4.06 ug/mIFEU (0-0.59) H 04/22/21 11:00 Specimen Type Arterial 05/03/21 21:20 Sample Site Brachial, right 05/03/21 21:20 ABG pH 7.49 (7.35-7.45) H 05/03/21 21:20 ABG pCO2 33.1 mmHg (35-45) L 05/03/21 21:20 ABG pO2 66.8 mmHg (80.0-100.0) L 05/03/21 21:20 ABG HCO3 25.4 mmol/L (22-26) 05/03/21 21:20 ABG O2 Saturation 94.0 05/03/21 21:20 ABG Base Excess 2.6 mmol/L (-2.0-2.0) H 05/03/21 21:20 Jose Test N/a 05/03/21 21:20 A-a O2 Gradient 18.5 mmHg (5-10) H 05/03/21 21:20 Hematocrit 44.6 % (42-52) 05/03/21 21:20 Hgb O2 Saturation 92.6 % (95-100) L 05/03/21 21:20 Carboxyhemoglobin 0.8 %THgb (0.4-20.1) 05/03/21 21:20 Methemoglobin 0.7 % (0.4-1.5) 05/03/21 21:20 Total Hemoglobin 14.6 g/dL (14-18) 05/03/21 21:20 Sodium 134.0 mmol/L (131-143) 05/03/21 21:20 Potassium 3.8 mmol/L (3.5-5.0) 05/03/21 21:20 Glucose 163.0 mg/dL (70-115) H 05/03/21 21:20 Ionized Calcium 1.2 mmol/L (1.1-1.4) 05/03/21 21:20 O2 Delivery Device Hag 05/03/21 21:20 O2 Liters/Min 10.0 % 05/03/21 21:20 FiO2 35.0 % 05/03/21 21:20 Auto Transport Driver ID Iggy 05/03/21 21:20 Sodium 134 mmol/L (136-145) L 05/04/21 04:59 Potassium 4.0 mmol/L (3.5-5.1) 05/04/21 04:59 Chloride 97 mmol/L (98-107) L 05/04/21 04:59 Carbon Dioxide 22 mmol/L (22-29) 05/04/21 04:59 Anion Gap 19.0 (5-19) 05/04/21 04:59 BUN 55 mg/dL (8-23) H 05/04/21 04:59 Creatinine 1.1 mg/dL (0.7-1.2) 05/04/21 04:59 GFR Calculation Not Reportable 05/04/21 04:59 Glucose 162 mg/dL (65-115) H 05/04/21 04:59 POC Glucose 125 mg/dL (70-110) H 04/25/21 07:43 Calculated Osmolality 297 mOsm/kg (285-295) H 05/04/21 04:59 Lactic Acid 1.8 mmol/L (0.5-2.2) 04/22/21 11:00 Calcium 8.5 mg/dL (8.5-10.5) 05/04/21 04:59 Ionized Calcium Shefali 1.2 mmol/L (1.1-1.4) 04/29/21 08:08 Phosphorus 3.8 mg/dL (2.5-4.5) 05/04/21 04:59 Magnesium 2.3 mg/dL (1.7-2.3) 05/04/21 04:59 Total Bilirubin 0.3 mg/dL (0.15-1.2) 05/02/21 03:10 AST 15 U/L (0-40) 05/02/21 03:10 ALT 19 U/L (0-41) 05/02/21 03:10 Alkaline Phosphatase 122 IU/L (40-130) 05/02/21 03:10 C-Reactive Protein 29.7 mg/L (0.0-4.9) H 05/04/21 04:59 NT-Pro-B Natriuret Pep 1657 pg/mL (0-125) H 05/04/21 04:59 Total Protein 6.2 g/dL (6.6-8.7) L 05/02/21 03:10 Albumin 3.3 g/dL (3.5-5.2) L 05/02/21 03:10 Globulin 2.9 g/dL (1.3-4.6) 05/02/21 03:10 Procalcitonin 0.10 ng/mL (0-0.5) 05/04/21 04:59 Fluid Color Yellow 05/03/21 15:26 Fluid Appearance Clear 05/03/21 15:26 Fluid WBC 82 /uL 05/03/21 15:26 Fluid RBC 0 10^3/uL 05/03/21 15:26 Fluid Hematocrit 0.0 % 05/03/21 15:26 Fld Polynuclear WBCs # 0.027 05/03/21 15:26 Fld Polynuclear WBCs % 32.900 % 05/03/21 15:26 Fl Mononucl WBCs #(Auto) 0.055 05/03/21 15:26 Fl Mononuclear % Auto 67.100 % 05/03/21 15:26 Fluid Albumin 2.6 g/dL 05/03/21 15:26 Fluid Creatinine 0.94 (0.7-1.2) 05/03/21 15:26 Pleural pH 8.00 (6.5-7.5) H 05/03/21 15:26 Pleural Total Protein 4.1 g/dL 05/03/21 15:26 Pleural LDH 119 U/L 05/03/21 15:26 Pleural Glucose 184.0 mg/dL 05/03/21 15:26 Pleural Amylase 26.0 U/L 05/03/21 15:26 Pleural Triglycerides 11 mg/dL 05/03/21 15:26 Vancomycin Trough 19.6 ug/mL (10-15) H 04/24/21 04:18 Coronavirus 229E (PCR) Not detected (NOT DETECT) 04/22/21 11:24 SARS-CoV-2 (PCR) Detected (NOT DETECT) A 04/22/21 11:24 Micro: Microbiology 05/03/21 15:26 Gram Stain - Final Pleural Fluid Body Fluid Culture - Preliminary A&P Assessment and plan (1) Acute respiratory distress syndrome (ARDS) due to 2019-nCoV: Status: Acute (2) Atrial fibrillation: Status: Acute (3) CHF (congestive heart failure): Status: Chronic Qualifiers: Heart failure type: unspecified Heart failure chronicity: chronic Qualified Code(s): I50.9 - Heart failure, unspecified (4) Esophageal adenocarcinoma: Status: Chronic (5) Immunotherapy: Status: Chronic (6) Acute respiratory failure with hypoxia: Status: Acute (7) Pulmonary nodules: Status: Chronic (8) Status post laryngectomy: Status: Acute (9) Tracheostomy in place: Status: Chronic (10) Recurrent right pleural effusion: Status: Acute Plan #Acute hypoxic respiratory failure #Multifactorial secondary to moderate pleural effusion/COVID-19 pneumonia/MDR Pseudomonas pneumonia/CHF/atrial fibrillation/pneumonitis secondary to nivolumab -Currently down to 8 L 30% via HAG-monitor saturations to keep>88% -Patient completed a 5-day course of remdesivir, currently on baricitinib and dexamethasone -held nivolumab during admission -discontinue baricitinib - given concomitant Pseudomonas pneumonia -Yesterday switched Levaquin & Zosyn and started on cefepime as it has better KEMI than other antibiotics -currently feeding through [id number] appropriate residuals -Echo August 2021: Showed technically difficult study normal LV size and EF 45 to 50% with septal hypokinesis -on amiodarone 400 mg p.o. twice daily for atrial fibrillation - currently rate controlled - made 100 cc urine today so far - will bladder scan and if has any urine retention - if not we will give 1 dose of lasix 40 mg once -Closely monitor input output, renal functions and try to keep net negative to even-Lasix as needed -I will recommend to transfer patient to ICU for observation over this weekend and connect trach to ventilator if needed -Continue trach collar care, aspiration precautions, out of bed to chair, monitor saturations #Right pleural effusion -possible parapneumonic #tiny RIGHT apical pneumothorax or pleural reflection at the lung apex- postprocedure -S/p thoracentesis by IR drained 1000 cc of clear yellow fluid drained -Pleural pH reported 8, total protein 4.1, LDH 119, WBC 82, 32% neutrophils- exudative by light criteria with total protein>0.5-likely parapneumonic effusion -Cultures pending -Also sent for cytology-given history of pulmonary nodules and patient with history of esophageal adenocarcinoma -Repeat chest x-ray after 20 hrs showed small apical pneumothorax - likely trapped lung - will repeat another chest x ray in the evening -Patient is on antibiotics for parapneumonic effusion #History of DVT -Resume Eliquis Recommendations conveyed to hospitalist, RN, RT taking care of the patient Attestations Medical Necessity Statement*: Patient requires hospitalization due to acute respiratory failure COVID-19, pneumothorax, deconditioning, protein calorie malnutrition, Pseudomonas pneumonia Time Spent in Patient Care: Greater than 35 minutes (>than 50% of time spent in counselling and/or direct pt care on unit) . Critical Care Time: The high probability of a clinically significant, sudden or life threatening deterioration of the patient's [pulmonary, renal,cardiac ] system(s) required my full and direct attention, intervention and personal management. The critical care time is as shown. This time is in addition to time spent performing any reported procedures but includes the following: [x] Data and vital sign review and interpretation [x] Patient assessment, examination and intervention [x] Documentation [x] Medication orders and management Critical Care Time (min): 45 Coding Level of Care Code Established Pt Acute Plastic Jig And Fixture Builder for Chg Fwd Patient Type Established History Comprehensive Exam Comprehensive Medical Decision Making High Complexity Diagnoses Acute respiratory distress syndrome (ARDS) due to 2019-nCoV U07.1; J80 Atrial fibrillation I48.91 CHF (congestive heart failure) I50.9 Heart failure type: unspecified Heart failure chronicity: chronic Esophageal adenocarcinoma C15.9 Immunotherapy Z29.8 Acute respiratory failure with hypoxia J96.01 Pulmonary nodules R91.8 Status post laryngectomy Z90.[address] Z93.0 Recurrent right pleural effusion J90 Time Spent (min) 45
[2021-05-04] MEDS: FUROsemide 10 mg/mL SDV 4mL 40 MG IVP (15:29)
[2021-05-04] MEDS: dexamethasone 4 mg/mL INJ 6 MG IVP (15:31)
--- NOTE | 2021-05-04 19:06 | PC.NURSE ---
Addendum entered by Epifanio Palmer RN 05/04/21 19:08: SHift SUmmary: Patient was up to the chair for most of the day. Nurse had patient occaisonally stand to relieve pressure from buttocks due to a small pressure injury. Pressure injury dressings were changed today, nurse placed silvercell and optifoam on wound. Otherwise, uneventful shift. Urine out put for day shift was 790 mL, and 1 bowel movement. Original Note: SHift SUmmary: Patient was up to the chair for most of the day. Nurse had patient occaisonally stand to relieve pressure from buttocks due to a small pressure injury. Pressure injury dressings were changed today, nurse placed silvercell and optifoam on wound. Otherwise, uneventful shift.
[2021-05-04] MEDS: atorvastatin 40 mg Tablet 20 MG PO (21:04)
[2021-05-05] VITALS (33 sets, daily range): BP systolic 101–144; BP diastolic 65–96; PULSE 73–112; RESP 14–34; TEMP 35.8–36.9; O2SAT 86–100; BMI 20.1
[2021-05-05] MEDS: CLONazepam 0.5 mg Tablet PO ×2 (00:23→23:03)
[2021-05-05] MEDS: cefepime 2,000 MG in sodium chloride 0.9% (plus) 50 ML 100 MG IV ×2 (01:02→14:55)
[2021-05-05] MEDS: amiodarone 200 mg Tablet 400 MG PO (01:02)
[2021-05-05] MEDS: ipratropium-albuterol 3 mL Neb INHALATION ×6 (03:21→23:56)
[2021-05-05 04:36] LABS: Basophils % 0.2 %; Hematocrit 43.1 % (42.0-52.0); Lymphocytes # 0.2 10^3/uL (0.8-4.8); Lymphocytes % 0.7 %; Mean Corpuscular HGB Conc 32.5 g/dL (30.0-36.0); Mean Corpuscular Hemoglobin 30.7 pg (28.0-34.0); Mean Corpuscular Volume 94.5 fl (80-94); Mean Platelet Volume 9.6 fL (7.4-10.4); Monocytes # 0.8 10^3/uL (0.2-0.9); Monocytes % 3.5 %; Neutrophils # 22.52 10^3/uL (1.8-7.7); Neutrophils % 93.8 %; Nucleated Red Blood Cells % 0 %; Platelet Count 254 10^3/cmm (130-400); Red Blood Count 4.56 10^6/uL (4.1-5.3); Red Cell Distribution Width 15.1 % (12.1-15.1)
[2021-05-05 04:43] LABS: INR 1.14 (0.8-1.2)
[2021-05-05 04:55] LABS: C Reactive Protein 31.6 mg/L (0.0-4.9); Phosphorus 3.8 mg/dL (2.5-4.5)
[2021-05-05 05:06] LABS: NT Pro B Type Natriuretic Pept 1297 pg/mL (0-125); Procalcitonin 0.09 ng/mL (0-0.5)
[2021-05-05 05:17] LABS: Anion Gap 18.1 (5-19); Blood Urea Nitrogen 60 mg/dL (8-23); Calcium 9.5 mg/dL (8.5-10.5); Carbon Dioxide 24 mmol/L (22-29); Chloride 96 mmol/L (98-107); Glucose 137 mg/dL (65-115); Magnesium 2.3 mg/dL (1.7-2.3); Osmolality Calculated 297 mOsm/kg (285-295); Potassium 4.1 mmol/L (3.5-5.1); Sodium 134 mmol/L (136-145)
[2021-05-05] MEDS: levothyroxine 175 mcg Tablet PO (06:59)
--- NOTE | 2021-05-05 07:00 | XRR_ITS ---
PROCEDURE INFORMATION: Exam: XR Chest Exam date and time: 05/05/2021 7:00 AM Age: 75 years old Clinical indication: Shortness of breath; Prior surgery; Surgery type: Trach, cabg; Additional info: SOB TECHNIQUE: Imaging protocol: XR of the chest. Views: 1 view. COMPARISON: CR (CHEST, ) 05/04/2021 11:04 AM FINDINGS: Tubes, catheters and devices: Right MediPort in good position. Lungs: Stable bibasilar infiltrates. Pleural spaces: Stable small right pleural effusion. Grossly stable right apical pneumothorax. Heart/Mediastinum: Unremarkable. No cardiomegaly. Bones/joints: There has been a median sternotomy. XR/XR chest 1V portable [id number] IMPRESSION: 1. Stable small right pleural effusion. 2. Stable bibasilar infiltrates. 3. Grossly stable right apical pneumothorax.
--- NOTE | 2021-05-05 07:08 | PC.NURSE ---
Shift Summary Patient had an uneventful shift. He reported pain once, PRN medication was administered. Patient remains on trach collar, is alert and oriented x4, has excoriation noted to right thigh and pressure injury on sacrum.
--- NOTE | 2021-05-05 08:30 | P.PN_ITS ---
Subjective Subjective: -No acute events overnight -Transferred to ICU yesterday for close observation -Patient reported feeling good -on 8 L 30% saturating 97% - we will try to taper down Fio2 -Other labs and imaging reviewed Vitals/I&O/Wt Last Vital Signs Temp 96.5 F L 05/05/21 04:00 Pulse 89 05/05/21 07:27 Resp 18 05/05/21 07:20 BP 113/78 05/05/21 05:00 Pulse Ox 97 05/05/21 07:20 05/04/21 05/05/21 05/05/21 21:59 06:59 14:59 Intake Total 729 / 729 Output Total Balance 729 / 729 Weight last 48 hrs Weight 132 lb 5 oz Weight 134 lb 14.4 oz Physical Exam Narrative: General: alert, NAD HEENT: conj clear, EOMI, PERRL, mmm, Neck: Trach collar, supple, no meningismus Heme: no cervical LAP Pulmonary: Improved breath sounds on right lower lung zone there was diffuse crepitations bilaterally Cardiovascular: rrr, nl s1s2, no mrg Abdomen: soft, nt, nd, no r/g, bs+ Extremities: pulses +, no edema, no c/c : no CVA tenderness Skin: intact, no rash MSK: no back or neck pain Neurologic: grossly intact Data : 05/05/21 04:15 05/05/21 04:15 Other Labs: Radiology Impressions Chest CTA 04/22/21 11:53 IMPRESSION: 1. Proximal main pulmonary arteries are normal. No evidence of pulmonary embolus. 2. Moderate RIGHT pleural effusion progressed compared to previous with compressive atelectasis RIGHT lower lobe. Tiny LEFT pleural effusion. 3. Hazy groundglass infiltrates compatible with Covid 19 pneumonia more prom inent in the LEFT upper lobe and LEFT greater than RIGHT lower lobes. Developing consolidation LEFT lower lobe posteriorly. 4. Prior esophagectomy with gastric pull-through. Chest CT 05/03/21 07:37 IMPRESSION: 1. Moderate size RIGHT pleural effusion. 2. Compressive atelectasis most significant in the RIGHT lower lobe and LEFT lower lobes. LEFT lower lobe atelectasis has progressed since the most recent exam. Partial atelectasis RIGHT upper and RIGHT middle lobes. 3. Unchanged appearance of the gastric pull-through with wall thickening. 4. Tracheostomy. Thoracentesis Ultrasound 05/03/21 15:00 IMPRESSION: 1. Uncomplicated ultrasound-guided thoracentesis. 2. Portable radiograph pending. Chest X-Ray 05/05/21 07:00 IMPRESSION: 1. Stable small right pleural effusion. 2. Stable bibasilar infiltrates. 3. Grossly stable right apical pneumothorax. Laboratory Results WBC 24.0 10^3/uL (4.0-10.0) H 05/05/21 04:15 RBC 4.56 10^6/uL (4.1-5.3) 05/05/21 04:15 Hgb 14.0 g/dL (11.7-16.6) 05/05/21 04:15 Hct 43.1 % (42.0-52.0) 05/05/21 04:15 MCV 94.5 fl (80-94) H 05/05/21 04:15 MCH 30.7 pg (28.0-34.0) 05/05/21 04:15 MCHC 32.5 g/dL (30.0-36.0) 05/05/21 04:15 RDW 15.1 % (12.1-15.1) 05/05/21 04:15 Plt Count 254 10^3/cmm (130-400) 05/05/21 04:15 MPV 9.6 fL (7.4-10.4) 05/05/21 04:15 Neut % (Auto) 93.8 % 05/05/21 04:15 Lymph % (Auto) 0.7 % 05/05/21 04:15 [place] % (Auto) 3.5 % 05/05/21 04:15 Eos % (Auto) 0.0 % 05/05/21 04:15 Baso % (Auto) 0.2 % 05/05/21 04:15 Neut # (Auto) 22.52 10^3/uL (1.8-7.7) H 05/05/21 04:15 Lymph # (Auto) 0.2 10^3/uL (0.8-4.8) L 05/05/21 04:15 [place] # (Auto) 0.8 10^3/uL (0.2-0.9) 05/05/21 04:15 Eos # (Auto) 0.0 10^3/uL (0.0-0.8) 05/05/21 04:15 Baso # (Auto) 0.0 10^3/uL (0.0-0.1) 05/05/21 04:15 Nucleated RBC % (auto) 0 % 05/05/21 04:15 Nucleated RBCs # 0.0 /100WBC 05/05/21 04:15 Differential Comment Yes 05/03/21 15:26 PT 15.00 SECONDS (12.1-14.9) H 05/05/21 04:15 INR 1.14 (0.8-1.2) 05/05/21 04:15 D-Dimer 4.06 ug/mIFEU (0-0.59) H 04/22/21 11:00 Specimen Type Arterial 05/03/21 21:20 Sample Site Brachial, right 05/03/21 21:20 ABG pH 7.49 (7.35-7.45) H 05/03/21 21:20 ABG pCO2 33.1 mmHg (35-45) L 05/03/21 21:20 ABG pO2 66.8 mmHg (80.0-100.0) L 05/03/21 21:20 ABG HCO3 25.4 mmol/L (22-26) 05/03/21 21:20 ABG O2 Saturation 94.0 05/03/21 21:20 ABG Base Excess 2.6 mmol/L (-2.0-2.0) H 05/03/21 21:20 Jose Test N/a 05/03/21 21:20 A-a O2 Gradient 18.5 mmHg (5-10) H 05/03/21 21:20 Hematocrit 44.6 % (42-52) 05/03/21 21:20 Hgb O2 Saturation 92.6 % (95-100) L 05/03/21 21:20 Carboxyhemoglobin 0.8 %THgb (0.4-20.1) 05/03/21 21:20 Methemoglobin 0.7 % (0.4-1.5) 05/03/21 21:20 Total Hemoglobin 14.6 g/dL (14-18) 05/03/21 21:20 Sodium 134.0 mmol/L (131-143) 05/03/21 21:20 Potassium 3.8 mmol/L (3.5-5.0) 05/03/21 21:20 Glucose 163.0 mg/dL (70-115) H 05/03/21 21:20 Ionized Calcium 1.2 mmol/L (1.1-1.4) 05/03/21 21:20 O2 Delivery Device Hag 05/03/21 21:20 O2 Liters/Min 10.0 % 05/03/21 21:20 FiO2 35.0 % 05/03/21 21:20 Ear Nose And Throat Specialist ID Iggy 05/03/21 21:20 Sodium 134 mmol/L (136-145) L 05/05/21 04:15 Potassium 4.1 mmol/L (3.5-5.1) 05/05/21 04:15 Chloride 96 mmol/L (98-107) L 05/05/21 04:15 Carbon Dioxide 24 mmol/L (22-29) 05/05/21 04:15 Anion Gap 18.1 (5-19) 05/05/21 04:15 BUN 60 mg/dL (8-23) H 05/05/21 04:15 Creatinine 0.9 mg/dL (0.7-1.2) 05/05/21 04:15 GFR Calculation Not Reportable 05/05/21 04:15 Glucose 137 mg/dL (65-115) H 05/05/21 04:15 POC Glucose 125 mg/dL (70-110) H 04/25/21 07:43 Calculated Osmolality 297 mOsm/kg (285-295) H 05/05/21 04:15 Lactic Acid 1.8 mmol/L (0.5-2.2) 04/22/21 11:00 Calcium 9.5 mg/dL (8.5-10.5) 05/05/21 04:15 Ionized Calcium Shefali 1.2 mmol/L (1.1-1.4) 04/29/21 08:08 Phosphorus 3.8 mg/dL (2.5-4.5) 05/05/21 04:15 Magnesium 2.3 mg/dL (1.7-2.3) 05/05/21 04:15 Total Bilirubin 0.3 mg/dL (0.15-1.2) 05/02/21 03:10 AST 15 U/L (0-40) 05/02/21 03:10 ALT 19 U/L (0-41) 05/02/21 03:10 Alkaline Phosphatase 122 IU/L (40-130) 05/02/21 03:10 C-Reactive Protein 31.6 mg/L (0.0-4.9) H 05/05/21 04:15 NT-Pro-B Natriuret Pep 1297 pg/mL (0-125) H 05/05/21 04:15 Total Protein 6.2 g/dL (6.6-8.7) L 05/02/21 03:10 Albumin 3.3 g/dL (3.5-5.2) L 05/02/21 03:10 Globulin 2.9 g/dL (1.3-4.6) 05/02/21 03:10 Procalcitonin 0.09 ng/mL (0-0.5) 05/05/21 04:15 Fluid Color Yellow 05/03/21 15:26 Fluid Appearance Clear 05/03/21 15:26 Fluid WBC 82 /uL 05/03/21 15:26 Fluid RBC 0 10^3/uL 05/03/21 15:26 Fluid Hematocrit 0.0 % 05/03/21 15:26 Fld Polynuclear WBCs # 0.027 05/03/21 15:26 Fld Polynuclear WBCs % 32.900 % 05/03/21 15:26 Fl Mononucl WBCs #(Auto) 0.055 05/03/21 15:26 Fl Mononuclear % Auto 67.100 % 05/03/21 15:26 Fluid Albumin 2.6 g/dL 05/03/21 15:26 Fluid Creatinine 0.94 (0.7-1.2) 05/03/21 15:26 Pleural pH 8.00 (6.5-7.5) H 05/03/21 15:26 Pleural Total Protein 4.1 g/dL 05/03/21 15:26 Pleural LDH 119 U/L 05/03/21 15:26 Pleural Glucose 184.0 mg/dL 05/03/21 15:26 Pleural Amylase 26.0 U/L 05/03/21 15:26 Pleural Triglycerides 11 mg/dL 05/03/21 15:26 Vancomycin Trough 19.6 ug/mL (10-15) H 04/24/21 04:18 Coronavirus 229E (PCR) Not detected (NOT DETECT) 04/22/21 11:24 SARS-CoV-2 (PCR) Detected (NOT DETECT) A 04/22/21 11:24 Micro: Microbiology 05/03/21 15:26 Gram Stain - Final Pleural Fluid Body Fluid Culture - Preliminary A&P Assessment and plan (1) Acute respiratory distress syndrome (ARDS) due to 2019-nCoV: Status: Acute (2) Atrial fibrillation: Status: Acute (3) CHF (congestive heart failure): Status: Chronic Qualifiers: Heart failure type: unspecified Heart failure chronicity: chronic Qual ified Code(s): I50.9 - Heart failure, unspecified (4) Esophageal adenocarcinoma: Status: Chronic (5) Immunotherapy: Status: Chronic (6) Acute respiratory failure with hypoxia: Status: Acute (7) Pulmonary nodules: Status: Chronic (8) Status post laryngectomy: Status: Acute (9) Tracheostomy in place: Status: Chronic (10) Recurrent right pleural effusion: Status: Acute Plan #Acute hypoxic respiratory failure - improving #Multifactorial secondary to moderate pleural effusion/COVID-19 pneumonia/MDR Pseudomonas pneumonia/CHF/atrial fibrillation/pneumonitis secondary to nivolumab -Currently down to 8 L 30% via HAG-monitor saturations to keep>88% -Patient completed a 5-day course of remdesivir, currently on baricitinib and dexamethasone -held nivolumab during admission -discontinue baricitinib - given concomitant Pseudomonas pneumonia - sputum cx +v e for org 1& org 2: pseudomanas resistant levaquin - both sensitive to cefepime -received Levaquin & Zosyn (05/01/21-05/03/21); both discontinued and switched to cefepime (05/03/21) as it has better KEMI than other antibiotics - complete 10 days -currently feeding through [id number] appropriate residuals -Echo August 2021: Showed technically difficult study normal LV size and EF 45 to 50% with septal hypokinesis -on amiodarone 400 mg p.o. twice daily for atrial fibrillation - currently rate controlled -Closely monitor input output, renal functions and try to keep net negative to even-Lasix as needed -I will recommend to transfer patient to ICU for observation over this weekend and connect trach to ventilator if needed -Continue trach collar care, aspiration precautions, out of bed to chair, monitor saturations #Right pleural effusion -possible parapneumonic #tiny RIGHT apical pneumothorax or pleural reflection at the lung apex- postprocedure -S/p thoracentesis by IR drained 1000 cc of clear yellow fluid drained -Pleural pH reported 8, total protein 4.1, LDH 119, WBC 82, 32% neutrophils- exudative by light criteria with total protein>0.5-likely parapneumonic effusion -Cultures pending -Also sent for cytology-given history of pulmonary nodules and patient with history of esophageal adenocarcinoma -Repeat chest x-ray after 48 hrs showed stable small apical pneumothorax - likely trapped lung -Patient is on antibiotics for parapneumonic effusion #History of DVT - Eliquis Recommendations conveyed to hospitalist, RN, RT taking care of the patient Attestations Medical Necessity Statement*: Patient requires hospitalization due to acute respiratory failure COVID-19, pneumothorax, deconditioning, protein calorie malnutrition, Pseudomonas pneumonia Time Spent in Patient Care: Greater than 35 minutes (>than 50% of time spent in counselling and/or direct pt care on unit) . Critical Care Time: The high probability of a clinically significant, sudden or life threatening deterioration of the patient's [pulmonary, renal,cardiac ] system(s) required my full and direct attention, intervention and personal management. The critical care time is as shown. This time is in addition to time spent performing any reported procedures but includes the following: [x] Data and vital sign review and interpretation [x] Patient assessment, examination and intervention [x] Documentation [x] Medication orders and management Critical Care Time (min): 45 Coding Level of Care Code Established Pt Acute Newspaper Stuffer for Chg Fwd Patient Type Established History Comprehensive Exam Comprehensive Medical Decision Making High Complexity Diagnoses Acute respiratory distress syndrome (ARDS) due to 2019-nCoV U07.1; J80 Atrial fibrillation I48.91 CHF (congestive heart failure) I50.9 Heart failure type: unspecified Heart failure chronicity: chronic Esophageal adenocarcinoma C15.9 Immunotherapy Z29.8 Acute respiratory failure with hypoxia J96.01 Pulmonary nodules R91.8 Status post laryngectomy Z90.[address] Z93.0 Recurrent right pleural effusion J90 Time Spent (min) 45
[2021-05-05] MEDS: apixaban 5 mg Tablet 2.5 MG PO ×2 (09:50→20:46)
[2021-05-05] MEDS: pantoprazole DR 40 mg Tablet PO (09:50)
--- NOTE | 2021-05-05 10:40 | P.PN_ITS ---
Subjective Subjective: Patient was seen this morning, he sitting up in a chair, he is on room air, 30% FiO2, he feels a lot better, continues to have complaints of weakness, Vitals/I&O/Wt Last Vital Signs Temp 96.9 F L 05/05/21 08:00 Pulse 91 05/05/21 08:00 Resp 18 05/05/21 08:00 BP 127/78 05/05/21 08:00 Pulse Ox 99 05/05/21 08:00 05/04/21 05/05/21 05/05/21 21:59 06:59 14:59 Intake Total 1899 / 1899 Output Total 500 / 500 Balance 1399 / 1399 Weight last 48 hrs Weight 60.016 kg Weight 61.19 kg Physical Exam Const: COMMON NORMALS: no acute distress and patient oriented x3 Resp: COMMON NORMALS: normal respiratory effort, No retractions, No use of accessory muscles and clear to auscultation bilaterally AUSCULTATION: clear to auscultation bilaterally Cardio: COMMON NORMALS: regular rate, regular rhythm, S1 normal heart sound present and S2 normal heart sound present RATE: regular rate RHYTHM: reg ular rhythm HEART SOUNDS: S1 normal heart sound present and S2 normal heart sound present GI: COMMON NORMALS: Normal to inspection, nondistended, normoactive bowel sounds present, Soft to palpation, non-tender and No hepatosplenomegaly present PALPATION: Yes Soft to palpation and Yes No hepatosplenomegaly present Extremity: COMMON NORMALS: no pedal edema Neuro: COMMON NORMALS: patient oriented x3 Psych: COMMON NORMALS: mental status grossly normal Data : 05/05/21 04:15 05/05/21 04:15 Micro: Microbiology 05/03/21 15:26 Gram Stain - Final Pleural Fluid Body Fluid Culture - Preliminary A&P Assessment and plan (1) CHF (congestive heart failure): Status: Chronic Qualifiers: Heart failure type: unspecified Heart failure chronicity: chronic Qualified Code(s): I50.9 - Heart failure, unspecified (2) Essential hypertension: Status: Chronic (3) Hypothyroid: Status: Chronic Qualifiers: Hypothyroidism type: acquired Qualified Code(s): E03.9 - Hypothyroidism, unspecified (4) GERD (gastroesophageal reflux disease): Status: Chronic (5) Esophageal adenocarcinoma: Status: Chronic (6) Pleural effusion, right: Status: Acute (7) Pneumonia due to COVID-19 virus: Status: Acute (8) Immunotherapy: Status: Chronic (9) COVID-19: Status: Acute (10) Chronic anticoagulation: Status: Acute (11) History of deep vein thrombosis: Status: Acute (12) Acute respiratory failure with hypoxia: Status: Acute (13) Jejunostomy tube in situ: Status: Chronic (14) Status post laryngectomy: Status: Acute (15) Tracheostomy in place: Status: Chronic (16) Protein calorie malnutrition: Status: Acute (17) Physical deconditioning: Status: Acute (18) Recurrent right pleural effusion: Status: Acute (19) Atrial fibrillation: Status: Acute (20) Acute respiratory distress syndrome (ARDS) due to 2019-nCoV: Status: Acute (21) Pseudomonas pneumonia: Status: Acute (22) Pneumothorax, right: Status: Acute (23) Physical deconditioning: Status: Acute Plan Hypoxia related to COVID-19 pneumonia, acute respiratory distress syndrome, Repeat CT of the chest today showed 1.? Moderate size RIGHT pleural effusion. 2.? Compressive atelectasis most significant in the RIGHT lower lobe and LEFT lower lobes. LEFT lower lobe atelectasis has progressed since the most recent exam. Partial atelectasis RIGHT upper and RIGHT middle lobes. 3.? Unchanged appearance of the gastric pull-through with wall thickening. 4.? Tracheostomy. FiO2 currently room air, 30% FiO2 Completed 5 days of remdesivir Baricitinib has been discontinued Continue Decadron Currently on cefepime Does have small bilateral pleural effusions, has been diuresed - 1 L, Resume Eliquis 2.5 mg twice daily Trach collar care, aspiration precautions, out of bed Pseudomonas pneumonia, Pseudomonas positive sputum cultures, multidrug- resistant, currently on cefepime 2 g every 12 hours, will need for at least 7 days Right pleural effusion, status post thoracocentesis, 1 L removed, -Likely parapneumonic effusion -Cultures so far have been unremarkable -Pathology pending Right apical pneumothorax, right lateral pneumothorax -Denies any chest pain, no worsening shortness of breath -Continue to conservatively manage, serially chest x-rays -Avoid positive pressure ventilation Atrial fibrillation, received 150 mg amiodarone bolus, heart rates in the 100s, decrease amiodarone to 400 once a day, maintain potassium greater than 4, magnesium greater than 2, Eliquis Hypokalemia, monitor Hypomagnesemia, monitor Hypocalcemia, monitor History of DVT: Eliquis J-tube in place Jevity feeds running at 100 mL/h Discussed with speech therapy, okay with Ensure drinks twice daily Full code after home O2 eval will discharge over the weekend History of coronary disease no active chest pain Trach collar, routine trach collar care RT on board PT OT Working on placement to long-term care facility, possible rehab Attestations Medical Necessity Statement*: Patient requires hospitalization for COVID-19 pneumonia, A. fib, apical pneumothorax, acute respiratory distress syndrome, critical care time spent 35 minutes Coding Level of Care Code Acute [employer] Operator for Chg Fwd Diagnoses CHF (congestive heart failure) I50.9 Heart failure type: unspecified Heart failure chronicity: chronic Essential hypertension I10 Hypothyroid E03.9 Hypothyroidism type: acquired GERD (gastroesophageal reflux disease) K21.9 Esophageal adenocarcinoma C15.9 Pleural effusion, right J90 Pneumonia due to COVID-19 virus U07.1; J12.82 Immunotherapy Z29.8 COVID-19 U07.1 Chronic anticoagulation Z79.01 History of deep vein thrombosis Z86.718 Acute respiratory failure with hypoxia J96.01 Jejunostomy tube in situ Z93.4 Status post laryngectomy Z90.[address] Z93.0 Protein calorie malnutrition E46 Physical deconditioning R53.81 Recurrent right pleural effusion J90 Atrial fibrillation I48.91 Acute respiratory distress syndrome (ARDS) due to 2019-nCoV U07.1; J80 Pseudomonas pneumonia J15.1 Pneumothorax, right J93.9 Physical deconditioning R53.81
--- NOTE | 2021-05-05 12:49 | PC.SOCIAL ---
IMM Update pg 2 of IMM updated and reviewed w/ patient. Copy provided and Copy in chart updated.
[2021-05-05] MEDS: oxyCODONE 5 mg IR Tab/Cap PO ×2 (13:39→23:35)
[2021-05-05] MEDS: dexamethasone 4 mg/mL INJ 6 MG IVP (15:17)
--- NOTE | 2021-05-05 16:00 | XRR_ITS ---
PROCEDURE INFORMATION: Exam: XR Chest Exam date and time: 05/05/2021 4:00 PM Age: 75 years old Clinical indication: Condition or disease; Lung condition and disease; Pneumothorax; Chronic/persistent air leak TECHNIQUE: Imaging protocol: XR of the chest. Views: 1 view. COMPARISON: CR (CHEST, ) 05/05/2021 5:20 AM FINDINGS: Lungs: Airspace disease seen in the bilateral lower lungs, unchanged. Impression small bilateral pleural effusions. Pleural spaces: Right apical pneumothorax, unchanged from 05/05/2021 at 5:22 a.m.. Heart/Mediastinum: No cardiomegaly. Bones/joints: Median sternotomy noted. Degenerative spine changes are noted. Other findings: . XR/XR chest 1V portable [id number] IMPRESSION: 1. Right apical pneumothorax, unchanged from 05/05/2021 at 5:22 a.m.. 2. Stable bilateral basilar airspace disease. 3. Stable bilateral small pleural effusions. 4. There is no interval change from the prior examination.
--- NOTE | 2021-05-05 18:19 | PC.NURSE ---
Shift Summary: Overall, uneventful shift. Patient was up to the chair for most of the day. Occasionally stood and walked in place to relieve pressure from buttocks where the patient has a pressure injury. Patient is now saturating in the mid 90's on room air.
[2021-05-05] MEDS: atorvastatin 40 mg Tablet 20 MG PO (20:45)
[2021-05-06] VITALS (25 sets, daily range): BP systolic 105–121; BP diastolic 71–86; PULSE 76–97; RESP 13–33; TEMP 36.3–36.5; O2SAT 92–97
[2021-05-06] MEDS: cefepime 2,000 MG in sodium chloride 0.9% (plus) 50 ML 100 MG IV ×2 (01:23→14:04)
[2021-05-06] MEDS: ipratropium-albuterol 3 mL Neb INHALATION ×5 (03:25→19:59)
[2021-05-06 04:47] LABS: Basophils % 0.1 %; Lymphocytes # 0.1 10^3/uL (0.8-4.8); Lymphocytes % 0.5 %; Mean Corpuscular HGB Conc 32.5 g/dL (30.0-36.0); Mean Corpuscular Hemoglobin 30.9 pg (28.0-34.0); Monocytes # 0.9 10^3/uL (0.2-0.9); Monocytes % 4.1 %; Neutrophils # 19.68 10^3/uL (1.8-7.7); Neutrophils % 93.8 %; Nucleated Red Blood Cells % 0 %; Platelet Count 213 10^3/cmm (130-400); Red Blood Count 4.21 10^6/uL (4.1-5.3); Red Cell Distribution Width 15.2 % (12.1-15.1)
[2021-05-06 05:01] LABS: C Reactive Protein 14.5 mg/L (0.0-4.9); Magnesium 2.4 mg/dL (1.7-2.3); Phosphorus 3.2 mg/dL (2.5-4.5)
[2021-05-06 05:03] LABS: Alanine Aminotransferase 21 U/L (0-41); Albumin Level 3.4 g/dL (3.5-5.2); Alkaline Phosphatase 128 IU/L (40-130); Anion Gap 15.5 (5-19); Aspartate Amino Transferase 20 U/L (0-40); Blood Urea Nitrogen 55 mg/dL (8-23); Calcium 8.5 mg/dL (8.5-10.5); Carbon Dioxide 26 mmol/L (22-29); Chloride 97 mmol/L (98-107); Globulin 2.8 g/dL (1.3-4.6); Glucose 153 mg/dL (65-115); Osmolality Calculated 296 mOsm/kg (285-295); Potassium 4.5 mmol/L (3.5-5.1); Sodium 134 mmol/L (136-145); Total Bilirubin 0.3 mg/dL (0.15-1.2); Total Protein 6.2 g/dL (6.6-8.7)
[2021-05-06 05:12] LABS: Procalcitonin 0.05 ng/mL (0-0.5)
[2021-05-06] MEDS: levothyroxine 175 mcg Tablet PO (06:08)
[2021-05-06] MEDS: amiodarone 200 mg Tablet 400 MG PO (06:09)
--- NOTE | 2021-05-06 07:43 | XR_ITS ---
WS: [id number] XR chest 1V portable [id number] REASON FOR EXAM: sob FINDINGS: Sternal sutures. Moderately tortuous thoracic aorta and normal heart size. Tracheostomy remains in proper position. Chemotherapy infusion port with right internal jugular vein catheter remains in proper position. There is a right pleural effusion unchanged compared to 05/05/2021. There are coarse interstitial and confluent opacities in both lower lung moreno also unchanged compared to 05/05/2021. XR/XR chest 1V portable [id number] IMPRESSION: Stable abnormal chest as above.
[2021-05-06] MEDS: apixaban 5 mg Tablet 2.5 MG PO ×2 (08:54→21:13)
[2021-05-06] MEDS: pantoprazole DR 40 mg Tablet PO (08:54)
[2021-05-06] MEDS: docusate sodium 10 mg/mL (5ml) Liq 100 MG PO (08:54)
--- NOTE | 2021-05-06 10:48 | PC.CHAP ---
Pastoral Care Encounter/Spiritual Assessment Type of Contact [] Declined bell spinner visit [] Patient/Family/Request visit [] Outpatient visit [] Follow-up visit [] Physician referral [] Code/Alert [x [] Out of room [] Palliative care [] [] Receiving care in room [] Pre-surgical visit [] Trauma [] Long length of stay [x] ICU visit [x] Other: trach Relational/Emotional Strength [] Patient feels connected with others/family/visitors/staff [] Distress [] Loneliness/isolation [] Abandonment Spirituality of Patient [] Person of [place] [] Attends Adventism of their [place] [] Believes in Prayer [] Reads Bible or Rastafari materials [] There are Spiritual issues to be addressed Messenger Floorperson Interventions [x] Prayer [] Active listening [] Non-anxious presence [] Spiritual/emotional support [] Crisis/trauma care [] Spiritual counseling [] Bereavement support [] Provided bereavement packet [] Provided Bible/devotional materials [] Provided toy/stuffed animal, coloring book to patient or family member [] Provided Communion [] Anointing/[place] [] Salvation [x] Completed spiritual assessment [] Other: Impact on Illness or Injury [] Angry [] Fearful [] Anxious [] Often cries [] Exhaustion [] Unable to work [] Unable to attend confucianism [] Unable to walk/stand [] Unable to read [] Unable to drive [] Unable to eat/drink [] Unable to sleep [] Unable to be with family [] Patient intubated [] Other: Summary Time spent with patient
--- NOTE | 2021-05-06 11:13 | PM.PN ---
Subjective Subjective: Patient was seen this morning, he is on 21% FiO2, he is feeling better, but continues to have generalized weakness, fatigue, his appetite is improving to some degree, he is ambulating a bit more Vitals/I&O/Wt Last Vital Signs Temp 97.7 F 05/06/21 08:00 Pulse 89 05/06/21 09:00 Resp 29 H 05/06/21 09:00 BP 117/76 05/06/21 09:00 Pulse Ox 95 05/06/21 09:00 05/05/21 05/06/21 05/06/21 22:59 06:59 14:59 Intake Total 50 / 1949 / 1998 1060 / 1060 Output Total 200 / 700 350 / 1050 Balance -150 / 1249 -300 / 949 1060 / 1060 Weight last 48 hrs Weight 64.637 kg Weight 60.016 kg Physical Exam Const: COMMON NORMALS: no acute distress and patient oriented x3 Resp: COMMON NORMALS: normal respiratory effort, No retractions, No use of accessory muscles and clear to auscultation bilaterally AUSCULTATION: clear to auscultation bilaterally Cardio: COMMON NORMALS: regular rate, regular rhythm, S1 normal heart sound present and S2 normal heart sound present RATE: regular rate RHYTHM: regular rhythm HEART SOUNDS: S1 normal heart sound present and S2 normal heart sound present GI: COMMON NORMALS: Normal to inspection, nondistended, normoactive bowel sounds present, Soft to palpation, non-tender, No hepatosplenomegaly present and no masses PALPATION: Yes Soft to palpation and Yes No hepatosplenomegaly present Extremity: COMMON NORMALS: no pedal edema Neuro: COMMON NORMALS: patient oriented x3 Psych: COMMON NORMALS: mental status grossly normal Data : 05/06/21 04:05 05/06/21 04:05 Micro: Microbiology 05/03/21 15:26 Gram Stain - Final Pleural Fluid Body Fluid Culture - Final A&P Assessment and plan (1) CHF (congestive heart failure): Status: Chronic Qualifiers: Heart failure type: unspecified Heart failure chronicity: chronic Qualified Code(s): I50.9 - Heart failure, unspecified (2) Essential hypertension: Status: Chronic (3) Hypothyroid: Status: Chronic Qualifiers: Hypothyroidism type: acquired Qualified Code(s): E03.9 - Hypothyroidism, unspecified (4) GERD (gastroesophageal reflux disease): Status: Chronic (5) Esophageal adenocarcinoma: Status: Chronic (6) Pleural effusion, right: Status: Acute (7) Pneumonia due to COVID-19 virus: Status: Acute (8) Immunotherapy: Status: Chronic (9) COVID-19: Status: Acute (10) Chronic anticoagulation: Status: Acute (11) History of deep vein thrombosis: Status: Acute (12) Acute respiratory failure with hypoxia: Status: Acute (13) Jejunostomy tube in situ: Status: Chronic (14) Status post laryngectomy: Status: Acute (15) Tracheostomy in place: Status: Chronic (16) Protein calorie malnutrition: Status: Acute (17) Physical deconditioning: Status: Acute (18) Recurrent right pleural effusion: Status: Acute (19) Atrial fibrillation: Status: Acute (20) Acute respiratory distress syndrome (ARDS) due to 2019-nCoV: Status: Acute (21) Pseudomonas pneumonia: Status: Acute (22) Pneumothorax, right: Status: Acute (23) Physical deconditioning: Status: Acute Plan Hypoxia related to COVID-19 pneumonia, acute respiratory distress syndrome, Repeat CT of the chest today showed 1.? Moderate size RIGHT pleural effusion. 2.? Compressive atelectasis most significant in the RIGHT lower lobe and LEFT lower lobes. LEFT lower lobe atelectasis has progressed since the most recent exam. Partial atelectasis RIGHT upper and RIGHT middle lobes. 3.? Unchanged appearance of the gastric pull-through with wall thickening. 4.? Tracheostomy. FiO2 currently 8 L HAG, 21 % FiO2 Completed 5 days of remdesivir Baricitinib has been discontinued Continue Decadron Currently on cefepime Does have small bilateral pleural effusions Resume Eliquis 2.5 mg twice daily Trach collar care, aspiration precautions, out of bed Will work on placement for rehab Pseudomonas pneumonia, Pseudomonas positive sputum cultures, multidrug-resistant, currently on cefepime 2 g every 12 hours, will need for at least 14 days Right pleural effusion, status post thoracocentesis, 1 L removed, -Likely parapneumonic effusion -Cultures so far have been unremarkable -Pathology pending Right apical pneumothorax, right lateral pneumothorax -Denies any chest pain, no worsening shortness of breath -Continue to conservatively manage, serially chest x-rays -Chest x-ray today -Avoid positive pressure ventilation Atrial fibrillation, received 150 mg amiodarone bolus, heart rates in the 100s, decrease amiodarone to 400 once a day, maintain potassium greater than 4, magnesium greater than 2, Eliquis Hypokalemia, monitor Hypomagnesemia, monitor Hypocalcemia, monitor History of DVT: Eliquis J-tube in place Jevity feeds running at 100 mL/h Discussed with speech therapy, okay with Ensure drinks twice daily Full code after home O2 eval will discharge over the weekend History of coronary disease no active chest pain Trach collar, routine trach collar care RT on board PT OT Working on placement to rehab facility Attestations Medical Necessity Statement*: Patient requires hospitalization for COVID-19 pneumonia, Pseudomonas sputum cultures, pneumothorax Coding Level of Care Code Acute Graduate Assistant for Chg Fwd Diagnoses CHF (congestive heart failure) I50.9 Heart failure type: unspecified Heart failure chronicity: chronic Essential hypertension I10 Hypothyroid E03.9 Hypothyroidism type: acquired GERD (gastroesophageal reflux disease) K21.9 Esophageal adenocarcinoma C15.9 Pleural effusion, right J90 Pneumonia due to COVID-19 virus U07.1; J12.82 Immunotherapy Z29.8 COVID-19 U07.1 Chronic anticoagulation Z79.01 History of deep vein thrombosis Z86.718 Acute respiratory failure with hypoxia J96.01 Jejunostomy tube in situ Z93.4 Status post laryngectomy Z90.[address] Z93.0 Protein calorie malnutrition E46 Physical deconditioning R53.81 Recurrent right pleural effusion J90 Atrial fibrillation I48.91 Acute respiratory distress syndrome (ARDS) due to 2019-nCoV U07.1; J80 Pseudomonas pneumonia J15.1 Pneumothorax, right J93.9 Physical deconditioning R53.81
[2021-05-06] MEDS: dexamethasone 4 mg/mL INJ 6 MG IVP (15:51)
--- NOTE | 2021-05-06 16:54 | PC.NURSE ---
PT was transferred to [facility] via bed with and all belongings. HAG and suction was set up in room. [facility] staff at bedside.
--- NOTE | 2021-05-06 17:52 | PC.NURSE ---
Patient came up from ICU around 1615. Patient and settled into new room. Suction and humidifier set up at bedside. Patient not complaining of any pain. I agree with all previous charting. Will continue to monitor and give report to night nurse.
--- NOTE | 2021-05-06 19:27 | PC.NURSE ---
i reported low temp 97.5 to nurse
[2021-05-06] MEDS: atorvastatin 40 mg Tablet 20 MG PO (21:13)
[2021-05-06] MEDS: oxyCODONE 5 mg IR Tab/Cap PO (21:14)
[2021-05-06] MEDS: CLONazepam 0.5 mg Tablet PO (21:35)
[2021-05-07] VITALS (16 sets, daily range): BP systolic 109–123; BP diastolic 73–80; PULSE 73–98; RESP 16–22; TEMP 36.3–36.6; O2SAT 90–94
[2021-05-07] MEDS: oxyCODONE 5 mg IR Tab/Cap PO (02:01)
[2021-05-07] MEDS: cefepime 2,000 MG in sodium chloride 0.9% (plus) 50 ML 100 MG IV ×2 (02:02→12:13)
[2021-05-07] MEDS: ipratropium-albuterol 3 mL Neb INHALATION ×6 (03:04→23:52)
--- NOTE | 2021-05-07 03:16 | PC.NURSE ---
Patient is currently trached. He is able to write notes appropriately. He also gestures appropriately.
[2021-05-07 05:21] LABS: Basophils % 0.1 %; Hematocrit 40.4 % (42.0-52.0); Hemoglobin 12.7 g/dL (11.7-16.6); Lymphocytes # 0.1 10^3/uL (0.8-4.8); Lymphocytes % 0.3 %; Mean Corpuscular HGB Conc 31.4 g/dL (30.0-36.0); Mean Corpuscular Hemoglobin 30.2 pg (28.0-34.0); Mean Corpuscular Volume 96.2 fl (80-94); Mean Platelet Volume 10.1 fL (7.4-10.4); Monocytes # 0.7 10^3/uL (0.2-0.9); Monocytes % 3.5 %; Neutrophils # 19.97 10^3/uL (1.8-7.7); Neutrophils % 95.2 %; Nucleated Red Blood Cells % 0 %; Platelet Count 187 10^3/cmm (130-400); Red Cell Distribution Width 15.3 % (12.1-15.1)
[2021-05-07 05:39] LABS: Alanine Aminotransferase 25 U/L (0-41); Albumin Level 3.3 g/dL (3.5-5.2); Alkaline Phosphatase 137 IU/L (40-130); Anion Gap 15.5 (5-19); Aspartate Amino Transferase 21 U/L (0-40); Blood Urea Nitrogen 55 mg/dL (8-23); C Reactive Protein 17.8 mg/L (0.0-4.9); Calcium 8.6 mg/dL (8.5-10.5); Carbon Dioxide 24 mmol/L (22-29); Chloride 98 mmol/L (98-107); Globulin 2.9 g/dL (1.3-4.6); Glucose 126 mg/dL (65-115); Magnesium 2.4 mg/dL (1.7-2.3); Osmolality Calculated 293 mOsm/kg (285-295); Phosphorus 3.2 mg/dL (2.5-4.5); Potassium 4.5 mmol/L (3.5-5.1); Sodium 133 mmol/L (136-145); Total Bilirubin 0.3 mg/dL (0.15-1.2); Total Protein 6.2 g/dL (6.6-8.7)
[2021-05-07 05:52] LABS: NT Pro B Type Natriuretic Pept 1226 pg/mL (0-125); Procalcitonin 0.08 ng/mL (0-0.5)
[2021-05-07] MEDS: levothyroxine 175 mcg Tablet PO (06:05)
[2021-05-07] MEDS: amiodarone 200 mg Tablet 400 MG PO (06:05)
[2021-05-07] MEDS: apixaban 5 mg Tablet 2.5 MG PO ×2 (08:08→20:38)
[2021-05-07] MEDS: pantoprazole DR 40 mg Tablet PO (08:08)
--- NOTE | 2021-05-07 10:56 | PC.SOCIAL ---
IMM Update Pg. 2 of IMM updated and reviewed with patient who verbalized understanding. Copy provided.
[2021-05-07] MEDS: dexamethasone 4 mg/mL INJ 6 MG IVP (14:22)
--- NOTE | 2021-05-07 15:12 | P.PN_ITS ---
Subjective Subjective: Patient was seen this morning, he is on room air, continues to have generalized weakness, overall he is feeling better, but tells me that he just has not had the energy to get up into a recliner this morning, physical therapy and respiratory therapy will get him up at 1030, to get up into a reclin er, Vitals/I&O/Wt Last Vital Signs Temp 97.5 F L 05/07/21 11:09 Pulse 85 05/07/21 11:43 Resp 16 05/07/21 11:40 BP 114/76 05/07/21 11:09 Pulse Ox 93 05/07/21 11:40 05/07/21 05/07/21 05/07/21 06:59 14:59 22:59 Intake Total 100 / 100 Output Total 100 / 320 Balance -100 / 790 100 / 100 Weight last 48 hrs Weight 61.779 kg Weight 64.637 kg Physical Exam Const: COMMON NORMALS: no acute distress and patient oriented x3 Resp: COMMON NORMALS: normal respiratory effort, No retractions, No use of accessory muscles and clear to auscultation bilaterally AUSCULTATION: clear to auscultation bilaterally Cardio: COMMON NORMALS: regular rate, regular rhythm, S1 normal heart sound present and S2 normal heart sound present RATE: regular rate RHYTHM: regular rhythm HEART SOUNDS: S1 normal heart sound present and S2 normal heart sound present GI: COMMON NORMALS: Normal to inspection, nondistended, normoactive bowel sounds present, Soft to palpation, non-tender and No hepatosplenomegaly present PALPATION: Yes Soft to palpation and Yes No hepatosplenomegaly present Extremity: COMMON NORMALS: no pedal edema Neuro: COMMON NORMALS: patient oriented x3 Psych: COMMON NORMALS: mental status grossly normal Data : 05/07/21 04:47 05/07/21 04:47 Micro: Microbiology 05/03/21 15:26 Mycobacterial Smear - Preliminary Body Fluids - Pleura A&P Assessment and plan (1) CHF (congestive heart failure): Status: Chronic Qualifiers: Heart failure type: unspecified Heart failure chronicity: chronic Qualified Code(s): I50.9 - Heart failure, unspecified (2) Essential hypertension: Status: Chronic (3) Hypothyroid: Status: Chronic Qualifiers: Hypothyroidism type: acquired Qualified Code(s): E03.9 - Hypothyroidism, unspecified (4) GERD (gastroesophageal reflux disease): Status: Chronic (5) Esophageal adenocarcinoma: Status: Chronic (6) Pleural effusion, right: Status: Acute (7) Pneumonia due to COVID-19 virus: Status: Acute (8) Immunotherapy: Status: Chronic (9) COVID-19: Status: Acute (10) Chronic anticoagulation: Status: Acute (11) History of deep vein thrombosis: Status: Acute (12) Acute respiratory failure with hypoxia: Status: Acute (13) Jejunostomy tube in situ: Status: Chronic (14) Status post laryngectomy: Status: Acute (15) Tracheostomy in place: Status: Chronic (16) Protein calorie malnutrition: Status: Acute (17) Physical deconditioning: Status: Acute (18) Recurrent right pleural effusion: Status: Acute (19) Atrial fibrillation: Status: Acute (20) Acute respiratory distress syndrome (ARDS) due to 2019-nCoV: Status: Acute (21) Pseudomonas pneumonia: Status: Acute (22) Pneumothorax, right: Status: Acute (23) Physical deconditioning: Status: Acute Plan Hypoxia related to COVID-19 pneumonia, acute respiratory distress syndrome, Repeat CT of the chest today showed 1.? Moderate size RIGHT pleural effusion. 2.? Compressive atelectasis most significant in the RIGHT lower lobe and LEFT lower lobes. LEFT lower lobe atelectasis has progressed since the most recent exam. Partial atelectasis RIGHT upper and RIGHT middle lobes. 3.? Unchanged appearance of the gastric pull-through with wall thickening. 4.? Tracheostomy. FiO2 currently room air Completed 5 days of remdesivir Baricitinib has been discontinued Continue Decadron Currently on cefepime Does have small bilateral pleural effusions Resume Eliquis 2.5 mg twice daily Trach collar care, aspiration precautions, out of bed Will work on placement for rehab Pseudomonas pneumonia, Pseudomonas positive sputum cultures, multidrug- resistant, currently on cefepime 2 g every 12 hours, will need for at least 10 days starting 05/04/2019 diarrhea Right pleural effusion, status post thoracocentesis, 1 L removed, -Likely parapneumonic effusion -Cultures so far have been unremarkable -Pathology chronic inflammation with mesothelial cells, no malignancy Right apical pneumothorax, right lateral pneumothorax -Denies any chest pain, no worsening shortness of breath -Continue to conservatively manage, serially chest x-rays -Chest x-ray today -Avoid positive pressure ventilation Atrial fibrillation, received 150 mg amiodarone bolus, heart rates in the 100s, decrease amiodarone to 400 once a day, maintain potassium greater than 4, magnesium greater than 2, Eliquis Hypokalemia, monitor Hypomagnesemia, monitor Hypocalcemia, monitor History of DVT: Eliquis J-tube in place Jevity feeds running at 100 mL/h Discussed with speech therapy, okay with Ensure drinks twice daily Full code after home O2 eval will discharge over the weekend History of coronary disease no active chest pain Trach collar, routine trach collar care RT on board PT OT Working on placement to rehab facility Attestations Medical Necessity Statement*: NosePatient requires hospitalization for COVID- 19 pneumonia, ammonia, deconditioning, protein calorie malnutrition, pneumothorax Coding Level of Care Code Acute Therapeutic Radiologist for Chg Fwd Diagnoses CHF (congestive heart failure) I50.9 Heart failure type: unspecified Heart failure chronicity: chronic Essential hypertension I10 Hypothyroid E03.9 Hypothyroidism type: acquired GERD (gastroesophageal reflux disease) K21.9 Esophageal adenocarcinoma C15.9 Pleural effusion, right J90 Pneumonia due to COVID-19 virus U07.1; J12.82 Immunotherapy Z29.8 COVID-19 U07.1 Chronic anticoagulation Z79.01 History of deep vein thrombosis Z86.718 Acute respiratory failure with hypoxia J96.01 Jejunostomy tube in situ Z93.4 Status post laryngectomy Z90.[address] Z93.0 Protein calorie malnutrition E46 Physical deconditioning R53.81 Recurrent right pleural effusion J90 Atrial fibrillation I48.91 Acute respiratory distress syndrome (ARDS) due to 2019-nCoV U07.1; J80 Pseudomonas pneumonia J15.1 Pneumothorax, right J93.9 Physical deconditioning R53.81
--- NOTE | 2021-05-07 15:14 | XR_ITS ---
WS: [id number] XR chest 1V portable [id number] REASON FOR EXAM: sob FINDINGS: Examination is unchanged compared to the previous study of 05/06/2021. Sternal sutures. Moderate tortuosity of the thoracic aorta without aneurysmal dilatation. Normal hear t size. Chemotherapy infusion port over the right chest with transvenous right internal jugular catheter with tip in the superior vena cava. Right pleural effusion. Coarse thickened linear opacities with patchy areas of confluence in the medi al right lower lung and the left lower lung. No new findings. XR/XR chest 1V portable [id number] IMPRESSION: Stable abnormal chest.
--- NOTE | 2021-05-07 16:31 | PC.NURSE ---
Vitals stable. Patient worked with PT and OT, was in the chair for the majority of the shift. IV abx given. Trach and G tube care was done, dressings changed. Wound care done on patients pressure ulcer. Patient had a large bowel movement today. Will continue to monitor and give report to night nurse.
[2021-05-07] MEDS: atorvastatin 40 mg Tablet 20 MG PO (20:38)
[2021-05-07] MEDS: acetaminophen 325 mg Tablet 650 MG PO (20:38)
[2021-05-07] MEDS: CLONazepam 0.5 mg Tablet PO (20:38)
[2021-05-08] VITALS (20 sets, daily range): BP systolic 108–125; BP diastolic 69–77; PULSE 67–94; RESP 16–24; TEMP 36.3–36.6; O2SAT 90–97
[2021-05-08] MEDS: cefepime 2,000 MG in sodium chloride 0.9% (plus) 50 ML 100 MG IV ×2 (00:53→13:36)
[2021-05-08] MEDS: acetaminophen 325 mg Tablet 650 MG PO ×5 (02:46→21:43)
[2021-05-08] MEDS: ipratropium-albuterol 3 mL Neb INHALATION ×6 (03:32→23:10)
[2021-05-08] MEDS: amiodarone 200 mg Tablet 400 MG PO (05:10)
[2021-05-08] MEDS: levothyroxine 175 mcg Tablet PO (05:10)
[2021-05-08 05:13] LABS: Basophils % 0.1 %; Hemoglobin 12.1 g/dL (11.7-16.6); Lymphocytes # 0.1 10^3/uL (0.8-4.8); Lymphocytes % 0.4 %; Mean Corpuscular Hemoglobin 30.6 pg (28.0-34.0); Mean Corpuscular Volume 98.5 fl (80-94); Mean Platelet Volume 10.2 fL (7.4-10.4); Monocytes # 0.6 10^3/uL (0.2-0.9); Monocytes % 3.4 %; Neutrophils # 17.01 10^3/uL (1.8-7.7); Neutrophils % 95.3 %; Nucleated Red Blood Cells % 0 %; Platelet Count 155 10^3/cmm (130-400); Red Blood Count 3.96 10^6/uL (4.1-5.3); Red Cell Distribution Width 15.3 % (12.1-15.1); White Blood Count 17.9 10^3/uL (4.0-10.0)
[2021-05-08 05:29] LABS: Alanine Aminotransferase 24 U/L (0-41); Albumin Level 3.1 g/dL (3.5-5.2); Alkaline Phosphatase 134 IU/L (40-130); Anion Gap 14.6 (5-19); Aspartate Amino Transferase 17 U/L (0-40); Blood Urea Nitrogen 51 mg/dL (8-23); Calcium 9.2 mg/dL (8.5-10.5); Carbon Dioxide 23 mmol/L (22-29); Chloride 97 mmol/L (98-107); Creatinine Clr Calc Pharmacy 76.4819; Globulin 2.6 g/dL (1.3-4.6); Glucose 132 mg/dL (65-115); Osmolality Calculated 286 mOsm/kg (285-295); Potassium 4.6 mmol/L (3.5-5.1); Sodium 130 mmol/L (136-145); Total Bilirubin 0.2 mg/dL (0.15-1.2); Total Protein 5.7 g/dL (6.6-8.7)
[2021-05-08 05:30] LABS: C Reactive Protein 29.2 mg/L (0.0-4.9); Magnesium 2.3 mg/dL (1.7-2.3); Phosphorus 2.7 mg/dL (2.5-4.5)
[2021-05-08 05:40] LABS: NT Pro B Type Natriuretic Pept 1377 pg/mL (0-125); Procalcitonin 0.09 ng/mL (0-0.5)
[2021-05-08] MEDS: apixaban 5 mg Tablet 2.5 MG PO ×2 (08:57→21:29)
[2021-05-08] MEDS: pantoprazole DR 40 mg Tablet PO (08:58)
--- NOTE | 2021-05-08 12:31 | P.PN_ITS ---
Subjective Subjective: Patient was seen and examined this morning, continue to saturate well on HAG, 10LS/MIN, FiO2 21%. Denies any other complaints Medications: Medication Review Details: Generic Name Dose Route Start Last Admin Trade Name Freq PRN Reason Stop Dose Admin Acetaminophen 650 mg 04/22/21 16:56 05/08/21 15:07 Acetaminophen 32 5 Mg Tablet PO 650 mg Q6H PRN Administration MILD PAIN Albuterol/Ipratrop ium 3 ml 04/26/21 12:00 05/08/21 19:36 Ipratropium-Albu terol 3 Ml Neb INHALATION 3 ml Q4H.RESPIRATORY S CH Administration Amiodarone HCl 400 mg 05/06/21 06:00 05/08/21 05:10 Amiodarone 200 M g Tablet PO 400 mg Q24H ANDREA Administration Apixaban 2.5 mg 04/22/21 21:00 05/08/21 08:57 Apixaban 5 Mg Ta blet PO 2.5 mg BID@ ANDREA Administration Atorvastatin Calci um 20 mg 04/22/21 21:00 05/07/21 20:38 Atorvastatin 40 Mg Tablet PO 20 mg BEDTIME ANDREA Administration Dexamethasone 6 mg 04/22/21 15:00 05/08/21 15:06 Dexamethasone 4 Mg/Ml Inj IVP 6 mg Q24H ANDREA Administration Docusate Sodium 100 mg 04/22/21 21:00 05/08/21 08:58 Docusate Sodium 10 Mg/Ml (5ml) Liq PO Not Given BID@0900,2100 ANDREA Cefepime HCl 2,000 mg/ Sodium 50 mls @ 100 mls/ hr 05/03/21 13:15 05/08/21 14:59 Chloride IV Infused Q12H ANDREA Infusion Protocol Levothyroxine Sodi um 175 mcg 04/23/21 06:00 05/08/21 05:10 Levothyroxine 17 5 Mcg Tablet PO 175 mcg QAM ANDREA Administration Pantoprazole Sodiu m 40 mg 04/23/21 09:00 05/08/21 08:[address] 40 Mg Tablet PO 40 mg DAILY ANDREA Administration Zinc Oxide 1 applic 04/26/21 08:12 05/03/21 12:57 Zinc Oxide Oint 30 Gm TOPICAL 1 applic PRN PRN Administration SKIN PROTECTANT Vitals/I&O/Wt Last Vital Signs Temp 97.6 F 05/08/21 08:00 Pulse 73 05/08/21 11:39 Resp 16 05/08/21 11:39 BP 113/71 05/08/21 11:39 Pulse Ox 92 05/08/21 11:39 05/07/21 05/08/21 05/08/21 22:59 06:59 14:59 Intake Total 50 / 150 Output Total 450 / 450 200 / 650 275 / 275 Balance -450 / -350 -150 / -500 -275 / -275 Weight last 48 hrs Weight 62.414 kg Weight 61.779 kg Physical Exam Const: COMMON NORMALS: patient oriented x3 HENMT: COMMON NORMALS: normocephalic and atraumatic HEAD & SCALP: normocephalic and atraumatic Neck/C-Spine: OTHER: Treach in place, site is clean Chest: COMMONS NORMALS: normal inspection of the chest and normal palpation of entire chest wall CHEST: Yes Symmetrical chest wall rise Resp: COMMON NORMALS: normal respiratory effort, No retractions, No use of accessory muscles and clear to auscultation bilaterally EFFORT & INSPECTION: Yes symmetric chest movement AUSCULTATION: clear to auscultation bilaterally Cardio: COMMON NORMALS: regular rate, regular rhythm, S1 normal heart sound present, S2 normal heart sound present, No gallops present (Cardio), No murmurs present (Cardio), No rub (Cardio) and Peripheral pulses 2+ throughout RATE: regular rate RHYTHM: regular rhythm HEART SOUNDS: S1 normal heart sound present and S2 normal heart sound present PERIPHERAL PULSES: Peripheral pulses 2+ throughout GI: COMMON NORMALS: Normal to inspection, nondistended, normoactive bowel sounds present, Soft to palpation, non-tender, No hepatosplenomegaly present and no masses AUSCULTATION: Yes normoactive bowel sounds PALPATION: Yes Soft to palpation and Yes No hepatosplenomegaly present RECTAL EXAM: Yes deferred Extremity: COMMON NORMALS: no clubbing, cyanosis or edema and no pedal edema Neuro: COMMON NORMALS: patient oriented x3 Data : 05/08/21 04:57 05/08/21 04:57 A&P Assessment and plan (1) CHF (congestive heart failure): Status: Chronic Qualifiers: Heart failure chronicity: chronic Heart failure type: unspecified Qualified Code(s): I50.9 - Heart failure, unspecified (2) Essential hypertension: Status: Chronic (3) Hypothyroid: Status: Chronic Qualifiers: Hypothyroidism type: acquired Qualified Code(s): E03.9 - Hypothyroidism, unspecified (4) GERD (gastroesophageal reflux disease): Status: Chronic (5) Esophageal adenocarcinoma: Status: Chronic (6) Pleural effusion, right: Status: Acute (7) Pneumonia due to COVID-19 virus: Status: Acute (8) Immunotherapy: Status: Chronic (9) COVID-19: Status: Acute (10) Chronic anticoagulation: Status: Acute (11) History of deep vein thrombosis: Status: Acute (12) Acute respiratory failure with hypoxia: Status: Acute (13) Jejunostomy tube in situ: Status: Chronic (14) Status post laryngectomy: Status: Acute (15) Tracheostomy in place: Status: Chronic (16) Protein calorie malnutrition: Status: Acute (17) Physical deconditioning: Status: Acute (18) Recurrent right pleural effusion: Status: Acute (19) Atrial fibrillation: Status: Acute (20) Acute respiratory distress syndrome (ARDS) due to 2019-nCoV: Status: Acute (21) Pseudomonas pneumonia: Status: Acute (22) Pneumothorax, right: Status: Acute Plan Hypoxia related to COVID-19 pneumonia, acute respiratory distress syndrome, Repeat CT of the chest today showed 1.? Moderate size RIGHT pleural effusion. 2.? Compressive atelectasis most significant in the RIGHT lower lobe and LEFT lower lobes. LEFT lower lobe atelectasis has progressed since the most recent exam. Partial atelectasis RIGHT upper and RIGHT middle lobes. 3.? Unchanged appearance of the gastric pull-through with wall thickening. 4.? Tracheostomy. FiO2 currently room air Completed 5 days of remdesivir Baricitinib has been discontinued Continue Decadron Currently on cefepime Does have small bilateral pleural effusions Resume Eliquis 2.5 mg twice daily Trach collar care, aspiration precautions, out of bed Will work on placement for rehab Pseudomonas pneumonia, Pseudomonas positive sputum cultures, multidrug- resistant, currently on cefepime 2 g every 12 hours, will need for at least 10 days starting 05/04/2019 diarrhea Right pleural effusion, status post thoracocentesis, 1 L removed, -Likely parapneumonic effusion -Cultures so far have been unremarkable -Pathology chronic inflammation with mesothelial cells, no malignancy Right apical pneumothorax, right lateral pneumothorax -Denies any chest pain, no worsening shortness of breath -Continue to conservatively manage, serially chest x-rays -Chest x-ray today -Avoid positive pressure ventilation Atrial fibrillation, received 150 mg amiodarone bolus, heart rates in the 100s, decrease amiodarone to 400 once a day, maintain potassium greater than 4, magnesium greater than 2, Eliquis Hypokalemia, monitor Hypomagnesemia, monitor Hypocalcemia, monitor History of DVT: Eliquis J-tube in place Jevity feeds running at 100 mL/h Discussed with speech therapy, okay with Ensure drinks twice daily Full code after home O2 eval will discharge over the weekend History of coronary disease no active chest pain Trach collar, routine trach collar care RT on board PT OT Working on placement to rehab facility Attestations 2 Medical Necessity Statement*: Patient is to the hospital for management of above-defined problems Time Spent in Patient Care: Greater than 35 minutes (>than 50% of time spent in counselling and/or direct pt care on unit) . Coding Level of Care Code Acute Tooth Cutter Contact Wheel for Chg Fwd Exam Detailed Diagnoses CHF (congestive heart failure) I50.9 Heart failure chronicity: chronic Heart failure type: unspecified Essential hypertension I10 Hypothyroid E03.9 Hypothyroidism type: acquired GERD (gastroesophageal reflux disease) K21.9 Esophageal adenocarcinoma C15.9 Pleural effusion, right J90 Pneumonia due to COVID-19 virus U07.1; J12.82 Immunotherapy Z29.8 COVID-19 U07.1 Chronic anticoagulation Z79.01 History of deep vein thrombosis Z86.718 Acute respiratory failure with hypoxia J96.01 Jejunostomy tube in situ Z93.4 Status post laryngectomy Z90.[address] Z93.0 Protein calorie malnutrition E46 Physical deconditioning R53.81 Recurrent right pleural effusion J90 Atrial fibrillation I48.91 Acute respiratory distress syndrome (ARDS) due to 2019-nCoV U07.1; J80 Pseudomonas pneumonia J15.1 Pneumothorax, right J93.9
[2021-05-08] MEDS: dexamethasone 4 mg/mL INJ 6 MG IVP (15:06)
[2021-05-08] MEDS: atorvastatin 40 mg Tablet 20 MG PO (21:29)
[2021-05-09] VITALS (16 sets, daily range): BP systolic 107–125; BP diastolic 62–86; PULSE 64–90; RESP 16–24; TEMP 36.3–36.8; O2SAT 93–98
[2021-05-09] MEDS: cefepime 2,000 MG in sodium chloride 0.9% (plus) 50 ML 100 MG IV ×2 (00:50→12:43)
[2021-05-09] MEDS: ipratropium-albuterol 3 mL Neb INHALATION ×5 (03:21→21:38)
[2021-05-09] MEDS: acetaminophen 325 mg Tablet 650 MG PO ×4 (04:30→21:03)
[2021-05-09 05:27] LABS: Magnesium 2.2 mg/dL (1.7-2.3); Phosphorus 2.3 mg/dL (2.5-4.5)
[2021-05-09] MEDS: amiodarone 200 mg Tablet 400 MG PO (05:27)
[2021-05-09] MEDS: levothyroxine 175 mcg Tablet PO (05:29)
[2021-05-09 05:40] LABS: NT Pro B Type Natriuretic Pept 1991 pg/mL (0-125); Procalcitonin 0.07 ng/mL (0-0.5)
[2021-05-09] MEDS: pantoprazole DR 40 mg Tablet PO (08:39)
[2021-05-09] MEDS: apixaban 5 mg Tablet 2.5 MG PO ×2 (08:39→21:03)
--- NOTE | 2021-05-09 09:23 | PC.SOCIAL ---
IMM Update pg 2 of IMM updated and reviewed w/ patient. Copy provided. Copy in chart updated.
[2021-05-09] MEDS: dexamethasone 4 mg/mL INJ 6 MG IVP (14:56)
--- NOTE | 2021-05-09 18:21 | P.PN_ITS ---
Subjective Subjective: Patient was seen and examined this morning, no acute events overnight. Medications: Medication Review Details: Generic Name Dose Route Start Last Admin Trade Name Freq PRN Reason Stop Dose Admin Acetaminophen 650 mg 04/22/21 16:56 05/08/21 15:07 Acetaminophen 32 5 Mg Tablet PO 650 mg Q6H PRN Administration MILD PAIN Albuterol/Ipratrop ium 3 ml 04/26/21 12:00 05/08/21 19:36 Ipratropium-Albu terol 3 Ml Neb INHALATION 3 ml Q4H.RESPIRATORY S CH Administration Amiodarone HCl 400 mg 05/06/21 06:00 05/08/21 05:10 Amiodarone 200 M g Tablet PO 400 mg Q24H ANDREA Administration Apixaban 2.5 mg 04/22/21 21:00 05/08/21 08:57 Apixaban 5 Mg Ta blet PO 2.5 mg BID@ ANDREA Administration Atorvastatin Calci um 20 mg 04/22/21 21:00 05/07/21 20:38 Atorvastatin 40 Mg Tablet PO 20 mg BEDTIME ANDREA Administration Dexamethasone 6 mg 04/22/21 15:00 05/08/21 15:06 Dexamethasone 4 Mg/Ml Inj IVP 6 mg Q24H ANDREA Administration Docusate Sodium 100 mg 04/22/21 21:00 05/08/21 08:58 Docusate Sodium 10 Mg/Ml (5ml) Liq PO Not Given BID@0900,2100 ANDREA Cefepime HCl 2,000 mg/ Sodium 50 mls @ 100 mls/ hr 05/03/21 13:15 05/08/21 14:59 Chloride IV Infused Q12H ANDREA Infusion Protocol Levothyroxine Sodi um 175 mcg 04/23/21 06:00 05/08/21 05:10 Levothyroxine 17 5 Mcg Tablet PO 175 mcg QAM ANDREA Administration Pantoprazole Sodiu m 40 mg 04/23/21 09:00 05/08/21 08:[address] 40 Mg Tablet PO 40 mg DAILY ANDREA Administration Zinc Oxide 1 applic 04/26/21 08:12 05/03/21 12:57 Zinc Oxide Oint 30 Gm TOPICAL 1 applic PRN PRN Administration SKIN PROTECTANT Vitals/I&O/Wt Last Vital Signs Temp 98.3 F 05/09/21 15:45 Pulse 76 05/09/21 15:45 Resp 18 05/09/21 15:45 BP 114/76 05/09/21 15:45 Pulse Ox 93 05/09/21 15:45 05/09/21 05/09/21 05/09/21 06:59 14:59 22:59 Intake Total 350 / 400 50 / 50 Output Total 0 / 475 400 / 400 Balance 350 / -75 -350 / -350 Weight last 48 hrs Weight 62.959 kg Weight 62.414 kg Physical Exam Const: COMMON NORMALS: patient oriented x3 HENMT: COMMON NORMALS: normocephalic and atraumatic HEAD & SCALP: no rmocephalic and atraumatic Eye: GENERAL EYE: appearance normal, both eyes and all related structures Neck/C-Spine: OTHER: Treach in place, site is clean Chest: COMMONS NORMALS: normal inspection of the chest and normal palpation of entire chest wall CHEST: Yes Symmetrical chest wall rise Resp: COMMON NORMALS: normal respiratory effort, No retractions, No use of accessory muscles and clear to auscultation bilaterally EFFORT & INSPECTION: Yes symmetric chest movement AUSCULTATION: clear to auscultation bilaterally Cardio: COMMON NORMALS: regular rate, regular rhythm, S1 normal heart sound present, S2 normal heart sound present, No gallops present (Cardio), No murmurs present (Cardio), No rub (Cardio) and Peripheral pulses 2+ throughout RATE: regular rate RHYTHM: regular rhythm HEART SOUNDS: S1 normal heart sound present and S2 normal heart sound present PERIPHERAL PULSES: Peripheral pulses 2+ throughout GI: COMMON NORMALS: Normal to inspection, nondistended, normoactive bowel sounds present, Soft to palpation, non-tender, No hepatosplenomegaly present and no masses AUSCULTATION: Yes normoactive bowel sounds PALPATION: Yes Soft to palpation and Yes No hepatosplenomegaly present RECTAL EXAM: Yes deferred Extremity: COMMON NORMALS: no clubbing, cyanosis or edema and no pedal edema Neuro: COMMON NORMALS: patient oriented x3 Data : 05/08/21 04:57 05/08/21 04:57 A&P Assessment and plan (1) CHF (congestive heart failure): Status: Chronic Qualifiers: Heart failure type: unspecified Heart failure chronicity: chronic Qualified Code(s): I50.9 - Heart failure, unspecified (2) Essential hypertension: Status: Chronic (3) Hypothyroid: Status: Chronic Qualifiers: Hypothyroidism type: acquired Qualified Code(s): E03.9 - Hypot hyroidism, unspecified (4) GERD (gastroesophageal reflux disease): Status: Chronic (5) Esophageal adenocarcinoma: Status: Chronic (6) Pleural effusion, right: Status: Acute (7) Pneumonia due to COVID-19 virus: Status: Acute (8) Immunotherapy: Status: Chronic (9) COVID-19: Status: Acute (10) Chronic anticoagulation: Status: Acute (11) History of deep vein thrombosis: Status: Acute (12) Acute respiratory failure with hypoxia: Status: Acute (13) Jejunostomy tube in situ: Status: Chronic (14) Status post laryngectomy: Status: Acute (15) Tracheostomy in place: Status: Chronic (16) Protein calorie malnutrition: Status: Acute (17) Physical deconditioning: Status: Acute (18) Recurrent right pleural effusion: Status: Acute (19) Atrial fibrillation: Status: Acute (20) Acute respiratory distress syndrome (ARDS) due to 2019-nCoV: Status: Acute (21) Pseudomonas pneumonia: Status: Acute (22) Pneumothorax, right: Status: Acute Plan Hypoxia related to COVID-19 pneumonia, acute respiratory distress syndrome, Repeat CT of the chest today showed 1.? Moderate size RIGHT pleural effusion. 2.? Compressive atelectasis most significant in the RIGHT lower lobe and LEFT lower lobes. LEFT lower lobe atelectasis has progressed since the most recent exam. Partial atelectasis RIGHT upper and RIGHT middle lobes. 3.? Unchanged appearance of the gastric pull-through with wall thickening. 4.? Tracheostomy. FiO2 currently room air Completed 5 days of remdesivir Baricitinib has been discontinued Continue Decadron Currently on cefepime Does have small bilateral pleural effusions Resume Eliquis 2.5 mg twice daily Trach collar care, aspiration precautions, out of bed Will work on placement for rehab Pseudomonas pneumonia, Pseudomonas positive sputum cultures, multidrug- resistant, currently on cefepime 2 g every 12 hours, will need for at least 10 days starting 05/04/2019 diarrhea Right pleural effusion, status post thoracocentesis, 1 L removed, -Likely parapneumonic effusion -Cultures so far have been unremarkable -Pathology chronic inflammation with mesothelial cells, no malignancy Right apical pneumothorax, right lateral pneumothorax -Denies any chest pain, no worsening shortness of breath -Continue to conservatively manage, serially chest x-rays -Chest x-ray today -Avoid positive pressure ventilation Atrial fibrillation, received 150 mg amiodarone bolus, heart rates in the 100s, decrease amiodarone to 400 once a day, maintain potassium greater than 4, magnesium greater than 2, Eliquis Hypokalemia, monitor Hypomagnesemia, monitor Hypocalcemia, monitor History of DVT: Eliquis J-tube in place Jevity feeds running at 100 mL/h Discussed with speech therapy, okay with Ensure drinks twice daily Full code after home O2 eval will discharge over the weekend History of coronary disease no active chest pain Trach collar, routine trach collar care RT on board PT OT Working on placement to rehab facility Attestations Medical Necessity Statement*: Patient is still in hospital for management of above defined problem. Anticipated discharge by tomorrow. Coding Level of Care Code Acute Furnace And Wash Equipment Operator for Chg Fwd Diagnoses CHF (congestive heart failure) I50.9 Heart failure type: unspecified Heart failure chronicity: chronic Essential hypertension I10 Hypothyroid E03.9 Hypothyroidism type: acquired GERD (gastroesophageal reflux disease) K21.9 Esophageal adenocarcinoma C15.9 Pleural effusion, right J90 Pneumonia due to COVID-19 virus U07.1; J12.82 Immunotherapy Z29.8 COVID-19 U07.1 Chronic anticoagulation Z79.01 History of deep vein thrombosis Z86.718 Acute respiratory failure with hypoxia J96.01 Jejunostomy tube in situ Z93.4 Status post laryngectomy Z90.[address] Z93.0 Protein calorie malnutrition E46 Physical deconditioning R53.81 Recurrent right pleural effusion J90 Atrial fibrillation I48.91 Acute respiratory distress syndrome (ARDS) due to 2019-nCoV U07.1; J80 Pseudomonas pneumonia J15.1 Pneumothorax, right J93.9
--- NOTE | 2021-05-09 19:31 | PC.NURSE ---
100ml ns flush
[2021-05-09] MEDS: atorvastatin 40 mg Tablet 20 MG PO (21:05)
[2021-05-09] MEDS: hyDROXYzine 25 mg Capsule PO (21:06)
[2021-05-10] VITALS (11 sets, daily range): BP systolic 114–118; BP diastolic 69–76; PULSE 72–91; RESP 16–22; TEMP 36.4–36.8; O2SAT 91–95; BMI 21.0
[2021-05-10] MEDS: ipratropium-albuterol 3 mL Neb INHALATION ×4 (00:48→11:51)
--- NOTE | 2021-05-10 04:38 | PC.NURSE ---
pt rested quietly throughout shift. VSS. PRN Tylenol given for pain. Pt voids in urinal. Adequate UOP. Frequent turning done. Tube feed at 100ml/hr with Q4 120ml free water flushes. Pt tolerating well. Hourly rounding done. All needs met.
[2021-05-10] MEDS: levothyroxine 175 mcg Tablet PO (05:29)
[2021-05-10] MEDS: amiodarone 200 mg Tablet 400 MG PO (05:29)
[2021-05-10] MEDS: apixaban 5 mg Tablet 2.5 MG PO (08:04)
[2021-05-10] MEDS: pantoprazole DR 40 mg Tablet PO (08:05)
[2021-05-10 11:21] LABS: SARS Covid-2 Antigen Negative (Negative)
--- NOTE | 2021-05-10 11:23 | PM.DCS ---
Discharge Providers Date of Admission: 04/22/21 14:57 Date of Discharge: May 10, 2021 Attending Provider at Admission: Carol Wilhelm MD Attending Provider at Discharge: Michoacano Bee MD Primary Care Provider: Randi Buchanan DO Diagnoses at Discharge Discharge Diagnosis (1) CHF (congestive heart failure): Status: Chronic Qualifiers: Heart failure chronicity: chronic Heart failure type: unspecified Qualified Code(s): I50.9 - Heart failure, unspecified (2) Essential hypertension: Status: Chronic (3) Hypothyroid: Status: Chronic Qualifiers: Hypothyroidism type: acquired Qualified Code(s): E03.9 - Hypothyroidism, unspecified (4) GERD (gastroesophageal reflux disease): Status: Chronic (5) Esophageal adenocarcinoma: Status: Chronic Permanent problem details: -Follows with Dr Sorto, Dr Hayes and Dr Blanton did surgery -s/p chemoradiation with carboplatin/taxol -s/p esophagectomy, laryngectomy, trachostomy, gastric conduit reconstruction, j tube placement in 12/13 - Adenocarcinoma involving proximal esophageal margin, however status of final esophageal margin cannot be determined with certainty as several proximal esophageal specimen was submitted and they were not oriented. Adenocarcinoma involving circumferential margin. Distal gastric margin, negative for carcinoma. Metastatic adenocarcinoma involving 4 of 8 lymph nodes. Pathological stage yT3, N2, HER-2/cortez negative, MMR, equivocal expression, molecular testing for MSI show intact. -nivolumab started at 02/21/21 (6) Pleural effusion, right: Status: Acute (7) Pneumonia due to COVID-19 virus: Status: Acute (8) Immunotherapy: Status: Chronic Permanent problem details: nivolumab - held 04/22/2021 due to pleural effusion until can eval further (9) COVID-19: Status: Acute (10) Chronic anticoagulation: Status: Acute (11) History of deep vein thrombosis: Status: Acute (12) Acute respiratory failure with hypoxia: Status: Acute (13) Jejunostomy tube in situ: Status: Chronic (14) Status post laryngectomy: Status: Acute Permanent problem details: [facility] (15) Tracheostomy in place: Status: Chronic (16) Protein calorie malnutrition: Status: Acute (17) Physical deconditioning: Status: Acute (18) Recurrent right pleural effusion: Status: Acute (19) Atrial fibrillation: Status: Acute (20) Acute respiratory distress syndrome (ARDS) due to 2019-nCoV: Status: Acute (21) Pseudomonas pneumonia: Status: Acute (22) Pneumothorax, right: Status: Acute Reason for Visit Reason for Visit: phlegm in throat makes it diff to breath Hospital Course Hospital Course 75 year old male with history of coronary artery disease, CHF DVT on Eliquis, esophageal adenocarcinoma s/p chemoradiation with carboplatin/taxol , s/p esophagectomy, laryngectomy, trachostomy, gastric conduit reconstruction, j tube placement in 12/13, htn, hypothyroidism, was admitted with chief complaint of worsening shortness of breath as well as cough.He was diagnosed with COVID pneumonia and was managed for the same. Patient was kept on dexamethasone, completed remdesivir course, was also on baricitinib, On broad-spectrum antibiotics, Pseudomonas positive sputum cultures, multidrug-resistant was kept on cefepime to which he responded well, he was continued on his anticoagulation eliquis. For his right pleural effusion s/p thoracentesis: With removal of 1 L fluid, pleural fluid cultures were unremarkable, likely parapneumonic effusion, pleural fluid pathology chronic inflammatory cells, no malignant cells identified, patient also developed right apical and right lateral pneumothorax for which he Was managed conservatively, serial chest x-rays were done, with resolution of pneumothorax. During the hospital stay patient also had developed atrial fibrillation, for which she was kept on amiodarone IV and was later transitioned to p.o. amiodarone, he is being discharged on amiodarone p.o. 200 mg daily. Patient has responded well to above medical management discharged to nursing currently saturating well on room air. 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 Physical Exam Const: COMMON NORMALS: patient oriented x3 HENMT: COMMON NORMALS: normocephalic and atraumatic HEAD & SCALP: normocephalic and atraumatic Eye: GENERAL EYE: appearance normal, both eyes and all related structures Neck/C-Spine: OTHER: Treach in place, site is clean Chest: COMMONS NORMALS: normal inspection of the chest and normal palpation of entire chest wall CHEST: Yes Symmetrical chest wall rise Resp: COMMON NORMALS: normal respiratory effort, No retractions, No use of accessory muscles and clear to auscultation bilaterally EFFORT & INSPECTION: Yes symmetric chest movement AUSCULTATION: clear to auscultation bilaterally Cardio: COMMON NORMALS: regular rate, regular rhythm, S1 normal heart sound present, S2 normal heart sound present, No gallops present (Cardio), No murmurs present (Cardio), No rub (Cardio) and Peripheral pulses 2+ throughout RATE: regular rate RHYTHM: regular rhythm HEART SOUNDS: S1 normal heart sound present and S2 normal heart sound present PERIPHERAL PULSES: Peripheral pulses 2+ throughout GI: COMMON NORMALS: Normal to inspection, nondistended, normoactive bowel sounds present, Soft to palpation, non-tender, No hepatosplenomegaly present and no masses AUSCULTATION: Yes normoactive bowel sounds PALPATION: Yes Soft to palpation and Yes No hepatosplenomegaly present RECTAL EXAM: Yes deferred Extremity: COMMON NORMALS: no clubbing, cyanosis or edema and no pedal edema Neuro: COMMON NORMALS: patient oriented x3 Discharge Data Studies Completed and Pending Completed Studies During Hospitalization Category Date Time Status CT angio chest PE protcl [id number] Stat Cat Scan 04/22/21 11:[address] chest wo con [id number] Routine Cat Scan 05/03/21 07:37 Completed CXRP [XR chest 1V portable [id number]] AM LABS Exams 04/23/21 06:00 Completed XR chest 1V portable [id number] Routine Exams 05/03/21 21:00 Completed XR chest 1V portable [id number] Routine Exams 05/04/21 07:00 Completed XR chest 1V portable [id number] Routine Exams 05/04/21 11:00 Completed XR chest 1V portable [id number] Routine Exams 05/05/21 07:00 Completed XR chest 1V portable [id number] Routine Exams 05/05/21 16:00 Completed XR chest 1V portable [id number] Routine Exams 05/06/21 07:43 Completed XR chest 1V portable [id number] Routine Exams 05/07/21 15:14 Completed XR chest 1V portable [id number] Stat Exams 04/22/21 11:08 Completed XR chest 1V portable [id number] Stat Exams 05/01/21 09:56 Completed XR chest 1V portable [id number] Stat Exams 05/03/21 15:40 Completed Cytology [PTH] Routine Pth 05/03/21 11:43 Completed CV. echo limited [id number] Routine Ultrasound 04/22/21 Completed US thoracentesis [id number] Stat Ultrasound 05/03/21 15:00 Completed Pending at discharge Category Date Time Status Mycobacteria, Culture w/Fluor Routine Lab 05/03/21 15:26 Results Sputum Culture and Gram Stain Stat Lab 04/22/21 11:08 Uncollected Radiology Impressions Chest CTA 04/22/21 11:53 IMPRESSION: 1. Proximal main pulmonary arteries are normal. No evidence of pulmonary embolus. 2. Moderate RIGHT pleural effusion progressed compared to previous with compressive atelectasis RIGHT lower lobe. Tiny LEFT pleural effusion. 3. Hazy groundglass infiltrates compatible with Covid 19 pneumonia more prominent in the LEFT upper lobe and LEFT greater than RIGHT lower lobes. Developing consolidation LEFT lower lobe posteriorly. 4. Prior esophagectomy with gastric pull-through. Chest CT 05/03/21 07:37 IMPRESSION: 1. Moderate size RIGHT pleural effusion. 2. Compressive atelectasis most significant in the RIGHT lower lobe and LEFT lower lobes. LEFT lower lobe atelectasis has progressed since the most recent exam. Partial atelectasis RIGHT upper and RIGHT middle lobes. 3. Unchanged appearance of the gastric pull-through with wall thickening. 4. Tracheostomy. Thoracentesis Ultrasound 05/03/21 15:00 IMPRESSION: 1. Uncomplicated ultrasound-guided thoracentesis. 2. Portable radiograph pending. Chest X-Ray 05/07/21 15:14 IMPRESSION: Stable abnormal chest. Laboratory Results WBC 17.9 10^3/uL (4.0-10.0) H 05/08/21 04:57 RBC 3.96 10^6/uL (4.1-5.3) L 05/08/21 04:57 Hgb 12.1 g/dL (11.7-16.6) 05/08/21 04:57 Hct 39.0 % (42.0-52.0) L 05/08/21 04:57 MCV 98.5 fl (80-94) H 05/08/21 04:57 MCH 30.6 pg (28.0-34.0) 05/08/21 04:57 MCHC 31.0 g/dL (30.0-36.0) 05/08/21 04:57 RDW 15.3 % (12.1-15.1) H 05/08/21 04:57 Plt Count 155 10^3/cmm (130-400) 05/08/21 04:57 MPV 10.2 fL (7.4-10.4) 05/08/21 04:57 Neut % (Auto) 95.3 % 05/08/21 04:57 Lymph % (Auto) 0.4 % 05/08/21 04:57 [place] % (Auto) 3.4 % 05/08/21 04:57 Eos % (Auto) 0.0 % 05/08/21 04:57 Baso % (Auto) 0.1 % 05/08/21 04:57 Neut # (Auto) 17.01 10^3/uL (1.8-7.7) H 05/08/21 04:57 Lymph # (Auto) 0.1 10^3/uL (0.8-4.8) L 05/08/21 04:57 [place] # (Auto) 0.6 10^3/uL (0.2-0.9) 05/08/21 04:57 Eos # (Auto) 0.0 10^3/uL (0.0-0.8) 05/08/21 04:57 Baso # (Auto) 0.0 10^3/uL (0.0-0.1) 05/08/21 04:57 Nucleated RBC % (auto) 0 % 05/08/21 04:57 Nucleated RBCs # 0.0 /100WBC 05/08/21 04:57 Differential Comment Yes 05/03/21 15:26 PT 15.00 SECONDS (12.1-14.9) H 05/05/21 04:15 INR 1.14 (0.8-1.2) 05/05/21 04:15 D-Dimer 4.06 ug/mIFEU (0-0.59) H 04/22/21 11:00 Specimen Type Arterial 05/03/21 21:20 Sample Site Brachial, right 05/03/21 21:20 ABG pH 7.49 (7.35-7.45) H 05/03/21 21:20 ABG pCO2 33.1 mmHg (35-45) L 05/03/21 21:20 ABG pO2 66.8 mmHg (80.0-100.0) L 05/03/21 21:20 ABG HCO3 25.4 mmol/L (22-26) 05/03/21 21:20 ABG O2 Saturation 94.0 05/03/21 21:20 ABG Base Excess 2.6 mmol/L (-2.0-2.0) H 05/03/21 21:20 Jose Test N/a 05/03/21 21:20 A-a O2 Gradient 18.5 mmHg (5-10) H 05/03/21 21:20 Hematocrit 44.6 % (42-52) 05/03/21 21:20 Hgb O2 Saturation 92.6 % (95-100) L 05/03/21 21:20 Carboxyhemoglobin 0.8 %THgb (0.4-20.1) 05/03/21 21:20 Methemoglobin 0.7 % (0.4-1.5) 05/03/21 21:20 Total Hemoglobin 14.6 g/dL (14-18) 05/03/21 21:20 Sodium 134.0 mmol/L (131-143) 05/03/21 21:20 Potassium 3.8 mmol/L (3.5-5.0) 05/03/21 21:20 Glucose 163.0 mg/dL (70-115) H 05/03/21 21:20 Ionized Calcium 1.2 mmol/L (1.1-1.4) 05/03/21 21:20 O2 Delivery Device Hag 05/03/21 21:20 O2 Liters/Min 10.0 % 05/03/21 21:20 FiO2 35.0 % 05/03/21 21:20 Disability Insurance Hearing Officer ID Iggy 05/03/21 21:20 Sodium 130 mmol/L (136-145) L 05/08/21 04:57 Potassium 4.6 mmol/L (3.5-5.1) 05/08/21 04:57 Chloride 97 mmol/L (98-107) L 05/08/21 04:57 Carbon Dioxide 23 mmol/L (22-29) 05/08/21 04:57 Anion Gap 14.6 (5-19) 05/08/21 04:57 BUN 51 mg/dL (8-23) H 05/08/21 04:57 Creatinine 0.8 mg/dL (0.7-1.2) 05/08/21 04:57 GFR Calculation Not Reportable 05/08/21 04:57 Glucose 132 mg/dL (65-115) H 05/08/21 04:57 POC Glucose 125 mg/dL (70-110) H 04/25/21 07:43 Calculated Osmolality 286 mOsm/kg (285-295) 05/08/21 04:57 Lactic Acid 1.8 mmol/L (0.5-2.2) 04/22/21 11:00 Calcium 9.2 mg/dL (8.5-10.5) 05/08/21 04:57 Ionized Calcium Shefali 1.2 mmol/L (1.1-1.4) 04/29/21 08:08 Phosphorus 2.3 mg/dL (2.5-4.5) L 05/09/21 04:35 Magnesium 2.2 mg/dL (1.7-2.3) 05/09/21 04:35 Total Bilirubin 0.2 mg/dL (0.15-1.2) 05/08/21 04:57 AST 17 U/L (0-40) 05/08/21 04:57 ALT 24 U/L (0-41) 05/08/21 04:57 Alkaline Phosphatase 134 IU/L (40-130) H 05/08/21 04:57 C-Reactive Protein 23.0 mg/L (0.0-4.9) H 05/09/21 04:35 NT-Pro-B Natriuret Pep 1991 pg/mL (0-125) H 05/09/21 04:35 Total Protein 5.7 g/dL (6.6-8.7) L 05/08/21 04:57 Albumin 3.1 g/dL (3.5-5.2) L 05/08/21 04:57 Globulin 2.6 g/dL (1.3-4.6) 05/08/21 04:57 Procalcitonin 0.07 ng/mL (0-0.5) 05/09/21 04:35 Fluid Color Yellow 05/03/21 15:26 Fluid Appearance Clear 05/03/21 15:26 Fluid WBC 82 /uL 05/03/21 15:26 Fluid RBC 0 10^3/uL 05/03/21 15:26 Fluid Hematocrit 0.0 % 05/03/21 15:26 Fld Polynuclear WBCs # 0.027 05/03/21 15:26 Fld Polynuclear WBCs % 32.900 % 05/03/21 15:26 Fl Mononucl WBCs #(Auto) 0.055 05/03/21 15:26 Fl Mononuclear % Auto 67.100 % 05/03/21 15:26 Fluid Albumin 2.6 g/dL 05/03/21 15:26 Fluid Creatinine 0.94 (0.7-1.2) 05/03/21 15:26 Pleural pH 8.00 (6.5-7.5) H 05/03/21 15:26 Pleural Total Protein 4.1 g/dL 05/03/21 15:26 Pleural LDH 119 U/L 05/03/21 15:26 Pleural Glucose 184.0 mg/dL 05/03/21 15:26 Pleural Amylase 26.0 U/L 05/03/21 15:26 Pleural Triglycerides 11 mg/dL 05/03/21 15:26 Vancomycin Trough 19.6 ug/mL (10-15) H 04/24/21 04:18 Coronavirus 229E (PCR) Not detected (NOT DETECT) 04/22/21 11:24 SARS-CoV-2 (PCR) Detected (NOT DETECT) A 04/22/21 11:24 SARS-CoV-2 Ag (Rapid) Negative (Negative) 05/10/21 10:42 Vitals Last Vital Signs Temp 98.3 F 05/10/21 07:48 Pulse 82 05/10/21 08:34 Resp 18 05/10/21 08:20 BP 114/69 05/10/21 07:48 Pulse Ox 92 05/10/21 08:20 Discharge Plan Discharge Patient Disposition: Xfer SNF Condition: Stable Prescriptions: New Pacerone 200 mg Tablet 200 mg PO Q24H 30 Days Qty: 30 3RF Continued oxycodone 5 mg tablet 5 mg PO Q6H PRN (Reason: pain) 10 Days Qty: 60 0RF acetaminophen 500 mg capsule 1,000 mg PO Q6H PRN (Reason: Pain) 0RF Rx Instructions: 1 or 2 nitroglycerin 0.4 mg tablet, sublingual 0.4 mg sublingual Q5M PRN (Reason: chest pain) Qty: 50 6RF Rx Instructions: do not exceed 3 doses per episode atorvastatin 20 mg tablet 20 mg PO DAILY Qty: 90 6RF lorazepam 2 mg/mL concentrate 1 mg PO BID PRN (Reason: anxiety) Qty: 15 0RF Rx Instructions: Must administer through feeding tube. oxycodone 5 mg/5 mL solution 5 mg feeding tube Q3H PRN (Reason: Pain) 7 Days Qty: 250 0RF levothyroxine 175 mcg tablet 175 mcg PO QAM Qty: 90 1RF omeprazole 20 mg capsule,delayed release(DR/EC) 20 mg PO DAILY Qty: 90 1RF guaifenesin [Child Mucus Relief Expectorant] 100 mg/5 mL liquid 200 mg PO Q6H PRN (Reason: cough) Qty: 1500 0RF Opdivo 240 mg/24 mL Solution 240 mg IV Q14D 0RF Eliquis 5 mg tablet 2.5 mg PO BID@09,21 0RF Rx Instructions: 1/2 TAB IN THE MORNING AND 1/2 TAB IN THE EVENING Discharge Orders: Discharge Order (Routine); Ordered 05/10/21 Ordered By: Michoacano Bee Referrals: Randi Buchanan DO [Primary Care Provider] - 2 weeks Sheeba Lebron MD [Physician] - 1 month Discharge Activity: Increase activity as tolerated Patient Instructions: Amiodarone (By mouth) (Cordarone, Pacerone), Viral Pneumonia (DC), Spontaneous Pneumothorax (DC), ARDS (Acute Respiratory Distress Syndrome) (DC) Discharge Attestations Time Spent in Discharge Care*: greater than 30 min Status at Discharge: Cognitive status at discharge: cognitively intact, Behavioral status at discharge: cooperative, Quality Metrics Clinical Quality Measures [ No reported AMI, CVA or VTE this stay] Coding Level of Care Code Acute Chg FW DC note Diagnoses CHF (congestive heart failure) I50.9 Heart failure chronicity: chronic Heart failure type: unspecified Essential hypertension I10 Hypothyroid E03.9 Hypothyroidism type: acquired GERD (gastroesophageal reflux disease) K21.9 Esophageal adenocarcinoma C15.9 Pleural effusion, right J90 Pneumonia due to COVID-19 virus U07.1; J12.82 Immunotherapy Z29.8 COVID-19 U07.1 Chronic anticoagulation Z79.01 History of deep vein thrombosis Z86.718 Acute respiratory failure with hypoxia J96.01 Jejunostomy tube in situ Z93.4 Status post laryngectomy Z90.[address] Z93.0 Protein calorie malnutrition E46 Physical deconditioning R53.81 Recurrent right pleural effusion J90 Atrial fibrillation I48.91 Acute respiratory distress syndrome (ARDS) due to 2019-nCoV U07.1; J80 Pseudomonas pneumonia J15.1 Pneumothorax, right J93.9
--- NOTE | 2021-05-10 14:09 | PC.NURSE ---
Report called to Michelle CASTELLON at [facility]
--- NOTE | 2021-05-10 16:27 | PC.NURSE ---
pt left with EMS. [facility] notified.
== END 2021-05-10 16:25 | disposition skilled nursing facility (03) | DRG 177 ==
LOC: ER 12:53 → ICU 15:32 → CSU 04-25 19:33 → ICU 05-03 19:28 → MEDSURG 05-06 16:12
PROVIDERS: Family Medicine; Internal Medicine; Internal Medicine Pulmonary Disease; Admitting Provider Hospitalist; Emergency Provider Family Medicine; PCP Family Medicine; Visit Provider Internal Medicine
DX: U07.1 COVID-19 (principal); J12.82 Pneumonia due to coronavirus disease 2019; J15.1 Pneumonia due to Pseudomonas; J80 Acute respiratory distress syndrome; C15.9 Malignant neoplasm of esophagus, unspecified; C77.0 Secondary and unspecified malignant neoplasm of lymph nodes of head, face and neck; J90 Pleural effusion, not elsewhere classified; D84.9 Immunodeficiency, unspecified; J98.11 Atelectasis; I25.810 Atherosclerosis of coronary artery bypass graft(s) without angina pectoris; J93.9 Pneumothorax, unspecified; E46 Unspecified protein-calorie malnutrition; Z93.0 Tracheostomy status; Z90.02 Acquired absence of larynx; F41.9 Anxiety disorder, unspecified; Z95.5 Presence of coronary angioplasty implant and graft; I11.0 Hypertensive heart disease with heart failure; I50.9 Heart failure, unspecified; Z85.038 Personal history of other malignant neoplasm of large intestine; Z86.718 Personal history of other venous thrombosis and embolism; Z79.899 Other long term (current) drug therapy; Z92.3 Personal history of irradiation; Z93.4 Other artificial openings of gastrointestinal tract status; K21.9 Gastro-esophageal reflux disease without esophagitis; E78.5 Hyperlipidemia, unspecified; E03.9 Hypothyroidism, unspecified; I25.2 Old myocardial infarction; Z90.49 Acquired absence of other specified parts of digestive tract; Z95.828 Presence of other vascular implants and grafts; E87.6 Hypokalemia; I48.91 Unspecified atrial fibrillation; Z68.21 Body mass index [BMI] 21.0-21.9, adult; Z79.891 Long term (current) use of opiate analgesic; Z79.01 Long term (current) use of anticoagulants
CPT/HCPCS: 32555; 36415; 36416; 36591; 36592; 36600; 71045; 71250; 71275; 80048; 80051; 80053; 80202; 80500; 82042; 82150; 82330; 82570; 82803; 82805; 82945; 82962; 83605; 83615; 83735; 83880; 83986; 84100; 84145; 84157; 84478; 85014; 85025; 85378; 85610; 86140; 86403; 87015; 87040; 87070; 87075; 87077; 87116; 87186; 87205; 87206; 87426; 87449; 87635; 87641; 87801; 88305; 89050; 92523; 92526; 92610; 93005; 93308; 94640; 94664; 94799; 96365; 96367; 97110; 97116; 97161; 97165; 97530; 97535; 99285; J0282; J0692; J1100; J1940; J1956; J2543; J3370; J3475; J3480; J7050; J7608; Q9967

== ENCOUNTER → 2021-05-14 09:40 | Outpatient (BNVA) | payer MEDICARE, SELFPAY | PROVIDERS: PCP Family Medicine; Visit Provider Family Medicine | DX: R09.3 Abnormal sputum (principal); T81.89XA Other complications of procedures, not elsewhere classified, initial encounter | CPT/HCPCS: 87070; 87075; 87077; 87184; 87205 ==

== ENCOUNTER 2021-05-19 11:19 | Inpatient (IN) | payer MEDICARE, SELFPAY ==
[2021-05-19] VITALS (33 sets, daily range): BP systolic 76–122; BP diastolic 47–84; PULSE 80–110; RESP 14–38; TEMP 36.7–36.9; O2SAT 72–94; BMI 22.0
--- NOTE | 2021-05-19 11:24 | XRR_ITS ---
PROCEDURE INFORMATION: Exam: XR Chest Exam date and time: 05/19/2021 11:40 AM Age: 76 years old Clinical indication: Shortness of breath; Prior surgery; Additional info: SOB TECHNIQUE: Imaging protocol: XR of the chest. Views: 1 view. COMPARISON: CR XR chest 1V portable [id number] 05/07/2021 4:30 PM FINDINGS: Tubes, catheters and devices: A MediPort catheter is present with the tip projecting in the SVC. A tracheostomy tube projects in satisfactory position. Lungs: There are worsening prominent diffuse bilateral pulmonary infiltrates especially in the lung bases. There is moderate right pleural effusion and probably small left effusion. Pleural spaces: See Lungs finding. Heart/Mediastinum: Unremarkable. No cardiomegaly. Bones/joints: Unremarkable. XR/XR chest 1V portable [id number] IMPRESSION: Significant worsening diffuse bilateral pulmonary infiltrates with right pleural effusion.
--- NOTE | 2021-05-19 11:25 | ECG_ITS ---
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 Measurements Intervals [place] Rate: 104 P: 32 IN: 151 QRS: 52 QRSD: 106 T: -23 QT: 345 QTc: 456 Interpretive Statements SINUS TACHYCARDIA POSSIBLE ANTERIOR MYOCARDIAL INFARCTION , OF INDETERMINATE AGE [30 ms Q WAVE IN V3/V4, OR R < 0.2 mV IN V4] PROBABLE INFERIOR MYOCARDIAL INFARCTION , OF INDETERMINATE AGE [35 ms Q WAVE IN II/aVF] ST DEPRESSION, CONSIDER SUBENDOCARDIAL INJURY [0.1+ mV ST DEPRESSION] Compared to ECG 05/03/2021 11:35:28 ST (T wave) deviation now present Myocardial infarct finding still present Electronically Signed On 05-20-2021 9:01:16 CDT by Nolan Leon M.D. [id number]
--- NOTE | 2021-05-19 11:34 | W.ED.SOB ---
HPI - SOB/Dyspnea General: Chief Complaint: Shortness of Breath/Dyspnea Stated Complaint: SOB Time Seen by Provider: 05/19/21 11:19 Source: patient and EMS Mode of arrival: EMS Limitations: no limitations History of Present Illness: HPI Narrative: 76-year-old male who has a history of a tracheostomy from esophageal cancer he has had increasing shortness of breath care home per care home facility patient is currently on 15 L via trach collar here was hypoxic at care home patient is also had some low blood pressure get an x-ray on Thursday showed a pneumonia has been taking azithromycin.. Mr. Pryor states he has had increasing shortness of breath respiratory distress. Associated symptoms: Deny abdominal pain, chest pain, fever(s), nausea or vomiting Review of Systems Const: Denies: fever(s), chills, body aches or change in appetite Eyes: Denies: blurry vision or eye discomfort ENMT: Denies: throat pain or dental pain Card: Denies: chest pain Resp: Reports: dyspnea and productive cough GI: Denies: abdominal pain, nausea, vomiting or diarrhea : Denies: dysuria Musc: Denies: neck pain or back pain Skin/Breast: Denies: rash Neuro: Denies: headache(s) Psych: Denies: depression Marcus/Lymph: Denies: easy bruising All/Imm: Denies: urticaria PFSH ED PFSH: Medical History Acute respiratory distress syndrome (ARDS) due to 2019-nCoV Acute respiratory failure with hypoxia Anxiety Atrial fibrillation CAD (coronary artery disease) CHF (congestive heart failure) Chronic anticoagulation eliquis 2.5 bid for history of dvt Chronic anticoagulation Colon cancer COVID-19 DVT (deep venous thrombosis) (~02/2020) Esophageal adenocarcinoma -Follows with Dr Sorto, Dr Hayes and Dr Blanton did surgery -s/p chemoradiation with carboplatin/taxol -s/p esophagectomy, laryngectomy, trachostomy, gastric conduit reconstruction, j tube placement in 12/13 - Adenocarcinoma involving proximal esophageal margin, however status of final esophageal margin cannot be determined with certainty as several proximal esophageal specimen was submitted and they were not oriented. Adenocarcinoma involving circumferential margin. Distal gastric margin, negative for carcinoma. Metastatic adenocarcinoma involving 4 of 8 lymph nodes. Pathological stage yT3, N2, HER-2/cortez negative, MMR, equivocal expression, molecular testing for MSI show intact. -nivolumab started at 02/21/21 Esophageal stricture Essential hypertension Foot drop, left GERD (gastroesophageal reflux disease) History of deep vein thrombosis History of pancytopenia chemotherapy related History of stress test 11/29/20 - Large area of old myocardial infarction versus scarring noted in basal to distal inferior and basal to mid inferolateral wall without mario-infarct ischemia, no ekg changes noted Hyperlipidemia Hypothyroid Immunotherapy nivolumab - held 04/22/2021 due to pleural effusion until can eval further Jejunostomy tube in situ Nodule of spleen Old [place] (myocardial infarction) PEG tube malfunction Physical deconditioning Physical deconditioning Pleural effusion, right Pneumonia due to COVID-19 virus Pneumothorax, right Protein calorie malnutrition Pseudomonas pneumonia Pulmonary nodules Recurrent right pleural effusion Tracheostomy in place Surgical History H/O esophagogastroduodenoscopy 09/01/20; with dilation 07/02/20; with dilation History of appendectomy History of colon resection 2014 History of colonoscopy 2018 History of esophagectomy (~11/2020) [facility] History of jejunostomy tube placement 1st malfunctioned, replaced Feb 12 or Mar 16 History of tracheostomy (~11/2020) [facility] Hx of CABG (~1993) Port-A-Cath in place (08/15/20) Status post laryngectomy (~11/2020) [facility] Family History Father Aortic stenosis Other CAD (coronary artery disease) Social History Smoking and tobacco status: never smoked Alcohol intake: current Alcohol intake frequency: few times a month Alcohol type: beer Lives independently: No Household members: spouse and children Marital status: Additional social history: communicates by writing, mouthing words or using valve Physical Exam Const: COMMON NORMALS: patient oriented x3 GENERAL APPEARANCE: in distress and ill appearing HENMT: COMMON NORMALS: normocephalic and atraumatic HEAD & SCALP: normocephalic and atraumatic Eye: COMMON NORMALS: Equal, round and reactive pupils present and EOMs intact bilaterally PUPIL: Yes Equal, round and reactive pupils present Neck/C-Spine: COMMON NORMALS: full ROM and supple Chest: COMMONS NORMALS: normal inspection of the chest and normal palpation of entire chest wall Resp: COMMON NORMALS: No retractions and No use of accessory muscles EFFORT & INSPECTION: Yes tachypneic and Yes respiratory distress AUSCULTATION: rales Cardio: COMMON NORMALS: regular rate, regular rhythm and No murmurs present (Cardio) RATE: regular rate RHYTHM: regular rhythm GI: COMMON NORMALS: Normal to inspection, nondistended, normoactive bowel sounds present, Soft to palpation, non-tender and no masses PALPATION: Yes Soft to palpation Extremity: COMMON NORMALS: normal to inspection and full ROM Neuro: COMMON NORMALS: patient oriented x3, moves all extremities and no focal motor deficits Psych: COMMON NORMALS: mental status grossly normal, Normal thought process present and cooperative THOUGHT PROCESS: Normal thought process present Skin: COMMON NORMALS: no rashes or lesions noted and no wounds GENERAL SKIN EXAM: no rashes or lesions noted Course Vital Signs: Vital signs: Vital Signs Temperature 98.1 F 05/19/21 11:32 Pulse Rate 104 H 05/19/21 13:18 Respiratory Rate 26 H 05/19/21 13:18 Blood Pressure 96/71 05/19/21 13:18 Pulse Oximetry 81 L 05/19/21 13:18 MDM - SOB/Dyspnea Medical Decision Making I will presents here with cough shortness of breath from care home he does have a significant pneumonia causing hypoxia spoke to the hospitalist will admit to ICU patient started on IV antibiotics. Lab Data : 05/19/21 11:37 05/19/21 11:37 Labs/Radiology: Radiology Impressions Chest X-Ray 05/19/21 11:24 IMPRESSION: Significant worsening diffuse bilateral pulmonary infiltrates with right pleural effusion. Laboratory Results WBC 8.4 10^3/uL (4.0-10.0) 05/19/21 11:37 RBC 4.91 10^6/uL (4.1-5.3) 05/19/21 11:37 Hgb 16.1 g/dL (11.7-16.6) 05/19/21 11:37 Hct 45.8 % (42.0-52.0) 05/19/21 11:37 MCV 93.3 fl (80-94) 05/19/21 11:37 MCH 32.8 pg (28.0-34.0) 05/19/21 11:37 MCHC 35.2 g/dL (30.0-36.0) 05/19/21 11:37 RDW 11.7 % (12.1-15.1) L 05/19/21 11:37 Plt Count 246 10^3/cmm (130-400) 05/19/21 11:37 MPV 9.7 fL (7.4-10.4) 05/19/21 11:37 Neut % (Auto) 58.3 % 05/19/21 11:37 Lymph % (Auto) 29.2 % 05/19/21 11:37 Burt % (Auto) 7.9 % 05/19/21 11:37 Eos % (Auto) 3.4 % 05/19/21 11:37 Baso % (Auto) 0.7 % 05/19/21 11:37 Neut # (Auto) 4.91 10^3/uL (1.8-7.7) 05/19/21 11:37 Lymph # (Auto) 2.5 10^3/uL (0.8-4.8) 05/19/21 11:37 Burt # (Auto) 0.7 10^3/uL (0.2-0.9) 05/19/21 11:37 Eos # (Auto) 0.3 10^3/uL (0.0-0.8) 05/19/21 11:37 Baso # (Auto) 0.1 10^3/uL (0.0-0.1) 05/19/21 11:37 Nucleated RBC % (auto) 0 % 05/19/21 11:37 Nucleated RBCs # 0.0 /100WBC 05/19/21 11:37 PT 17.20 SECONDS (12.1-14.9) H 05/19/21 11:37 INR 1.37 (0.8-1.2) H 05/19/21 11:37 Specimen Type Arterial 05/19/21 11:38 Sample Site Radial, left 05/19/21 11:38 ABG pH 7.50 (7.35-7.45) H 05/19/21 11:38 ABG pCO2 32.4 mmHg (35-45) L 05/19/21 11:38 ABG pO2 45.3 mmHg (80.0-100.0) L 05/19/21 11:38 ABG HCO3 25.0 mmol/L (22-26) 05/19/21 11:38 ABG Base Excess 2.0 mmol/L (-2.0-2.0) 05/19/21 11:38 Jose Test Pos 05/19/21 11:38 Hematocrit 30.6 % (42-52) L 05/19/21 11:38 O2 Delivery Device Hag 05/19/21 11:38 FiO2 100.0 % 05/19/21 11:38 Fretted Instrument Inspector ID Cak 05/19/21 11:38 Sodium 126 mmol/L (136-145) L 05/19/21 11:37 Potassium 4.7 mmol/L (3.5-5.1) 05/19/21 11:37 Chloride 92 mmol/L (98-107) L 05/19/21 11:37 Carbon Dioxide 24 mmol/L (22-29) 05/19/21 11:37 Anion Gap 14.7 (5-19) 05/19/21 11:37 BUN 28 mg/dL (8-23) H 05/19/21 11:37 Creatinine 1.0 mg/dL (0.7-1.2) 05/19/21 11:37 GFR Calculation Not Reportable 05/19/21 11:37 Glucose 131 mg/dL (65-115) H 05/19/21 11:37 Calculated Osmolality 269 mOsm/kg (285-295) L 05/19/21 11:37 Lactate 3.5 mmol/L (0.5-2.2) H 05/19/21 11:37 Calcium 8.9 mg/dL (8.5-10.5) 05/19/21 11:37 Magnesium 1.8 mg/dL (1.7-2.3) 05/19/21 11:37 Total Bilirubin 0.2 mg/dL (0.15-1.2) 05/19/21 11:37 AST 36 U/L (0-40) 05/19/21 11:37 ALT 51 U/L (0-41) H 05/19/21 11:37 Alkaline Phosphatase 177 IU/L (40-130) H 05/19/21 11:37 NT-Pro-B Natriuret Pep 2796 pg/mL (0-125) H 05/19/21 11:37 Total Protein 5.7 g/dL (6.6-8.7) L 05/19/21 11:37 Albumin 2.3 g/dL (3.5-5.2) L 05/19/21 11:37 Globulin 3.4 g/dL (1.3-4.6) 05/19/21 11:37 EKG Data EKG 1: I personally reviewed and interpreted this EKG as follows: EKG Interpretation Date: 05/19/21 EKG interpretation time: 11:46 Interpretation: sinus tach hr [address] or t wave abnormalities qrs 106 qtc 406 Discharge Plan Discharge Patient Disposition: Admitted As Inpatient Clinical Impression: Respiratory failure with hypoxia Pneumonia Qualifiers: Pneumonia type: due to unspecified organism Laterality: bilateral Lung location: unspecified part of lung Qualified Code(s): J18.9 - Pneumonia, unspecified organism Condition: Stable Coding Level of Care Code ED Multiple Spindle Router Operator for Chg Fwd Exam Comprehensive
[2021-05-19 11:50] LABS: ABG PCO2 32.4 mmHg (35-45); Arterial Blood Gas Hematocrit 30.6 % (42-52); Blood Gas Allen Test Pos; Blood Gas Operator Identificat CAK; Blood Gas Sample Site Radial, left; Blood Gas Sample Type Arterial; Oxygen Device HAG; PO2 ABG 45.3 mmHg (80.0-100.0)
[2021-05-19 11:55] LABS: Basophils # 0.1 10^3/uL (0.0-0.1); Basophils % 0.7 %; Eosinophils # 0.3 10^3/uL (0.0-0.8); Eosinophils % 3.4 %; Hematocrit 45.8 % (42.0-52.0); Hemoglobin 16.1 g/dL (11.7-16.6); Lymphocytes # 2.5 10^3/uL (0.8-4.8); Lymphocytes % 29.2 %; Mean Corpuscular HGB Conc 35.2 g/dL (30.0-36.0); Mean Corpuscular Hemoglobin 32.8 pg (28.0-34.0); Mean Corpuscular Volume 93.3 fl (80-94); Mean Platelet Volume 9.7 fL (7.4-10.4); Monocytes # 0.7 10^3/uL (0.2-0.9); Monocytes % 7.9 %; Neutrophils # 4.91 10^3/uL (1.8-7.7); Neutrophils % 58.3 %; Nucleated Red Blood Cells % 0 %; Platelet Count 246 10^3/cmm (130-400); Red Blood Count 4.91 10^6/uL (4.1-5.3); Red Cell Distribution Width 11.7 % (12.1-15.1); White Blood Count 8.4 10^3/uL (4.0-10.0)
[2021-05-19] MEDS: sodium chloride 0.9% 1,000 ML 999 ML IV ×3 (11:56→16:06)
[2021-05-19] MEDS: vancomycin 1,000 MG in sodium chloride 0.9% 250 ML 250 MG IV (12:03)
[2021-05-19 12:07] LABS: INR 1.37 (0.8-1.2)
[2021-05-19 12:15] LABS: Lactate (Lactic Acid level) 3.5 mmol/L (0.5-2.2)
[2021-05-19 12:23] LABS: Alanine Aminotransferase 51 U/L (0-41); Albumin Level 2.3 g/dL (3.5-5.2); Alkaline Phosphatase 177 IU/L (40-130); Anion Gap 14.7 (5-19); Aspartate Amino Transferase 36 U/L (0-40); Blood Urea Nitrogen 28 mg/dL (8-23); Calcium 8.9 mg/dL (8.5-10.5); Carbon Dioxide 24 mmol/L (22-29); Chloride 92 mmol/L (98-107); Globulin 3.4 g/dL (1.3-4.6); Glucose 131 mg/dL (65-115); Magnesium 1.8 mg/dL (1.7-2.3); NT Pro B Type Natriuretic Pept 2796 pg/mL (0-125); Osmolality Calculated 269 mOsm/kg (285-295); Potassium 4.7 mmol/L (3.5-5.1); Sodium 126 mmol/L (136-145); Total Bilirubin 0.2 mg/dL (0.15-1.2); Total Protein 5.7 g/dL (6.6-8.7)
[2021-05-19] MEDS: piperacillin-tazobactam 3.375 GM in sodium chloride 0.9% (plus) 50 ML IV ×2 (12:39→20:02)
--- NOTE | 2021-05-19 12:45 | PC.NURSE ---
Had sx in november, went home & contracted covid in Mar, hospitalized & then dc'd to SNF. Had flu vaccine & no covid vaccine.
[2021-05-19] MEDS: ipratropium-albuterol 3 mL Neb INHALATION (13:29)
--- NOTE | 2021-05-19 17:08 | PM.HP ---
Providers/Chief Complaint Admitting Physician: Brittnee Garcia MD Primary Care Provider: Randi Buchanan DO Chief Complaint: SOB History of Present Illness Moustapha Nunes is a 76 year old male (Patient has a somewhat complex history and that he has known esophageal adenocarcinoma.? He had undergone chemoradiation and then in November had esophagectomy, laryngectomy and tracheostomy placement along with gastric conduit reconstruction.? He has a J-tube that was replaced in February of this year.? He takes small amounts by mouth and the rest via overnight feeding for 12 hours via his tube) who was recently discharged from the hospital after management of pneumothorax, right-sided pleural effusion, A. fib RVR, COVID-19 pneumonia was discharged on 05/10 to a intermediate on room air.(Family stating that he was on 5 L) his sputum was positive for Pseudomonas he responded well to antibiotics, status post thoracentesis 1 L removal which was consistent with parapneumonic effusion, is presented today for worsening of hypoxia and shortness of breath. In the ER he was diagnosed with pneumonia, he was given broad-spectrum antibiotics. He is saturating 80 to 82% 100% FiO2, I have consulted ENT surgeon to put a cuffed trach so we can use BiPAP or use ventilator if needed. I have requested bacterial antigens, procalcitonin, added hospital-acquired pneumonia treatment regimen. Given 1 dose of IV Lasix. Family stating that at intermediate his symptoms never improved, he was requiring 5 L of oxygen, they are not sure if he spiked fever however he was getting Tylenol, he was experiencing increased secretions from his trach, shortness of breath was worsening and today decided to come to the hospital for further evaluation. Goals of care discussed in ICU in front of his family and the nurse, patient is stating that he wants DNR/DNI He was saturating 80 to 82% on 10 L 100% FiO2, asked RT to use heated high flow before usage of BiPAP Review of Systems Const: Reports: chills and malaise Eyes: Denies: change in vision ENMT: Reports: throat pain Card: Denies: chest pain Resp: Reports: dyspnea GI: Denies: abdominal pain : Denies: flank pain Musc: Reports: back pain Skin/Breast: Reports: lesions Psych: Reports: anxiety Endo: Denies: polyuria Marcus/Lymph: Denies: easy bruising All/Imm: Denies: urticaria Medications/Allergies Home Medications Medication Instructions Recorded Confirmed Last Taken Type guaifenesin 100 mg/5 mL oral 200 mg (10 mL) PO Q6H PRN #1500 ml 01/07/21 05/19/21 04/21/21 Rx liquid (Child Mucus Relief Expectorant) omeprazole 20 mg capsule,delayed 20 mg PO DAILY #90 cap 03/21/21 05/19/21 05/19/21 Rx release nitroglycerin 0.4 mg sublingual 0.4 mg SUBLINGUAL Q5M PRN #50 tab 04/01/21 05/19/21 Unknown Rx tablet atorvastatin 20 mg tablet 20 mg PO DAILY #90 tab 04/02/21 05/19/21 05/18/21 Rx apixaban 5 mg tablet (Eliquis) 2.5 mg PO BID@04/22/21 05/19/21 05/19/21 History amiodarone 200 mg tablet (Pacerone) 200 mg PO Q24H 30 Days #30 tab 05/10/21 05/19/21 05/19/21 Rx Lactobacillus acidophilus 1,000 mmu cells PO BID 05/19/21 05/19/21 05/18/21 History (Acidophilus) acetaminophen 325 mg tablet 650 mg PO QID PRN 05/19/21 05/19/21 Unknown History bisacodyl 10 mg rectal suppository 10 mg MA DAILY PRN 05/19/21 05/19/21 Unknown History food supplemt, lactose-reduced 1 ea PO BID 05/19/21 05/19/21 05/19/21 History (Ensure) levothyroxine 100 mcg tablet 100 mcg PO DAILY 05/19/21 05/19/21 05/18/21 History levothyroxine 88 mcg tablet 88 mcg PO DAILY 05/19/21 05/19/21 05/18/21 History lorazepam 1 mg tablet 1 mg PO Q12H PRN 05/19/21 05/19/21 Unknown History magnesium hydroxide 400 mg/5 mL 30 ml PO DAILY PRN 05/19/21 05/19/21 Unknown History oral suspension (Milk of Magnesia) oxycodone 5 mg tablet 5 mg PO Q3H PRN 05/19/21 05/19/21 Unknown History sodium phosphates 19 gram-7 118 ml MA DAILY PRN 05/19/21 05/19/21 Unknown History gram/118 mL enema (Enema) sulfamethoxazole 800 1 tab PO Q12H 05/19/21 05/19/21 05/19/21 History mg-trimethoprim 160 mg tablet (Bactrim DS) Allergies Allergy/AdvReac Type Severity Reaction Status Date / Time No Known Allergies Allergy Verified 04/22/21 11:19 PFSH Acute PFSH: Medical History Acute respiratory distress syndrome (ARDS) due to 2019-nCoV Acute respiratory failure with hypoxia Anxiety Atrial fibrillation CAD (coronary artery disease) CHF (congestive heart failure) Chronic anticoagulation eliquis 2.5 bid for history of dvt Chronic anticoagulation Colon cancer COVID-19 DVT (deep venous thrombosis) (~02/2020) Esophageal adenocarcinoma -Follows with Dr Sorto, Dr Haeys and Dr Blanton did surgery -s/p chemoradiation with carboplatin/taxol -s/p esophagectomy, laryngectomy, trachostomy, gastric conduit reconstruction, j tube placement in 12/13 - Adenocarcinoma involving proximal esophageal margin, however status of final esophageal margin cannot be determined with certainty as several proximal esophageal specimen was submitted and they were not oriented. Adenocarcinoma involving circumferential margin. Distal gastric margin, negative for carcinoma. Metastatic adenocarcinoma involving 4 of 8 lymph nodes. Pathological stage yT3, N2, HER-2/cortez negative, MMR, equivocal expression, molecular testing for MSI show intact. -nivolumab started at 02/21/21 Esophageal stricture Essential hypertension Foot drop, left GERD (gastroesophageal reflux disease) History of deep vein thrombosis History of pancytopenia chemotherapy related History of stress test 11/29/20 - Large area of old myocardial infarction versus scarring noted in basal to distal inferior and basal to mid inferolateral wall without mario-infarct ischemia, no ekg changes noted Hyperlipidemia Hypothyroid Immunotherapy nivolumab - held 04/22/2021 due to pleural effusion until can eval further Jejunostomy tube in situ Nodule of spleen Old [place] (myocardial infarction) PEG tube malfunction Physical deconditioning Physical deconditioning Pleural effusion, right Pneumonia due to COVID-19 virus Pneumothorax, right Protein calorie malnutrition Pseudomonas pneumonia Pulmonary nodules Recurrent right pleural effusion Tracheostomy in place Surgical History H/O esophagogastroduodenoscopy 09/01/20; with dilation 07/02/20; with dilation History of appendectomy History of colon resection 2014 History of colonoscopy 2019 History of esophagectomy (~11/2020) [facility] History of jejunostomy tube placement 1st malfunctioned, replaced Feb 12 or Mar 16 History of tracheostomy (~11/2020) [facility] Hx of CABG (~1993) Port-A-Cath in place (08/15/20) Status post laryngectomy (~11/2020) [facility] Family History Father Aortic stenosis Other CAD (coronary artery disease) Social History Smoking and tobacco status: never smoked Alcohol intake: current Alcohol intake frequency: few times a month Alcohol type: beer Lives independently: No Household members: spouse and children Marital status: Additional social history: communicates by writing, mouthing words or using valve Vitals/I&O/Wt Last Vital Signs Temp 98.3 F 05/19/21 16:15 Pulse 97 05/19/21 16:15 Resp 35 H 05/19/21 16:15 BP 108/69 05/19/21 15:15 Pulse Ox 80 L 05/19/21 16:15 05/19/21 05/19/21 05/19/21 06:59 14:59 22:59 Intake Total 2082.55 / 2082.55 Balance 2082.55 / 2082.55 Weight last 48 hrs Weight 65.771 kg Physical Exam Narrative: Elderly male Looks dehydrated No signs of hypervolemia Currently saturating 82% on 10 L 100% oxygen Family at the bedside Is able to communicate via writing Able to understand our commands Diminished breath sounds bilaterally with crackles Abdomen is soft No signs of edema of legs His breathing is labored Data : 05/19/21 11:37 05/19/21 11:37 A&P Assessment and plan (1) Hospital-acquired pneumonia: Status: Acute (2) Hypoxia: Status: Acute (3) Weight loss, non-intentional: Status: Acute (4) Leaking PEG tube: Status: Acute (5) DNR (do not resuscitate): Status: Acute Plan Acute on chronic hypoxic respiratory failure Patient cannot finish sentences without signs of labored breathing Related to hospital-acquired pneumonia No active signs of sepsis His lactic acid is related to hypoxia No leukocytosis, afebrile Start broad-spectrum antibiotics with antipseudomonal coverage Obtain MRSA PCR Superimposed bacterial infection with recent COVID-19 viral pneumonia Currently requiring 100% oxygen, Asked RT to switch to heated high flow, ENT consulted, Dr. Ordonez at the bedside DuoNeb IV steroids Patient is DNR/DNI, okay with use of BiPAP, family at the bedside Concern for worsening of pleural effusion, obtain CT chest after replacement of trach tube Obtain D-dimer, procalcitonin, Start Jevity at lower rate 70 to 75 mL/h, there has been some leakage around the PEG tube as well which is chronic Add water flushes Continue Eliquis which she has been using for A. fib and DVT Patient is DNR/DNI Tube feeds Family at the bedside Hyponatremia, previous sodium level seems to be normal, clinically showing signs of dehydration My concern is related to pleural effusion recurrence, trial of Lasix if blood pressure allows A. fib RVR heart rate below 110, use amiodarone for now Case discussed with ENT, RT, ICU nurse & the family Attestations Medical Necessity Statement*: More than 2 midnights anticipated Time Spent in Patient Care: 45mins Critical Care Time: 30min Coding Level of Care Code Acute Director Of Student Services for Chg Fwd Diagnoses Hospital-acquired pneumonia J18.9; Y95 Hypoxia R09.02 Weight loss, non-intentional R63.4 Leaking PEG tube K94.23 DNR (do not resuscitate) Z66
[2021-05-19 17:35] LABS: D Dimer 3.59 ug/mIFEU (0-0.59)
[2021-05-19 17:51] LABS: Procalcitonin 0.28 ng/mL (0-0.5)
--- NOTE | 2021-05-19 18:14 | PC.NURSE ---
Admission note Patient transferred from ER via [facility] with portable monitoring by ER nurse Randi RONQUILLO. Patient is unstable with labored breathing, SOB, on 100% oxygen trach collar oxygen saturation 80% Port accessed right chest. PEG tube in left abd. Patient too unstable for full skin assessment. reports wounds to patients buttocks. Hospitalist notified of patients conditions. ENT consult placed for cuffed trach placement for bipap.
--- NOTE | 2021-05-19 18:20 | XRR_ITS ---
PROCEDURE INFORMATION: Exam: XR Chest Exam date and time: 05/19/2021 7:58 PM Age: 76 years old Clinical indication: Device placement; Tracheostomy placement or adjustment; Additional info: Confirm trach tube placement TECHNIQUE: Imaging protocol: XR of the chest. Views: 1 view. COMPARISON: CR (CHEST, ) 05/19/2021 11:40 AM FINDINGS: Tubes, catheters and devices: Tracheostomy tube. Right-sided Port-A-Cath. Lungs: Interstitial edema. Patchy bilateral ground-glass airspace opacities reflecting alveolar edema and/or pneumonic infiltrates. Pleural spaces: Small bilateral pleural effusions. Heart/Mediastinum: Cardiomegaly. Bones/joints: Sternotomy wires. XR/XR chest 1V portable [id number] IMPRESSION: 1. Patchy bilateral ground-glass airspace opacities reflecting alveolar edema and/or pneumonic infiltrates, similar to prior exam. 2. Cardiomegaly. 3. Interstitial edema. 4. Small bilateral pleural effusions.
--- NOTE | 2021-05-19 18:22 | PM.CONSULT ---
Providers/Reason For Consult Consulting Physician/Specialty*: Dr. Nadir Hickman MD Otolaryngology, Head & Neck Surgery Reason for Consult*: Hypoxia Requesting Physician: Dr. 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 I was consulted to find a replacement for his uncuffed laryngectomy tube to help improve his oxygenation. The patient is o/w without c/o. Review of Systems General: Reports: 10 or more systems reviewed and unremarkable except in HPI and below Medications/Allergies Home Medications Medication Instructions Recorded Confirmed Last Taken Type guaifenesin 100 mg/5 mL oral 200 mg (10 mL) PO Q6H PRN #1500 ml 01/07/21 05/19/21 04/21/21 Rx liquid (Child Mucus Relief Expectorant) omeprazole 20 mg capsule,delayed 20 mg PO DAILY #90 cap 03/21/21 05/19/21 05/19/21 Rx release nitroglycerin 0.4 mg sublingual 0.4 mg SUBLINGUAL Q5M PRN #50 tab 04/01/21 05/19/21 Unknown Rx tablet atorvastatin 20 mg tablet 20 mg PO DAILY #90 tab 04/02/21 05/19/21 05/18/21 Rx apixaban 5 mg tablet (Eliquis) 2.5 mg PO BID@09,21 04/22/21 05/19/21 05/19/21 History amiodarone 200 mg tablet (Pacerone) 200 mg PO Q24H 30 Days #30 tab 05/10/21 05/19/21 05/19/21 Rx Lactobacillus acidophilus 1,000 mmu cells PO BID 05/19/21 05/19/21 05/18/21 History (Acidophilus) acetaminophen 325 mg tablet 650 mg PO QID PRN 05/19/21 05/19/21 Unknown History bisacodyl 10 mg rectal suppository 10 mg CA DAILY PRN 05/19/21 05/19/21 Unknown History food supplemt, lactose-reduced 1 ea PO BID 05/19/21 05/19/21 05/19/21 History (Ensure) levothyroxine 100 mcg tablet 100 mcg PO DAILY 05/19/21 05/19/21 05/18/21 History levothyroxine 88 mcg tablet 88 mcg PO DAILY 05/19/21 05/19/21 05/18/21 History lorazepam 1 mg tablet 1 mg PO Q12H PRN 05/19/21 05/19/21 Unknown History magnesium hydroxide 400 mg/5 mL 30 ml PO DAILY PRN 05/19/21 05/19/21 Unknown History oral suspension (Milk of Magnesia) oxycodone 5 mg tablet 5 mg PO Q3H PRN 05/19/21 05/19/21 Unknown History sodium phosphates 19 gram-7 118 ml CA DAILY PRN 05/19/21 05/19/21 Unknown History gram/118 mL enema (Enema) sulfamethoxazole 800 1 tab PO Q12H 05/19/21 05/19/21 05/19/21 History mg-trimethoprim 160 mg tablet (Bactrim DS) Allergies Allergy/AdvReac Type Severity Reaction Status Date / Time No Known Allergies Allergy Verified 04/22/21 11:19 PFSH Acute PFSH: Medical History Acute respiratory distress syndrome (ARDS) due to 2019-nCoV Acute respiratory failure with hypoxia Anxiety Atrial fibrillation CAD (coronary artery disease) CHF (congestive heart failure) Chronic anticoagulation eliquis 2.5 bid for history of dvt Chronic anticoagulation Colon cancer COVID-19 DVT (deep venous thrombosis) (~02/2020) Esophageal adenocarcinoma -Follows with Dr Sorto, Dr Hayes and Dr Blanton did surgery -s/p chemoradiation with carboplatin/taxol -s/p esophagectomy, laryngectomy, trachostomy, gastric conduit reconstruction, j tube placement in 12/13 - Adenocarcinoma involving proximal esophageal margin, however status of final esophageal margin cannot be determined with certainty as several proximal esophageal specimen was submitted and they were not oriented. Adenocarcinoma involving circumferential margin. Distal gastric margin, negative for carcinoma. Metastatic adenocarcinoma involving 4 of 8 lymph nodes. Pathological stage yT3, N2, HER-2/cortez negative, MMR, equivocal expression, molecular testing for MSI show intact. -nivolumab started at 02/21/21 Esophageal stricture Essential hypertension Foot drop, left GERD (gastroesophageal reflux disease) History of deep vein thrombosis History of pancytopenia chemotherapy related History of stress test 11/29/20 - Large area of old myocardial infarction versus scarring noted in basal to distal inferior and basal to mid inferolateral wall without mario-infarct ischemia, no ekg changes noted Hyperlipidemia Hypothyroid Immunotherapy nivolumab - held 04/22/2021 due to pleural effusion until can eval further Jejunostomy tube in situ Nodule of spleen Old VT (myocardial infarction) PEG tube malfunction Physical deconditioning Physical deconditioning Pleural effusion, right Pneumonia due to COVID-19 virus Pneumothorax, right Protein calorie malnutrition Pseudomonas pneumonia Pulmonary nodules Recurrent right pleural effusion Tracheostomy in place Surgical History H/O esophagogastroduodenoscopy 09/01/20; with dilation 07/02/20; with dilation History of appendectomy History of colon resection 2014 History of colonoscopy 2018 History of esophagectomy (~11/2020) [facility] History of jejunostomy tube placement 1st malfunctioned, replaced Feb 12 or Mar 16 History of tracheostomy (~11/2020) [facility] Hx of CABG (~1993) Port-A-Cath in place (08/15/20) Status post laryngectomy (~11/2020) [facility] Family History Father Aortic stenosis Other CAD (coronary artery disease) Social History Smoking and tobacco status: never smoked Alcohol intake: current Alcohol intake frequency: few times a month Alcohol type: beer Lives independently: No Household members: spouse and children Marital status: Additional social history: communicates by writing, mouthing words or using valve Vitals/I&O/Wt Last Vital Signs Temp 98.3 F 05/19/21 16:15 Pulse 95 05/19/21 18:00 Resp 37 H 05/19/21 18:00 BP 95/61 05/19/21 18:00 Pulse Ox 79 L 05/19/21 18:00 05/19/21 05/19/21 05/19/21 06:59 14:59 22:59 Intake Total 2082.55 / 2082.55 Output Total 200 / 200 Balance 2082.55 / 2082.55 -200 / 1882.55 Weight last 48 hrs Weight 65.771 kg Physical Exam Const: COMMON NORMALS: patient oriented x3 HENMT: COMMON NORMALS: normocephalic and atraumatic HEAD & SCALP: normocephalic and atraumatic FACE & SINUS: normal facial exam Neck/C-Spine: COMMON NORMALS: no lymphadenopathy and supple GENERAL: Yes other (The patient is s/p total laryngectomy - well healed. ) Resp: COMMON NORMALS: clear to auscultation bilaterally EFFORT & INSPECTION: Yes tachypneic AUSCULTATION: clear to auscultation bilaterally Neuro: COMMON NORMALS: patient oriented x3 Data : 05/19/21 11:37 05/19/21 11:37 A&P Assessment and plan (1) Respiratory failure with hypoxia: Impression: S/P total laryngectomy with respiratory failure with hypoxia and an uncuffed laryngectomy tube Plan: - The patient's laryngectomy tube was replaced with an adjustable cuffed tracheotomy tube - We will obtain a Chest X Ray to confirm placement - O/W as per Dr. Garcia - Please contact me for any recurrent problems Status: Acute Consult Attestations Medical Necessity Statement: I was consulted to help manage the patient's airway/trach tube. Procedures Procedure Narrative Procedure: The patient's laryngectomy tube was changed out for an adjustable #7 tracheotomy tube without difficulty Coding Level of Care Code Acute Buggy Ladle Tender for Silvia Zamarripa Diagnoses Respiratory failure with hypoxia J96.91
--- NOTE | 2021-05-19 18:34 | PC.NURSE ---
Rounding with Dr. Garcia. Verbal orders for jackson catheter placement. Hold tube feed until chest CT and trach placement. Start at 10ml/hr.
[2021-05-19] MEDS: FUROsemide 10 mg/mL SDV 4mL 40 MG IVP (18:42)
--- NOTE | 2021-05-19 18:42 | CTR_ITS ---
PROCEDURE INFORMATION: Exam: CTA Chest With Contrast Exam date and time: 05/19/2021 8:55 PM Age: 76 years old Clinical indication: Shortness of breath; Prior surgery; Surgery date: 6+ months; Surgery type: Port, trach, cabg; Patient HX: HX of esophageal CA - hypoxic; Additional info: Hypoxia TECHNIQUE: Imaging protocol: Computed tomographic angiography of the chest with contrast. 3D rendering (Not supervised by radiologist): MIP and/or 3D reconstructed images were created by the technologist. Radiation optimization: All CT scans at this facility use at least one of these dose optimization techniques: automated exposure control; mA and/or kV adjustment per patient size (includes targeted exams where dose is matched to clinical indication); or iterative reconstruction. Contrast material: OMNI 350; Contrast volume: 72 ml; Contrast route: INTRAVENOUS (IV); COMPARISON: CT angio chest PE protcl [id number] 04/22/2021 12:19 PM RADIATION DOSE METRICS: Total DLP (mGy-cm): 549.97 FINDINGS: Tubes, catheters and devices: Tracheostomy tube. Pulmonary arteries: Normal. No pulmonary emboli. Aorta: Unremarkable. No aortic aneurysm. No aortic dissection. Lungs: Bilateral airspace infiltrates. Pleural spaces: Large right and small to moderate left pleural effusion. Heart: Cardiomegaly. Lymph nodes: Unremarkable. No enlarged lymph nodes. Kidneys and ureters: Right kidney cyst, negative for follow-up advised. Bones/joints: Sternotomy wires. Soft tissues: Poorly defined diffuse esophageal wall thickening suspected likely reflecting provided history of esophageal cancer. CT/CT angio chest PE protcl [id number] IMPRESSION: 1. Negative for pulmonary embolus. 2. Tracheostomy tube. 3. Large right and small to moderate left pleural effusion. 4. Cardiomegaly. 5. Sternotomy wires. 6. Right kidney cyst, negative for follow-up advised. 7. Bilateral airspace infiltrates. 8. Poorly defined diffuse esophageal wall thickening suspected likely reflecting provided history of esophageal cancer.
[2021-05-19] MEDS: amiodarone 200 mg Tablet PO (18:43)
[2021-05-19] MEDS: hydrocortisone 100 mg/2 mL SDV IVP (20:08)
[2021-05-19] MEDS: oxyCODONE 5 mg IR Tab/Cap PO (20:10)
[2021-05-19] MEDS: cefepime 1,000 MG in sodium chloride 0.9% (plus) 50 ML 100 MG IV (20:10)
[2021-05-19] MEDS: apixaban 5 mg Tablet 2.5 MG PO (20:30)
[2021-05-19] MEDS: iohexol 350 mg/mL 100 mL Btl IV (21:00)
[2021-05-19] MEDS: LORazepam 2 mg/mL INJ 1 mL IVP (21:27)
[2021-05-20] VITALS (59 sets, daily range): BP systolic 82–132; BP diastolic 52–94; PULSE 80–121; RESP 15–38; TEMP 36.3–37.1; O2SAT 86–96
[2021-05-20] MEDS: oxyCODONE 5 mg IR Tab/Cap PO (04:15)
[2021-05-20] MEDS: piperacillin-tazobactam 3.375 GM in sodium chloride 0.9% (plus) 50 ML IV ×3 (04:16→21:12)
[2021-05-20 04:27] LABS: ABG PCO2 36.7 mmHg (35-45); ABG PH Result 7.47 (7.35-7.45); Arterial Blood Gas Hematocrit 28.9 % (42-52); Base Excess ABG 2.7 mmol/L (-2.0-2.0); Blood Gas Allen Test Pos; Blood Gas Sample Site Radial, right; Blood Gas Sample Type Arterial; HCO3 ABG 26.5 mmol/L (22-26); Oxygen Device NC; PO2 ABG 60.4 mmHg (80.0-100.0)
[2021-05-20 04:55] LABS: Basophils % 0.1 %; Eosinophils % 0.1 %; Hematocrit 29.5 % (42.0-52.0); Hemoglobin 9.6 g/dL (11.7-16.6); Lymphocytes # 0.1 10^3/uL (0.8-4.8); Lymphocytes % 0.6 %; Mean Corpuscular HGB Conc 32.5 g/dL (30.0-36.0); Mean Corpuscular Hemoglobin 30.6 pg (28.0-34.0); Mean Corpuscular Volume 93.9 fl (80-94); Mean Platelet Volume 10.3 fL (7.4-10.4); Monocytes # 0.3 10^3/uL (0.2-0.9); Neutrophils # 12.99 10^3/uL (1.8-7.7); Neutrophils % 96.5 %; Nucleated Red Blood Cells % 0 %; Platelet Count 116 10^3/cmm (130-400); Red Blood Count 3.14 10^6/uL (4.1-5.3); Red Cell Distribution Width 15.7 % (12.1-15.1); White Blood Count 13.5 10^3/uL (4.0-10.0)
[2021-05-20 05:14] LABS: Anion Gap 17.1 (5-19); Blood Urea Nitrogen 26 mg/dL (8-23); C Reactive Protein 290.4 mg/L (0.0-4.9); Calcium 8.8 mg/dL (8.5-10.5); Carbon Dioxide 24 mmol/L (22-29); Chloride 92 mmol/L (98-107); Glucose 124 mg/dL (65-115); Magnesium 1.8 mg/dL (1.7-2.3); Osmolality Calculated 274 mOsm/kg (285-295); Potassium 4.1 mmol/L (3.5-5.1); Sodium 129 mmol/L (136-145)
[2021-05-20] MEDS: ipratropium-albuterol 3 mL Neb INHALATION ×5 (07:50→23:29)
[2021-05-20] MEDS: LORazepam 2 mg/mL INJ 1 mL IVP ×4 (08:08→23:31)
[2021-05-20] MEDS: levothyroxine 88 mcg Tablet PO (08:10)
[2021-05-20] MEDS: pantoprazole DR 40 mg Tablet PO (08:11)
[2021-05-20] MEDS: levothyroxine 100 mcg Tablet PO (08:11)
[2021-05-20] MEDS: cefepime 1,000 MG in sodium chloride 0.9% (plus) 50 ML 100 MG IV ×2 (08:11→21:12)
[2021-05-20] MEDS: vancomycin 1,000 MG in sodium chloride 0.9% 250 ML 250 MG IV (08:11)
[2021-05-20 08:32] LABS: Cortisol Random 29.22 ug/dL (2.47-19.5)
[2021-05-20 09:13] LABS: Lactate (Lactic Acid level) 0.9 mmol/L (0.5-2.2)
--- NOTE | 2021-05-20 10:42 | PC.CHAP ---
Pastoral Care Encounter/Spiritual Assessment Type of Contact [] Declined collections representative visit [] Patient/Family/Request visit [] Outpatient visit [] Follow-up visit [] Physician referral [] Code/Alert [x] Routine visit [] Staff referral [] Actively dying [] Patient sleeping [] Family support [] [] Out of room [] Palliative care [] [] Receiving care in room [] Pre-surgical visit [] Trauma [] Long length of stay [x] ICU visit [x] Other: track Relational/Emotional Strength [] Patient feels connected with others/family/visitors/staff [] Distress [] Loneliness/isolation [] Abandonment Spirituality of Patient [] Person of Ana Luisa [] Attends Uatsdin of their Ana Luisa [] Believes in Prayer [] Reads Bible or Orthodoxy materials [] There are Spiritual issues to be addressed Service Station Operator Interventions [x] Prayer [] Active listening [] Non-anxious presence [] Spiritual/emotional support [] Crisis/trauma care [] Spiritual counseling [] Bereavement support [] Provided bereavement packet [] Provided Bible/devotional materials [] Provided toy/stuffed animal, coloring book to patient or family member [] Provided Communion [] Anointing/Chandler [] Salvation [x] Completed spiritual assessment [] Other: Impact on Illness or Injury [] Angry [] Fearful [] Anxious [] Often cries [] Exhaustion [] Unable to work [] Unable to attend sabianist [] Unable to walk/stand [] Unable to read [] Unable to drive [] Unable to eat/drink [] Unable to sleep [] Unable to be with family [] Patient intubated [] Other: Summary Time spent with patient
--- NOTE | 2021-05-20 11:09 | PC.NUTR ---
Consult for TF received. If TF is for 12 hours, recommend Jevity 1.2 starting at 10 mls/hr, advancing 10 mls/hr as tolerated to goal rate of 100 mls/hr with flushes 100 mls Q4H or per MD discretion. If TF is for 24 hours, recommend same protocol with goal rate of 60 mls/hr with flushes 100 mls Q4H or per MD discretion. Details in RD assessment.
--- NOTE | 2021-05-20 13:06 | P.PN_ITS ---
Subjective Subjective: ABG reviewed No overnight events Currently on heated high flow 50 L 100% Tube feeds to be initiated Afebrile Vitals/I&O/Wt Last Vital Signs Temp 98.2 F 05/20/21 06:00 Pulse 98 05/20/21 12:30 Resp 31 H 05/20/21 12:30 BP 88/61 05/20/21 12:30 Pulse Ox 89 L 05/20/21 12:30 05/19/21 05/20/21 05/20/21 22:59 06:59 14:59 Intake Total 50 / 2132.55 50 / 2182.55 120 / 120 Output Total 1800 / 1800 900 / 2700 Balance -1750 / 332.55 -850 / -517.45 120 / 120 Weight last 48 hrs Weight 65.771 kg Physical Exam Narrative: Fatigued, lethargic, malnourished Dehydrated Patient is currently on heated high flow trach collar Using his respiratory sensory muscles Adjustable cuffed trach PEG tube without any signs of drainage or acute infection or cellulitis No signs of edema of legs Weber catheter draining concentrated urine Back was not examined Patient is able to follow commands, able to write his concerns on the paper Urinary Catheter Management: Weber: Cath Placed During This Visit: yes Reason for Continuing Indwelling Catheter: Accurate Measurement of Urinary Output in Critically Ill Patients Urinary Catheter Date of Insertion: 05/19/21 Urinary Catheter Time of Insertion: 22:00 Data : 05/20/21 03:50 05/20/21 03:50 Micro: Microbiology 05/19/21 18:30 Gram Stain - Final Sputum - Endotracheal Wash 05/19/21 19:15 Blood Culture - Preliminary Blood SPECIMEN COLLECTED 05/19/21 19:18 Blood Culture - Preliminary Blood SPECIMEN COLLECTED A&P Assessment and plan (1) DNR (do not resuscitate): Status: Acute (2) Hypoxia: Status: Acute (3) Hospital-acquired pneumonia: Status: Acute (4) Pneumonia: Status: Acute Qualifiers: Laterality: bilateral Lung location: unspecified part of lung Pneumonia type: due to unspecified organism Qualified Code(s): J18.9 - Pneumonia, unspecified organism (5) Respiratory failure with hypoxia: Status: Acute (6) Weight loss, non-intentional: Status: Acute Plan Hyponatremia related to dehydration We will do gentle hydration today Start tube feeds Hospital-acquired pneumonia Previous sputum culture positive for Pseudomonas Currently on broad-spectrum antibiotics with double pseudomonal coverage Acute on chronic hypoxia with respiratory failure Patient is DNR/DNI Currently on heated high flow 100% 50 L Adjustable cuffed trach placed by Dr. Ordonez appreciate his recommendations and assistance in taking care of the patient Bilateral pleural effusion right greater than left Held Eliquis today, after 48 hours will do another thoracentesis Repeat lactic acid which was secondary to increased work of breathing and hypo emir No active signs of sepsis His leukocytosis trended up because of the steroids that were given yesterday because of low blood pressure, cranial cortisol level is normal Gentle fluid hydration today DNR/DNI A. fib RVR, continue p.o. amiodarone He can be transferred out of ICU if ICU bed is needed Attestations Medical Necessity Statement*: Continue ICU management Time Spent in Patient Care: 20mins Coding Level of Care Code Acute Remote Sensing Analyst for Chg Fwd Diagnoses DNR (do not resuscitate) Z66 Hypoxia R09.02 Hospital-acquired pneumonia J18.9; Y95 Pneumonia J18.9 Laterality: bilateral Lung location: unspecified part of lung Pneumonia type: due to unspecified organism Respiratory failure with hypoxia J96.91 Weight loss, non-intentional R63.4
[2021-05-20] MEDS: sodium chloride 0.9% 1,000 ML 75 ML IV (13:42)
[2021-05-20] MEDS: guaiFENesin 100 mg/5 mL UDC 10 mL 400 MG PO ×2 (14:12→18:33)
[2021-05-20] MEDS: acetylcysteine 200 mg/mL SDV 4 mL 100 MG INHALATION ×3 (15:08→23:29)
[2021-05-20] MEDS: amiodarone 200 mg Tablet PO (18:33)
--- NOTE | 2021-05-20 19:30 | PC.NURSE ---
Pt. laying in bed with high flow nasal cannula in place connected to trach. Pt. is very weak and short of breath. Pt. will mouth needs or write on paper what needs are. No needs identified at this time. Pt. has refused to be turned via pillows. He has agreed to allow me to turn him by tilting the beds to distribute the pressure.
[2021-05-21] VITALS (28 sets, daily range): BP systolic 80–100; BP diastolic 48–69; PULSE 94–111; RESP 24–36; TEMP 35.9–36.7; O2SAT 82–93
--- NOTE | 2021-05-21 00:43 | PC.NURSE ---
Pt. is complaining of generalized pain and cannot get comfortable. Have given PRN medications that are available. Called Dr. Camarena and updated and recieved iv morphine orders.
[2021-05-21] MEDS: morphine 4 mg/mL SDV 1 mL 2 MG IVP ×3 (01:12→09:55)
[2021-05-21] MEDS: vancomycin 1,000 MG in sodium chloride 0.9% 250 ML 250 MG IV (01:20)
[2021-05-21] MEDS: acetylcysteine 200 mg/mL SDV 4 mL 100 MG INHALATION ×2 (03:25→07:44)
[2021-05-21] MEDS: ipratropium-albuterol 3 mL Neb INHALATION ×2 (03:25→07:45)
[2021-05-21] MEDS: LORazepam 2 mg/mL INJ 1 mL IVP ×2 (03:32→10:43)
[2021-05-21] MEDS: sodium chloride 0.9% 1,000 ML 75 ML IV (03:43)
[2021-05-21] MEDS: piperacillin-tazobactam 3.375 GM in sodium chloride 0.9% (plus) 50 ML IV (04:19)
[2021-05-21 04:31] LABS: Basophils % 0.1 %; Eosinophils % 0.2 %; Hematocrit 28.6 % (42.0-52.0); Hemoglobin 9.1 g/dL (11.7-16.6); Lymphocytes # 0.1 10^3/uL (0.8-4.8); Lymphocytes % 0.6 %; Mean Corpuscular HGB Conc 31.8 g/dL (30.0-36.0); Mean Corpuscular Hemoglobin 30.3 pg (28.0-34.0); Mean Corpuscular Volume 95.3 fl (80-94); Mean Platelet Volume 10.4 fL (7.4-10.4); Monocytes # 0.2 10^3/uL (0.2-0.9); Monocytes % 1.8 %; Neutrophils # 11.91 10^3/uL (1.8-7.7); Neutrophils % 96.7 %; Nucleated Red Blood Cells % 0 %; Platelet Count 110 10^3/cmm (130-400); Red Cell Distribution Width 15.6 % (12.1-15.1); White Blood Count 12.3 10^3/uL (4.0-10.0)
[2021-05-21 04:59] LABS: Anion Gap 15.2 (5-19); Blood Urea Nitrogen 27 mg/dL (8-23); Calcium 8.5 mg/dL (8.5-10.5); Carbon Dioxide 23 mmol/L (22-29); Chloride 97 mmol/L (98-107); Glucose 91 mg/dL (65-115); Osmolality Calculated 277 mOsm/kg (285-295); Potassium 4.2 mmol/L (3.5-5.1); Sodium 131 mmol/L (136-145)
--- NOTE | 2021-05-21 06:23 | XR_ITS ---
WS: [id number] Exam: XR chest 1V portable [id number] Date/Time of Exam: 05/21/2021 6:36 AM Reason For Exam: hypoxia Comparison 05/19/2021. Extensive bilateral pulmonary infiltrates showing little change since prior study. Increasing right-s ided loculated pleural fluid collection noted. A tracheostomy tube is in place appearing be in satisf actory position. Right-sided port appears to end in the lower one third of the SVC. No pneumothorax. Bibasal pleural effusions are seen. Cardiomediastinal contours appear grossly normal. Signs of median sternotomy. Monitoring leads superimpose the chest. XR/XR chest 1V portable [id number] IMPRESSION: 1. Extensive interstitial and airspace infiltrates throughout both lungs showin g little change. 2. Increasing loculated pleural fluid collection along the lateral margin of th e right lung. Bibasal pleural effusions.
--- NOTE | 2021-05-21 06:40 | PC.NURSE ---
Called Dr. Nettles and informed of continued low blood pressure, low o2 saturation, high respiratory rate, and labored breathing. Recieved orders.
[2021-05-21] MEDS: dexmedeTOMIDine 0.9 % NaCL 400 MCG/100 ML PREMIX IV (07:06)
[2021-05-21] MEDS: guaiFENesin 100 mg/5 mL UDC 10 mL 400 MG PO (07:27)
[2021-05-21] MEDS: cefepime 1,000 MG in sodium chloride 0.9% (plus) 50 ML 100 MG IV (07:27)
[2021-05-21 07:28] LABS: Lactate Dehydrogenase 152 U/L (135-225)
[2021-05-21] MEDS: pantoprazole DR 40 mg Tablet PO (09:08)
[2021-05-21] MEDS: levothyroxine 100 mcg Tablet PO (09:08)
[2021-05-21] MEDS: levothyroxine 88 mcg Tablet PO (09:08)
--- NOTE | 2021-05-21 11:24 | PM.DDS ---
Discharge Providers DDS Date of Admission: 05/19/21 16:08 Date Summary Completed: 05/21/21 Attending Provider at Admission: Brittnee Garcia MD Time of : 10:56 Attending Provider at Discharge: Brittnee Garcia MD Primary Care Provider: Randi Buchanan DO DS Diagnoses Hospital Diagnoses (1) DNR (do not resuscitate): (2) Hypoxia: (3) Hospital-acquired pneumonia: (4) Pneumonia: Qualifiers: Laterality: bilateral Lung location: unspecified part of lung Pneumonia type: due to unspecified organism Qualified Code(s): J18.9 - Pneumonia, unspecified organism (5) Respiratory failure with hypoxia: (6) Weight loss, non-intentional: Reason for Visit Reason for Visit SOB Summary Date and Time of Date of : 05/21/21 Time of : 10:56 Summary Summary: Please see my admitting note Moustapha Nunes is a 76 year old male?(Patient has a somewhat complex history and that he has known esophageal adenocarcinoma.? He had undergone chemoradiation and then in November had esophagectomy, laryngectomy and tracheostomy placement along with gastric conduit reconstruction.? He has a J-tube that was replaced in February of this year.? He takes small amounts by mouth and the rest via overnight feeding for 12 hours via his tube) who was recently discharged from the hospital after management of pneumothorax, right-sided pleural effusion, A. fib RVR, COVID-19 pneumonia was discharged on 05/10 to a shelter on room air.(Family stating that he was on 5 L) his sputum was positive for Pseudomonas he responded well to antibiotics, status post thoracentesis 1 L removal which was consistent with parapneumonic effusion, is presented today for worsening of hypoxia and shortness of breath.? In the ER he was diagnosed with pneumonia, he was given broad-spectrum antibiotics.? He is saturating 80 to 82% 100% FiO2, I have consulted ENT surgeon to put a cuffed trach so we can use BiPAP or use ventilator if needed.? I have requested bacterial antigens, procalcitonin, added hospital-acquired pneumonia treatment regimen.? Given 1 dose of IV Lasix. Family stating that at shelter his symptoms never improved, he was requiring 5 L of oxygen, they are not sure if he spiked fever however he was getting Tylenol, he was experiencing increased secretions from his trach, shortness of breath was worsening and today decided to come to the hospital for further evaluation. Goals of care discussed in ICU in front of his family and the nurse, patient is stating that he wants DNR/DNI He was saturating 80 to 82% on 10 L 100% FiO2, asked RT to use heated high flow before usage of BiPAP Hospital course Patient was admitted for management of acute on chronic hypoxic respiratory failure related to hospital-acquired pneumonia after recent COVID-19 infection, he was requiring 100% oxygen via heated high flow which kept his O2 saturation between 85 to 88% ENT Dr. Ordonez was consulted who replaced uncuffed trach with adjustable cuffed trach, unfortunately his oxygen requirement did not improve, 1 goals of care discussed with the family and the patient he decided to make himself DNR/DNI, he had capacity to make decision for himself, he was communicating via writing, at the bedside his and son and [id number] present. He was kept on broad-spectrum antibiotics. When x-ray was repeated in ICU for worsening of his breathing status, it showed worsening of bilateral pleural effusion right greater than left, I requested right-sided thoracentesis, he was extremely lethargic, fatigued and obtunded, tube feeds continued for only about 24 hours that need to be held because of his worsening respiratory status. Eliquis was also held for anticipated thoracentesis. IV discussed goals of care with family on 05/21, patient himself told his family that he should be made comfort care. Unfortunately he on 1055 In family meeting , [id number], son were present ICU nurse, RT were present during family meeting as well Additional Data Advance directives?: No Discharge Plan Discharge Patient Disposition: At Medical Facility Condition: Stable Prescriptions: No Action nitroglycerin 0.4 mg tablet, sublingual 0.4 mg sublingual Q5M PRN (Reason: chest pain) Qty: 50 6RF Rx Instructions: do not exceed 3 doses per episode atorvastatin 20 mg tablet 20 mg PO DAILY Qty: 90 6RF omeprazole 20 mg capsule,delayed release(DR/EC) 20 mg PO DAILY Qty: 90 1RF guaifenesin [Child Mucus Relief Expectorant] 100 mg/5 mL liquid 200 mg PO Q6H PRN (Reason: cough) Qty: 1500 0RF Eliquis 5 mg tablet 2.5 mg PO BID@09,21 0RF amiodarone [Pacerone] 200 mg Tablet 200 mg PO Q24H 30 Days Qty: 30 3RF acetaminophen 325 mg Tablet 650 mg PO QID PRN (Reason: Pain) 0RF Bactrim DS 800-160 mg Tablet 1 tab PO Q12H 0RF levothyroxine 100 mcg Tablet 100 mcg PO DAILY 0RF Rx Instructions: Take one tablet with 88 mcg tablet once daily levothyroxine 88 mcg Tablet 88 mcg PO DAILY 0RF Rx Instructions: Take one tablet with 100 mcg tablet daily Milk of Magnesia 400 mg/5 mL Suspension 30 ml PO DAILY PRN (Reason: Constipation) 0RF bisacodyl 10 mg Suppository 10 mg OR DAILY PRN (Reason: Constipation) 0RF Enema 19-7 gram/118 mL Enema 118 ml OR DAILY PRN (Reason: Constipation) 0RF lorazepam 1 mg Tablet 1 mg PO Q12H PRN (Reason: Anxiety) 0RF Rx Instructions: x 14 days Acidophilus Capsule 1,000 mmu cells PO BID 0RF Ensure Liquid 1 ea PO BID 0RF oxycodone 5 mg tablet 5 mg PO Q3H PRN (Reason: pain) 0RF Referrals: Randi Buchanan DO [Primary Care Provider] - Patient Instructions: Opioid Safety Probable Cause of Probable cause of : Cardiac arrest DS Attestations Time Spent in /Discharge Care*: less than 30 min Quality - AMI: AMI present?: No Quality - Stroke: CVA present?: No Quality - VTE: VTE present?: No Deep Vein Thrombosis/Pulmonary Embolism Present on Admission: No Coding Level of Care Code Acute Toy Consultant for Chg Fwd Diagnoses DNR (do not resuscitate) Z66 Hypoxia R09.02 Hospital-acquired pneumonia J18.9; Y95 Pneumonia J18.9 Laterality: bilateral Lung location: unspecified part of lung Pneumonia type: due to unspecified organism Respiratory failure with hypoxia J96.91 Weight loss, non-intentional R63.4
--- NOTE | 2021-05-21 12:44 | PC.ADMIT ---
[email or web address] [address] Admission Note: The patient,Moustapha Nunes,76 y/o, was given written information regarding hospital policies, unit procedures and contact persons. Patient's smoking status: never smoked. Vital Signs - 8 hr 05/21/21 05:00 05/21/21 05:02 05/21/21 05:26 Temperature Pulse Rate 106 H 105 H Pulse Rate [Current] Respiratory Rate 36 H 35 H Respiratory Rate [Current] Blood Pressure 84/60 Pulse Oximetry 88 L Pulse Oximetry [Current] 05/21/21 05:30 05/21/21 06:00 05/21/21 06:30 Temperature Pulse Rate 97 106 H 105 H Pulse Rate [Current] Respiratory Rate 26 H 30 H 25 H Respiratory Rate [Current] Blood Pressure 87/59 83/63 82/48 Pulse Oximetry 93 87 L 89 L Pulse Oximetry [Current] 05/21/21 07:00 05/21/21 07:30 05/21/21 07:57 Temperature 96.7 F L Pulse Rate 107 H 108 H 107 H Pulse Rate [Current] 107 H Respiratory Rate 29 H 33 H Respiratory Rate [Current] 32 H Blood Pressure 95/63 100/66 Pulse Oximetry 86 L 85 L Pulse Oximetry [Current] 86 L 05/21/21 08:00 05/21/21 08:30 05/21/21 09:00 Temperature Pulse Rate 108 H 108 H 111 H Pulse Rate [Current] Respiratory Rate 33 H 35 H 34 H Respiratory Rate [Current] Blood Pressure 92/62 96/62 87/65 Pulse Oximetry 85 L 85 L 83 L Pulse Oximetry [Current] 05/21/21 09:30 05/21/21 09:46 05/21/21 09:55 Temperature Pulse Rate 109 H Pulse Rate [Current] 109 H Respiratory Rate 35 H 30 H Respiratory Rate [Current] 36 H Blood Pressure Pulse Oximetry 83 L 82 L Pulse Oximetry [Current] 85 L 05/21/21 10:00 Temperature Pulse Rate 111 H Pulse Rate [Current] Respiratory Rate 32 H Respiratory Rate [Current] Blood Pressure 86/56 Pulse Oximetry 84 L Pulse Oximetry [Current]
--- NOTE | 2021-05-21 12:46 | PC.NURSE ---
Pt was made comfort care with family at bedside. PRN medications given per orders. Pt at 1056 with family at bedside and they took all belongings. [facility]aving [facility] [place] nurse [place] [facility] [place].
== END 2021-05-21 10:56 | disposition expired | DRG 193 ==
LOC: ER 13:46 → ICU 15:48
PROVIDERS: Admitting Provider Internal Medicine; Emergency Provider Emergency Medicine; PCP Family Medicine; Visit Provider Internal Medicine
DX: J18.9 Pneumonia, unspecified organism (principal); J96.91 Respiratory failure, unspecified with hypoxia; C15.9 Malignant neoplasm of esophagus, unspecified; E87.1 Hypo-osmolality and hyponatremia; Z66 Do not resuscitate; R63.4 Abnormal weight loss; Z93.0 Tracheostomy status; Z92.21 Personal history of antineoplastic chemotherapy; Z86.718 Personal history of other venous thrombosis and embolism; Z79.01 Long term (current) use of anticoagulants; Z85.038 Personal history of other malignant neoplasm of large intestine; I48.91 Unspecified atrial fibrillation; Z86.16 Personal history of COVID-19; E86.0 Dehydration
CPT/HCPCS: 12345; 36415; 36591; 36600; 51702; 71045; 71275; 80048; 80053; 82533; 82803; 83605; 83615; 83735; 83880; 84145; 85025; 85378; 85610; 86140; 86403; 87040; 87070; 87077; 87186; 87205; 87449; 87641; 93005; 94640; 96365; 96367; 99285; J0692; J1720; J1940; J2060; J2270; J2543; J3370; J7030; J7050; J7608; Q9967